=== PATIENT | female | born 1940 | race Caucasian/White ===

== ENCOUNTER 2023-01-09 11:42 | Outpatient (OUT) | payer MEDICARE, OTHER, SELFPAY ==
--- NOTE | 2023-01-09 11:59 | CA_ITS ---
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1940 Requested By: ALMA ROSA REYNOSO Order Number: [id number] Reading MD: ALMA ROSA REYNOSO Interpretive Statements Predominant rhythm is sinus with average rate of 58 bpm Tachycardia - max rate of 155 bpm - 8 episodes of SVT w/ longest episode of 7 beats Atrial fibrillation - 11% total - longest episode of 36min 13sec Bradycardia - 50% total - min rate of 40 bpm Ventricular ectopy - none Patient triggered events: none Impression: Predominant rhythm is sinus with average rate of 58 bpm Episodes of atrial fibrillation: 11% total Fastest rate of 155 bpm and slowest rate of 40 bpm No pauses or blocks Electronically Signed On 02-03-2023 7:26:17 EDT by ALMA ROSA REYNOSO
== END 2023-01-09 11:43 ==
LOC: CARD 11:46
PROVIDERS: PCP Internal Medicine; Visit Provider Internal Medicine
DX: R00.1 Bradycardia, unspecified (principal)
CPT/HCPCS: 93242

== ENCOUNTER 2023-01-26 10:37 | Emergency (ER) | payer MEDICARE, OTHER, SELFPAY ==
[2023-01-26 10:48] VITALS: BP 192/62; PULSE 61; RESP 17; O2SAT 98
[2023-01-26 10:49] VITALS: BP 192/62; PULSE 56; RESP 20; TEMP 36.6; O2SAT 96; BMI 28.3
[2023-01-26 10:58] VITALS: BP 170/72; PULSE 52; RESP 13; O2SAT 98
--- NOTE | 2023-01-26 11:04 | ECG_ITS ---
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
--- NOTE | 2023-01-26 11:04 | XR_ITS ---
The [address] [address] Patient Name: CHRISTA PITTS MRN: [id number] date: 1940 Sex: F Assigned Patient Location: ER Current Patient Location: Accession/Order Number: [id number] Exam Date: 01/26/2023 11:12 Report Date: 01/26/2023 11:32 At the request of: LELO ALCOCER Procedure: XR chest 1V EXAM: XR chest 1V HISTORY: Shortness of breath and history of a pleural effusion. COMPARISON: Chest radiograph dated 12/24/2022. TECHNIQUE: AP erect portable chest radiograph performed. FINDINGS: Stable tracheal and bronchial calcification and stable convexity of the trachea to the right secondary to the aortic arch. Although partially obscured on the right, the cardiomediastinal silhouette is incidentally changed from the previous examination. There is stable atheromatous calcification at the aortic arch. There are numerous calcifications at the right hilum There is stable volume loss within the right chest. There is a larger, moderate right pleural effusion with associated compressive atelectasis which extends along the lateral margin of the right chest and into the minor fissure. The pulmonary vasculature is mildly prominent however remains sharp and not significantly congested. The left lung rubin are clear. There is no pneumothorax. The bony structures are osteopenic. No acute osseous abnormality is seen. IMPRESSION: There is stable volume loss within the right chest. There is a larger, moderate right pleural effusion with associated compressive atelectasis which extends along the lateral margin of the right chest and into the minor fissure. The pulmonary vasculature is mildly prominent however remains sharp and not significantly congested. The left lung rubin are clear. Electronically authenticated by: KAILYN MCCLAIN Date: 01/26/2023 11:32
--- NOTE | 2023-01-26 11:06 | ED.SOB1 ---
HPI - SOB/Dyspnea General Chief Complaint: Shortness of Breath/Dyspnea Stated Complaint: shortness of breath Time Seen by Provider: 01/26/23 10:57 Source: patient Mode of arrival: walk-in History of Present Illness HPI Narrative: 82-year-old female presents for shortness of breath. She is worried she has reaccumulation of her right pleural effusion. She had have a liter drained previously. She had some swelling in her feet last night but that's gone away after she elevated them during the night. No fever or cough. Symptom is worse with exertion. Related Data Home Medications Medication Instructions Recorded Confirmed amlodipine 10 mg tablet 10 mg PO DAILY 01/26/23 01/26/23 carvedilol 12.5 mg tablet 12.5 mg PO Q12H 01/26/23 01/26/23 omeprazole 40 mg capsule,delayed 40 mg PO DAILY 01/26/23 01/26/23 release Allergies Allergy/AdvReac Type Severity Reaction Status Date / Time No Known Drug Allergies Allergy Verified 01/26/23 10:48 Review of Systems ROS Narrative A ten point review of systems is negative except as noted above. Exam Narrative Exam Narrative: Nurses note and vital signs reviewed and patient is not hypoxic. General: The patient appears well and in no apparent distress. Patient is resting comfortably on cart, Sitting upright. Skin: Warm, dry, no pallor noted. There is no rash noted. Head: Normocephalic, atraumatic Eye: Normal conjunctiva, no drainage Ears, Nose, Mouth, and Throat: oral mucosa is moist. Nares patent. Cardiovascular: Regular Rate and Rhythm Respiratory: Patient is in no distress, no accessory muscle use, Breath sounds are slightly diminished on the right Back: non-tender, no CVA tenderness bilaterally to percussion. GI: no tenderness to palpation, no masses appreciated. No rebound, guarding, or rigidity noted. Musculoskeletal: The patient has no evidence of calf tenderness, no pitting edema, symmetrical pulses noted bilaterally Neurological: A&O x4, normal speech Psychiatric: Cooperative Constitutional Vital Signs - 24 hr 01/26/23 10:49 01/26/23 10:48 01/26/23 10:58 Temperature 97.9 F Pulse Rate 61 52 L Pulse Rate [Monitor] 56 L Respiratory Rate 20 17 13 Blood Pressure 192/62 H 170/72 H Blood Pressure [Right Arm] 192/62 H Pulse Oximetry 96 98 98 Oxygen Delivery Method Room Air Course Vital Signs Vital signs: Vital Signs Pulse Rate 61 01/26/23 10:48 Respiratory Rate 17 01/26/23 10:48 Blood Pressure 192/62 H 01/26/23 10:48 Pulse Oximetry 98 01/26/23 10:48 Temperature 97.9 F 01/26/23 10:49 Pulse Rate 52 L 01/26/23 10:58 Respiratory Rate 13 01/26/23 10:58 Blood Pressure 170/72 H 01/26/23 10:58 Pulse Oximetry 98 01/26/23 10:58 Oxygen Delivery Method Room Air 01/26/23 10:49 MDM - SOB/Dyspnea MDM Narrative Medical decision making narrative: The patient has recurrence of right pleural effusion. It's moderate and vital signs are normal. She doesn't require admission the hospital. Case discussed with Dr. Simpson and follow-up is arranged. She will likely need to have thoracentesis performed as an outpatient and this was discussed with her. Treatment diagnosis and follow-up were discussed with the patient and her . Differential Diagnosis Differential diagnosis: Likely congestive heart failure, community acquired pneumonia and other (Recurrent pleural effusion) Lab Data Attestation: I reviewed the patient's lab results. Labs: Lab Results 01/26/23 Range/Units 11:00 WBC 6.7 (4.0-11.0) 10^3/uL RBC 2.92 L (4.20-5.40) 10^6/uL Hgb 8.7 L (12.0-16.0) g/dL Hct 28.1 L (36.0-48.0) % MCV 96.2 (81.0-99.0) fL MCH 29.8 (26.7-34.0) pg MCHC 31.0 (29.9-35.2) g/dL RDW 22.1 H (11.0-15.0) % Plt Count 255 (150-450) 10^3/uL MPV 13.3 (9.5-13.5) fL Neut % (Auto) 60.3 (43.0-75.0) % Lymph % (Auto) 22.8 (20.5-60.0) % [place] % (Auto) 7.4 (1.7-12.0) % Eos % (Auto) 6.0 (0.9-7.0) % Baso % (Auto) 2.8 H (0.2-2.0) % Neut # (Auto) 4.1 (1.4-6.5) 10^3/uL Lymph # (Auto) 1.5 (1.2-3.8) 10^3/uL [place] # (Auto) 0.5 (0.3-0.8) 10^3/uL Eos # (Auto) 0.4 (0.0-0.7) 10^3/uL Baso # (Auto) 0.2 H (0.0-0.1) 10^3/uL Abs Immat Gran (auto) 0.05 H (0.00-0.03) 10^3/uL Imm/Tot Granulo (auto) 0.7 H (0.0-0.5) % Sodium 139 (136-145) mmol/L Potassium 5.6 H (3.5-5.1) mmol/L Chloride 106 (98-107) mmol/L Carbon Dioxide 26.0 (21.0-32.0) mmol/L Anion Gap 12.6 BUN 17.0 (7.0-18.0) mg/dL Creatinine 1.22 H (0.55-1.02) mg/dL Est GFR ( Amer) 51 L (>=60) Est GFR (Non-Af Amer) 42 L (>=60) BUN/Creatinine Ratio 13.9 Glucose 103 (74-106) mg/dL Calcium 8.6 (8.5-10.1) mg/dL Troponin I High Sens 9.6 (4.0-51.3) pg/mL Imaging Data Chest x-ray: Radiologist's impression: Moderate right-sided pleural effusion ECG Data Attestation: I personally reviewed and interpreted this ECG as follows: (EKG on my interpretation shows sinus bradycardia with rate of forty-eight) Discharge Plan Discharge Chief Complaint: Shortness of Breath/Dyspnea Clinical Impression: Pleural effusion Patient Disposition: Home, Self-Care Time of Disposition Decision: 12:54 Mode of Transportation: Private Vehicle Prescriptions / Home Meds: No Action omeprazole 40 mg capsule,delayed release(DR/EC) 40 mg PO DAILY carvedilol 12.5 mg tablet 12.5 mg PO Q12H amlodipine 10 mg tablet 10 mg PO DAILY Instructions: Dyspnea (ED) Stand Alone Forms: Portal Instructions Referrals: Bryant Dallas DO [Primary Care Provider] - 1 week
[2023-01-26 11:18] LABS: Basophils Absolute Auto 0.2 10^3/uL (0.0-0.1); Basophils Percent Auto 2.8 % (0.2-2.0); Eosinophils Absolute Auto 0.4 10^3/uL (0.0-0.7); Hematocrit 28.1 % (36.0-48.0); Hemoglobin 8.7 g/dL (12.0-16.0); Immature Granulocytes Abs Auto 0.05 10^3/uL (0.00-0.03); Immature Granulocytes Pct Auto 0.7 % (0.0-0.5); Lymphocytes Absolute Auto 1.5 10^3/uL (1.2-3.8); Lymphocytes Percent Auto 22.8 % (20.5-60.0); Mean Corpuscular Hemoglobin 29.8 pg (26.7-34.0); Mean Corpuscular Volume 96.2 fL (81.0-99.0); Mean Platelet Volume 13.3 fL (9.5-13.5); Monocytes Absolute Auto 0.5 10^3/uL (0.3-0.8); Monocytes Percent Auto 7.4 % (1.7-12.0); Neutrophils Absolute Auto 4.1 10^3/uL (1.4-6.5); Neutrophils Percent Auto 60.3 % (43.0-75.0); Platelet Count 255 10^3/uL (150-450); Red Blood Count 2.92 10^6/uL (4.20-5.40); Red Cell Distribution Width 22.1 % (11.0-15.0); White Blood Count 6.7 10^3/uL (4.0-11.0)
[2023-01-26 12:10] LABS: Anion Gap 12.6; BUN Creatinine Ratio 13.9; Calcium 8.6 mg/dL (8.5-10.1); Chloride 106 mmol/L (98-107); Estimated GFR (African America 51 (>=60); Estimated GFR (Non-African Ame 42 (>=60); Glucose 103 mg/dL (74-106); Potassium 5.6 mmol/L (3.5-5.1); Sodium 139 mmol/L (136-145); Troponin I High Sensitivity 9.6 pg/mL (4.0-51.3)
[2023-01-26 13:25] VITALS: BP 172/70; PULSE 62; RESP 16; O2SAT 98
== END 2023-01-26 13:27 | disposition home or self-care (01) ==
PROVIDERS: Emergency Provider Emergency Medicine; PCP Internal Medicine
DX: J90 Pleural effusion, not elsewhere classified (principal); Z79.899 Other long term (current) drug therapy
CPT/HCPCS: 36415; 71045; 80048; 84484; 85025; 93005; 99285

== ENCOUNTER 2023-02-09 10:10 | Outpatient (OUT) | payer MEDICARE, OTHER, SELFPAY ==
[2023-02-09 10:23] LABS: Basophils Absolute Auto 0.2 10^3/uL (0.0-0.1); Basophils Percent Auto 3.1 % (0.2-2.0); Eosinophils Absolute Auto 0.4 10^3/uL (0.0-0.7); Eosinophils Percent Auto 4.9 % (0.9-7.0); Hematocrit 27.6 % (36.0-48.0); Hemoglobin 8.6 g/dL (12.0-16.0); Immature Granulocytes Abs Auto 0.07 10^3/uL (0.00-0.03); Lymphocytes Absolute Auto 1.6 10^3/uL (1.2-3.8); Lymphocytes Percent Auto 21.9 % (20.5-60.0); Mean Corpuscular HGB Conc 31.2 g/dL (29.9-35.2); Mean Corpuscular Hemoglobin 30.3 pg (26.7-34.0); Mean Corpuscular Volume 97.2 fL (81.0-99.0); Mean Platelet Volume 12.3 fL (9.5-13.5); Monocytes Absolute Auto 0.5 10^3/uL (0.3-0.8); Monocytes Percent Auto 6.8 % (1.7-12.0); Neutrophils Absolute Auto 4.4 10^3/uL (1.4-6.5); Neutrophils Percent Auto 62.3 % (43.0-75.0); Platelet Count 218 10^3/uL (150-450); Red Blood Count 2.84 10^6/uL (4.20-5.40); White Blood Count 7.1 10^3/uL (4.0-11.0)
[2023-02-09 10:38] LABS: Anion Gap 9.2; Calcium 8.6 mg/dL (8.5-10.1); Carbon Dioxide 28.6 mmol/L (21.0-32.0); Chloride 106 mmol/L (98-107); Estimated GFR (African America 53 (>=60); Estimated GFR (Non-African Ame 44 (>=60); Glucose 109 mg/dL (74-106); Potassium 4.8 mmol/L (3.5-5.1); Sodium 139 mmol/L (136-145)
== END 2023-02-09 10:11 | disposition home or self-care (01) ==
LOC: LAB 10:12
PROVIDERS: PCP Internal Medicine; Visit Provider Internal Medicine
DX: D62 Acute posthemorrhagic anemia (principal); I50.32 Chronic diastolic (congestive) heart failure
CPT/HCPCS: 36415; 80048; 85025

== ENCOUNTER 2023-02-09 10:12 | Outpatient (OUT) | payer MEDICARE, OTHER, SELFPAY ==
--- NOTE | 2023-02-09 | NM_ITS ---
Patient: CHRISTA PITTS Exam Date: 02/09/2023 : 1940 Gender:F Ordering : DR Bryant Dallas D.O. Admission #: [id number] Family : Order #: [id number] CLICK HERE TO VIEW EXAM RADIOLOGY REPORT PROCEDURE: NM BELKIS PERF SPECT REST STR COMPARISON: None. INDICATIONS: Chronic heart failure with preserved ejection fraction TECHNIQUE: Exam Description: Stress/Rest one day protocol gated SPECT Rest Imagin.9 mCi Tc-99m Cardiolite IV on 02/09/2023 Stress Imaging 30.3 mCi Tc-99m Cardiolite IV on 02/09/2023 Exercise Protocol: 0.4 mg Lexiscan given IV Heart Rate (bpm): Rest: 56 Max: 75 PMHR: 53 Blood Pressure: Rest: 180/64 Max: 180/64 Symptoms: Rest and peak stress ECG findings were normal and the exercise portion of the study was normal per attending physician Dr. Marck Dallas . For more details please see separate cardiac stress test report. FINDINGS: QUALITY OF STUDY: Excellent. PERFUSION DEFECT: None. LOCATION: N/A SIZE: N/A. SEVERITY: N/A. TYPE: N/A. WALL MOTION: LV SIZE: Normal. 111 mL. TID / TCD: None; 0.9 LVEF: Normal. Calculated EF 68%. SUMMARY: Myocardial perfusion imaging study is NORMAL. CONCLUSION: 1. Normal nuclear medicine myocardial perfusion scan. Dictated by: Delonte Gonsales M.D. on 02/09/2023 at 15:23 Approved by: Delonte Gonsales M.D. on 02/09/2023 at 15:26
--- NOTE | 2023-02-09 10:12 | OP_ITS ---
CARDIAC STRESS TEST ? Requesting Physician:? Procedure Date:? 02/09/23 ? Guillermina Das ? PROCEDURE: This is a Lexiscan stress test. ? REASON FOR STRESS TEST:? To evaluate a patient with chronic diastolic heart failure and new onset atrial fibrillation. ? CARDIAC HISTORY:? This is an 82-year-old with no personal history of coronary disease.? There is a questionable family history. ? PRIMARY RISK FACTORS:? Include essential hypertension, left subclavian artery stenosis. ? RESTING 12 LEAD ELECTROCARDIOGRAM:? Revealed sinus rhythm with a ventricular rate of 55 beats per minute with a MT interval 0.16, QRS interval 0.08 and QT interval 0.40, all within normal limits.? The axis is normal.? There is QS noted in V1 and V2 and non-specific ST-T wave changes. ? STRESS TEST: A.? Protocol:? Lexiscan protocol was followed. B.? Exercise capacity is not applicable for this procedure. C.? Heart rate and blood pressure response:? The heart rate increased with a decrease in blood pressure, which is appropriate for Lexiscan infusion. D.? EKG:? There were no ST-T wave changes during infusion. E.? Patient response:? The patient denied chest pain during infusion. ? IMPRESSION:? There was no objective evidence suspicious for myocardial ischemia during infusion.? Cardiolite was injected with images and interpretation pending. [facility]
[2023-02-09] MEDS: REGADENOSON 0.4 MG/5 ML SYRINGE IV (13:00)
== END 2023-02-09 10:13 | disposition home or self-care (01) ==
LOC: NM 10:12
PROVIDERS: PCP Internal Medicine; Visit Provider Internal Medicine
DX: I50.32 Chronic diastolic (congestive) heart failure (principal); I48.0 Paroxysmal atrial fibrillation
CPT/HCPCS: 78452; 93017; A9500; J2785

== ENCOUNTER 2023-04-11 12:49 | Outpatient (OUT) | payer MEDICARE, OTHER, SELFPAY ==
--- NOTE | 2023-04-11 13:15 | CT_ITS ---
The [address] [address] Patient Name: CHRISTA PITTS MRN: [id number] date: 1940 Sex: F Assigned Patient Location: CT Current Patient Location: CT Accession/Order Number: [id number] Exam Date: 04/11/2023 13:10 Report Date: 04/11/2023 13:57 At the request of: BLAINE BRAVO Procedure: CT chest wo con EXAM: CT chest wo con HISTORY: Pleural Effusion J90 COMPARISON: 12/25/2022 TECHNIQUE: Axial CT images were obtained of the chest without intravenous contrast. Multiplanar reconstructions were performed. CHEST FINDINGS: Lungs/Pleura: There is a large right-sided pleural effusion, which is increased in size since the previous study resulting in increased volume loss in the right lung. Patchy consolidative and tree-in-bud opacities appear overall similar to the previous exam although there is diminished volume causing increased haziness within the right lung field. The left lung is clear. There are chronic areas of calcification at the right lower lobe and pleura. Cardiovascular: The heart is enlarged. Moderate coronary artery calcifications are present. There are extensive atherosclerotic calcifications throughout the thoracic aorta and great vessels. Pericardium: No effusion. Mediastinum: A moderate-sized hiatal hernia is present. Lymph Nodes: There are bulky coarse calcified lymph nodes at the right pulmonary hilum. Bones: No acute osseous abnormality. A vertebral hemangioma is noted at the T8 vertebral body. Soft tissues: Unremarkable. Upper Abdomen: Multiple punctate calcifications are present in the liver and spleen, likely due to remote granulomatous disease. CT/CT chest wo con IMPRESSION: 1. Large right-sided pleural effusion with worsening volume loss in the right lung. 2. Chronic consolidative and tree-in-bud opacities in the right lung field appears similar to the previous exam, considering difference in appearance due to volume loss. 3. Cardiomegaly with moderate coronary artery calcifications. 4. Extensive atherosclerotic disease in the thoracic aorta and great vessels. 5. Evidence of remote granulomatous disease. 6. Moderate-sized hiatal hernia. Electronically authenticated by: ROMAN YI Date: 04/11/2023 13:57
== END 2023-04-11 12:50 | disposition home or self-care (01) ==
LOC: CT 12:51
PROVIDERS: PCP Internal Medicine; Visit Provider Internal Medicine
DX: J90 Pleural effusion, not elsewhere classified (principal)
CPT/HCPCS: 71250

== ENCOUNTER 2023-06-22 11:20 | Outpatient (OUT) | payer MEDICARE, OTHER, SELFPAY ==
[2023-06-22 11:59] LABS: Basophils Absolute Auto 0.2 10^3/uL (0.0-0.1); Basophils Percent Auto 3.2 % (0.2-2.0); Eosinophils Absolute Auto 0.3 10^3/uL (0.0-0.7); Eosinophils Percent Auto 5.4 % (0.9-7.0); Hematocrit 24.2 % (36.0-48.0); Hemoglobin 7.4 g/dL (12.0-16.0); Immature Granulocytes Abs Auto 0.04 10^3/uL (0.00-0.03); Immature Granulocytes Pct Auto 0.7 % (0.0-0.5); Lymphocytes Absolute Auto 1.3 10^3/uL (1.2-3.8); Lymphocytes Percent Auto 21.3 % (20.5-60.0); Mean Corpuscular HGB Conc 30.6 g/dL (29.9-35.2); Mean Corpuscular Hemoglobin 29.6 pg (26.7-34.0); Mean Corpuscular Volume 96.8 fL (81.0-99.0); Monocytes Absolute Auto 0.4 10^3/uL (0.3-0.8); Monocytes Percent Auto 6.9 % (1.7-12.0); Neutrophils Absolute Auto 3.7 10^3/uL (1.4-6.5); Neutrophils Percent Auto 62.5 % (43.0-75.0); Platelet Count 215 10^3/uL (150-450); Red Cell Distribution Width 23.1 % (11.0-15.0); White Blood Count 5.9 10^3/uL (4.0-11.0)
[2023-06-22 12:06] LABS: Mean Platelet Volume 13.5 fL (9.5-13.5)
[2023-06-22 12:09] LABS: Anion Gap 9.2; BUN Creatinine Ratio 13.7; Calcium 8.2 mg/dL (8.5-10.1); Carbon Dioxide 30.5 mmol/L (21.0-32.0); Chloride 106 mmol/L (98-107); Estimated GFR (African America 54 (>=60); Estimated GFR (Non-African Ame 44 (>=60); Glucose 99 mg/dL (74-106); Potassium 4.7 mmol/L (3.5-5.1); Sodium 141 mmol/L (136-145)
== END 2023-06-22 11:21 | disposition home or self-care (01) ==
LOC: LAB 11:23
PROVIDERS: PCP Internal Medicine; Visit Provider Internal Medicine
DX: N18.32 Chronic kidney disease, stage 3b (principal); D51.0 Vitamin B12 deficiency anemia due to intrinsic factor deficiency
CPT/HCPCS: 36415; 80048; 85025

== ENCOUNTER 2023-07-24 04:29 | Inpatient (IN) | payer MEDICARE, OTHER, SELFPAY ==
[2023-07-24] VITALS (38 sets, daily range): BP systolic 122–183; BP diastolic 52–70; PULSE 49–77; RESP 9–22; TEMP 36.4–36.8; O2SAT 65–100; BMI 29.9; BMI 28.7
--- NOTE | 2023-07-24 04:42 | XR_ITS ---
The [address] [address] Patient Name: CHRISTA PITTS MRN: [id number] date: 1940 Sex: F Assigned Patient Location: ER Current Patient Location: ER Accession/Order Number: [id number] Exam Date: 07/24/2023 04:55 Report Date: 07/24/2023 06:56 At the request of: HERB PEARCE Procedure: XR chest 1V EXAM: XR chest 1V HISTORY: Shortness of breath. COMPARISON: Portable chest radiograph dated 01/26/2023. TECHNIQUE: AP erect portable chest radiograph performed. FINDINGS: Stable volume loss right chest. Stable convexity of the trachea to the right secondary to the aortic arch. The cardiac mediastinal silhouette is partially obscured however visualized portions are stable. There is stable mild to moderate atheromatous calcification at the aortic arch. There is a larger, large right pleural effusion with associated compressive atelectasis. There is pulmonary vascular congestion with diffuse interstitial infiltrates and additional airspace disease within the bilateral mid and left lower lung zones. In the right clinical setting these findings can be associated with congestive heart failure with pulmonary edema. There is no pneumothorax. The bony structures are osteopenic. No acute osseous abnormality is seen. XR/XR chest 1V IMPRESSION: Findings as described in the body of the report which in the right clinical setting are consistent with congestive heart failure with pulmonary edema. There is a large right pleural effusion which is larger compared to the previous examination. Electronically authenticated by: KAILYN MCCLAIN Date: 07/24/2023 06:56
--- NOTE | 2023-07-24 04:42 | ECG_ITS ---
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
[2023-07-24 05:06] LABS: ABG PCO2 45.2 mmHg (35.0-45.0); pH ABG 7.357 (7.350-7.450)
[2023-07-24 05:07] LABS: Allen Test POSITIVE (POSITIVE); Base Excess ABG -0.1 mmol/L (-2.0-2.0); HCO3 ABG 25.4 mmol/L (22.0-26.0); Liters per Minute 4; O2 Mode NASAL CANNULA; Oxygen Saturation ABG 95.3 %; PO2 ABG 76.9 mmHg (80.0-100.0); Puncture Site R RADIAL
[2023-07-24 05:17] LABS: Hematocrit 26.1 % (36.0-48.0); Mean Corpuscular HGB Conc 30.7 g/dL (29.9-35.2); Mean Corpuscular Hemoglobin 29.6 pg (26.7-34.0); Mean Corpuscular Volume 96.7 fL (81.0-99.0); Platelet Count 313 10^3/uL (150-450); Red Cell Distribution Width 23.4 % (11.0-15.0); White Blood Count 10.5 10^3/uL (4.0-11.0)
[2023-07-24 05:30] LABS: Influenza Virus A Antigen Negative; Influenza Virus B Antigen Negative; Internal Control Within Normal Limits; SARS-CoV-2 Ag NEGATIVE (NEGATIVE)
--- NOTE | 2023-07-24 05:32 | CT_ITS ---
[place] [id number] Patient Name: CHRISTA PITTS MRN: [id number] date: 1940 Sex: F Assigned Patient Location: ER Current Patient Location: Accession/Order Number: [id number] Exam Date: 07/24/2023 05:40 Report Date: 07/24/2023 07:33 At the request of: HERB PEARCE Procedure: CT chest wo con EXAM: CT chest wo con HISTORY: abn chest xray COMPARISON: 04/11/2023, 07/24/2023 TECHNIQUE: CT of the chest without intravenous contrast. Dose reduction techniques performed. FINDINGS: Patient Transporter: No pertinent findings, which are not already discussed below. Tubes, devices, and lines: None. Lower neck: Unremarkable. Lungs/Pleura/Airways: Moderate to large right pleural fusion with loculation. Small left pleural effusion. Diffuse mosaic attenuation with multifocal atelectasis/consolidation; right lower lobe is collapsed.. Calcified right pleural plaques and right lower lobe parenchymal calcification, unchanged . Additionally unchanged anterior peripheral small consolidation/scarring within the left upper lobe No pleural effusion.No pneumothorax. Clear central airways. Mediastinum: Cardiomegaly. Mild aortic valve calcification. Multifocal multivessel coronary artery calcifications. Unchanged mildly enlarged AP window lymph node measuring 1.1 cm. No new enlarged thoracic lymph nodes. Moderate to large hiatal hernia. Advanced aortic atherosclerosis. Dilated main pulmonary artery, unchanged, suggestive of underlying pulmonary arterial hypertension. Upper abdomen: Calcified splenic and hepatic granulomata. Bones: No acute fracture. No suspicious osseous lesion. Multiple vertebral body hemangiomas. Soft tissues: Normal. CT/CT chest wo con IMPRESSION: 1. No significant change in pleural-parenchymal pattern with moderate to large right loculated pleural effusion and small left pleural fusion with mosaic attenuation likely indicative of underlying alveolar edema as well as chronic right lower lobe collapse. 2. Cardiomegaly and extensive vascular findings . Electronically authenticated by: PHOENIX DIMAS Date: 07/24/2023 07:33
--- NOTE | 2023-07-24 05:39 | ED_ITS ---
HPI - General Adult General Chief complaint: Shortness of Breath/Dyspnea Stated complaint: SOB Time Seen by Provider: 07/24/23 04:36 Source: patient and family Mode of arrival: Wheelchair Limitations: physical limitation History of Present Illness HPI narrative: 83-year-old female to the emergency room with chief complaint shortness of breath. Patient reports she has a history of right-sided pleural effusion. She reports sudden onset of shortness of breath tonight. Denies any fever, sweats, chills. Denies any cough. Denies any chest pain. She denies any leg swelling. She denies any history of chronic obstructive pulmonary disease or asthma. Related Data Home Medications Medication Instructions Recorded Confirmed amlodipine 10 mg tablet 10 mg PO DAILY 01/26/23 01/26/23 carvedilol 12.5 mg tablet 12.5 mg PO Q12H 01/26/23 01/26/23 omeprazole 40 mg capsule,delayed 40 mg PO DAILY 01/26/23 01/26/23 release Allergies Allergy/AdvReac Type Severity Reaction Status Date / Time No Known Drug Allergies Allergy Verified 07/24/23 04:39 Review of Systems ROS Status of ROS 10 or more systems reviewed and unremark able except as noted in history and below Exam Narrative Exam Narrative: VITALS: I have reviewed the triage vital signs.? GENERAL: Elderly female in respiratory distress NEURO: Alert and oriented. Moves all extremities. Face is symmetric and expressive.? EYES: PERRL. No scleral icterus or conjunctival injection. No discharge.? HENT: Normocephalic, atraumatic. Hearing is grossly intact. Nares grossly patent and without discharge. Mucous membranes moist.? NECK: No JVD. Patient moves neck without restriction.? CARDIO: Rhythm regular. Normal rate. No murmur, rub, or gallop. Pulses equal aurelio aterally in the upper and lower extremity. No lower extremity edema.? PULM: Diminished on the right. Severe conversational dyspnea. Mild increased work of breathing. GI/: Abdomen is soft and non-tender. Normoactive bowel sounds.? EXTREMITIES: Symmetric muscle bulk. No joint swelling. No clubbing, cyanosis, or deformity.? SKIN: Warm and dry. Normal turgor. No rash or lesions appreciated.? PSYCH: Mood, affect, and interaction is appropriate to the setting. Constitutional Vital Signs, click to edit/add: Last Vital Signs Temp 98 F 07/24/23 04:35 Pulse 65 07/24/23 06:34 Resp 20 07/24/23 06:34 BP 170/53 H 07/24/23 06:34 Pulse Ox 97 07/24/23 06:34 O2 Del Method Nasal Cannula 07/24/23 05:13 O2 Flow Rate 4 07/24/23 05:13 Course Vital Signs Vital signs: Vital Signs Temperature 98 F 07/24/23 04:35 Pulse Rate 74 07/24/23 04:35 Respiratory Rate 20 07/24/23 04:35 Blood Pressure 183/60 H 07/24/23 04:35 Pulse Oximetry 68 L 07/24/23 04:35 Oxygen Delivery Method Room Air 07/24/23 04:35 Temperature 98 F 07/24/23 04:35 Pulse Rate 65 07/24/23 06:34 Respiratory Rate 20 07/24/23 06:34 Blood Pressure 170/53 H 07/24/23 06:34 Pulse Oximetry 97 07/24/23 06:34 Oxygen Delivery Method Nasal Cannula 07/24/23 05:13 Oxygen Delivery Flow Rate 4 07/24/23 05:13 Medical Decision Making MDM Narrative Medical decision making narrative: 83-year-old female to the emergency department she will any shortness of breath. She is hypoxic in the 60s on room air upon arrival. She increased into the 90s with 4 L nasal cannula. She reports she has a history of right-sided pleural eff usion. She does have decreased lung sounds on the right today. ABG, basic labs, troponin, lactate and cultures are ordered. We'll obtain a chest x-ray negative abnormal will follow with chest CT. Patient agrees with this plan. CBC without major abnormality. Her ABG is consistent with her acute hypoxemic respiratory failure. Care signed out to Dr. Powers with CT results and admission pending. Medical Records Medical records reviewed: Yes I reviewed the patient's medical records Lab Data Lab results reviewed: Yes I reviewed the patient's lab results Labs: Lab Results 07/24/23 07/24/23 Range/Units 04:46 05:00 WBC 10.5 (4.0-11.0) 10^3/uL RBC 2.70 L (4.20-5.40) 10^6/uL Hgb 8.0 L (12.0-16.0) g/dL Hct 26.1 L (36.0-48.0) % MCV 96.7 (81.0-99.0) fL MCH 29.6 (26.7-34.0) pg MCHC 30.7 (29.9-35.2) g/dL RDW 23.4 H (11.0-15.0) % Plt Count 313 (150-450) 10^3/uL MPV 0.0 L (9.5-13.5) fL Seg Neuts % (Manual) 73.0 Band Neutrophils % 1.0 (0-5) % Lymphocytes % (Manual) 10.0 L (20.5-60.0) % Atypical Lymphs % (Man) 3.0 % Monocytes % (Manual) 1.0 L (1.7-12.0) % Eosinophils % (Manual) 4.0 (0.9-7.0) % Basophils % (Manual) 5.0 H (0.2-2.0) % Metamyelocytes % 1.0 Myelocytes % 1.0 Neutrophils # (Manual) 7.66 H (1.4-6.5) 10^3/uL Band Neutrophils # 0.1 (0.0-0.3) 10^3/uL Lymphocytes # (Manual) 1.05 L (1.20-3.80) 10^3/uL Abs Atypical Lymphs Man 0.3 Monocytes # (Manual) 0.10 L (0.30-0.80) 10^3/uL Eosinophils # (Manual) 0.42 (0.00-0.70) 10^3/uL Basophils # (Manual) 0.52 H (0.00-0.10) 10^3/uL Metamyelocytes # 0.10 Myelocytes # 0.10 Poikilocytosis 3+ Anisocytosis 3+ Microcytosis 3+ PT 11.7 H (9.0-11.6) sec INR 1.11 APTT 33.0 (22.3-36.2) sec Puncture Site R radial ABG pH 7.357 (7.350-7.450) ABG pCO2 45.2 H (35.0-45.0) mmHg ABG pO2 76.9 L (80.0-100.0) mmHg ABG HCO3 25.4 (22.0-26.0) mmol/L ABG O2 Saturation 95.3 % ABG Base Excess -0.1 (-2.0-2.0) mmol/L Thomas Test Positive (POSITIVE) O2 Liters/Min 4 Sodium 139 (136-145) mmol/L Potassium 3.8 (3.5-5.1) mmol/L Chloride 105 (98-107) mmol/L Carbon Dioxide 27.7 (21.0-32.0) mmol/L Anion Gap 10.1 BUN 14.0 (7.0-18.0) mg/dL Creatinine 1.26 H (0.55-1.02) mg/dL Est GFR ( Amer) 49 L (>=60) Est GFR (Non-Af Amer) 41 L (>=60) BUN/Creatinine Ratio 11.1 Glucose 118 H (74-106) mg/dL Lactate 0.9 (0.4-2.0) mmol/L Calcium 8.8 (8.5-10.1) mg/dL Total Bilirubin 0.5 (0.2-1.0) mg/dL AST 10 L (15-37) U/L ALT 12 L (14-59) U/L Alkaline Phosphatase 63 (46-116) U/L Troponin I High Sens 11.5 (4.0-51.3) pg/mL NT-Pro-B Natriuret Pep 3119.0 H* (<=1800.0) pg/mL Total Protein 7.6 (6.4-8.2) g/dL Albumin 3.4 (3.4-5.0) g/dL Globulin 4.2 g/dL Albumin/Globulin Ratio 0.8 Procalcitonin <0.05 (0.00-0.50) ng/mL SARS-CoV-2 (PCR) Negative (NEGATIVE) Influenza Type A Ag Negative Influenza Type B Ag Negative ECG Data Attestation: I personally reviewed and interpreted this ECG as follows: (NSR@70. No stemi. Normal QTC. ) Critical Care Time Critical Care Time Attestation: Critical Care Procedure Note Authorized and Performed by: Pablo Marques, DO Total critical care time:? 31 min Due to a high probability of clinically significant, life threatening deterioration, the patient required my highest level of preparedness to intervene emergently and I personally spent this critical care time directly and personally managing the patient. This critical care time included obtaining a history; examining the patient; pulse oximetry; ordering and review of studies; arranging urgent treatment with development of a management plan; evaluation of patient's response to treatment; frequent reassessment; and, discussions with other providers. This critical care time was performed to assess and manage the high probability of imminent, life-threatening deterioration that could result in multi-organ failure. It was exclusive of separately billable procedures and treating other patients and teaching time. Please see MDM section and the rest of the note for further information on patient assessment and treatment. Discharge Plan Discharge Chief Complaint: Shortness of Breath/Dyspnea Clinical Impression: Pleural effusion, Acute hypoxemic respiratory failure Prescriptions / Home Meds: No Action omeprazole 40 mg capsule,delayed release(DR/EC) 40 mg PO DAILY carvedilol 12.5 mg tablet 12.5 mg PO Q12H amlodipine 10 mg tablet 10 mg PO DAILY Referrals: Bryant Dallas DO [Primary Care Provider] - 1 week
[2023-07-24 05:40] LABS: Alanine Aminotransferase 12 U/L (14-59); Albumin Globulin Ratio 0.8; Albumin Level 3.4 g/dL (3.4-5.0); Alkaline Phosphatase 63 U/L (46-116); Anion Gap 10.1; Aspartate Amino Transferase 10 U/L (15-37); BUN Creatinine Ratio 11.1; Bilirubin Total 0.5 mg/dL (0.2-1.0); Calcium 8.8 mg/dL (8.5-10.1); Carbon Dioxide 27.7 mmol/L (21.0-32.0); Chloride 105 mmol/L (98-107); Estimated GFR (African America 49 (>=60); Estimated GFR (Non-African Ame 41 (>=60); Globulin 4.2 g/dL; Glucose 118 mg/dL (74-106); Potassium 3.8 mmol/L (3.5-5.1); Sodium 139 mmol/L (136-145); Total Protein 7.6 g/dL (6.4-8.2)
[2023-07-24 05:42] LABS: INR 1.11; Prothrombin Time 11.7 sec (9.0-11.6)
[2023-07-24 05:45] LABS: Lactate/Lactic Acid 0.9 mmol/L (0.4-2.0)
[2023-07-24 05:46] LABS: Anisocytosis 3+; Atypical Lymphocytes Abs Man 0.3; Band Neutrophils Absolute 0.1 10^3/uL (0.0-0.3); Basophils Abs Manual 0.52 10^3/uL (0.00-0.10); Eosinophils Absolute Manual 0.42 10^3/uL (0.00-0.70); Lymphocytes Absolute Manual 1.05 10^3/uL (1.20-3.80); Poikilocytosis 3+; Segmented Neut Absolute Manual 7.66 10^3/uL (1.4-6.5)
[2023-07-24 05:47] LABS: Microcytosis 3+
[2023-07-24 05:52] LABS: PROCALCITONIN <0.05 ng/mL (0.00-0.50)
[2023-07-24 05:55] LABS: Troponin I High Sensitivity 11.5 pg/mL (4.0-51.3)
--- NOTE | 2023-07-24 09:24 | CA_ITS ---
Patient Name: CHRISTA PITTS MR#: [id number] : 1940 Exam Date: 07/24/2023 Ordering Doctor: DR RUBIN HESS . ECHOCARDIOGRAM REPORT PROCEDURE: CA ECHO DOPPLER COMPLETE INDICATIONS: Dyspnea COMPARISON: None. DESCRIPTION: COMPLETE ECHOCARDIOGRAM Real-time transthoracic echocardiography with 2D, M-mode, spectral and color flow Doppler performed. QUALITY: Technical quality was good. LEFT VENTRICLE: Mild dilatation. Mild concentric left ventricular hypertrophy. LV EF: Global left ventricular systolic function is hyperdynamic; visually estimated ejection fraction 65 to 70%. No significant wall motion abnormalities. DIASTOLIC: Grade II diastolic dysfunction. ATRIAL SEPTUM: Inadequately seen. LEFT ATRIUM: Severe dilatation. RIGHT ATRIUM: Mild dilatation. RIGHT VENTRICLE: Normal chamber size. Normal right ventricular systolic function. TRICUSPID VALVE: Normal mobility and thickness. Trivial tricuspid regurgitation. Mild pulmonary hypertension: RVSP 43mmHg MITRAL VALVE: Mildly thickened with normal mobility. No evidence of mitral valve stenosis. Mild mitral annular calcification. Mild to moderate mitral regurgitation. AORTIC VALVE: Normal trileaflet appearance. Mildly calcified aortic valve. Doppler velocity suggests mild aortic valve stenosis. DVI 0.4, DESMOND 1.3cm2, Vmax 2.2m/s, Mean gradient 11mmHg. Trivial aortic regurgitation. AORTIC ROOT: Normal diameter and appearance. PULMONIC VALVE: Normal thickness and mobility. No stenosis. Trivial regurgitation. PERICARDIUM: Anterior free space; trivial effusion versus fat pad. IVC: Normal size with partial collapse. CONCLUSION: 1. Global left ventricular systolic function is hyperdynamic; visually estimated ejection fraction is 65 to 70% 2. Normal right ventricular size and systolic function 3. Grade 2, moderate diastolic dysfunction 4. Mildly increased left ventricular wall thickness 5. Biatrial enlargement 6. Mildly increased right ventricular systolic pressure; RVSP 43 mmHg 7. Mild to moderate mitral regurgitation 8. Mild aortic valve stenosis 9. Anterior free space; trivial effusion versus fat pad Adult Echocardiography Procedure Report Left Ventricle LVEDD (3.7 - 5.6 cm): 5.53 cm LVESD (2.2 - 4.0 cm): 3.74 cm LVIVS thickness (0.6 - 1.2 cm): 1.01 cm LVPW thickness (0.5 - 1.0 cm): 1.17 cm e': 0.09 m/s E - e': 13.25 LVOT Max Gradient: 3.53 mm[Hg] LVOT Area (cm2): 0.94 m/s Peak Velocity (LVOT): 0.94 m/s Mean Velocity (LVOT): 0.70 m/s LVOT Diameter 1.93 cm Left Ventricular Ejection Fraction: 74.16 % Left Atrium LA Volume Index (2D A2C): 84.31 ml/m2 Left Atrium Systolic Dimension: 4.97 cm Mitral Valve MV E to A Ratio: 1.53 Mitral Valve A-Wave Peak Velocity: 0.77 m/s Mitral Valve E-Wave Peak Velocity: 1.17 m/s Right Ventricle RV Internal Diastolic Dimension: 3.49 cm Aorta AO Root Diam: 3.07 cm Ascending Ao Diam: 2.54 cm Aortic Valve AoV Area (Peak Karan): 1.27 cm2, 1.27 cm2 AoV Area (VTI): 1.28 cm2, 1.28 cm2 Peak Velocity(Antegrade Flow): 2.17 m/s Peak Gradient(Antegrade Flow): 18.89 mm[Hg] Mean Velocity(Antegrade Flow): 1.56 m/s Mean Gradient(Antegrade Flow): 11.02 mm[Hg] Velocity Time Integral: 68.02 cm Tricuspid Valve Peak Velocity (Regurgitant Flow): 2.73 m/s, 2.95 m/s, 3.74 m/s Pulmonic Valve Mean Gradient: 1.74 mm[Hg], 2.54 mm[Hg] Mean Velocity: 0.62 m/s, 0.76 m/s Peak Velocity: 0.96 m/s Peak Gradient: 3.22 mm[Hg], 4.20 mm[Hg] Right Atrium Right Atrium Systolic Pressure: 48.61 ml, 48.61 ml Dictated by: Tl Cobb M.D. on 07/24/2023 at 15:32 Approved by: Tl Cobb M.D. on 07/24/2023 at 15:38
--- NOTE | 2023-07-24 09:29 | P.HP_ITS ---
H&P: HPI History of Present Illness Chief complaint: SHORTNESS OF BREATH Narrative: Patient with history of pleural effusion presented to emergency room with increasing shortness of breath. Found to have significant hypoxia with O2 sats in the upper 70s. Placed on supplemental oxygen of 4 L with good result. Saturations now in the 90s. Patient more comfortable with her breathing. Patient mated for workup and treatment of same Review of Systems ROS Status of ROS 10 or more systems reviewed and unremark able except as noted in history and below Meds Home Medications and Allergies Home Medications Medication Instructions Recorded Confirmed Type amlodipine 10 mg tablet 10 mg PO DAILY 01/26/23 07/24/23 History carvedilol 12.5 mg tablet 12.5 mg PO BID 01/26/23 07/24/23 History omeprazole 40 mg capsule,delayed 40 mg PO DAILY 01/26/23 07/24/23 History release apixaban 2.5 mg tablet (Eliquis) 2.5 mg PO BID 07/24/23 07/24/23 History folic acid 1 mg tablet 1 mg PO DAILY 07/24/23 07/24/23 History Allergies Allergy/AdvReac Type Severity Reaction Status Date / Time No Known Drug Allergies Allergy Verified 07/24/23 04:39 Exam Constitutional Vital Signs, click to edit/add: Last Vital Signs Temp 98.2 F 07/24/23 09:07 Pulse 65 07/24/23 09:07 Resp 20 07/24/23 09:07 BP 183/70 H 07/24/23 09:07 Pulse Ox 92 L 07/24/23 09:07 O2 Del Method Nasal Cannula 07/24/23 09:07 O2 Flow Rate 4 07/24/23 09:07 Documenting provider has reviewed patient's vital signs: yes Common normals: no apparent distress Chest Common normals: inspection of chest normal Respiratory Common normals: normal respiratory effort and no use of accessory muscles Auscultation: diminished lung sounds and egophony left lower and right lower Cardio Common normals: regular rate and regular rhythm; murmurs detected Heart sounds: murmur systolic Extremity Common normals: abnormal to inspection (2 + Edema) Results Labs Labs: Short CBC 07/24/23 Range/Units 04:46 WBC 10.5 (4.0-11.0) 10^3/uL Hgb 8.0 L (12.0-16.0) g/dL Hct 26.1 L (36.0-48.0) % Plt Count 313 (150-450) 10^3/uL BMP 07/24/23 04:46 Sodium 139 Potassium 3.8 Chloride 105 Carbon Dioxide 27.7 BUN 14.0 Creatinine 1.26 H Glucose 118 H Calcium 8.8 Liver Function 07/24/23 Range/Units 04:46 Total Bilirubin 0.5 (0.2-1.0) mg/dL AST 10 L (15-37) U/L ALT 12 L (14-59) U/L Alkaline Phosphatase 63 (46-116) U/L Albumin 3.4 (3.4-5.0) g/dL ABG ABG results: 07/24/23 05:00 ABG pH 7.357 ABG pCO2 45.2 H ABG pO2 76.9 L ABG HCO3 25.4 ABG O2 Saturation 95.3 ABG Base Excess -0.1 Assessment and Plan Assessment and Plan (1) Acute hypoxemic respiratory failure: (2) Pleural effusion: Plan Acute hypoxic respiratory failure with uncontrolled hypertension with hypertensive urgency-known pleural effusion, consult pulmonology for evaluation and possible treatment. Patient also appears to have acute combined congestive heart failure. Will try Bumex drip. Acute combined congestive heart failure-Bumex drip-check labs and cardiac markers and echocardiogram Pleural effusion-plan per pulmonology Uncontrolled hypertension-as needed medications plus the diuresis may benefit Iron deficiency anemia-check occult blood, iron supplementations Chronic kidney disease stage II-monitor daily with diuresis Cardiac murmur-check echocardiogram, patient does indicate she was not told she has a murmur in the past Hypertension-continue current medications Anticoagulation-on Eliquis, will hold for now, patient does not know why she takes it we will try to track down records GERD-continue home medication L With the acuity and the above findings-patient unlikely to be able to be discharged in the next 2 days. Likely 3-day hospital stay. Will change patient to inpatient status
[2023-07-24 10:08] LABS: Troponin I High Sensitivity 18.5 pg/mL (4.0-51.3)
[2023-07-24 10:16] LABS: Free T3 1.58 pg/mL (2.18-3.98); Magnesium 2.5 mg/dL (1.8-2.4); Thyroid Stimulating Hormone 2.048 uIU/mL (0.358-3.740)
[2023-07-24] MEDS: CARVEDILOL 12.5 MG TABLET PO ×2 (10:29→20:33)
[2023-07-24] MEDS: AMLODIPINE BESYLATE 5 MG TABLET 10 MG PO (10:29)
[2023-07-24] MEDS: FERROUS SULFATE 325 MG TABLET PO ×2 (10:29→20:33)
[2023-07-24] MEDS: FOLIC ACID 1 MG TABLET PO (10:29)
[2023-07-24] MEDS: POTASSIUM CHLORIDE 10 MEQ ER TABLET PO ×2 (10:29→20:33)
[2023-07-24] MEDS: OMEPRAZOLE 40 MG CAPSULE.DR PO (10:29)
[2023-07-24] MEDS: BUMETANIDE 10 MG in 0.9 % SODIUM CHLORIDE 160 ML 20 MG IV (11:07)
[2023-07-24 13:21] LABS: Troponin I High Sensitivity 16.2 pg/mL (4.0-51.3)
--- NOTE | 2023-07-24 13:55 | PM.PLCN ---
History of Present Illness History of Present Illness Consult date: 07/24/23 Requesting physician: Haim Jalloh Reason for consult: hypoxemia and pleural effusion Chief complaint: SHORTNESS OF BREATH Narrative: 83yo female presents to [facility] ER with worsening shortness of breath. She states it began abruptly at 03:00 this AM - she woke up short of breath. She had a mild episode several days ago, but this was markedly worse. She also has noticed her ankles and legs becoming edematous. She is active for her age - she frequently bowls and was not having any issues playing recently. Upon arrival to the ER, she was found to be hypoxic on room air - this is new for her. CT chest revealed a large right loculated effusion, a small left effusion, and infiltrates suggestive of pulmonary edema. She was admitted and she was seen by me in Med/Surg. I have been following her for some time regarding the pleural effusion. The right pleural effusion is chronic. I previously performed a right-sided thoracentesis on 10/17/2022, but she developed a small iatrogenic pneumothorax which did not require a chest tube. The right effusion has been watched since that time with a slow increase in size. She was last seen by me outpatient on 04/13/2023, and the decision was made to just monitor it given the history of pneumothorax. Of note, it seemed to have decreased in size while on Lasix (for chronic diastolic CHF), but that was discontinued due to hypokalemia. She is currently on Eliquis. I am unclear what diagnosis this is for, as I do not have her on it according to my records, and the patient cannot recall why either. Review of Systems ROS Cardiovascular Reports: swelling of feet/ankles Respiratory Reports: shortness of breath [facility] Medical History (Updated 07/24/23 @ 13:39 by Leslie Mon) IRLANDA (acute kidney injury) ?N17.9 - Acute kidney failure, unspecified (ICD-10) Anemia ?D64.9 - Anemia, unspecified (ICD-10) (HFpEF) heart failure with preserved ejection fraction ?I50.30 - Unspecified diastolic (congestive) heart failure (ICD-10) Hiatal hernia ?K44.9 - Diaphragmatic hernia without obstruction or gangrene (ICD-10) HTN (hypertension) ?I10 - Essential (primary) hypertension (ICD-10) Stenosis of left subclavian artery ?I77.1 - Stricture of artery (ICD-10) Acute hypoxic respiratory failure ?J96.01 - Acute respiratory failure with hypoxia (ICD-10) Pleural effusion, bilateral ?J90 - Pleural effusion, not elsewhere classified (ICD-10) CHF (congestive heart failure) ?I50.9 - Heart failure, unspecified (ICD-10) Surgical History (Updated 07/24/23 @ 13:39 by Leslie Mon) H/O: hysterectomy ?Z90.710 - Acquired absence of both cervix and uterus (ICD-10) Hx of tonsillectomy ?Z90.89 - Acquired absence of other organs (ICD-10) Family History (Updated 07/24/23 @ 13:40 by Leslie Mon) Sister Family history of diabetes mellitus Father Family history of cancer Meds Home Medications and Allergies Home Medications Medication Instructions Recorded Confirmed Type amlodipine 10 mg tablet 10 mg PO DAILY 01/26/23 07/24/23 History carvedilol 12.5 mg tablet 12.5 mg PO BID 01/26/23 07/24/23 History omeprazole 40 mg capsule,delayed 40 mg PO DAILY 01/26/23 07/24/23 History release apixaban 2.5 mg tablet (Eliquis) 2.5 mg PO BID 07/24/23 07/24/23 History folic acid 1 mg tablet 1 mg PO DAILY 07/24/23 07/24/23 History Allergies Allergy/AdvReac Type Severity Reaction Status Date / Time No Known Drug Allergies Allergy Verified 07/24/23 04:39 Exam Constitutional Vital Signs, click to edit/add: Last Vital Signs Temp 97.6 F 07/24/23 13:44 Pulse 57 L 07/24/23 13:44 Resp 18 07/24/23 13:44 BP 149/58 H 07/24/23 13:44 Pulse Ox 96 07/24/23 13:44 O2 Del Method Nasal Cannula 07/24/23 13:44 O2 Flow Rate 4 07/24/23 13:44 Documenting provider has reviewed patient's vital signs: yes Common normals: no apparent distress HENMT Other: Wearing nasal cannula Chest Common normals: inspection of chest normal Chest: symmetrical chest wall rise Respiratory Other: Dullness to percussion with muffled breath sounds [id number] right thorax. Diminished breath sounds and dullness in the left base, with mild rales noted just superior to the fluid transition zone. No wheezes. Cardio Rate: regular rate Rhythm: regular rhythm Extremity Other: Bilateral lower extremity 1+ pitting edema on the dependent areas of the lower extremities Neuro Sensorium/orientation: awake and alert Speech: speech normal Psych Thought content: normal thought content Attention/concentration: attention grossly intact Memory/cognition: memory grossly intact Results Laboratory Findings ABG, PT/INR, D-dimer: ABG ABG pH 7.357 (7.350-7.450) 07/24/23 05:00 ABG pCO2 45.2 mmHg (35.0-45.0) H 07/24/23 05:00 ABG pO2 76.9 mmHg (80.0-100.0) L 07/24/23 05:00 ABG O2 Saturation 95.3 % 07/24/23 05:00 PT/INR, D-dimer PT 11.7 sec (9.0-11.6) H 07/24/23 04:46 INR 1.11 07/24/23 04:46 Abnormal lab findings: Abnormal Labs 07/24/23 07/24/23 07/24/23 04:46 05:00 09:45 RBC 2.70 L Hgb 8.0 L Hct 26.1 L RDW 23.4 H MPV 0.0 L Lymphocytes % (Manual) 10.0 L Monocytes % (Manual) 1.0 L Basophils % (Manual) 5.0 H Neutrophils # (Manual) 7.66 H Lymphocytes # (Manual) 1.05 L Monocytes # (Manual) 0.10 L Basophils # (Manual) 0.52 H PT 11.7 H ABG pCO2 45.2 H ABG pO2 76.9 L Creatinine 1.26 H Est GFR ( Amer) 49 L Est GFR (Non-Af Amer) 41 L Glucose 118 H Magnesium 2.5 H AST 10 L ALT 12 L NT-Pro-B Natriuret Pep 3119.0 H* Free T3 1.58 L Diagnostic Findings Additional studies: Chest CT report and imaging reviewed, along with prior chest CT imaging. Labs were reviewed. Assessment and Plan Assessment and Plan (1) Pleural effusion: Assessment and Plan: 1. Bilateral pleural effusions. Right is large, loculated and chronic, left is small and new. Presentation is most consistent with [id number] diastolic congestive heart failure. Discussed with patient options: thoracentesis or conservative therapy with diuresis. She had a thoracentesis in the past which resulted in a post-procedural pneumothorax - explained that remains a risk with any thoracentesis, but it is increased with her given the history of already having one. Right effusion responded to Lasix in the past, but it was stopped secondary to hypokalemia. She is on Bumex gtt currently - the conservative approach is to see how she responds to Bumex and go from there. She voiced she would try the diuretics first. She will remain off Eliquis in the event a thoracentesis is indicated. 2. Acute hypoxic respiratory failure. Present on admission, required up to 4L/min to maintain adequate SpO2. Not on O2 @ home. Will need assess for home O2 @ discharge. 3. Mgcmb-fx-fcigupy diastolic congestive heart failure. History of chronic diastolic dysfunction, previously on Lasix which seemed to help, but was stopped d/t issues with K+. Recent increase in BLE edema with new left effusion and pulmonary edema appears consistent with an acute exacerbation. Continue diuresis, monitor lytes. 4. Secondary pulmonary hypertension. Elevated RVSP 57mmHg in the past - presumptive Group 2 (cardiac involvement). Would need RHC if further investigation needed. 5. Chronic anticoagulation. Patient is on Eliquis - I am unclear of the diagnosis, as well as the patient. Will need to find out the diagnosis in order to determine if a bridge is necessary in the event a thoracentesis is planned.
--- NOTE | 2023-07-24 15:22 | CM.NOTE ---
Important Message From Medicare discussed with pt, pt verbalizes understanding and signs paper. Original given to pt and copy placed on pt's chart.
[2023-07-24 16:07] LABS: SARS-CoV-2 NAA NOT DETECTED (NOT DETECTE)
--- NOTE | 2023-07-24 17:14 | NUTR.NU ---
Pt w/bilateral pleural effusion, ARF, BLE edema; receives supplemental FeSO4 and folate for anemia, KCl to prevent hypokalemia d/t K+-depleting diuretic therapy. Diet order: regular/thin w/no documented PO intakes yet. CBW is WNR for age per BMI 28.7 and stable x 6 months. Abnormal labs indicate anemia, heart failure, impaired renal function. Encourage fluids. Will follow PRN.
--- NOTE | 2023-07-24 21:11 | RESP.RT ---
decreased to 3L nasal cannula
[2023-07-25] VITALS (21 sets, daily range): BP systolic 97–155; BP diastolic 45–67; PULSE 54–76; RESP 16–18; TEMP 36.7–37; O2SAT 90–98
[2023-07-25 04:52] LABS: Basophils Absolute Auto 0.1 10^3/uL (0.0-0.1); Basophils Percent Auto 1.9 % (0.2-2.0); Eosinophils Absolute Auto 0.3 10^3/uL (0.0-0.7); Eosinophils Percent Auto 4.3 % (0.9-7.0); Immature Granulocytes Abs Auto 0.06 10^3/uL (0.00-0.03); Immature Granulocytes Pct Auto 0.8 % (0.0-0.5); Lymphocytes Absolute Auto 1.3 10^3/uL (1.2-3.8); Lymphocytes Percent Auto 17.2 % (20.5-60.0); Mean Corpuscular HGB Conc 30.1 g/dL (29.9-35.2); Mean Corpuscular Hemoglobin 29.3 pg (26.7-34.0); Mean Corpuscular Volume 97.3 fL (81.0-99.0); Monocytes Absolute Auto 0.7 10^3/uL (0.3-0.8); Monocytes Percent Auto 8.8 % (1.7-12.0); Neutrophils Absolute Auto 4.9 10^3/uL (1.4-6.5); Platelet Count 220 10^3/uL (150-450); Red Blood Count 2.25 10^6/uL (4.20-5.40); Red Cell Distribution Width 23.9 % (11.0-15.0); White Blood Count 7.4 10^3/uL (4.0-11.0)
[2023-07-25 05:09] LABS: Alanine Aminotransferase 7 U/L (14-59); Albumin Globulin Ratio 0.8; Albumin Level 2.6 g/dL (3.4-5.0); Alkaline Phosphatase 50 U/L (46-116); Aspartate Amino Transferase 9 U/L (15-37); BUN Creatinine Ratio 10.3; Bilirubin Total 0.5 mg/dL (0.2-1.0); Calcium 7.9 mg/dL (8.5-10.1); Carbon Dioxide 31.3 mmol/L (21.0-32.0); Chloride 106 mmol/L (98-107); Estimated GFR (African America 45 (>=60); Estimated GFR (Non-African Ame 37 (>=60); Globulin 3.3 g/dL; Glucose 89 mg/dL (74-106); Potassium 4.3 mmol/L (3.5-5.1); Sodium 143 mmol/L (136-145); Total Protein 5.9 g/dL (6.4-8.2)
[2023-07-25 05:13] LABS: Hematocrit 21.9 % (36.0-48.0); Hemoglobin 6.6 g/dL (12.0-16.0)
[2023-07-25] MEDS: OMEPRAZOLE 40 MG CAPSULE.DR PO (05:44)
--- NOTE | 2023-07-25 05:47 | XR_ITS ---
The [address] [address] Patient Name: CHRISTA PITTS MRN: [id number] date: 1940 Sex: F Assigned Patient Location: [place] Current Patient Location: [place] Accession/Order Number: [id number] Exam Date: 07/25/2023 06:40 Report Date: 07/25/2023 07:46 At the request of: RUBIN HESS Procedure: XR chest 2V EXAM: XR chest 2V HISTORY: follow up pleural effusion after diuresis COMPARISON: CT chest study dated 07/24/2023 TECHNIQUE: PA and lateral views of the chest were obtained. FINDINGS: Heart is mildly enlarged. Moderate right pleural effusion inferiorly with increased density in the right mid and lower lung field regions compatible with atelectatic and/or infiltrative changes. Right perihilar calcifications similar to the CT study. Mild patchy infiltrate in the left lower lung field with possible small left pleural effusion inferiorly. Mild convexity of the dorsal spine to the right with mild degenerative changes present. No obvious pneumothorax. XR/XR chest 2V IMPRESSION: Moderate right pleural effusion inferiorly with atelectatic and/or infiltrative changes in the right mid and lower lung field. Mild patchy infiltrate in the left lower lung field with possible small left pleural effusion. Pleural effusions appear mildly decreased compared to the prior exam. Electronically authenticated by: SHAYLEE CRAIN Date: 07/25/2023 07:46
[2023-07-25] MEDS: LIOTHYRONINE SODIUM 5 MCG TABLET 10 MCG PO (06:21)
[2023-07-25 06:45] LABS: Bilirubin Urine NEGATIVE (NEGATIVE); Blood Urine TRACE-I (NEGATIVE); Clarity Urine CLEAR (CLEAR); Color Urine LT. YELLOW (YELLOW); Glucose Urine UA NEGATIVE (NEGATIVE); Ketones Urine NEGATIVE (NEGATIVE); Leukocyte Esterase Urine NEGATIVE (NEGATIVE); Nitrite Urine NEGATIVE (NEGATIVE); Protein Urine NEGATIVE (NEG/TRACE); Urobilinogen Urine 0.2 EU/dL (0.2-1.0); pH Urine 5.5 (5.0-9.0)
[2023-07-25 06:48] LABS: Urine Microscopic Indicated YES
[2023-07-25 06:52] LABS: Bacteria Urine NONE SEEN #/HPF (NONE SEEN); Crystals Seen? None Seen #/HPF (None Seen); Mucus Urine NONE SEEN (NONE SEEN); RBC Urine 0-2 #/HPF (0-2); Squamous Epithelial Cell Urine NONE SEEN #/LPF (NONE/RARE); WBC Urine NONE SEEN #/HPF (NONE SEEN)
[2023-07-25 06:53] LABS: Cast Seen? SEEN #/LPF (NONE SEEN); Hyaline Casts Urine FEW; Urine Culture Indicated NO
--- NOTE | 2023-07-25 07:06 | CM.NOTE ---
Rounding with Dr. Jalloh. RN Leslie at bedside. Discussed low blood count and weaning oxygne today. Pt. is not on home oxygen. Awaiting PT and OT evals to determine discharge plan. Possible discharge 07/26.
--- NOTE | 2023-07-25 08:12 | PM.PLPN ---
Progress Note: A&P Assessment and Plan (1) Pleural effusion: Assessment and Plan: 1. Bilateral pleural effusions. Chronic loculated right large pleural effusion and new small left effusion. Most consistent with acute CHF. Recommend continuing to treat the underlying issue (CHF) with continued diuresis. Discussed right thoracentesis - will continue to hold off for now - last thoracentesis, had iatrogenic pneumothorax with slow return of fluid. Will treat conservatively for now. 2. Acute hypoxic respiratory failure. Slow improvement. 3. Uyddm-nb-bxshifb diastolic congestive heart failure. Had good diuresis with improvement in BLE edema. 4. Secondary pulmonary hypertension. Elevated RVSP 57mmHg in the past - presumptive Group 2 (cardiac involvement). 5. Anemia, unspecified. Hb dropped to 6.6g/dL. No apparent source of blood loss. Plans to receive transfusion of PRBC. Defer w/up to hospitalist. 6. Chronic anticoagulation. On Eliquis for unknown reason. Remains on hold for any potential thoracentesis. Subjective Subjective Interval history: Patient states she feels a little better today. She responded well to Bumex gtt - had good diuresis. Still has some dyspnea, but not as severe as on admission. Weaning down FiO2. Exam Constitutional Vital Signs, click to edit/add: Last Vital Signs Temp 98.6 F 07/25/23 05:48 Pulse 61 07/25/23 07:53 Resp 16 07/25/23 05:48 BP 102/59 07/25/23 05:48 Pulse Ox 98 07/25/23 05:48 O2 Del Method Nasal Cannula 07/25/23 05:48 O2 Flow Rate 2 07/25/23 05:48 Documenting provider has reviewed patient's vital signs: yes Common normals: no apparent distress HENMT Other: Wearing nasal cannula. Chest Common normals: inspection of chest normal Chest: symmetrical chest wall rise Respiratory Other: Diminished breath sounds in the right base to mid lung field. Diminished left base. Less lower lung field rales. Cardio Rate: regular rate Rhythm: regular rhythm GI Inspection: normal to inspection Back & Pelvis Lumbar spine/lower back: normal to inspection Extremity General: edema (Mild improvement in posterior distal leg/ankle edema) Neuro Sensorium/orientation: awake and alert Speech: speech normal Psych Appearance: grossly normal Attitude: calm and engaged Speech: normal speech Thought process: normal thought process
[2023-07-25] MEDS: AMLODIPINE BESYLATE 5 MG TABLET 10 MG PO (08:52)
[2023-07-25] MEDS: POTASSIUM CHLORIDE 10 MEQ ER TABLET PO ×2 (08:52→20:45)
[2023-07-25] MEDS: FOLIC ACID 1 MG TABLET PO (08:52)
[2023-07-25] MEDS: CARVEDILOL 12.5 MG TABLET PO ×2 (08:52→20:45)
[2023-07-25] MEDS: FERROUS SULFATE 325 MG TABLET PO ×2 (08:52→20:45)
[2023-07-25] MEDS: 0.9 % SODIUM CHLORIDE 250 ML 10 ML IV (09:41)
--- NOTE | 2023-07-25 09:51 | PC.NURSE ---
Decreased to 1 LPM NC at this time
--- NOTE | 2023-07-25 10:14 | P.PN_ITS ---
Progress Note: Subjective Subjective Interval history: Breathing feels more comfortable to patient Exam Constitutional Vital Signs, click to edit/add: Last Vital Signs Temp 98.0 F 07/25/23 09:50 Pulse 58 L 07/25/23 09:53 Resp 18 07/25/23 09:50 BP 109/67 07/25/23 09:50 Pulse Ox 92 L 07/25/23 09:53 O2 Del Method Nasal Cannula 07/25/23 09:50 O2 Flow Rate 2 07/25/23 09:50 Documenting provider has reviewed patient's vital signs: yes Common normals: no apparent distress Chest Common normals: inspection of chest normal Respiratory Common normals: normal respiratory effort and no use of accessory muscles Auscultation: diminished lung sounds and egophony left lower and right lower Cardio Common normals: regular rate and regular rhythm; murmurs detected Heart sounds: murmur systolic Extremity Common normals: abnormal to inspection (2 + Edema) Progress Note: Objective Labs Labs: Short CBC 07/25/23 Range/Units 04:23 WBC 7.4 (4.0-11.0) 10^3/uL Hgb 6.6 L* (12.0-16.0) g/dL Hct 21.9 L* (36.0-48.0) % Plt Count 220 (150-450) 10^3/uL BMP 07/25/23 04:23 Sodium 143 Potassium 4.3 Chloride 106 Carbon Dioxide 31.3 BUN 14.0 Creatinine 1.36 H Glucose 89 Calcium 7.9 L Liver Function 07/25/23 Range/Units 04:23 Total Bilirubin 0.5 (0.2-1.0) mg/dL AST 9 L (15-37) U/L ALT 7 L (14-59) U/L Alkaline Phosphatase 50 (46-116) U/L Albumin 2.6 L (3.4-5.0) g/dL Urine 07/25/23 Range/Units 06:30 Urine Color Lt. yellow (YELLOW) Urine Clarity Clear (CLEAR) Urine pH 5.5 (5.0-9.0) Ur Specific [place] 1.010 (1.005-1.025) Urine Protein Negative (NEG/TRACE) mg/dL Urine Glucose (UA) Negative (NEGATIVE) mg/dL Progress Note: A&P Assessment and Plan (1) Pleural effusion: Assessment and Plan: Acute hypoxic respiratory failure with uncontrolled hypertension with hypertensive urgency-known pleural effusion, consult pulmonology for evaluation and possible treatment. Patient also appears to have acute combined congestive heart failure. Will try Bumex drip. Acute combined congestive heart failure-, repeat Bumex drip again today Acute blood loss anemia-check occult blood, needs 2 units PRBCs transfused today. Check CBC posttransfusion. Already holding Eliquis Pleural effusion-plan per pulmonology Uncontrolled hypertension-as needed medications plus the diuresis may benefit Iron deficiency anemia plus CD above Chronic kidney disease stage II-monitor daily with diuresis Cardiac murmur-check echocardiogram, patient does indicate she was not told she has a murmur in the past Hypertension-continue current medications Anticoagulation-on Eliquis, will hold for now, patient does not know why she takes it we will try to track down records GERD-continue home medication With the acuity and the above findings-patient unlikely to be able to be discharged in the next 2 days. Likely 3-day hospital stay. Will change patient to inpatient status
--- NOTE | 2023-07-25 10:36 | PT.DAILY ---
Physical Therapy Daily Note PT Daily Note/Assess Start: 07/24/23 10:54 Freq: Status: Active Protocol: Document 07/25/23 10:35 YUMIKO (Rec: 07/25/23 10:36 [email or web address] [id number]) Visit Not Completed Visit Not Completed Visit Not Completed Due to: Other Other Reason Visit Not Completed Pt receiving blood currently. Pt reports she's been up to bathroom multiple times. Pt reports once blood is done she can work with PT. Physical Therapy Daily Note/Assessment Time In/Time Out Time In 09:45 Time Out 09:45 GG. Functional Abilities and Goals-Complete for Swing Bed Patients Only [id number]. Self-Care [id number]. Mobility
[2023-07-25] MEDS: BUMETANIDE 10 MG in 0.9 % SODIUM CHLORIDE 160 ML 20 MG IV (11:00)
--- NOTE | 2023-07-25 13:41 | PT.DAILY ---
Physical Therapy Daily Note PT Daily Note/Assess Start: 07/24/23 10:54 Freq: Status: Active Protocol: Document 07/25/23 13:40 YUMIKO (Rec: 07/25/23 13:40 [id number]) Visit Not Completed Visit Not Completed Visit Not Completed Due to: Other Other Reason Visit Not Completed Pt still receiving blood and declines any PT at this time. Will follow up tomorrow. Physical Therapy Daily Note/Assessment Time In/Time Out Time In 11:30 Time Out 11:30 Pain In Pain N/A Pain Out Pain N/A GG. Functional Abilities and Goals-Complete for Swing Bed Patients Only [id number]. Self-Care [id number]. Mobility
[2023-07-25 17:31] LABS: Basophils Absolute Auto 0.2 10^3/uL (0.0-0.1); Basophils Percent Auto 2.3 % (0.2-2.0); Eosinophils Absolute Auto 0.4 10^3/uL (0.0-0.7); Eosinophils Percent Auto 4.5 % (0.9-7.0); Hematocrit 32.4 % (36.0-48.0); Immature Granulocytes Pct Auto 1.1 % (0.0-0.5); Lymphocytes Absolute Auto 1.4 10^3/uL (1.2-3.8); Lymphocytes Percent Auto 16.1 % (20.5-60.0); Mean Corpuscular HGB Conc 31.2 g/dL (29.9-35.2); Mean Corpuscular Hemoglobin 28.6 pg (26.7-34.0); Mean Corpuscular Volume 91.8 fL (81.0-99.0); Monocytes Absolute Auto 0.7 10^3/uL (0.3-0.8); Monocytes Percent Auto 7.6 % (1.7-12.0); Neutrophils Absolute Auto 6.1 10^3/uL (1.4-6.5); Neutrophils Percent Auto 68.4 % (43.0-75.0); Platelet Count 243 10^3/uL (150-450); Red Blood Count 3.53 10^6/uL (4.20-5.40); White Blood Count 8.9 10^3/uL (4.0-11.0)
[2023-07-25 17:32] LABS: Mean Platelet Volume 13.5 fL (9.5-13.5); Red Cell Distribution Width 22.3 % (11.0-15.0)
[2023-07-25 17:33] LABS: Hemoglobin 10.1 g/dL (12.0-16.0)
[2023-07-26] VITALS (22 sets, daily range): BP systolic 104–145; BP diastolic 57–72; PULSE 51–96; RESP 18; TEMP 36.8–37.3; O2SAT 83–99
[2023-07-26 04:36] LABS: Basophils Absolute Auto 0.2 10^3/uL (0.0-0.1); Basophils Percent Auto 2.3 % (0.2-2.0); Eosinophils Absolute Auto 0.4 10^3/uL (0.0-0.7); Eosinophils Percent Auto 5.9 % (0.9-7.0); Hematocrit 28.6 % (36.0-48.0); Hemoglobin 9.1 g/dL (12.0-16.0); Immature Granulocytes Abs Auto 0.07 10^3/uL (0.00-0.03); Immature Granulocytes Pct Auto 0.9 % (0.0-0.5); Lymphocytes Absolute Auto 1.7 10^3/uL (1.2-3.8); Lymphocytes Percent Auto 22.9 % (20.5-60.0); Mean Corpuscular HGB Conc 31.8 g/dL (29.9-35.2); Mean Corpuscular Hemoglobin 28.7 pg (26.7-34.0); Mean Corpuscular Volume 90.2 fL (81.0-99.0); Monocytes Absolute Auto 0.6 10^3/uL (0.3-0.8); Monocytes Percent Auto 8.4 % (1.7-12.0); Neutrophils Absolute Auto 4.5 10^3/uL (1.4-6.5); Neutrophils Percent Auto 59.6 % (43.0-75.0); Platelet Count 221 10^3/uL (150-450); Red Blood Count 3.17 10^6/uL (4.20-5.40); Red Cell Distribution Width 22.5 % (11.0-15.0); White Blood Count 7.5 10^3/uL (4.0-11.0)
[2023-07-26 05:07] LABS: Alanine Aminotransferase 11 U/L (14-59); Albumin Globulin Ratio 0.8; Albumin Level 2.7 g/dL (3.4-5.0); Alkaline Phosphatase 50 U/L (46-116); Anion Gap 5.6; Aspartate Amino Transferase 11 U/L (15-37); BUN Creatinine Ratio 13.7; Bilirubin Total 0.7 mg/dL (0.2-1.0); Calcium 8.5 mg/dL (8.5-10.1); Carbon Dioxide 35.4 mmol/L (21.0-32.0); Chloride 101 mmol/L (98-107); Estimated GFR (African America 44 (>=60); Estimated GFR (Non-African Ame 36 (>=60); Globulin 3.5 g/dL; Glucose 90 mg/dL (74-106); Sodium 138 mmol/L (136-145); Total Protein 6.2 g/dL (6.4-8.2)
[2023-07-26] MEDS: OMEPRAZOLE 40 MG CAPSULE.DR PO (05:29)
[2023-07-26] MEDS: LIOTHYRONINE SODIUM 5 MCG TABLET 10 MCG PO (05:29)
--- NOTE | 2023-07-26 07:34 | PM.PLPN ---
Progress Note: A&P Assessment and Plan (1) Pleural effusion: Assessment and Plan: 1. Bilateral pleural effusions. Chronic loculated right large pleural effusion and new small left effusion secondary to acute CHF. She has responded very well to diuresis, with resolution of BLE edema and reduction of pleural effusions. Discussed restarting diuretic at discharge - previously had issues with hypokalemia - can be discharged on KCl and she can eat a banana and/or kiwi. 2. Acute hypoxic respiratory failure. Resolving. 3. Pcbno-cz-gvlzcjj diastolic congestive heart failure. Resolving acute exacerbation. 4. Secondary pulmonary hypertension. Elevated RVSP 57mmHg in the past - presumptive Group 2 (cardiac involvement). 5. Anemia, unspecified. PRBC transfused yesterday - unclear why decreased. Defer to PCP for further w/up. 6. Chronic anticoagulation. On Eliquis for unknown reason. No plans for thoracentesis - may resume. Plan She appears acceptable for discharge from a pulmonary standpoint. She has an appointment with me previously scheduled for 10/10/2023 @ 14:00. She may keep that appointment. If she feels it necessary, she may call for a sooner visit. Otherwise, I will see her in October. Subjective Subjective Interval history: She feels much better today. Sitting at edge of bed, no dyspnea. Reviewed CXR shows improvement in bilateral effusions. States her breathing is near back to normal. Exam Constitutional Vital Signs, click to edit/add: Last Vital Signs Temp 99.1 F 07/26/23 05:25 Pulse 54 L 07/26/23 06:00 Resp 18 07/26/23 05:25 BP 118/69 07/26/23 05:25 Pulse Ox 99 07/26/23 06:00 O2 Del Method Nasal Cannula 07/26/23 05:25 O2 Flow Rate 1 07/26/23 05:25 Documenting provider has reviewed patient's vital signs: yes Common normals: no apparent distress Chest Common normals: inspection of chest normal Chest: symmetrical chest wall rise Respiratory Other: More air movement today, decreased LLL rales. Still has evidence of moderate right effusion. No rhonchi. Cardio Rate: bradycardic Rhythm: regular rhythm Extremity Other: Prior edema of lower extremities resolved. Neuro Sensorium/orientation: awake and alert Psych Attitude: calm and engaged Activity/motor behavior: appropriate eye contact Thought process: normal thought process Thought content: normal thought content Attention/concentration: attention grossly intact
--- NOTE | 2023-07-26 07:45 | P.DS_ITS ---
DS: Providers Provider Date of admission: 07/24/23 08:35 Primary care physician: Bryant Dallas DO Consults: 07/24/23 09:21 Consult to Pulmonology Routine Consulting Provider: Rip Simpson Reason for consultation: pleural eff Has provider been notified: Yes 07/24/23 09:24 Occupational Therapy Eval and Treat Routine Reason for consultation: Only if needed for Rehab Has provider been notified: No 07/24/23 09:25 Physical Therapy Eval and Treat Routine Reason for consultation: Eval and Treat Has provider been notified: No DS: Diagnosis Discharge Diagnosis (1) Pleural effusion: Assessment and plan: Acute hypoxic respiratory failure with uncontrolled hypertension with hypertensive urgency-known pleural effusion Acute combined congestive heart failure Acute blood loss anemia-check occult blood Pleural effusion Uncontrolled hypertension Iron deficiency anemia plus the above Chronic kidney disease stage II Cardiac murmur Hypertension Anticoagulation-on Eliquis GERD DS: Summary Hospital Course Hospital Course: Patient is a admitted with increasing shortness of breath and acute hypoxic respiratory failure requiring 2 L of supplemental oxygen to improve her O2 saturations. Found to have a reoccurrence of her pleural effusion as well as likely acute combined congestive heart failure. She was placed on a Bumex drip on 2 occasions. She had excellent diuresis of 6 L. Her complication was yesterday had acute blood loss anemia. Stool occult blood are pending. We held her Eliquis on admission secondary to possible thoracentesis. With her overall improvement she does not need a thoracentesis. But would continue to hold Eliquis. Patient uncertain why she is on Eliquis. We can wean her off of her supplemental oxygen completely this morning she will be discharged home in improving condition. Medications see list. Follow-up with PCP within the next week. Reviewed with PCP, maintaining on Lasix and potassium pill. And holding Eliquis. Plan of care per PCP Time Spent with Patient Time attestation: Total time spent providing and/or coordinating discharge services: Exam Constitutional Vital Signs, click to edit/add: Last Vital Signs Temp 99.1 F 07/26/23 05:25 Pulse 54 L 07/26/23 06:00 Resp 18 07/26/23 05:25 BP 118/69 07/26/23 05:25 Pulse Ox 99 07/26/23 06:00 O2 Del Method Nasal Cannula 07/26/23 05:25 O2 Flow Rate 1 07/26/23 05:25 Documenting provider has reviewed patient's vital signs: yes Common normals: no apparent distress Chest Common normals: inspection of chest normal Respiratory Common normals: normal respiratory effort and no use of accessory muscles Auscultation: diminished lung sounds; no egophony Cardio Common normals: regular rate and regular rhythm; murmurs detected Heart sounds: murmur systolic Extremity Common normals: abnormal to inspection (2 + Edema) DS: Data Data Completed and Pending Labs on day of discharge: Labs from last 24 hours 07/26/23 07/25/23 07/25/23 04:07 17:22 05:35 WBC 7.5 8.9 RBC 3.17 L 3.53 L Hgb 9.1 L 10.1 L Hct 28.6 L 32.4 L MCV 90.2 91.8 MCH 28.7 28.6 MCHC 31.8 31.2 RDW 22.5 H 22.3 H Plt Count 221 243 MPV 0.0 L 13.5 Neut % (Auto) 59.6 68.4 Lymph % (Auto) 22.9 16.1 L [place] % (Auto) 8.4 7.6 Eos % (Auto) 5.9 4.5 Baso % (Auto) 2.3 H 2.3 H Neut # (Auto) 4.5 6.1 Lymph # (Auto) 1.7 1.4 [place] # (Auto) 0.6 0.7 Eos # (Auto) 0.4 0.4 Baso # (Auto) 0.2 H 0.2 H Abs Immat Gran (auto) 0.07 H 0.10 H Imm/Tot Granulo (auto) 0.9 H 1.1 H Sodium 138 Potassium 4.0 Chloride 101 Carbon Dioxide 35.4 H Anion Gap 5.6 BUN 19.0 H Creatinine 1.39 H Est GFR ( Amer) 44 L Est GFR (Non-Af Amer) 36 L BUN/Creatinine Ratio 13.7 Glucose 90 Calcium 8.5 Total Bilirubin 0.7 AST 11 L ALT 11 L Alkaline Phosphatase 50 NT-Pro-B Natriuret Pep 2435.0 H* Total Protein 6.2 L Albumin 2.7 L Globulin 3.5 Albumin/Globulin Ratio 0.8 Blood Type O Positive Antibody Screen Negative Crossmatch See Detail Discharge Plan Discharge Disposition: Home, Self-Care Condition: Good Discharge Medications: New potassium chloride 10 mEq Tablet,Er Particles/Crystals 10 meq PO BID Qty: 60 11RF furosemide [Lasix] 20 mg tablet 20 mg PO DAILY Qty: 30 11RF Continued folic acid 1 mg tablet 1 mg PO DAILY omeprazole 40 mg capsule,delayed release(DR/EC) 40 mg PO DAILY Rx Instructions: before breakfast carvedilol 12.5 mg tablet 12.5 mg PO BID amlodipine 10 mg tablet 10 mg PO DAILY Discontinued Eliquis 2.5 mg tablet 2.5 mg PO BID Forms: Portal Instructions
--- NOTE | 2023-07-26 08:04 | CM.NOTE ---
Rounds made with Dr. Jalloh, possible discharge this afternoon after weaning oxygen. Dr. Jalloh will also discuss with Dr. Simpson further recommendation prior to discharge.
--- NOTE | 2023-07-26 08:16 | CM.NOTE ---
2nd Important Message From Medicare discussed with pt, pt verbalizes understanding and denies questions or concerns.
[2023-07-26] MEDS: AMLODIPINE BESYLATE 5 MG TABLET 10 MG PO (08:54)
[2023-07-26] MEDS: CARVEDILOL 12.5 MG TABLET PO ×2 (08:55→20:38)
[2023-07-26] MEDS: POTASSIUM CHLORIDE 10 MEQ ER TABLET PO ×2 (08:55→20:38)
[2023-07-26] MEDS: FUROSEMIDE 20 MG TABLET PO (08:55)
[2023-07-26] MEDS: FOLIC ACID 1 MG TABLET PO (08:55)
[2023-07-26] MEDS: FERROUS SULFATE 325 MG TABLET PO ×2 (08:55→20:38)
--- NOTE | 2023-07-26 10:36 | PT.DAILY ---
Physical Therapy Daily Note PT Daily Note/Assess Start: 07/24/23 10:54 Freq: Status: Active Protocol: Document 07/26/23 10:28 YUMIKO (Rec: 07/26/23 10:31 [email or web address] [id number]) Physical Therapy Daily Note/Assessment Time In/Time Out Time In 09:40 Time Out 09:55 Pain In Pain N/A Pain Out Pain N/A Subjective Subjective Pt supine upon arrival. Agrees to PT. On room air Spo2 90%. Therapeutic Activity Time Therapeutic Activity Minutes (minutes) 10 Therapeutic Activity Units 1 Therapeutic Activity Treatment Bed Mobility Ability Standby Assistance Chair Transfer Ability Standby Assistance Therapeutic Activity Comments Supine>sit SBA with increased time to complete. Sits EOB unsupported without LOB. Spo2 88-89% while sitting EOB on room air. Sit>stand 5x SBA without LOB - min fatigue. Pt amb IND to restroom, performs transfer and pericare IND. SPo2 89% with this. Pt amb 250 ' in all without AD but occ support on handrail - SUP. Spo2 89% upon completion. Remains sitting EOB with call light in reach and needs met. Total Physical Therapy Time Total Therapy Minutes 10 Total Physical Therapy Units 1 Summary Daily Note Summary Cooperative today. Steady with gait and transfers. SpO2 steady at 89% throughout session on room air. Min fatigue upon completion.
--- NOTE | 2023-07-26 19:45 | RESP.RT ---
decreased down to room air
--- NOTE | 2023-07-26 20:02 | RESP.RT ---
pt placed on 0.5L by nursing
[2023-07-27] VITALS (8 sets, daily range): BP systolic 123–147; BP diastolic 64–69; PULSE 55–75; RESP 16–18; TEMP 36.8; O2SAT 88–99
[2023-07-27] MEDS: OMEPRAZOLE 40 MG CAPSULE.DR PO (05:30)
[2023-07-27] MEDS: LIOTHYRONINE SODIUM 5 MCG TABLET 10 MCG PO (05:30)
[2023-07-27 05:40] LABS: Basophils Absolute Auto 0.2 10^3/uL (0.0-0.1); Basophils Percent Auto 2.4 % (0.2-2.0); Eosinophils Absolute Auto 0.4 10^3/uL (0.0-0.7); Eosinophils Percent Auto 5.5 % (0.9-7.0); Hematocrit 31.5 % (36.0-48.0); Hemoglobin 9.8 g/dL (12.0-16.0); Immature Granulocytes Abs Auto 0.04 10^3/uL (0.00-0.03); Immature Granulocytes Pct Auto 0.6 % (0.0-0.5); Lymphocytes Absolute Auto 1.8 10^3/uL (1.2-3.8); Mean Corpuscular HGB Conc 31.1 g/dL (29.9-35.2); Mean Corpuscular Hemoglobin 28.4 pg (26.7-34.0); Mean Corpuscular Volume 91.3 fL (81.0-99.0); Mean Platelet Volume 11.7 fL (9.5-13.5); Monocytes Absolute Auto 0.7 10^3/uL (0.3-0.8); Monocytes Percent Auto 9.7 % (1.7-12.0); Neutrophils Absolute Auto 4.1 10^3/uL (1.4-6.5); Neutrophils Percent Auto 56.8 % (43.0-75.0); Platelet Count 208 10^3/uL (150-450); Red Blood Count 3.45 10^6/uL (4.20-5.40); Red Cell Distribution Width 22.1 % (11.0-15.0); White Blood Count 7.1 10^3/uL (4.0-11.0)
[2023-07-27 06:16] LABS: Alanine Aminotransferase <6 U/L (14-59); Albumin Globulin Ratio 0.7; Albumin Level 2.6 g/dL (3.4-5.0); Alkaline Phosphatase 51 U/L (46-116); Anion Gap 5.9; Aspartate Amino Transferase 9 U/L (15-37); BUN Creatinine Ratio 16.5; Bilirubin Total 0.6 mg/dL (0.2-1.0); Calcium 8.5 mg/dL (8.5-10.1); Carbon Dioxide 34.2 mmol/L (21.0-32.0); Chloride 101 mmol/L (98-107); Estimated GFR (African America 44 (>=60); Estimated GFR (Non-African Ame 36 (>=60); Globulin 3.6 g/dL; Glucose 91 mg/dL (74-106); Potassium 4.1 mmol/L (3.5-5.1); Sodium 137 mmol/L (136-145); Total Protein 6.2 g/dL (6.4-8.2)
--- NOTE | 2023-07-27 07:56 | P.DS_ITS ---
DS: Providers Provider Date of admission: 07/24/23 08:35 Primary care physician: Bryant Dallas DO Consults: 07/24/23 09:21 Consult to Pulmonology Routine Consulting Provider: Rip Simpson Reason for consultation: pleural eff Has provider been notified: Yes 07/24/23 09:24 Occupational Therapy Eval and Treat Routine Reason for consultation: Only if needed for Rehab Has provider been notified: No 07/24/23 09:25 Physical Therapy Eval and Treat Routine Reason for consultation: Eval and Treat Has provider been notified: No DS: Diagnosis Discharge Diagnosis (1) Pleural effusion: Plan See previous discharge summary for complete list of medical issues. DS: Summary Hospital Course Hospital Course: See previous discharge summary for complete details of hospital course, patient was to be discharged yesterday but became hypoxic off of supplemental oxygen. She does look overall improved today. Continue diuresis on oral agents yesterday. Will attempt to discharge her to home without supplemental oxygen today. Patient presented to the hospital without supplemental oxygen at home already. She may require home O2 but from a safety standpoint hoping to send her home without it. Plan based on results of walking around today. Time Spent with Patient Time attestation: Total time spent providing and/or coordinating discharge services: Exam Constitutional Vital Signs, click to edit/add: Last Vital Signs Temp 98.2 F 07/27/23 05:31 Pulse 58 L 07/27/23 05:59 Resp 16 07/27/23 05:31 BP 123/64 07/27/23 05:31 Pulse Ox 99 07/27/23 05:59 O2 Del Method Nasal Cannula 07/27/23 05:31 O2 Flow Rate 0.5 07/27/23 05:31 Documenting provider has reviewed patient's vital signs: yes Common normals: no apparent distress Chest Common normals: inspection of chest normal Respiratory Common normals: normal respiratory effort and no use of accessory muscles Auscultation: diminished lung sounds; no egophony Cardio Common normals: regular rate and regular rhythm; murmurs detected Heart sounds: murmur systolic Extremity Common normals: abnormal to inspection (2 + Edema) DS: Data Data Completed and Pending Labs on day of discharge: Labs from last 24 hours 07/27/23 04:53 WBC 7.1 RBC 3.45 L Hgb 9.8 L Hct 31.5 L MCV 91.3 MCH 28.4 MCHC 31.1 RDW 22.1 H Plt Count 208 MPV 11.7 Neut % (Auto) 56.8 Lymph % (Auto) 25.0 [place] % (Auto) 9.7 Eos % (Auto) 5.5 Baso % (Auto) 2.4 H Neut # (Auto) 4.1 Lymph # (Auto) 1.8 [place] # (Auto) 0.7 Eos # (Auto) 0.4 Baso # (Auto) 0.2 H Abs Immat Gran (auto) 0.04 H Imm/Tot Granulo (auto) 0.6 H Sodium 137 Potassium 4.1 Chloride 101 Carbon Dioxide 34.2 H Anion Gap 5.9 BUN 23.0 H Creatinine 1.39 H Est GFR ( Amer) 44 L Est GFR (Non-Af Amer) 36 L BUN/Creatinine Ratio 16.5 Glucose 91 Calcium 8.5 Total Bilirubin 0.6 AST 9 L ALT <6 L Alkaline Phosphatase 51 NT-Pro-B Natriuret Pep 1114.0 Total Protein 6.2 L Albumin 2.6 L Globulin 3.6 Albumin/Globulin Ratio 0.7 Preliminary micro results at discharge 07/24/23 05:25 - Preliminary Blood NO GROWTH AT 36-48 HOURS. FINAL TO FOLLOW. 07/24/23 04:46 Blood Culture Result 1 - Preliminary Blood NO GROWTH AT 36-48 HOURS. FINAL TO FOLLOW. Discharge Plan Discharge Disposition: Home, Self-Care Condition: Good Discharge Medications: New potassium chloride 10 mEq Tablet,Er Particles/Crystals 10 meq PO BID Qty: 60 11RF furosemide [Lasix] 20 mg tablet 20 mg PO DAILY Qty: 30 11RF Continued folic acid 1 mg tablet 1 mg PO DAILY omeprazole 40 mg capsule,delayed release(DR/EC) 40 mg PO DAILY Rx Instructions: before breakfast carvedilol 12.5 mg tablet 12.5 mg PO BID amlodipine 10 mg tablet 10 mg PO DAILY Discontinued Eliquis 2.5 mg tablet 2.5 mg PO BID Forms: Portal Instructions Follow Up Appointments: @ 3pm with Dr. Dallas [phone]
--- NOTE | 2023-07-27 08:43 | CM.NOTE ---
Rounds made with Dr. Jalloh, nursing will attempt to wean off oxygen. Possible discharge to home this afternoon.
[2023-07-27] MEDS: CARVEDILOL 12.5 MG TABLET PO (08:53)
[2023-07-27] MEDS: FUROSEMIDE 20 MG TABLET PO (08:53)
[2023-07-27] MEDS: AMLODIPINE BESYLATE 5 MG TABLET 10 MG PO (08:53)
[2023-07-27] MEDS: FOLIC ACID 1 MG TABLET PO (08:54)
[2023-07-27] MEDS: POTASSIUM CHLORIDE 10 MEQ ER TABLET PO (08:54)
[2023-07-27] MEDS: FERROUS SULFATE 325 MG TABLET PO (08:54)
--- NOTE | 2023-07-27 12:54 | PM.PLPN ---
Progress Note: A&P Assessment and Plan (1) Pleural effusion: Assessment and Plan: 1. Bilateral pleural effusions. Chronic loculated right large pleural effusion and new small left effusion secondary to acute CHF. Clinically improving - near/at baseline. May keep 10/10/2023 appointment with me. 2. Acute hypoxic respiratory failure. Resolving/Resolved. 3. Zxsju-vd-aeogakc diastolic congestive heart failure. Appears euvolemic today. 4. Secondary pulmonary hypertension. Elevated RVSP 57mmHg in the past - presumptive Group 2 (cardiac involvement). 5. Anemia, unspecified. Outpatient F/U recommended. 6. Chronic anticoagulation. On Eliquis for unknown reason. Plan Plans for discharge today. Subjective Subjective Interval history: Patient was seen this AM ~ 07:30. She said she was feeling well and had no complaints - her breathing was near/at baseline and her lower extremity edema has resolved. Exam Constitutional Vital Signs, click to edit/add: Last Vital Signs Temp 98.2 F 07/27/23 05:31 Pulse 63 07/27/23 08:02 Resp 18 07/27/23 08:02 BP 147/69 H 07/27/23 08:02 Pulse Ox 92 L 07/27/23 08:02 O2 Del Method Nasal Cannula 07/27/23 08:02 O2 Flow Rate 0.5 07/27/23 05:31 Documenting provider has reviewed patient's vital signs: yes Common normals: no apparent distress Chest Common normals: inspection of chest normal Chest: symmetrical chest wall rise Respiratory Other: Left lung clear - no rales, no significant dullness to percussion. Right lung diminished with chronic pleural effusion. Cardio Rate: regular rate Rhythm: regular rhythm GI Inspection: normal to inspection Extremity General: no cyanosis and no edema (Resolved) Neuro Motor exam: no tremor noted Psych Appearance: grossly normal Attitude: calm and engaged Speech: normal speech Thought process: normal thought process Thought content: normal thought content Attention/concentration: attention grossly intact Memory/cognition: memory grossly intact
--- NOTE | 2023-07-28 13:20 | CM.DCFOLLOWU ---
Person spoke with: patient How are you feeling? so much better How is your pain? none Did you understand your discharge instructions? yes Do you have any questions about your discharge instructions? no Were you given any prescriptions at discharge? yes Were you able to get your prescriptions filled? yes Do you understand how to take your medications as ordered? yes and I stopped my Eliquis Do you have any questions about your follow up appointment and do you plan to keep your follow up appointment? Keeping follow up appointment with Dr. Dallas on 08/03 Is there anything else that you would like to discuss? Yes. It is my and my 's anniversary. I wished the patient a Happy Anniversary. Questions/Comments/Concerns/Other: n/a
--- NOTE | 2023-08-01 14:27 | CM.DCFOLLOWU ---
Person spoke with: Kendra How are you feeling? Much better How is your pain? No pain Did you understand your discharge instructions? Yes Do you have any questions about your discharge instructions? No Were you given any prescriptions at discharge? Yes Were you able to get your prescriptions filled? Yes Do you understand how to take your medications as ordered? Yes Do you have any questions about your follow up appointment and do you plan to keep your follow up appointment? No it is scheduled and I plan on going to appt. Is there anything else that you would like to discuss? No Questions/Comments/Concerns/Other:
== END 2023-07-27 10:31 | disposition home or self-care (01) | DRG 291 ==
LOC: ER 08:09 → MS 09:01
PROVIDERS: Student in an Organized Health Care Education/Training Program; Admitting Provider Family Medicine; Emergency Provider Emergency Medicine; PCP Internal Medicine; Visit Provider Family Medicine
DX: I13.0 Hypertensive heart and chronic kidney disease with heart failure and stage 1 through stage 4 chronic kidney disease, or unspecified chronic kidney disease (principal); I50.41 Acute combined systolic (congestive) and diastolic (congestive) heart failure; J96.01 Acute respiratory failure with hypoxia; D62 Acute posthemorrhagic anemia; I27.22 Pulmonary hypertension due to left heart disease; D50.9 Iron deficiency anemia, unspecified; N18.2 Chronic kidney disease, stage 2 (mild); R01.1 Cardiac murmur, unspecified; I16.0 Hypertensive urgency; K21.9 Gastro-esophageal reflux disease without esophagitis; Z79.01 Long term (current) use of anticoagulants; Z79.899 Other long term (current) drug therapy; Z90.710 Acquired absence of both cervix and uterus; Z83.3 Family history of diabetes mellitus; Z80.9 Family history of malignant neoplasm, unspecified
CPT/HCPCS: 36415; 36430; 36600; 71045; 71046; 71250; 80053; 81001; 82805; 83605; 83735; 83880; 84145; 84436; 84443; 84481; 84484; 85007; 85025; 85027; 85610; 85730; 86850; 86900; 86901; 87040; 87070; 87635; 87804; 87811; 93005; 93306; 94667; 94668; 94761; 96365; 96366; 97161; 97165; 97530; 99285; G0328; P9016

== ENCOUNTER 2023-08-08 12:44 | Outpatient (OUT) | payer MEDICARE, OTHER, SELFPAY ==
--- OUTSIDE RECORDS SUMMARY | 2023-08-08 12:48 | XMS_ITS | CCD ---
Author Name Unknown Address [address] [place] [address] [address] [place] [address] Organization [facility] Care Team Providers Care Social Media Developer Name Role Phone Robb Flower Unavailable Bryant Dallas Unavailable LAWRENCE ., BLAINE Procedure Practitioner Unavailab alden BASILIO, DR MOISES Richardson Consulting Unavailable NADJOSE LUIS, DR SAMAN Quintanilla Admitting Unavailable TANYA, DR SAMAN Quintanilla Attending Unavailable BURT, DR ST Primary Care Unavailable UGO, DR PASTOR Grace Consulting Unavailable TANYA, DR SAMAN Quintanilla Consulting Unavailable SAM ., BLAINE Consulting Unavailable NINA ., HAYLEE Consulting Unavailable ADRIENNE, MAGDIEL Consulting Unavailable ITKIN, AYAZ Consulting Unavailable COATRussell, KARLA Consulting Unavailable BURT, DR ST Admitting Unavailable BURT, DR ST Primary Care Unavailable BURT, DR ST Attending Unavailable Allergies Allergy Classification Reported Allergen(s) Allergy Type Date of Onset Reaction(s) Facility (20 sources) clopidogrel Drug Allergy Unknown [facility] Other (4 sources) patient allergy list reviewed by nurse or physicia Propensity to adverse reactions Comment:Done [facility] Other Medications Current Medications Medication Drug Class(es) Dates Sig (Normalized) Sig (Original) amLODIPine 10 mg oral tablet (20 sources) Dihydropyridine Calcium Channel Zuhair take 1 tablet by mouth once daily amLODIPine Besylate 10 mg TAKE ONE TABLET BY MOUTH DAILY Active apixaban 2.5 mg oral tablet (13 sources) Factor Xa Inhibitor Start: 02-03-2023 take 1 tablet by mouth every twelve hours Eliquis 2.5 MG 1 tablet Orally Twice a day Jan, Active benazepril hydrochloride 40 mg oral tablet (20 sources) Angiotensin Converting Enzyme Inhibitor take 1 tablet by mouth every twenty-four hours Benazepril HCl 40 MG 1 tablet Orally Once a day Active carvedilol 12.5 mg oral tablet (20 sources) alpha-Adrenergic Zuhair, beta-Adrenergic Zuhair take 1 tablet by mouth every twelve hours Carvedilol 12.5 mg TAKE 1 TABLET BY MOUTH EVERY 12 HOURS Active take 1 tablet by eliud th every twelve hours Carvedilol 12.5 MG 1 tablet with food Orally Twice a day Active folic acid 1 mg oral tablet (10 sources) Start: 02-10-2023 take 1 tablet by mouth every twenty-four hours Folic Acid 1 MG 1 tablet Orally Once a day for 30 days Feb, Active furosemide 40 mg oral tablet (20 sources) Loop Diuretic Start: 10-25-2022 take 1 tablet by mouth every twenty-four hours Furosemide 40 MG 1 tablet Orally Once a day Oct, Active take 1 tablet by eliud th every twenty-four hours Furosemide 20 MG 1 tablet Orally Once a day Active omeprazole 40 mg delayed release oral capsule (20 sources) Proton Pump Inhibitor Omeprazole 40 mg TAKE ONE CAPSULE BY MOUTH DAILY ON EMPTY STOMACH 30 MINUTES PRIOR TO BREAKFAST for 90 Active potassium chloride 20 meq extended release oral tablet (16 sources) Start: 11-24-2022 take 1 tablet by mouth every twenty-four hours Potassium Chloride ER 20 MEQ 1 tablet with food Orally Once a day Nov, Active take 1 tablet by eliud th every twelve hours Potassium Chloride ER 10 MEQ 1 tablet wi th food Orally Twice a day Active Completed/Discontinued Medications Medication Drug Class(es) Dates Sig (Normalized) Sig (Original) B-12 - up to 1000 mcg (20 sources) Start: 08-03-2023 B-12 - up to 1000 mcg Jul, 1 mL Start: 06-16-2023 B-12 - up to 1 000 mcg Jun, 1000 mcg Start: 05-17-2023 B-12 - up to 1 000 mcg May, 1000 mcg Start: 04-11-2023 B-12 - up to 1 000 mcg Apr, 1000 mcg Start: 03-06-2023 B-12 - up to 1 000 mcg Feb, 1000 mcg Start: 02-27-2023 B-12 - up to 1 000 mcg Feb, 1000 mcg Start: 02-20-2023 B-12 - up to 1 000 mcg Feb, 1000 mcg Start: 02-13-2023 B-12 - up to 1 000 mcg Feb, 1000 mcg Problems Active Problems Problem Classification Problem Date Documented Date Episodic/Chronic Abdominal hernia (1 source) Diaphragmatic hernia without obstruction or gangrene; Translations: [DIAPH HERNIA W/O OBST/GANGRENE] Onset: 10-28-2022 Episodic Acute posthemorrhagic anemia (1 source) Acute posthemorrhagic anemia Episodic Cardiac dysrhythmias (17 sources) Paroxysmal atrial fibrillation; Translations: [Paroxysmal atrial fibrillation] Chronic Chronic kidney disease (20 sources) Chronic kidney disease stage 3B ; Translations: [Stage 3b chronic kidney disease] Chronic Congestive heart failure; nonhypertensive (20 sources) Acute on chronic diastolic heart failure; Translations: [Acute on chronic diastolic (congestive) heart failure] Onset: 10-28-2022 Chronic Deficiency and other anemia (15 sources) Pernicious anemia; Translations: [Vitamin B12 deficiency anemia due to intrinsic factor deficiency] Episodic Deficiency and other anemia (8 sources) Vitamin B12 deficiency anemia due to intrinsic factor deficiency Episodic Deficiency and other anemia (1 source) Dietary folate deficiency anemia Episodic Deficiency and other anemia (1 source) Anemia, unspecified Episodic Disorders of lipid metabolism (8 sources) Hyperlipidemia; Translations: [Hyperlipidemia, unspecified] Onset: 05-11-2017 Chronic Esophageal disorders (5 sources) Gastro-esophageal reflux disease with esophagitis; Translations: [Gastro-esophageal reflux disease with esophagitis, without bleeding] Chronic Essential hypertension (20 sources) Essential hypertension; Translations: [Essential (primary) hypertension] Onset: 12-24-2013 Chronic Heart valve disorders (17 sources) Aortic stenosis, non-rheumatic ; Translations: [Nonrheumatic aortic (valve) stenosis] Chronic Hypertension with complications and secondary hypertension (1 source) Hypertensive heart disease with heart failure; Translations: [HTN HEART DISEASE W/HEART FAIL] Onset: 10-28-2022 Chronic Immunizations and screening for infectious disease (4 sources) Vaccination given; Translations: [Encounter for immunization] Episodic Nutritional deficiencies (2 sources) Deficiency of other specified B group vitamins Episodic Other aftercare (20 sources) H/O: high risk medication; Translations: [Other machine long goods helper (current) drug therapy] Episodic Other aftercare (4 sources) Long-term current use of drug therapy; Translations: [Other assisted (current) drug therapy] Episodic Other circulatory disease (20 sources) Stricture of artery; Translations: [Stricture of artery] Onset: 05-04-2016 Chronic Other circulatory disease (4 sources) Peripheral vascular disease; Translations: [Other specified peripheral vascular diseases] Onset: 01-26-2015 Chronic Other circulatory disease (1 source) Stricture of artery Chronic Other circulatory disease (20 sources) Cardiovascular symptoms; Translations: [Other specified symptoms and signs involving the circulatory and respiratory systems] Episodic Other connective tissue disease (20 sources) Ganglion cyst of right wrist; Translations: [Ganglion, right wrist] Episodic Other injuries and conditions due to external causes (4 sources) History of fall; Translations: [History of falling] Episodic Other lower respiratory disease (20 sources) Other nonspecific abnormal finding of lung field; Translations: [Ground glass opacity present on imaging of lung] Episodic Other lower respiratory disease (2 sources) Shortness of breath; Translations: [SHORTNESS OF BREATH] Onset: 10-16-2022 Episodic Other nutritional; endocrine; and metabolic disorders (4 sources) Obesity; Translations: [Obesity, unspecified] Chronic Other nutritional; endocrine; and metabolic disorders (20 sources) Weight decreased; Translations: [Abnormal weight loss] Episodic Other nutritional; endocrine; and metabolic disorders (4 sources) Abnormal weight loss; Translations: [Abnormal weight loss] Episodic Other nutritional; endocrine; and metabolic disorders (1 source) Abnormal weight loss Episodic Peripheral and visceral atherosclerosis (1 source) Atherosclerosis of other arteries; Translations: [ATHEROSCLEROSIS OF OTHER ARTERIES] Onset: 10-28-2022 Chronic Pleurisy; pneumothorax; pulmonary collapse (4 sources) Pleural effusion, not elsewhere classified; Translations: [Pleural plaque without asbestos] Onset: 10-28-2022 Episodic Pulmonary heart disease (20 sources) Pulmonary hypertension; Translations: [Pulmonary hypertension, unspecified] Chronic Residual codes; unclassified (1 source) Acquired absence of both cervix and uterus; Translations: [ACQUIRED ABSENCE BOTH CERVIX AND UTERUS] Onset: 10-28-2022 Episodic Residual codes; unclassified (4 sources) Procedure not done; Translations: [Procedure and treatment not carried out because of patient's decision for unspecified reasons] Episodic Respiratory failure; insufficiency; arrest (adult) (1 source) Acute respiratory failure with hypoxia; Translations: [ACUTE RESPIRATORY FAIL W/HYPOXIA] Onset: 10-28-2022 Episodic Past or Other Problems Problem Classification Problem Date Documented Da te Episodic/Chronic Allergic reactions (4 sources) Dermatitis due to drug AND/OR medicine taken internally; Translations: [Generalized skin eruption due to drugs and medicaments taken internally] Onset: 05-28-2015 Episodic Cardiac dysrhythmias (5 sources) Bradycardia, unspecified; Translations: [Palpitations] Onset: 01-26-2015 Episodic Chronic kidney disease (3 sources) Chronic kidney disease Deficiency and other anemia (4 sources) Anemia; Translations: [Anemia, unspecified] Onset: 06-16-2018 Episodic Esophageal disorders (4 sources) Esophageal disorders; Translations: [Gastro-esophageal reflux disease with esophagitis, without bleeding] Malaise and fatigue (4 sources) Malaise and fatigue; Translations: [Other malaise and fatigue] Onset: 05-04-2016 Episodic Occlusion or stenosis of precerebral arteries (4 sources) Occlusion and stenosis of multiple and bilateral cerebral arteries; Translations: [Occlusion and stenosis of bilateral carotid arteries] Resolved: 04-05-2021 Chronic Other connective tissue disease (1 source) Ganglion, right wrist; Translations: [Ganglion cyst of volar aspect of right wrist M67.431] Onset: 05-04-2021 Resolved: 05-04-2021 Episodic Other nutritional; endocrine; and metabolic disorders (4 sources) Morbid obesity; Translations: [Morbid (severe) obesity due to excess calories] Resolved: 05-20-2021 Chronic Other skin disorders (1 source) Localized swelling, mass and lump, right upper limb; Translations: [Mass of right wrist R22.31] Onset: 05-04-2021 Resolved: 05-04-2021 Episodic Other upper respiratory infections (4 sources) Acute sinusitis; Translations: [Acute sinusitis, unspecified] Onset: 05-28-2015 Episodic Residual codes; unclassified (4 sources) Requires influenza virus vaccination; Translations: [Need for prophylactic vaccination and inoculation, Influenza] Onset: 05-11-2017 Episodic Results Test Name Value Interpretation Reference Range Facil ity CBC AUTO DIFFon 10-19-2022 BASO # 0.1 103/ul Normal 0.0-0.1 [facility] Comment on above: Performed By: #### U MICRO, ERUR #### [facility] [address] [place] [address] Dr. Philip De Leon Basophils/100 WBC (Bld) 1.5 % Normal 0.2-2.0 [facility] Comment on above: Performed By: #### U MICRO, ERUR #### [facility] [address] [place] [address] Dr. Philip De Leon EO # 0.4 103/ul Normal 0.0-0.7 [facility] Comment on above: Performed By: #### U MICRO, ERUR #### [facility] [address] [place] [address] Dr. Philip De Leon Eosinophils/100 WBC (Bld) 5.4 % Normal 0.9-7.0 [facility] Comment on above: Performed By: #### U MICRO, ERUR #### [facility] [address] [place] [address] Dr. Philip De Leon Erythrocyte distribution width (RBC) [Ratio] 22.5 % Critically high 11.0-15.0 [facility] Comment on above: Performed By: #### U MICRO, ERUR #### [facility] [address] [place] [address] Dr. Philip De Leon Hematocrit (Bld) [Volume fraction] 26.3 % Critically low 36.0-48.0 [facility] Comment on above: Performed By: #### U MICRO, ERUR #### [facility] [address] [place] [address] Dr. Philip De Leon Hemoglobin (Bld) [Mass/Vol] 8.3 g/dL Critically low 12.0-16.0 [facility] Comment on above: Performed By: #### U MICRO, ERUR #### [facility] [address] [place] [address] Dr. Philip De Leon IG # 0.03 10e3/ul Normal 0.00-0.03 [facility] Comment on above: Performed By: #### U MICRO, ERUR #### [facility] [address] [place] [address] Dr. Philip De Leon IG % 0.4 % Normal 0.0-0.5 [facility] Comment on above: Performed By: #### U MICRO, ERUR #### [facility] [address] [address] [address] Philip De Leon LYMPH # 1.3 103/ul Normal 1.2-3.8 [facility] Comment on above: Performed By: #### U MICRO, ERUR #### [facility] [address] [address] [address] Philip De Leon Lymphocytes/100 WBC (Bld) 17.9 % Critically low 20.5-60.0 [facility] Comment on above: Performed By: #### U MICRO, ERUR #### [facility] [address] [address] [address] Philip De Leon MANUAL DIFF REQ NO Normal [facility] Comment on above: Performed By: #### U MICRO, ERUR #### [facility] [address] [place] [address] Dr. Philip De Leon MCH (RBC) [Entitic mass] 30.1 pg Normal 26.7-34.0 [facility] Comment on above: Performed By: #### U MICRO, ERUR #### [facility] [address] [place] [address] Dr. Philip De Leon MCHC (RBC) [Mass/Vol] 31.6 g/dL Normal 29.9-35.2 [facility] Comment on above: Performed By: #### U MICRO, ERUR #### [facility] [address] [address] [address] Philip De Leon MCV (RBC) [Entitic vol] 95.3 fL Normal 81.0-99.0 [facility] Comment on above: Performed By: #### U MICRO, ERUR #### [facility] [address] [address] [address] Philip De Leon MONO # 0.6 103/ul Normal 0.3-0.8 [facility] Comment on above: Performed By: #### U MICRO, ERUR #### [facility] [address] [address] [address] Philip De Leon Monocytes/100 WBC (Bld) 8.2 % Normal 1.7-12.0 [facility] Comment on above: Performed By: #### U MICRO, ERUR #### [facility] [address] [address] [address] Philip De Leon NEUT # 4.7 103/ul Normal 1.4-6.5 [facility] Comment on above: Performed By: #### U MICRO, ERUR #### [facility] [address] [address] [address] Philip De Leon Neutrophils/100 WBC (Bld) 66.6 % Normal 43.0-75.0 [facility] Comment on above: Performed By: #### U MICRO, ERUR #### [facility] [address] [address] [address] Philip De Leon PLT 184 103/ul Normal 150-450 [facility] Comment on above: Performed By: #### U MICRO, ERUR #### [facility] [address] [address] [address] Philip De Leon RBC 2.76 106/ul Critically low 4.20-5.40 [facility] Comment on above: Performed By: #### U MICRO, ERUR #### [facility] [address] [address] [address] Philip De Leon WBC 7.1 103/ul Normal 4.0-11.0 [facility] Comment on above: Performed By: #### U MICRO, ERUR #### [facility] [address] [address] [address] Philip De Leon PROF CHEM 8 (BAS METB)on Anion gap [Moles/Vol] 7.4 mmol/L Normal [facility] Comment on above: Performed By: #### B MP #### [facility] [address] [address] [address] Philip De Leon Calcium [Mass/Vol] 8.3 mg/dL Critically low 8.5-10.1 [facility] Comment on above: Performed By: #### B MP #### [facility] [address] [address] [address] Philip De Leon Chloride [Moles/Vol] 102 mmol/L Normal 98-107 [facility] Comment on above: Performed By: #### B MP #### [facility] [address] [address] [address] Philip De Leon CO2 [Moles/Vol] 32.8 mmol/L Critically high 21.0-32.0 [facility] Comment on above: Performed By: #### B MP #### [facility] [address] [address] [address] Philip De Leon Creatinine [Mass/Vol] 1.22 mg/dL Critically high 0.55-1.02 [facility] Comment on above: Performed By: #### B MP #### [facility] [address] [place] [address] Dr. Philip De Leon EGFR-AF ZIMBABWEAN 51 mL/min/1.73m2 Critically low >=60 [facility] Comment on above: Performed By: #### B MP #### [facility] [address] [place] [address] Dr. Philip De Leon EGFR-NON AF ZIMBABWEAN 42 mL/min/1.73m2 Critically low >=60 [facility] Comment on above: Performed By: #### B MP #### [facility] [address] [place] [address] Dr. Philip De Leon Glucose [Mass/Vol] 98 mg/dL Normal 74-106 [facility] Comment on above: Performed By: #### B MP #### [facility] [address] [address] [address] Philip De Leon Potassium [Moles/Vol] 4.2 mmol/L Normal 3.5-5.1 [facility] Comment on above: Performed By: #### B MP #### [facility] [address] [address] [address] Philip De Leon Sodium [Moles/Vol] 138 mmol/L Normal 136-145 [facility] Comment on above: Performed By: #### B MP #### [facility] [address] [address] [address] Philip De Leon Urea nitrogen [Mass/Vol] 22.0 mg/dL Critically high 7.0-18.0 [facility] Comment on above: Performed By: #### B MP #### [facility] [address] [address] [address] Philip De Leon Urea nitrogen/Creatinine [Mass ratio] 18.0 mg/mg Normal [facility] Comment on above: Performed By: #### B MP #### [facility] [id number] Philip De Leon XR CHEST 1 Von 10-19-2022 XR CHEST 1 V EXAMINATION: XR CHES T 1 V HISTORY: SHORTNESS OF BREATH COMPARISON: XR chest 10/18/2022 FINDINGS: LUNGS: Thick curvilinear opacity within right upper lobe and right hilar prominence. Obscuration of right lung base. Left lung is well-expanded and grossly clear. VASCULATURE: No increased pulmonary vasculature. PLEURA: Moderate right pleural effusion. CARDIAC: No cardiomegaly or cardiac silhouette abnormality. MEDIASTINUM: No visible mass or adenopathy. BONES: No fracture or visible bone lesion. OTHER: Negative. IMPRESSION: 1. Grossly stable appearance of the chest with moderate or greater right pleural effusion, right hilar prominence, and thick curvilinear stranding opacity within right upper lobe. Electronically authenticated by: PASTOR ARIZMENDI Date: 2022-10-19 06:47 Normal [facility] CBC W MANUAL DIFFon 10-19-19 23 ATYPICAL LYMPH # 0.28 103/ul Normal [facility] Comment on above: Performed By: #### C ANA MARIA #### [facility] [address] [place] [address] Dr. Philip De Leon ATYPICAL LYMPH % 3 % Normal [facility] Comment on above: Performed By: #### C ANA MARIA #### [facility] [id number] Philip De Leon BAND # 0.0 103/ul Normal 0.0-0.3 [facility] Comment on above: Performed By: #### C ANA MARIA #### [facility] [address] [address] [address] Philip De Leon BAND % 0 % Normal 0-5 [facility] Comment on above: Performed By: #### C ANA MARIA #### [facility] [address] [address] [address] Philip De Leon BASOM # 0.09 103/ul Normal 0.00-0.10 [facility] Comment on above: Performed By: #### C BCMAN #### [facility] [address] [address] [address] Philip De Leon BASOM % 1.0 % Normal 0.2-2.0 [facility] Comment on above: Performed By: #### C BCMAN #### [facility] [address] [place] [address] Dr. Philip De Leon BLAST # Normal [facility] Comment on above: Performed By: #### C BCMAN #### [facility] [address] [place] [address] Dr. Philip De Leon BLAST % Normal [facility] Comment on above: Performed By: #### C BCBRADLEY #### [facility] [address] [place] [address] Dr. Philip De Leon CORRECTED WBC Normal 4.0-11.0 [facility] Comment on above: Performed By: #### C BCMAN #### [facility] [address] [place] [address] Dr. Philip De Leon EOS # 0.18 103/ul Normal 0.00-0.70 [facility] Comment on above: Performed By: #### C BCBRADLEY #### [facility] [address] [place] [address] Dr. Philip De Leon EOS% 2.0 % Normal 0.9-7.0 [facility] Comment on above: Performed By: #### C BCMAN #### [facility] [address] [place] [address] Dr. Philip De Leon HCT 25.5 % Critically low 36.0-48.0 [facility] Comment on above: Performed By: #### C BCMAN #### [facility] [address] [place] [address] Dr. Philip De Leon HGB 8.0 g/dl Critically low 12.0-16.0 [facility] Comment on above: Performed By: #### C ANA MARIA #### [facility] [address] [address] [address] Philip De Leon LYMPHM # 2.85 103/ul Normal 1.20-3.80 [facility] Comment on above: Performed By: #### C ANA MARIA #### [facility] [address] [place] [address] Dr. Philip De Leon LYMPHM% 31.0 % Normal 20.5-60.0 [facility] Comment on above: Performed By: #### C ANA MARIA #### [facility] [address] [place] [address] Dr. Philip De Leon MCH 30.0 pg Normal 26.7-34.0 [facility] Comment on above: Performed By: #### C ANA MARIA #### [facility] [address] [place] [address] Dr. Philip De Leon MCHC 31.4 g/dl Normal 29.9-35.2 [facility] Comment on above: Performed By: #### C ANA MARIA #### [facility] [address] [place] [address] Dr. Philip De Leon MCV 95.5 fL Normal 81.0-99.0 [facility] Comment on above: Performed By: #### C ANA MARIA #### [facility] [address] [place] [address] Dr. Philip De Leon METAMYELOCYTE # Normal [facility] Comment on above: Performed By: #### C ANA MARIA #### [facility] [address] [place] [address] Dr. Philip De Leon METAMYELOCYTE % Normal [facility] Comment on above: Performed By: #### C ANA MARIA #### [facility] [address] [place] [address] Dr. Philip De Leon MONOM# 0.46 103/ul Normal 0.30-0.80 [facility] Comment on above: Performed By: #### C ANA MARIA #### [facility] [address] [place] [address] Dr. Philip De Leon MONOM% 5.0 % Normal 1.7-12.0 [facility] Comment on above: Performed By: #### C ANA MARIA #### [facility] [address] [address] [address] Philip De Leon MPV 0.0 fL Critically low 9.5-13.5 [facility] Comment on above: Performed By: #### C ANA MARIA #### [facility] [facility] [address] [place] [address] Dr. Philip De Leon MYELOCYTE # 0.3 103/ul Normal [facility] Comment on above: Performed By: #### C ANA MARIA #### [facility] [address] [place] [address] Dr. Philip De Leon MYELOCYTE % 3 % Normal [facility] Comment on above: Performed By: #### C ANA MARIA #### [facility] [address] [place] [address] Dr. Philip De Leon NRBC Normal [facility] Comment on above: Performed By: #### C ANA MARIA #### [facility] [address] [place] [address] Dr. Philip De Leon PLT 196 103/ul Normal 150-450 [facility] Comment on above: Performed By: #### C ANA MARIA #### [facility] [address] [place] [address] Dr. Philip De Leon RBC 2.67 106/ul Critically low 4.20-5.40 [facility] Comment on above: Performed By: #### C ANA MARIA #### [facility] [address] [place] [address] Dr. Philip De Leon RDW 21.7 % Critically high 11.0-15.0 [facility] Comment on above: Performed By: #### C ANA MARIA #### [facility] [address] [place] [address] Dr. Philip De Leon SEG # 5.06 103/ul Normal 1.40-6.50 [facility] Comment on above: Performed By: #### C ANA MARIA #### [facility] [address] [place] [address] Dr. Philip De Leon SEG % 55.0 % Normal 43.0-75.0 [facility] Comment on above: Performed By: #### C DHARMESHBRADLEY #### [facility] [address] [place], [place] [address] Dr. Philip De Leon WBC 9.2 103/ul Normal 4.0-11.0 [facility] Comment on above: Performed By: #### C ANA MARIA #### [facility] [address] [place], [place] [address] [address] CHEST WO CONon 10-18-2022 CT CHEST WO CON EXAMINATION: CT CHES T WO CON HISTORY: Mass of right lower lobe of lung COMPARISON: XR chest 10/17/2022, CTA chest 10/16/2022 TECHNIQUE: Axial, Coronal, and Sagittal images were created without the administration of IV contrast material. Dose reduction techniques were achieved by using automated exposure control and/or adjustment of mA and/or kV according to patient size and/or use of iterative reconstruction technique. FINDINGS: LUNGS: Scattered patchy and confluent opacities within the lungs, right greater than left. Atelectasis versus partial consolidation of the basilar segments of the right lower lobe and medial basilar segment of left lower lobe. PLEURA: Bilateral pleural effusions, 2.9 cm in thickness on right, 0.7 cm on left. VASCULATURE: No abnormality. YINA: Multiple calcified right hilar lymph nodes. MEDIASTINUM: No mass or adenopathy. CARDIAC: Stable cardiomegaly. No pericardial effusion. AORTA: Atherosclerotic disease without appreciable aneurysm. CHEST WALL: No mass or axillary adenopathy. BONES: No bone lesion or fracture. LIMITED ABDOMEN: Large hiatal hernia. Limited images of the upper abdomen. OTHER: Negative. IMPRESSION: 1. Resolution of previously seen right apical pneumothorax. 2. Moderate large right pleural effusion; significantly decreased since prior study. Small left pleural effusion; improved. 3. Confluent patchy infiltrates versus atelectasis within the lungs. Partial consolidation of the lower lobe basilar segments; right greater than left; improved. Electronically authenticated by: PASTOR ARIZMENDI Date: 2022-10-18 10:10 Normal [facility] PROF CHEM 8 (BAS METB)on Anion gap [Moles/Vol] 6.4 mmol/L Normal [facility] Comment on above: Performed By: #### B MP #### [facility] [address] [place] [address] [address] Philip De Leon Calcium [Mass/Vol] 8.2 mg/dL Critically low 8.5-10.1 Th [facility] Comment on above: Performed By: #### B MP #### [facility] [address] [address] [address] Philip De Leon Chloride [Moles/Vol] 105 mmol/L Normal 98-107 [facility] Comment on above: Performed By: #### B MP #### [facility] [address] [address] [address] Philip De Leon CO2 [Moles/Vol] 33.0 mmol/L Critically high 21.0-32.0 [facility] Comment on above: Performed By: #### B MP #### [facility] [address] [place] [address] Dr. Philip De Leon Creatinine [Mass/Vol] 1.24 mg/dL Critically high 0.55-1.02 [facility] Comment on above: Performed By: #### B MP #### [facility] [address] [address] [address] Philip De Leon EGFR-AF ZIMBABWEAN 50 mL/min/1.73m2 Critically low >=60 [facility] Comment on above: Performed By: #### B MP #### [facility] [address] [address] [address] Philip De Leon EGFR-NON AF ZIMBABWEAN 42 mL/min/1.73m2 Critically low >=60 [facility] Comment on above: Performed By: #### B MP #### [facility] [address] [address] [address] Philip De Leon Glucose [Mass/Vol] 94 mg/dL Normal 74-106 [facility] Comment on above: Performed By: #### B MP #### [facility] [address] [address] [address] Philip De Leon Potassium [Moles/Vol] 4.4 mmol/L Normal 3.5-5.1 [facility] Comment on above: Performed By: #### B MP #### [facility] [address] [place], [place] [address] Dr. Philip De Leon Sodium [Moles/Vol] 140 mmol/L Normal 136-145 [facility] Comment on above: Performed By: #### B MP #### [facility] [address] [place], [place] [address] Dr. Philip De Leon Urea nitrogen [Mass/Vol] 20.0 mg/dL Critically high 7.0-18.0 [facility] Comment on above: Performed By: #### B MP #### [facility] [address] [place], [place] [address] Dr. Phiilp De Leon Urea nitrogen/Creatinine [Mass ratio] 16.1 mg/mg Normal [facility] Comment on above: Performed By: #### B MP #### [facility] [address] [place], [place] [address] Dr. Philip De Leon XR CHEST 1 Von 10-18-2022 XR CHEST 1 V EXAM: XR CHEST 1 V HISTORY: SHORTNESS OF BREATH COMPARISON: Chest x-ray from yesterday. TECHNIQUE: Chest X-ray AP, 1 view FINDINGS: Support devices: None. Lungs/pleura: No substantial change of pulmonary findings. Persistent small right pleural effusion which appears somewhat loculated in appearance. No definite pneumothorax on radiographic exam. Linear opacity of the right midlung is unchanged. Hazy opacities of the right mid and lower lung are unchanged. No significant abnormality of the left lung has developed. Heart and mediastinum: Stable contours compared to prior examination. Fullness of the right hilar region is unchanged-recommend follow up to resolution. Bones: No acute abnormality identified. IMPRESSION: Previously described right pneumothorax is no longer conspicuous. Otherwise, stable examination. Electronically authenticated by: KARLA CLEMENTS Date: 2022-10-18 07:19 Normal [facility] XR CHEST 1 V EXAM: XR CHEST 1 V HISTORY: Iatrogenic pneumothorax COMPARISON: Chest x-ray 10/17/2022 TECHNIQUE: Single frontal view chest x-ray FINDINGS: The previously seen right apical 7.8 mm pneumothorax is currently less than 3 mm. Small right pleural effusion, similar to slightly decreased compared to prior exam. Mild bilateral lung interstitial edema. Mild bibasilar streaky opacities reflect atelectasis or infiltrates, similar to prior exam. Right upper to mid lung bandlike opacities reflecting atelectasis/scar or infiltrate, unchanged. No acute bony abnormality. Borderline prominent heart size, similar to prior exam. IMPRESSION: The previously seen right apical 7.8 mm pneumothorax is currently less than 3 mm. Small right pleural effusion, similar to slightly decreased compared to prior exam. Other additional findings, as above, are similar to prior exam. Electronically authenticated by: MAGDIEL DELEON Date: 2022-10-17 23:51 Normal [facility] CBC W MANUAL DIFFon 10-18-19 23 ATYPICAL LYMPH # Normal [facility] Comment on above: Performed By: #### U MICRO, ERUR #### [facility] [address] [place] [address] Dr. Philip De Leon ATYPICAL LYMPH % Normal [facility] Comment on above: Performed By: #### U MICRO, ERUR #### [facility] [address] [place] [address] Dr. Philip De Leon BAND # 0.0 103/ul Normal 0.0-0.3 [facility] Comment on above: Performed By: #### U MICRO, ERUR #### [facility] [address] [place] [address] Dr. Philip De Leon BAND % 0 % Normal 0-5 [facility] Comment on above: Performed By: #### U MICRO, ERUR #### [facility] [address] [place] [address] Dr. Philip De Leon BASOM # 0.06 103/ul Normal 0.00-0.10 [facility] Comment on above: Performed By: #### U MICRO, ERUR #### [facility] [address] [place] [address] Dr. Philip De Loen BASOM % 1.0 % Normal 0.2-2.0 [facility] Comment on above: Performed By: #### U MICRO, ERUR #### [facility] [address] [place] [address] Dr. Philip De Leon BLAST # Normal [facility] Comment on above: Performed By: #### U MICRO, ERUR #### [facility] [address] [place] [address] Dr. Philip De Leon BLAST % Normal [facility] Comment on above: Performed By: #### U MICRO, ERUR #### [facility] [address] [place] [address] Dr. Philip De Leon CORRECTED WBC Normal 4.0-11.0 [facility] Comment on above: Performed By: #### U MICRO, ERUR #### [facility] [address] [place] [address] Dr. Philip De Leon EOS # 0.17 103/ul Normal 0.00-0.70 [facility] Comment on above: Performed By: #### U MICRO, ERUR #### [facility] [address] [place] [address] Dr. Philip De Leon EOS% 3.0 % Normal 0.9-7.0 [facility] Comment on above: Performed By: #### U MICRO, ERUR #### [facility] [address] [place] [address] Dr. Philip De Leon HCT 24.6 % Critically low 36.0-48.0 [facility] Comment on above: Performed By: #### U MICRO, ERUR #### [facility] [address] [place] [address] Dr. Philip De Leon HGB 7.6 g/dl Critically low 12.0-16.0 [facility] Comment on above: Performed By: #### U MICRO, ERUR #### [facility] [address] [place] [address] Dr. Philip De Leon LYMPHM # 1.22 103/ul Normal 1.20-3.80 [facility] Comment on above: Performed By: #### U MICRO, ERUR #### [facility] [address] [place] [address] Dr. Philip De Leon LYMPHM% 21.0 % Normal 20.5-60.0 [facility] Comment on above: Performed By: #### U MICRO, ERUR #### [facility] [address] [place] [address] Dr. Philip De Leon MCH 30.0 pg Normal 26.7-34.0 [facility] Comment on above: Performed By: #### U MICRO, ERUR #### [facility] [address] [address] [address] Philip De Leon MCHC 30.9 g/dl Normal 29.9-35.2 [facility] Comment on above: Performed By: #### U MICRO, ERUR #### [facility] [address] [address] [address] Philip De Leon MCV 97.2 fL Normal 81.0-99.0 [facility] Comment on above: Performed By: #### U MICRO, ERUR #### [facility] [address] [place] [address] Dr. Philip De Leon METAMYELOCYTE # Normal [facility] Comment on above: Performed By: #### U MICRO, ERUR #### [facility] [address] [place] [address] Dr. Philip De Leon METAMYELOCYTE % Normal [facility] Comment on above: Performed By: #### U MICRO, ERUR #### [facility] [address] [place] [address] Dr. Philip De Leon MONOM# 0.17 103/ul Critically low 0.30-0.80 [facility] Comment on above: Performed By: #### U MICRO, ERUR #### [facility] [address] [place] [address] Dr. Philip De Leon MONOM% 3.0 % Normal 1.7-12.0 [facility] Comment on above: Performed By: #### U MICRO, ERUR #### [facility] [address] [place] [address] Dr. Philip De Leon MPV 0.0 fL Critically low 9.5-13.5 [facility] Comment on above: Performed By: #### U MICRO, ERUR #### [facility] [address] [place] [address] Dr. Philip De Leon MYELOCYTE # Normal [facility] Comment on above: Performed By: #### U MICRO, ERUR #### [facility] [address] [address] [address] Philip De Leon MYELOCYTE % Normal [facility] Comment on above: Performed By: #### U MICRO, ERUR #### [facility] [address] [address] [address] Philip De Leon NR Normal [facility] Comment on above: Performed By: #### U MICRO, ERUR #### [facility] [address] [address] [address] Philip De Leon PLT 191 103/ul Normal 150-450 [facility] Comment on above: Performed By: #### U MICRO, ERUR #### [facility] [address] [address] [address] Philip De Leon RBC 2.53 106/ul Critically low 4.20-5.40 [facility] Comment on above: Performed By: #### U MICRO, ERUR #### [facility] [address] [place] [address] Dr. Philip De Leon RDW 21.9 % Critically high 11.0-15.0 [facility] Comment on above: Performed By: #### U MICRO, ERUR #### [facility] [address] [place] [address] Dr. Philip De Leon SEG # 4.18 103/ul Normal 1.40-6.50 [facility] Comment on above: Performed By: #### U MICRO, ERUR #### [facility] [address] [place] [address] Dr. Philip De Leon SEG % 72.0 % Normal 43.0-75.0 [facility] Comment on above: Performed By: #### U MICRO, ERUR #### [facility] [address] [place] [address] Dr. Philip De Leon WBC 5.8 103/ul Normal 4.0-11.0 [facility] Comment on above: Performed By: #### U MICRO, ERUR #### [facility] [address] [place] [address] Dr. Philip De Leon CYTOLOGYon 10-17-2022 SENT TO REF LAB 10/17/2022 Normal [facility] Comment on above: Performed By: #### C YTO #### [facility] [address] [address] [address] Philip De Leon ECHOCARDIO M/2D COMPLETEon 0 10-17-2022 ECHOCARDIO M/2D COMPLETE Patient: CHRISTA PITTS Exam Date: 10/17/2022 : 1940 Gender:F Ordering : DR SAMAN MARTÍNEZ . Admission #: [id number] Family : Order #: [id number] CLICK HERE TO VIEW EXAM ECHOCARDIOGRAM REPORT PROCEDURE: CARDIO PULMONARY ECHOCARDIO M/2D COMP INDICATIONS: CHF, Cardiomegally, Shortness of breath COMPARISON: None. DESCRIPTION: COMPLETE ECHOCARDIOGRAM Real-time transthoracic echocardiography with 2D, M-mode, spectral and color flow Doppler performed. QUALITY: Technical quality was good. LEFT VENTRICLE: Normal chamber size. Mild concentric left ventricular hypertrophy. LV EF: Global left ventricular systolic function is hyperdynamic. Calculated left ventricular ejection fraction is 70% DIASTOLIC: Grade II, moderate diastolic function. ATRIAL SEPTUM: Inadequately seen. LEFT ATRIUM: Severe dilatation. RIGHT ATRIUM: Mild dilatation. RIGHT VENTRICLE: Normal chamber size. Normal right ventricular systolic function. TRICUSPID VALVE: Normal mobility and thickness. No stenosis with trivial regurgitation. Moderate pulmonary hypertension. RVSP 57mmHg MITRAL VALVE: Normal mobility and thickness. No mitral valve prolapse. No evidence of mitral valve stenosis. There is no mitral annular calcification. Mild mitral regurgitation. AORTIC VALVE: Normal trileaflet appearance. Mildly calcified aortic valve. Mildly diminished mobility. Doppler velocity suggest mild aortic valve stenosis. DVI 0.5, DESMOND 1.5cm2. No aortic regurgitation. AORTIC ROOT: Normal diameter and appearance. PULMONIC VALVE: Normal thickness and mobility. No stenosis. Mild regurgitation. PERICARDIUM: No evidence of pericardial effusion. IVC: Collapses with inspirations. Normal size. CONCLUSION: Global left ventricular systolic function is hyperdynamic; visually estimated ejection fraction 65 to 70%. Mild left ventricular hypertrophy. Grade 2 diastolic dysfunction. Biatrial enlargement. The right ventricle is normal in size and systolic function. Moderately elevated right ventricular systolic pressure. Mild mitral regurgitation. Mild aortic valve stenosis. Mild pulmonic regurgitation. Adult Echocardiography Procedure Report Left Ventricle LVEDD (3.7 - 5.6 cm): 5.40 cm LVESD (2.2 - 4.0 cm): 3.12 cm LVIVS thickness (0.6 - 1.2 cm): 1.09 cm LVPW thickness (0.5 - 1.0 cm): 1.19 cm e': 0.07 m/s E - e': 13.66 LVOT Max Gradient: 3.79 mm[Hg] Peak Velocity (LVOT): 0.97 m/s Mean Velocity (LVOT): 0.69 m/s LVOT Diameter 2.05 cm Left Ventricular Ejection Fraction: 72.78 %, 72.78 % Left Atrium LA Volume Index (2D A2C): 189.81 ml, 189.81 ml Left Atrium Systolic Dimension: 4.28 cm Mitral Valve MV E to A Ratio: 1.65 Mitral Valve A-Wave Peak Velocity: 0.61 m/s Mitral Valve E-Wave Peak Velocity: 1.01 m/s Right Ventricle RV Internal Diastolic Dimension: 3.27 cm Aorta AO Root Diam: 3.11 cm Ascending Ao Diam: 2.52 cm Aortic Valve AoV Area (Peak Karan): 1.60 cm2, 1.60 cm2 AoV Area (VTI): 1.52 cm2, 1.52 cm2 Peak Velocity(Antegrade Flow): 2.02 m/s Peak Gradient(Antegrade Flow): 16.30 mm[Hg] Mean Velocity(Antegrade Flow): 1.41 m/s Mean Gradient(Antegrade Flow): 9.20 mm[Hg] Velocity Time Integral: 62.20 cm Tricuspid Valve Peak Velocity (Regurgitant Flow): 3.31 m/s, 3.09 m/s, 3.67 m/s Peak Velocity: 0.44 m/s Pulmonic Valve Mean Gradient: 2.95 mm[Hg] Mean Velocity: 0.82 m/s Peak Velocity: 1.09 m/s Peak Gradient: 4.76 mm[Hg] Right Atrium Right Atrium Systolic Pressure: 53.43 ml, 53.43 ml Dictated by: Tl Cobb M.D. on 10/18/2022 at 11:34 Approved by: Tl Cobb M.D. on 10/18/2022 at 11:37 Normal [facility] PROF CHEM 8 (BAS B)on Anion gap [Moles/Vol] 7.8 mmol/L Normal [facility] Comment on above: Performed By: #### U MICRO, ERUR #### [facility] [address] [place] [address] Dr. Philip De Leon Calcium [Mass/Vol] 8.3 mg/dL Critically low 8.5-10.1 [facility] Comment on above: Performed By: #### U MICRO, ERUR #### [facility] [address] [address] [address] Philip De Leon Chloride [Moles/Vol] 108 mmol/L Critically high 98-107 [facility] Comment on above: Performed By: #### U MICRO, ERUR #### [facility] [address] [place] [address] Dr. Philip De Leon CO2 [Moles/Vol] 30.2 mmol/L Normal 21.0-32.0 [facility] Comment on above: Performed By: #### U MICRO, ERUR #### [facility] [address] [place] [address] Dr. Philip De Leon Creatinine [Mass/Vol] 1.13 mg/dL Critically high 0.55-1.02 [facility] Comment on above: Performed By: #### U MICRO, ERUR #### [facility] [address] [place] [address] Dr. Philip De Leon EGFR-AF ZIMBABWEAN 56 mL/min/1.73m2 Critically low >=60 [facility] Comment on above: Performed By: #### U MICRO, ERUR #### [facility] [address] [place] [address] Dr. Philip De Leon EGFR-NON AF ZIMBABWEAN 46 mL/min/1.73m2 Critically low >=60 [facility] Comment on above: Performed By: #### U MICRO, ERUR #### [facility] [address] [place] [address] Dr. Philip De Leon Glucose [Mass/Vol] 87 mg/dL Normal 74-106 [facility] Comment on above: Performed By: #### U MICRO, ERUR #### [facility] [address] [address] [address] Philip De Leon Potassium [Moles/Vol] 5.0 mmol/L Normal 3.5-5.1 [facility] Comment on above: Performed By: #### U MICRO, ERUR #### [facility] [address] [address] [address] Philip De Leon Sodium [Moles/Vol] 141 mmol/L Normal 136-145 [facility] Comment on above: Performed By: #### U MICRO, ERUR #### [facility] [address] [address] [address] Philip De Leon Urea nitrogen [Mass/Vol] 16.0 mg/dL Normal 7.0-18.0 [facility] Comment on above: Performed By: #### U MICRO, ERUR #### [facility] [address] [address] [address] Philip De Leon Urea nitrogen/Creatinine [Mass ratio] 14.2 mg/mg Normal [facility] Comment on above: Performed By: #### U MICRO, ERUR #### [facility] [address] [address] [address] Philip De Leon XR CHEST 1 Von 10-17-2022 XR CHEST 1 V EXAM: XR CHEST 1 V HISTORY: Pleural effusion COMPARISON: 10/17/2022 at 6:14 AM TECHNIQUE: AP portable FINDINGS: LUNGS: 7.8 mm right apical pneumothorax. Right basilar infiltrate obscuring the hemidiaphragm, significantly improved. Focal infiltrate right midlung. VASCULATURE: Moderately increased, stable PLEURA: Right pleural effusion CARDIAC: No cardiomegaly or cardiac silhouette abnormality. MEDIASTINUM: No visible mass or adenopathy. BONES: No fracture or visible bone lesion. OTHER: Negative. IMPRESSION: Interval thoracentesis with residual right basilar infiltrate/pleural effusion 7.8 mm right apical pneumothorax Electronically authenticated by: MOISES BASILIO Date: 2022-10-17 13:32 Normal [facility] XR CHEST 2 Von 10-17-2022 XR CHEST 2 V EXAM: XR CHEST 2 V HISTORY: SHORTNESS OF BREATH COMPARISON: CT and x-ray of yesterday. TECHNIQUE: Chest X-ray, 2 views. FINDINGS: Support devices: None. Lungs/pleura: Mildly improved airspace opacities of the right upper lung. Persistent airspace opacities of the right midlung with associated moderate to large effusion, similar to prior examination. Small left pleural effusion persists. Minimal patchy opacities of the left lung base persist, favored to represent atelectasis over infiltrate. No pneumothorax. Heart and mediastinum: Stable contours compared to prior examination. Bones: No acute abnormality identified. IMPRESSION: Slightly improved airspace opacities of the right lung upper lung, otherwise stable findings as above. Electronically authenticated by: KARLA CLEMENTS Date: 2022-10-17 06:58 Normal [facility] BNPon 10-16-2022 Natriuretic peptide B (Bld) [Mass/Vol] 1965.0 pg/mL Critically high <=1,800.0 [facility] Comment on above: Performed By: #### U MICRO, ERUR #### [facility] [address] [address] [address] Philip De Leon CARDIAC IRON ADMITon 023 CK [Catalytic activity/Vol] 47 U/L Normal 26-192 [facility] Comment on above: Performed By: #### U MICRO, ERUR #### [facility] [facility] [address] [address] [address] Philip De Leon CK.MB [Mass/Vol] 0.82 ng/mL Normal <=3.60 [facility] Comment on above: Performed By: #### U MICRO, ERUR #### [facility] [address] [address] [address] Philip De Leon HSTROP 9.4 pg/mL Normal 4.0-51.3 [facility] Comment on above: Result Comment: CUT- OFF POINTS HAVE BEEN ESTABLISHED BASED ON THE FOURTH UNIVERSAL DEFINITIONS OF MYOCARDIAL INFARCTION. THE UPPER REFERENCE LIMIT (URL) OF TROPONIN, DEFINED THE 99TH PERCENTILE OF cTnI DISTRIBUTION IN A REFERENCE POPULATION, HAS BEEN CONFIRMED THE DECISION THRESHOLD FOR RI DIAGNOSIS. Performed By: #### U MICRO, ERUR #### [facility] [address] [address] [address] Philip De Leon BELKIS 55 ng/mL Normal 9-82 [facility] Comment on above: Performed By: #### U MICRO, ERUR #### [facility] [address] [address] [address] Philip De Leon CBC AUTO DIFFon 10-16-2022 BASO # 0.2 103/ul Critically high 0.0-0.1 [facility] Comment on above: Performed By: #### C BC #### [facility] [address] [address] [address] Philip De Leon Basophils/100 WBC (Bld) 2.0 % Normal 0.2-2.0 [facility] Comment on above: Performed By: #### C BC #### [facility] [address] [address] [address] Philip De Leon EO # 0.4 103/ul Normal 0.0-0.7 [facility] Comment on above: Performed By: #### C BC #### [facility] [address] [place] [address] Dr. Philip De Leon Eosinophils/100 WBC (Bld) 3.9 % Normal 0.9-7.0 [facility] Comment on above: Performed By: #### C BC #### [facility] [address] [address] [address] Philip De Leon Erythrocyte distribution width (RBC) [Ratio] 21.9 % Critically high 11.0-15.0 [facility] Comment on above: Performed By: #### C BC #### [facility] [address] [address] [address] Philip De Leon Hematocrit (Bld) [Volume fraction] 30.7 % Critically low 36.0-48.0 [facility] Comment on above: Performed By: #### C BC #### [facility] [address] [address] [address] Philip De Leon Hemoglobin (Bld) [Mass/Vol] 9.6 g/dL Critically low 12.0-16.0 [facility] Comment on above: Performed By: #### C BC #### [facility] [address] [address] [address] Philip De Leon IG # 0.14 10e3/ul Critically high 0.00-0.03 [facility] Comment on above: Performed By: #### C BC #### [facility] [address] [place] [address] Dr. Philip De Leon IG % 1.4 % Critically high 0.0-0.5 [facility] Comment on above: Performed By: #### C BC #### [facility] [address] [place] [address] Dr. Philip De Leon LYMPH # 1.2 103/ul Normal 1.2-3.8 [facility] Comment on above: Performed By: #### C BC #### [facility] [address] [place] [address] Dr. Philip De Leon Lymphocytes/100 WBC (Bld) 11.9 % Critically low 20.5-60.0 [facility] Comment on above: Performed By: #### C BC #### [facility] [address] [place] [address] Dr. Philip De Leon MANUAL DIFF REQ NO Normal [facility] Comment on above: Performed By: #### C BC #### [facility] [address] [place] [address] Dr. Philip De Leon MCH (RBC) [Entitic mass] 30.3 pg Normal 26.7-34.0 [facility] Comment on above: Performed By: #### C BC #### [facility] [address] [place] [address] Dr. Philip De Leon MCHC (RBC) [Mass/Vol] 31.3 g/dL Normal 29.9-35.2 [facility] Comment on above: Performed By: #### C BC #### [facility] [address] [place] [address] Dr. Philip De Leon MCV (RBC) [Entitic vol] 96.8 fL Normal 81.0-99.0 [facility] Comment on above: Performed By: #### C BC #### [facility] [address] [place] [address] Dr. Philip De Leon MONO # 0.6 103/ul Normal 0.3-0.8 [facility] Comment on above: Performed By: #### C BC #### [facility] [address] [address] [address] Philip De Leon Monocytes/100 WBC (Bld) 6.2 % Normal 1.7-12.0 [facility] Comment on above: Performed By: #### C BC #### [facility] [address] [address] [address] Philip De Leon NEUT # 7.3 103/ul Critically high 1.4-6.5 [facility] Comment on above: Performed By: #### C BC #### [facility] [address] [place] [address] Dr. Philip De Leon Neutrophils/100 WBC (Bld) 74.6 % Normal 43.0-75.0 [facility] Comment on above: Performed By: #### C BC #### [facility] [address] [place] [address] Dr. Philip De Leon PLT 247 103/ul Normal 150-450 [facility] Comment on above: Performed By: #### C BC #### [facility] [address] [place] [address] Dr. Philip De Leon RBC 3.17 106/ul Critically low 4.20-5.40 [facility] Comment on above: Performed By: #### C BC #### [facility] [address] [place] [address] Dr. Philip De Leon WBC 9.7 103/ul Normal 4.0-11.0 [facility] Comment on above: Performed By: #### C BC #### [facility] [address] [place] [address] Dr. Philip De Leon CTA CHEST WO W CONon 10-16- 023 CTA CHEST WO W CON EXAMINATION: CTA AMAYA ST WO W CON HISTORY: SHORTNESS OF BREATH COMPARISON: None. TECHNIQUE: CT angiogram of the chest. Coronal and sagittal MIP reformats obtained. Dose reduction techniques were achieved by using automated exposure control and/or adjustment of mA and/or kV according to patient size and/or use of iterative reconstruction technique. FINDINGS: Large right pleural effusion with atelectatic collapse of the right lower lobe, partial atelectatic collapse of the right middle lobe. [id number] left pleural effusion with left basilar atelectasis/consolidat ion. Mosaic attenuation and interlobular septal thickening throughout the lungs. Curvilinear calcification along the visceral pleura of the right lower lobe, series 4 image 54, measuring up to 5 cm. Tree-in-bud nodularity in the right upper lobe. Dilated pulmonary trunk. Crowding of vasculature in the right lung limits evaluation. No definitive pulmonary artery filling defects. Cardiomegaly. No pericardial effusion. Multiple calcified right hilar lymph nodes. Moderate-sized hiatal hernia. Calcified splenic granuloma. IMPRESSION: Very limited examination of the right pulmonary vasculature secondary to large pleural effusion and atelectatic collapse of the right lower and middle lobes. Vasculature is crowded/collapsed and underlying pulmonary embolus would be difficult to exclude. Otherwise, no other evidence of pulmonary artery filling defect. Small left pleural effusion with adjacent atelectasis/consolidat ion. Infectious/inflammator y changes in the right upper lobe. Indeterminate calcific 5 cm curvilinear density involving the visceral pleura of the right lower lobe. Potentially pleural plaque or sequela of prior intervention. Dilated pulmonary trunk suggesting pulmonary hypertension. Moderate hiatal hernia. Electronically authenticated by: AYAZ KRUGER Date: 2022-10-16 10:58 Normal [facility] CULTURE BLOODon 10-16-2022 Microscopic examination of blood, culture Culture Observations: NO GROWTH AT 5 DAYS. Normal [facility] Comment on above: Performed By: #### U MICRO, ERUR #### [facility] [address] [address] [address] Philip De Leon Microscopic examination of blood, culture Culture Observations: NO GROWTH AT 5 DAYS. Normal [facility] Comment on above: Performed By: #### U MICRO, ERUR #### [facility] [address] [place], [place] [address] Dr. Philip De Leon Covid-19 PCR [facility]on 10-05 SARS-CoV-2 (COVID-19) RNA MARILU+probe Ql (Unsp spec) Not detected Normal NOT DETECTED [facility] Comment on above: Result Comment: When diagnostic testing is negative, the possibility of a false negative should be considered in the context of a patient's recent exposures and the presence of clinical signs and symptoms consistent with SARS-CoV-2. This test is not yet approved or cleared by the [place] FDA. When there are no FDA-approved or cleared tests available, and other criteria are met, FDA can make tests available under an emergency access mechanism called an Emergency Use Authorization (EUA). The EUA for this test is supported by the [place] of Health and Human Service's declaration that circumstances exist to justify the emergency use of in vitro diagnostics for the detection and/or diagnosis of the virus that causes COVID-19. This EUA will remain in effect for the duration of the COVID-19 declaration justifying emergency of IVDs, unless it is terminated or revoked by the FDA (after which the test may no longer be used). Performed By: #### U MICRO, ERUR #### [facility] [address] [place] [address] Dr. Philip De Leon ER URINE PROFILEon 3 Bilirubin Ql (U) Negative Normal NEGATIVE [facility] Comment on above: Performed By: #### U MICRO, ERUR #### [facility] [address] [place] [address] Dr. Philip De Leon Clarity (U) CLEAR Normal CLEAR [facility] Comment on above: Performed By: #### U MICRO, ERUR #### [facility] [address] [place] [address] Dr. Philip De Leon Color (U) LT. YELLOW Normal YELLOW [facility] Comment on above: Performed By: #### U MICRO, ERUR #### [facility] [address] [place] [address] Dr. Philip BONILLAAHD A micrscopic examination will be performed if indicated. Normal [facility] Comment on above: Performed By: #### U MICRO, ERUR #### [facility] [address] [place] [address] Dr. Philip De Leon Glucose Ql (U) Negative Normal NEGATIVE [facility] Comment on above: Performed By: #### U MICRO, ERUR #### [facility] [address] [place] [address] Dr. Philip De Leon Hemoglobin Ql (U) SMALL Abnormal NEGATIVE [facility] Comment on above: Performed By: #### U MICRO, ERUR #### [facility] [address] [place] [address] Dr. Philip De Leon Ketones Ql (U) Negative Normal NEGATIVE [facility] Comment on above: Performed By: #### U MICRO, ERUR #### [facility] [address] [place] [address] Dr. Philip De Leon LEUKOCYTES Negative Normal NEGATIVE [facility] Comment on above: Performed By: #### U MICRO, ERUR #### [facility] [address] [address] [address] Philip De Leon Nitrite Ql (U) Negative Normal NEGATIVE [facility] Comment on above: Performed By: #### U MICRO, ERUR #### [facility] [address] [place] [address] Dr. Philip De Leon pH (U) 6.0 [pH] Normal 5-9 [facility] Comment on above: Performed By: #### U MICRO, ERUR #### [facility] [address] [place] [address] Dr. Philip De Leon Protein (U) [Mass/Vol] 30 mg/dL Abnormal NEGATIVE/ TRACE [facility] Comment on above: Performed By: #### U MICRO, ERUR #### [facility] [address] [place] [address] Dr. Philip De Leon SPEC GRAVITY 1.010 Normal 1.005-<=1.025 [facility] Comment on above: Performed By: #### U MICRO, ERUR #### [facility] [address] [place] [address] Dr. Philip De Leon UR MICRO IND INDICATED Normal [facility] Comment on above: Performed By: #### U MICRO, ERUR #### [facility] [address] [place] [address] Dr. Philip De Leon Urobilinogen Qn (U) 0.2 {Graham'U}/dL Normal 0.2 - 1. 0 [facility] Comment on above: Performed By: #### U MICRO, ERUR #### [facility] [address] [place] [address] Dr. Philip De Leon LACTATE/LACTIC ACIDon 2022 Lactate [Moles/Vol] 1.0 mmol/L Normal 0.4-2.0 [facility] Comment on above: Performed By: #### L ACT #### [facility] [address] [place] [address] Dr. Philip De Leon PROF 14(COMP METB)on 023 Albumin [Mass/Vol] 3.6 g/dL Normal 3.4-5.0 [facility] Comment on above: Performed By: #### U MICRO, ERUR #### [facility] [address] [place] [address] Dr. Philip De Leon Albumin/Globulin [Mass ratio] 0.9 {ratio} Normal [facility] Comment on above: Performed By: #### U MICRO, ERUR #### [facility] [address] [place] [address] Dr. Philip De Leon ALP [Catalytic activity/Vol] 69 U/L Normal 46-116 [facility] Comment on above: Performed By: #### U MICRO, ERUR #### [facility] [address] [address] [address] Philip De Leon ALT [Catalytic activity/Vol] 15 U/L Normal 14-59 [facility] Comment on above: Performed By: #### U MICRO, ERUR #### [facility] [address] [place] [address] Dr. Philip De Leon Anion gap [Moles/Vol] 11.4 mmol/L Normal [facility] Comment on above: Performed By: #### U MICRO, ERUR #### [facility] [address] [place] [address] Dr. Philip De Leon AST [Catalytic activity/Vol] 17 U/L Normal 15-37 [facility] Comment on above: Performed By: #### U MICRO, ERUR #### [facility] [address] [place] [address] Dr. Philip De Leon Bilirubin [Mass/Vol] 0.5 mg/dL Normal 0.2-1.0 [facility] Comment on above: Performed By: #### U MICRO, ERUR #### [facility] [address] [address] [address] Philip De Leon Calcium [Mass/Vol] 9.1 mg/dL Normal 8.5-10.1 [facility] Comment on above: Performed By: #### U MICRO, ERUR #### [facility] [address] [address] [address] Philip De Leon Chloride [Moles/Vol] 107 mmol/L Normal 98-107 [facility] Comment on above: Performed By: #### U MICRO, ERUR #### [facility] [address] [address] [address] Philip De Leon CO2 [Moles/Vol] 28.6 mmol/L Normal 21.0-32.0 [facility] Comment on above: Performed By: #### U MICRO, ERUR #### [facility] [address] [address] [address] Philip De Leon Creatinine [Mass/Vol] 1.05 mg/dL Critically high 0.55-1.02 [facility] Comment on above: Performed By: #### U MICRO, ERUR #### [facility] [address] [address] [address] Philip De Leon EGFR-AF ZIMBABWEAN >60 Normal >=60 [facility] Comment on above: Performed By: #### U MICRO, ERUR #### [facility] [address] [address] [address] Philip De Leon EGFR-NON AF ZIMBABWEAN 50 mL/min/1.73m2 Critically low >=60 [facility] Comment on above: Performed By: #### U MICRO, ERUR #### [facility] [address] [address] [address] Philip De Leon Globulin (S) [Mass/Vol] 3.8 g/dL Normal [facility] Comment on above: Performed By: #### U MICRO, ERUR #### [facility] [address] [address] [address] Philip De Leon Glucose [Mass/Vol] 120 mg/dL Critically high 74-106 [facility] Comment on above: Performed By: #### U MICRO, ERUR #### [facility] [address] [address] [address] Philip eD Leon Potassium [Moles/Vol] 5.0 mmol/L Normal 3.5-5.1 [facility] Comment on above: Performed By: #### U MICRO, ERUR #### [facility] [address] [address] [address] Philip De Leon Protein [Mass/Vol] 7.4 g/dL Normal 6.4-8.2 [facility] Comment on above: Performed By: #### U MICRO, ERUR #### [facility] [address] [address] [address] Philip De Leon Sodium [Moles/Vol] 142 mmol/L Normal 136-145 [facility] Comment on above: Performed By: #### U MICRO, ERUR #### [facility] [address] [address] [address] Philip De Leon Urea nitrogen [Mass/Vol] 18.0 mg/dL Normal 7.0-18.0 [facility] Comment on above: Performed By: #### U MICRO, ERUR #### [facility] [address] [address] [address] Philip De Leon Urea nitrogen/Creatinine [Mass ratio] 17.1 mg/mg Normal [facility] Comment on above: Performed By: #### U MICRO, ERUR #### [facility] [address] [address] [address] Philip De Leon PROTIMEon 10-16-2022 INR Coag (PPP) [Relative time] 1.00 {INR} Normal [facility] Comment on above: Performed By: #### P T, PTT #### [facility] [address] [place] [address] Dr. Philip De Leon INR GUIDELINES SEE BELOW Normal [facility] Comment on above: Result Comment: KADEN RED INR: 2.0 - 3.0 CONDITIONS NOT LISTED BELOW 2.5 - 3.5 FOR PROSTHETIC HEART VALVE REPLACEMENT 2.5 - 3.5 RECURRENT THROMBOSIS Performed By: #### P T, PTT #### [facility] [address] [place] [address] Dr. Philip De Leon PT Coag (PPP) [Time] 10.6 s Normal 9.0-11.6 [facility] Comment on above: Performed By: #### P T, PTT #### [facility] [address] [place] [address] Dr. Philip De Leon PTTon 10-16-2022 aPTT Coag (Bld) [Time] 27.9 s Normal 22.3-36.2 [facility] Comment on above: Performed By: #### P T, PTT #### [facility] [address] [place] [address] Dr. Philip De Leon URINE MICROSCOPIC ONLYon BACTERIA NONE SEEN Normal NONE SEEN [facility] Comment on above: Performed By: #### U MICRO, ERUR #### [facility] [address] [place] [address] Dr. Philip De Leon Bacteria identified Cx Nom (U) NOT INDICATED Normal [facility] Comment on above: Performed By: #### U MICRO, ERUR #### [facility] [address] [place] [address] Dr. Philip De Leon CAST NONE SEEN Normal NONE SEEN [facility] Comment on above: Performed By: #### U MICRO, ERUR #### [facility] [address] [place] [address] Dr. Philip De Leon Crystals LM Nom (Urine sed) NONE SEEN Normal NONE SEEN [facility] Comment on above: Performed By: #### U MICRO, ERUR #### [facility] [address] [place] [address] Dr. Philip De Leon Epithelial cells LM Ql (Urine sed) FEW Abnormal NONE SEEN /RARE [facility] Comment on above: Performed By: #### U MICRO, ERUR #### [facility] [address] [place] [address] Dr. Philip De Leon MUCOUS NONE SEEN Normal NONE SEEN [facility] Comment on above: Performed By: #### U MICRO, ERUR #### [facility] [address] [place] [address] Dr. Philip De Leon RBC 0-2 Normal 0-2 [facility] Comment on above: Performed By: #### U MICRO, ERUR #### [facility] [address] [place], [place] [address] Dr. Philip De Leon WBC NONE SEEN Normal NONE SEEN [facility] Comment on above: Performed By: #### U MICRO, ERUR #### [facility] [address] [place], [place] [address] Dr. Philip De Leon XR CHEST 1 Von 10-16-2022 XR CHEST 1 V EXAMINATION: XR CHES T 1 V HISTORY: SHORTNESS OF BREATH COMPARISON: No relevant comparison available. TECHNIQUE: AP portable FINDINGS: LUNGS: Calcified tracheal bronchial tree. Moderate to severe diffuse infiltrates throughout the right lung obscuring the heart and hemidiaphragm. Left perihilar infiltrates VASCULATURE: Severely increased pulmonary vasculature. PLEURA: Large right loculated pleural effusion is thinning of the lateral hemithorax CARDIAC: Indeterminate due to silhouetting of the right MEDIASTINUM: No visible mass or adenopathy. BONES: No fracture or visible bone lesion. OTHER: Negative. IMPRESSION: Severe pulmonary vascular congestion/congestive heart failure Moderate to severe diffuse right hemithorax infiltrates with loculated pleural effusion Electronically authenticated by: MOISES BASILIO Date: 2022-10-16 09:35 Normal [facility] Vital Signs Date Time Vital Sign Value Performing Clinician Facility 08-03-2023 11:30-0500 Body height Bryant Dallas Other [facility] Other 08-03-2023 11:30-0500 Body mass index (BMI) [Ratio] 27.39 kg/m2 Bryant [facility] Other [facility] Other 08-03-2023 11:30-0500 Body weight 74.66 kg Bryant [facility] Other [facility] Other 08-03-2023 11:30-0500 Diastolic blood pressure 60 mm[Hg] Bryant [facility] Other [facility] Other 08-03-2023 11:30-0500 Respiratory rate 12 /min Bryant Ball Other [facility] Other 08-03-2023 11:30-0500 Systolic blood pressure 143 mm[Hg] Bryant Ball Other [facility] Other 06-16-2023 14:00-0500 Body height Bryant Ball Other [facility] Other 06-16-2023 14:00-0500 Body mass index (BMI) [Ratio] 28.75 kg/m2 Bryant Ball Other [facility] Other 06-16-2023 14:00-0500 Body weight 78.38 kg Bryant Ball Other [facility] Other 06-16-2023 14:00-0500 Diastolic blood pressure 71 mm[Hg] Bryant Ball Other [facility] Other 06-16-2023 14:00-0500 Respiratory rate 12 /min Bryant Ball Other [facility] Other 06-16-2023 14:00-0500 Systolic blood pressure 163 mm[Hg] Bryant Ball Other [facility] Other 12-30-2022 13:45-0400 Body height Bryant Ball Other [facility] Other 12-30-2022 13:45-0400 Body mass index (BMI) [Ratio] 28.55 kg/m2 Bryant Ball Other [facility] Other 12-30-2022 13:45-0400 Body weight 77.84 kg Bryant Ball Other [facility] Other 12-30-2022 13:45-0400 Diastolic blood pressure 60 mm[Hg] Bryant Ball Other [facility] Other 12-30-2022 13:45-0400 Respiratory rate 12 /min Bryant Dallas Other [facility] Other 12-30-2022 13:45-0400 Systolic blood pressure 190 mm[Hg] Bryant Dallas Other [facility] Other 05-04-2021 14:45-0400 Body height Robb [facility] Other [facility] Other 05-04-2021 14:45-0400 Body mass index (BMI) [Ratio] 33.28 kg/m2 [facility] Other [facility] Other 05-04-2021 14:45-0400 Body weight 90.72 kg Robb [facility] Other [facility] Other Encounters Encounter Date Encounter Type Care Provider Facility Start: 08-03-2023 End: 08-03-2023 ambulatory Bryant Dallas Other [facility] Other Start: 08-03-2023 Transitional care linda doan [facility] 14 day discharge Bryant Dallas [facility] Start: 07-27-2023 End: 07-27-2023 ambulatory Bryant Dallas Other [facility] Other Start: 07-27-2023 Telephone encounter Bryant Dallas [facility] Start: 06-23-2023 End: 06-23-2023 ambulatory Bryant Dallas Other [facility] Other Start: 06-23-2023 Telephone encounter Bryant ALBA [facility] Start: 06-16-2023 End: 06-16-2023 ambulatory Bryant Dallas Other [facility] Other Start: 06-16-2023 Patient encounter procedure Bryant Dallas [facility] Start: 05-17-2023 End: 05-17-2023 ambulatory Bryant Dallas Other [facility] Other Start: 05-17-2023 Nursing evaluation o f patient and report Bryant Dallas [facility] Start: 04-11-2023 End: 04-11-2023 ambulatory Bryant Dallas Other [facility] Other Start: 04-11-2023 Nursing evaluation o f patient and report Bryant Dallas [facility] Start: 03-06-2023 End: 03-06-2023 ambulatory Bryant Dallas Other [facility] Other Start: 03-06-2023 Nursing evaluation o f patient and report Bryant Dallas [facility] Start: 02-20-2023 End: 02-20-2023 ambulatory Bryant Dallas Other [facility] Other Start: 02-20-2023 Nursing evaluation o f patient and report Bryant Dallas [facility] Start: 02-13-2023 End: 02-13-2023 ambulatory Bryant Dallas Other [facility] Other Start: 02-13-2023 Nursing evaluation o f patient and report Bryant Dallas [facility] Start: 02-10-2023 End: 02-10-2023 ambulatory Bryant Dallas Other [facility] Other Start: 02-10-2023 Telephone encounter Bryant ALBA [facility] Start: 02-03-2023 End: 02-03-2023 ambulatory Bryant Dallas Other [facility] Other Start: 02-03-2023 Telephone encounter Bryant ALBA [facility] Start: 12-30-2022 End: 12-30-2022 ambulatory Bryant Dallas Other [facility] Other Start: 12-30-2022 Transitional care linda doan srvc 7 day discharge Bryant Dallas [facility] Start: 11-24-2022 End: 11-24-2022 ambulatory Bryant Dallas Other [facility] Other Start: 11-24-2022 Telephone encounter Bryant Burt ALBA [facility] Start: 11-08-2022 End: 11-08-[address] BRYANT DALLAS [facility] Other Start: 11-08-2022 Telephone encounter Bryant ALBA [facility] Start: 11-07-2022 End: 11-07-2022 ambulatory Robb Flower Other [facility] Other Start: 11-07-2022 Telephone encounter Robb Flower [facility] Start: 10-25-2022 End: 10-25-2022 ambulatory Robb Olexa Other [facility] Other Start: 10-25-2022 Telephone encounter Robb Davidxa [facility] Start: 10-21-2022 End: 10-21-2022 ambulatory Robb Olexa Other [facility] Other Start: 10-21-2022 Telephone encounter Robb Hernandezxa [facility] Start: 10-16-2022 End: 10-19-2022 Evaluation and management of inpatient BLAINE BRAVO . Facility: Start: 05-23-2022 Adult health examination Gerald Dallas Other [facility] Other Start: 05-04-2021 Office outpatient ne w 30 minutes Robb Mundo [facility] [place] Procedures Date Procedure Procedure Detail Performing Clinician Start: 10-17-[address] eural Cavity, Percutaneous Approach, Diagnostic BLAINE BRAVO . Start: 05-04-2016 Screening for malign ant neoplasm of colon Bryant Dallas Other Start: 12-24-2013 General examination of patient Bryant Dallas Other Depression screening Víctor Dallas Other Immunizations Immunization Date Immunization Notes Care Provider Lima kingston 05-17-2023 influenza, high dose seasonal, preservative-free Bryant Burt Other [facility] Other 05-02-2022 influenza virus vaccine, split virus (incl. purified surface antigen) Bryant Burt Other [facility] Other 05-20-2021 influenza virus vaccine, split virus (incl. purified surface antigen) Bryant Dallas Other [facility] Other 05-18-2020 influenza virus vaccine, split virus (incl. purified surface antigen) Bryant Burt Other [facility] Other 05-16-2019 influenza virus vaccine, split virus (incl. purified surface antigen) Bryant Burt Other [facility] Other 05-14-2018 influenza virus vaccine, split virus (incl. purified surface antigen) Bryant Dallas Other [facility] Other 05-11-2017 influenza virus vaccine, split virus (incl. purified surface antigen) Bryant Dallas Other [facility] Other 06-16-2015 pneumococcal conjuga te vaccine, 13 valent Bryant Burt Other [facility] Other 12-24-2013 pneumococcal Conjuga te, unspecified formulation; Translations: [Need for prophylactic vaccination against Streptococcus pneumoniae (pneumococcus)] Bryant Dallas Other [facility] Other 12-24-2013 pneumococcal polysaccharide vaccine, 23 valent Bryant Burt Other [facility] Other 06-19-2013 tetanus and diphther ia toxoids, adsorbed, preservative free, for adult use (5 Lf of tetanus toxoid and 2 Lf of diphtheria toxoid) Bryant Dallas Other [facility] Other Payers Date Payer Category Payer Medicare [id number] [id number] [id number] 1958 Self-pay 1958 Unknown [id number] 1940 Unknown [id number] 1940 Unknown [id number] Social History Date Type Detail Facility Sex Assigned At [facility] Other Clinical Notes 05-04-2021 to 08-03-2023 Note Date & Type Note Facility 08-03-2023 Evaluation note Encounter Date Diagnosis Assessment Notes Jul, Acute on chronic diastolic heart failure (ICD-10 - I50.33) Low salt diet, monitor weight daily. Restarted Lasix w/ instructions to take extra dose for unintentional weight gain, SOB, edema. Control BP Jul, Stage 3b chronic kidney disease (ICD-10 - N18.32) The patient is instructed on adequate control of hypertension and diabetes, if appropriate. They are also educated on the associated risks of NSAIDs and PPI use with kidney disease. They were instructed on adequate fluid balance and to avoid dehydration. Jul, Primary hypertension (ICD-10 - I10) This patient is instructed to consume a healthy, low-fat, low-salt diet. They are also encouraged to continue exercise to achieve/maintain a normal BMI. Jul, Pleural effusion, right (ICD-10 - J90) Chronic, loculated effusion. Diastolic dysfunction along w/ pulmonary hypertension contributing. Jul, Pulmonary hypertension (ICD-10 - I27.20) Control fluid status and BP. Serial Echocardiogram. Initiate GDMT as tolerated Jul, Weight loss, unintentional (ICD-10 - R63.4) CT abd/pelvis to r/o malignancy. Jul, Anemia, unspecified type (ICD-10 - D64.9) Previously found to have FA and B12 deficiency. Initiated replacement w/ monthly B12 injections and FA supplement. Check Iron studies EGD and Colonoscopy to r/o PUD, gastritits, colitis, polyps or cancer Jul, Pernicious anemia (ICD-10 - D51.0) Continue B12 supplement, check B12 level Jul, Folic acid deficiency (ICD-10 - E53.8) Continue supplement, check level [facility] Other 11-10-2023 Evaluation note* Encounter Date Diagnosis Assessment Notes Treatment Notes Treatment Clinical Notes Jun, Medicare annual wellness visit, subsequent (ICD-10 - Z00.00) Personalized health advice was given to the beneficiary including a written plan for screenings discussed and provided. Advanced care planning reviewed and/or information given as requested. Additional counseling was provided here today in regards to, [ ]. The above visit was performed by [ ], under direct supervision of [ ]. Document reviewed and amended by provider signed below. Jun, Pernicious anemia (ICD-10 - D51.0) Continue supplement monthly. Recheck CBC Jun, Chronic heart failur e with preserved ejection fraction (ICD-10 - I50.32) Stable, complensated. Normalize BP and maintain balanced volume status. Daily weights and call if unexplained weight gain Jun, Ground glass opacity present on imaging of lung (ICD-10 - R91.8) CT chest 10/2022 f/u Pulmonary, likely inflammatory vs scar. Jun, Pulmonary hypertensi on (ICD-10 - I27.20) Due to intrinsic lung disease or primary pulmonary HTN. LVEF normal and negative hx for smoking or asthma. f/u Pulmonary clinic Jun, Stage 3b chronic kidney disease (ICD-10 - N18.32) The patient is instructed on adequate control of hypertension and diabetes, if appropriate. They are also educated on the associated risks of NSAIDs and PPI use with kidney disease. They were instructed on adequate fluid balance and to avoid dehydration. Jun, Subclavian arterial stenosis (ICD-10 - I77.1) Asymptomatic, monitor for now. Notify office w/ increased pain, change in color/temperature. Jun, Nonrheumatic aortic valve stenosis (ICD-10 - I35.0) Control HTN, montitor w/ serial Echocardiogram every 3-5 years. Jun, Primary hypertension (ICD-10 - I10) This patient is instructed to consume a healthy, low-fat, low-salt diet. They are also encouraged to continue exercise to achieve/maintain a normal BMI. Patient is instructed on home BP measurements: - rest for 5 minutes w/o talking- positioned w/ feet on floor and arm supported- average best 2/3 readings w/ goal < 135/85 Instructed to stop in after couple weeks for recheck Jun, Gastroesophageal reflux disease with esophagitis without hemorrhage (ICD-10 - K21.00) Diet instructions: Smaller portions, avoid eating and laying flat, avoid eating or drinking prior to bedtime. Weight loss. [facility] Other 10-11-2023 Evaluation note* Encounter Date Diagnosis Assessment Notes Treatment Notes Treatment Clinical Notes May, Pernicious anemia (ICD-10 - D51.0) [facility] Other 09-05-2023 Evaluation note* Encounter Date Diagnosis Assessment Notes Treatment Notes Treatment Clinical Notes Apr, Pernicious anemia (ICD-10 - D51.0) [facility] Other 07-31-2023 Evaluation note* Encounter Date Diagnosis Assessment Notes Treatment Notes Treatment Clinical Notes Feb, Pernicious anemia (ICD-10 - D51.0) [facility] Other 07-17-2023 Evaluation note* Encounter Date Diagnosis Assessment Notes Treatment Notes Treatment Clinical Notes Feb, Pernicious anemia (ICD-10 - D51.0) [facility] Other 07-10-2023 Evaluation note* Encounter Date Diagnosis Assessment Notes Treatment Notes Treatment Clinical Notes Feb, Pernicious anemia (ICD-10 - D51.0) [facility] Other 07-07-2023 Evaluation note* Encounter Date Diagnosis Assessment Notes Treatment Notes Treatment Clinical Notes Feb, 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) [facility] Other 06-30-2023 Evaluation note* Encounter Date Diagnosis Assessment Notes Treatment Notes Treatment Clinical Notes Jan, Paroxysmal atrial fibrillation (ICD-10 - I48.0) [facility] Other 06-30-2023 Evaluation note* Encounter Date Diagnosis Assessment Notes Treatment Notes Treatment Clinical Notes Jan, Chronic heart failure with preserved ejection fraction (ICD-10 - I50.32) Jan, Acute blood loss anemia (ICD-10 - D62) Jan, Paroxysmal atrial fibrillation (ICD-10 - I48.0) [facility] Other 05-26-2023 Evaluation note* Encounter Date Diagnosis Assessment Notes Treatment Notes Treatment Clinical Notes December, Stage 3b chronic kidney disease (ICD-10 - N18.32) The patient is instructed on adequate control of hypertension and diabetes, if appropriate. They are also educated on the associated risks of NSAIDs and PPI use with kidney disease. They were instructed on adequate fluid balance and to avoid dehydration. December, Chronic heart failure with preserved ejection fraction (ICD-10 - I50.32) Instructed on low salt diet, exercise and daily weights. Instructed to notify office for any unexpected weight gain > 3lbs and/or increased dyspnea, difficulty breathing during sleep, worsening lower extremity swelling, chest pain or lightheadedness. December, Primary hypertension (ICD-10 - I10) This patient is instructed to consume a healthy, low-fat, low-salt diet. They are also encouraged to continue exercise to achieve/maintain a normal BMI. December, Nonrheumatic aortic valve stenosis (ICD-10 - I35.0) Control BP Monitor for syncope, tachycardia or chest pain. Serial Echocardiogram December, Pulmonary hypertension (ICD-10 - I27.20) This patient is instructed to consume a healthy, low-fat, low-salt diet. They are also encouraged to continue exercise to achieve/maintain a normal BMI. Euvolemic December, Pernicious anemia (ICD-10 - D51.0) Recheck H/H, consider supplemental B12. December, Folate deficiency (ICD-10 - E53.8) Folate supplements. Monitor H/H December, Symptomatic bradycardia (ICD-10 - R00.1) Holter monitor to capture symptomatic bradycardia or advanced HB December, Ground glass opacity present on imaging of lung (ICD-10 - R91.8) F/U Pulmonary CT chest in January. No hypoxemia, chest pain or dyspnea [facility] Other 04-20-2023 Evaluation note* Encounter Date Diagnosis Assessment Notes Treatment Notes Treatment Clinical Notes Nov, Acute on chronic diastolic heart failure (ICD-10 - I50.33) [facility] Other 04-04-2023 Evaluation note* Encounter Date Diagnosis Assessment Notes Treatment Notes Treatment Clinical Notes Nov, Ground glass opacity present on imaging of lung (ICD-10 - R91.8) CT chest 10/2022 [facility] Other 04-03-2023 Evaluation note* Encounter Date Diagnosis Assessment Notes Treatment Notes Treatment Clinical Notes Nov, Ground glass opacity present on imaging of lung (ICD-10 - R91.8) Nov, Pleural effusion (ICD-10 - J90) [facility] Other 09-28-2021 Evaluation note* Encounter Date Diagnosis Assessment Notes Treatment Notes Treatment Clinical Notes Apr, Mass of right wrist (ICD-10 - R22.31) Dicussed treatments options of the ganglion cyst, Patient is going to leave as is and will call when she is ready to have removed. Apr, Ganglion cyst of volar aspect of right wrist (ICD-10 - M67.431) [facility] Other Evaluation noteNo InformationNort Ebook [facility] Other History general Narrative - Reported* Type Description Date Medical History high blood pressure Medical History acid reflux Surgical History hysterectomy 1972 Surgical History tonsillectomy Hospitalization History see above Hospitalization History high blood pressure [facility] Other History general Narrative - Reported* Type Description Date Medical History high blood pressure Medical History acid reflux Medical History High risk medication use Medical History Stage 3b chronic kidney disease Medical History Primary hypertension Medical History Pulmonary hypertension Medical History Acute on chronic diastolic heart failure Medical History Subclavian arterial stenosis Medical History Bilateral carotid bruits Medical History Loss of weight Medical History Ganglion of right wrist Surgical History hysterectomy 1972 Surgical History tonsillectomy Surgical History JENIFER Hospitalization History see above Hospitalization History high blood pressure [facility] Other History general Narrative - Reported* Type Description Date Medical History high blood pressure Medical History acid reflux Medical History High risk medication use Medical History Stage 3b chronic kidney disease Medical History Primary hypertension Medical History Pulmonary hypertension Medical History Acute on chronic diastolic heart failure Medical History Subclavian arterial stenosis Medical History Bilateral carotid bruits Medical History Loss of weight Medical History Ganglion of right wrist Medical History Right Pleural Effusion Medical History GGO RUL Surgical History hysterectomy 1973 Surgical History tonsillectomy Surgical History JENIFER Hospitalization History see above Hospitalization History high blood pressure [facility] Other Summary Purpose Family History No Family History Records Found Advance Directives No Advanced Directives Records Found Reason for Referral Reason Mrs. Pitts is being referred for an EGD and colonoscopy. She has anemia of unknown etiology, weight loss ands family hx of colon cancer. Diagnosis 1 Anemia, unspecified type (D64.9) Diagnosis 2 Loss of weight (R63. 4) Referral Organization [facility] Burt spicer Referring Provider First Name Bryant Referring Provider Last Name Burt Referring Provider Specialty Internal Me dicine Referred Organization [facility] [place], [place],[address] Referred Provider Specialty Gastroentero logy Referral Priority Routine General Notes Patient being referr ed for anemia of unknown etiology. She has known B12 and folic acid deficiency and has been on replacement supplements for several months. Her Hgb dropped to as low as 6.6gms during a recent hospital admission w/o obvious source identified. She was on Eliquis for paroxysmal atrial fibrillation, which has since been discontinued. She has unintentional weight loss of > 10 lbs in the past year. She admits to eating less but maintains a good appetite. She denies heartburn or dysphagia. She denies change in bowel habits, abdominal pain, melena or hematochezia. She does have a family history for colon cancer but has refused colonoscopies in the past. Additional Source Comments REASON FOR VISIT (unrecogniz ed section and content) Right Wrist CystNo Informati onNo InformationNo InformationNo InformationREFILLTBH - DIZZINESS, VERTIGONo InformationEKG resultsTestingLab/Testing ResultsB-12 [id number] ShotB-12 ShotB-12 ShotB-12 ShotWellnessLab resultsTCMTBH INFORMATION SOURCE (unrecogn ized section and content) DATE CREATED AUTHOR 11/11/2022 [facility] FOR RECORDS PERTAINING TO PATIENTS WHO ARE OR HAVE BEEN ENROLLED IN A CHEMICAL DEPENDENCY/SUBSTANCEABUSE PROGRAM, SOME INFORMATION MAY BE OMITTED. This clinical summary was aggregated from multiple sources. Caution should be exercised in using it in the provision of clinical care. This summary normalizes information from multiple sources, and as a consequence, information in this document may materially change the coding, format and clinical context of patient data. In addition, data may be omitted in some cases. CLINICAL DECISIONS SHOULD BE BASED ON THE PRIMARY CLINICAL RECORDS. [facility]. provides no warranty or guarantee of the accuracy or completeness of information in this document.
--- NOTE | 2023-08-08 12:49 | CT_ITS ---
The [address] [address] Patient Name: CHRISTA PITTS MRN: [id number] date: 1940 Sex: F Assigned Patient Location: CT Current Patient Location: CT Accession/Order Number: [id number] Exam Date: 08/08/2023 13:51 Report Date: 08/08/2023 15:24 At the request of: ALMA ROSA REYNOSO Procedure: CT abdomen pelvis w con EXAM: CT abdomen pelvis w con HISTORY: weight loss R63.4, Anemia D64.9 COMPARISON: None. TECHNIQUE: Following the intravenous administration of 90 mL of Omnipaque 300, axial soft tissue windows of the abdomen and pelvis were performed with coronal and sagittal reformats. Findings: Small right pleural effusion with adjacent right lower lobe consolidation likely relating to atelectasis. Right pleural calcifications. Right hilar calcified lymph nodes likely relating to prior granulomatous disease. Large hiatal hernia. ABDOMEN: There are hepatic and splenic calcifications likely relating to prior granulomatous disease. Small stones within the gallbladder. The pancreas is mildly atrophic. Within the uncinate process there is a 0.9 cm cystic lesion. There is a larger cystic lesion arising from the proximal tail of the pancreas measuring approximately 2.0 cm. Unremarkable adrenal glands. No renal stones or collecting system dilatation. Small left extrarenal pelvis. The bilateral ureters are nondilated. There are colonic diverticula. No bowel wall thickening or obstruction. The appendix is definitely identified. The aorta is normal caliber. Severe atherosclerotic disease. 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 No enlarged abdominal lymph nodes or free abdominal fluid. Pelvis: Unremarkable bladder. The uterus is surgically absent. No enlarged pelvic lymph nodes or free pelvic fluid. No aggressive sclerotic or lytic osseous lesions. Large Tarlov cyst. Multilevel degenerative spondylosis. CT/CT abdomen pelvis w con IMPRESSION: . Large hiatal hernia. 2. Small right pleural effusion with adjacent atelectasis. 3. Cholelithiasis 4. Pancreatic cystic lesions. If indicated, suggest follow-up CT in 3 months to begin to establish stability or consider further evaluation with contrast-enhanced MRI. 4. Diverticulosis. 5. Severe atherosclerotic disease. Electronically authenticated by: WILLY LEVY Date: 08/08/2023 15:24
== END 2023-08-08 12:45 | disposition home or self-care (01) ==
LOC: CT 12:45
PROVIDERS: PCP Internal Medicine; Visit Provider Internal Medicine
DX: R63.4 Abnormal weight loss (principal); D64.9 Anemia, unspecified; K44.9 Diaphragmatic hernia without obstruction or gangrene; J90 Pleural effusion, not elsewhere classified; K80.20 Calculus of gallbladder without cholecystitis without obstruction; K57.90 Diverticulosis of intestine, part unspecified, without perforation or abscess without bleeding
CPT/HCPCS: 74177; Q9967

== ENCOUNTER 2023-10-02 12:58 | Outpatient (OUT) | payer MEDICARE, OTHER, SELFPAY ==
--- OUTSIDE RECORDS SUMMARY | 2023-10-02 13:03 | XMS_ITS | CCD ---
Author Name Unknown Address [address] [place] [address] Organization [facility] Care Team Providers Care Residential Mortgage Manager Name Role Phone DavidRobb gee Unavailable Bryant Dallas Unavailable LAWRENCE ., BLAINE Procedure Practitioner Unavailab alden BASILIO, DR MOISES Richardson Consulting Unavailable NADJOSE LUIS, DR SAMAN Quintanilla Admitting Unavailable TANYA, DR SAMAN Quintanilla Attending Unavailable BURT, DR ST Primary Care Unavailable UGO, DR PASTOR Grace Consulting Unavailable TANYA, DR SAMAN Quintanilla Consulting Unavailable LAWRENCE ., BLAINE Consulting Unavailable NINA Gregorio, HAYLEE Consulting Unavailable MAGDIEL DELEON Consulting Unavailable SLICK, AYAZ Consulting Unavailable KARLA CLEMENTS Consulting Unavailable BURT, DR ST Admitting Unavailable BURT, DR ST Primary Care Unavailable BURT, DR ST Attending Unavailable Bernice Gutierres Unavailable DO Bryant Dallas Primary Care Provider MD Bhavik Imbladimir Attending Provider [phone] Bryant Dallas Primary Care Unavailable Bernice Gutierres Attending Unavailable Bhavik Imbladimir Admitting Unavailable Allergies Allergy Classification Reported Allergen(s) Allergy Type Date of Onset Reaction(s) Facility (20 sources) clopidogrel Drug Allergy Unknown ArQule Other (4 sources) patient allergy list reviewed by nurse or physicia Propensity to adverse reactions Comment:Done ArQule Other Medications Current Medications Medication Drug Class(es) Dates Sig (Normalized) Sig (Original) amLODIPine 10 mg oral tablet (20 sources) Dihydropyridine Calcium Channel Zuhair Start: 09-18-2023 take 10 mg by mouth once daily Amlodipine Active 10 MG PO Daily September 18, 2023 12:00am take 1 tablet by mouth once norma y amLODIPine Besylate 10 mg TAKE ONE TABLET [...] tablet (20 sources) alpha-Adrenergic Zuhair, beta-Adrenergic Zuhair Start: 09-18-2023 take 12.5 mg by mouth once daily Carvedilol Active 12.5 MG PO Daily September 18, 2023 12:00am take 1 tablet by eliud th every twelve hours Carvedilol 12.5 mg TAKE 1 TABLET BY MOUT H EVERY 12 HOURS Active take 1 tablet by eliud th every twelve hours Carvedilol 12.5 MG 1 tablet with food Orally Twice a day Active folic acid 1 mg oral tablet (11 sources) Start: 09-18-2023 take 1 mg by mouth once daily Folic Acid Active 1 MG PO Daily September 18, 2023 12:00am Start: 02-10-2023 take 1 tablet by eliud th every twenty-four hours Folic Acid 1 MG 1 tablet Orally Once a day for 30 days Feb, Active furosemide 20 mg oral tablet (20 sources) Loop Diuretic Start: 09-18-2023 take 20 mg by mouth once daily Furosemide Active 20 MG PO Daily September 18, 2023 12:00am Start: 10-25-2022 take 1 tablet by eliud th every twenty-four hours Furosemide 40 MG 1 tablet Orally Once a day Oct, Active take 1 tablet by eliud th every twenty-four hours Furosemide 20 MG 1 tablet Orally Once a day Active omeprazole 40 mg delayed release oral capsule (20 sources) Proton Pump Inhibitor Start: 09-18-2023 take 40 mg by mouth once daily Omeprazole Active 40 MG PO Daily September 18, 2023 12:00am Omeprazole 40 mg TAKE ONE CAPSULE BY MOUTH DAILY ON EMPTY STOMACH 30 MINUTES PRIOR TO BREAKFAST for 90 Active polyethylene glycol 3350 622504 mg / potassium chloride 2970 mg / sodium bicarbonate 6740 mg / sodium chloride 5860 mg / sodium sulfate 22678 mg powder for oral solution (2 sources) Osmotic Laxative Start: 08-14-2023 take 236 g by mouth once daily PEG-3350/Electrolytes 236 GM 4000 ML Orally once daily for 1 days Aug, Active potassium chloride 10 meq extended release oral tablet (20 sources) Start: 09-18-2023 take 10 mEq by mouth once daily Potassium Chloride Active 10 MEQ PO Daily September 18, 2023 12:00am Start: 11-24-2022 take 1 tablet by eliud th every twenty-four hours Potassium Chloride ER 20 MEQ 1 tablet with food Orally Once a day Nov, Active take 1 tablet by eliud th every twelve hours Potassium Chloride ER 10 MEQ 1 tablet with food Orally Twice a day Active Completed/Discontinued [...] source) Acute posthemorrhagic anemia Episodic Cardiac dysrhythmias (20 sources) Paroxysmal atrial fibrillation; Translations: [Paroxysmal atrial fibrillation] Chronic Chronic kidney disease (20 sources) Chronic kidney disease stage 3B ; Translations: [Stage 3b chronic kidney disease] Chronic Congestive heart failure; nonhypertensive (20 sources) Acute on chronic diastolic heart failure; Translations: [Acute on chronic diastolic (congestive) heart failure] Onset: 10-28-2022 Chronic Deficiency and other anemia (18 sources) Pernicious anemia; Translations: [Vitamin B12 deficiency anemia due to intrinsic factor deficiency] Episodic Deficiency and other anemia (8 sources) Vitamin B12 deficiency anemia due to intrinsic factor deficiency Episodic Deficiency and other anemia (1 source) Dietary folate deficiency anemia Episodic Deficiency and other anemia (6 sources) Anemia; Translations: [Anemia, unspecified] Onset: 06-16-2018 Episodic Deficiency and other anemia (2 sources) Anemia, unspecified Episodic Disorders of lipid metabolism (8 sources) Hyperlipidemia; Translations: [Hyperlipidemia, unspecified] Onset: 05-11-2017 Chronic Esophageal disorders (8 sources) Gastro-esophageal reflux disease with esophagitis; Translations: [Gastro-esophageal reflux disease with esophagitis, without bleeding] Chronic Essential hypertension (20 sources) Essential hypertension; Translations: [Essential (primary) hypertension] Onset: 12-24-2013 Chronic Heart valve disorders (20 sources) Aortic stenosis, non-rheumatic ; Translations: [Nonrheumatic [...] sources) H/O: high risk medication; Translations: [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] Episodic Other aftercare (4 sources) Long-term current use of drug therapy; Translations: [Other [facility]p (current) drug therapy] Episodic Other circulatory disease [...] of patient's decision for unspecified reasons] Episodic Residual codes; unclassified (2 sources) Family history of cancer of colon; Translations: [Family history of malignant neoplasm of digestive organs] Episodic Respiratory failure; insufficiency; arrest (adult) (1 [...] kidney disease (3 sources) Chronic kidney disease Esophageal disorders (4 sources) Esophageal disorders; Translations: [...] Results Test Name Value Interpretation Reference Range [facility] 09-19-2023 Specimen: [id number] Received: 09/19/23 Status: SOUT Req Num: [id number] Spec Type: Surgical Subm Dr: Bernice Gutierres MD Tissues: A Duodenum - Biopsy (DUOD BX) B Esophagus Biopsy (ESO BX) C Esophagus Biopsy (ESO BX) D Esophagus Biopsy (ESO BX) E Colon Biopsy (SIGMOID COL BX) Procedures: HE/10, Gross/Micro L4/5 Age/ Patient Sex Location Account Attending Physician Christa Pitts 83/F [id number] Bernice Gutierres MD SPEC NUM: [id number] RECD: 09/19/23 STATUS: SOUSarah RE NUM: [id number] MAXIM: 09/19/[address]: Bernice Gutierres MD ENTERED: 09/19/23 [facility] DR: SPEC TYPE: Surgical DEPT: S ENTERED BY: [id number] RECV BY: [id number] ORDERED: HE/10, Gross/Micro L4/5 ORDERED: HE/10, Gross/Micro L4/5 Pathological Diagnosis A. Duodenum, biopsies: - Unremarkable duodenal mucosa. - Negative for features of celiac disease. B. Esophagus, biopsies at 31 cm: - Gastric type mucosa with intestinal metaplasia. - Negative for dysplasia and negative for malignancy. - No squamous mucosa identified. C. Esophagus, biopsy at 29 cm: - Fragmented gastric type mucosa and intestinal metaplasia. - Negative for dysplasia and negative for malignancy. - No squamous mucosa identified. D. Esophagus, biopsy at 27 cm: - Intestinal metaplasia, without dysplasia. - Negative for dysplasia and negative for malignancy E. Sigmoid polyps, biopsies: - Serrated polyps with no high-grade dysplasia. ---- Specimen: [id number] Received: 09/19/23 Status: JENNIFER Eliana Num: [id number] Spec Type: Surgical Subm Dr: Bernice Gutierres MD Tissues: A Duodenum - Biopsy (DUOD BX) B Esophagus Biopsy (ESO BX) C Esophagus Biopsy (ESO BX) D Esophagus Biopsy (ESO BX) E Colon Biopsy (SIGMOID COL BX) Procedures: 10, Gross/Micro L4/5 ---- Patient: Christa Pitts [id number] (Continued) ---- Specimen: [id number] Received: 09/19/23 (Continued) Pathological Diagnosis (Continued) Signed (signature on file) Esther Saucedo MD 09/20/23 1015 ---- Specimen: [id number] Received: 09/19/23 Status: JENNIFER Eliana Num: [id number] Spec Type: Surgical Subm Dr: Bernice Gutierres MD Tissues: A Duodenum - Biopsy (DUOD BX) B Esophagus Biopsy (ESO BX) C Esophagus Biopsy (ESO BX) D Esophagus Biopsy (ESO BX) E Colon Biopsy (SIGMOID COL BX) Procedures: Adrian SAL/Babatunde L4/5 ---- Patient: Christa Pitts [id number] (Continued) ---- Specimen: [id number] Received: 09/19/23-1200 (Continued) Pathological Diagnosis (Continued) Comment: Esophageal biopsies from 27, 29 and 31 cm all demonstrate intestinal metaplasia. Squamous mucosa is not identified in any of the biopsies. 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 Endoscopic correlation is advised. Clinical Information Anemia, weight loss, family history of colon cancer; rule out celiac (A) Gross Description A. Received in formalin labeled with the patient's name, date of and duodenum biopsy is a 0.6 x 0.3 x 0.1 cm andrews soft tissue fragment. Entirely submitted in one cassette labeled A1. B. Received in formalin labeled with the patient's name, date of and esophagus biopsy at 31 cm are 2 andrews translucent soft tissue fragments, 0.2 and 0.3 cm in greatest dimensions. Entirely submitted in one cassette labeled B1. C. Received in formalin labeled with the patient's name, date of and esophagus biopsy at 29 cm are 2 white translucent soft tissue fragments, each approximately 0.5 x 0.1 cm. Entirely submitted in one cassette labeled C1. D. Received in formalin labeled with the patient's name, date of and esophagus biopsy at 27 cm are 2 white translucent soft tissue fragments, 0.2 and 0.4 cm in greatest dimensions. Entirely submitted in one cassette labeled D1. E. Received in formalin labeled with the patient's name, date of and sigmoid polyps is a 2.5 x 1.5 x 0.3 cm aggregate of andrews soft tissue fragments with admixed vegetative material. Entirely submitted in one cassette labeled E1. CPT Codes [id number] ---- ---- Specimen: [id number] Received: 09/19/23 Status: JENNIFER Monroy Num: [id number] Spec Type: Surgical Subm Dr: Bernice Gutierres (more content not included)... [place] CBC AUTO DIFFon 10-19-2022 BASO # 0.1 103/ul Normal 0.0-0.1 [facility] Comment on above: Performed By: #### U MICRO, ERUR #### [facility] [address] [place] [address] Dr. Philip De Leon Basophils/100 WBC (Bld) 1.5 % Normal 0.2-2.0 [facility] Comment on above: Performed By: #### U MICRO, ERUR #### [facility] [address] [address] [address] Philip De Leon EO # 0.4 103/ul Normal 0.0-0.7 [facility] Comment on above: Performed By: #### U MICRO, ERUR #### [facility] [address] [place] [address] Dr. Philip De Leon Eosinophils/100 WBC (Bld) 5.4 % Normal 0.9-7.0 [facility] Comment on above: Performed By: #### U MICRO, ERUR #### [facility] [address] [place] [address] Dr. Philip De Leon Erythrocyte distribution width (RBC) [Ratio] 22.5 % Critically high 11.0-15.0 [facility] Comment on above: Performed By: #### U MICRO, ERUR #### [facility] [address] [place] [address] Dr. Philip De Leon Hematocrit (Bld) [Volume fraction] 26.3 % Critically low 36.0-48.0 [facility] Comment on above: Performed By: #### U MICRO, ERUR #### [facility] [address] [place] [address] Dr. Philip De Leon Hemoglobin (Bld) [Mass/Vol] 8.3 g/dL Critically low 12.0-16.0 [facility] Comment on above: Performed By: #### U MICRO, ERUR #### [facility] [address] [address] [address] Philip De Leon IG # 0.03 10e3/ul Normal 0.00-0.03 [facility] Comment on above: Performed By: #### U MICRO, ERUR #### [facility] [address] [address] [address] Philip De Leon IG % 0.4 % Normal 0.0-0.5 [facility] Comment on above: Performed By: #### U MICRO, ERUR #### [facility] [address] [place] [address] Dr. Philip De Leon LYMPH # 1.3 103/ul Normal 1.2-3.8 [facility] Comment on above: Performed By: #### U MICRO, ERUR #### [facility] [address] [place] [address] Dr. Philip De Leon Lymphocytes/100 WBC (Bld) 17.9 % Critically low 20.5-60.0 [facility] Comment on above: Performed By: #### U MICRO, ERUR #### [facility] [address] [place] [address] Dr. Philip De Leon MANUAL DIFF REQ NO Normal [facility] Comment on above: Performed By: #### U MICRO, ERUR #### [facility] [address] [address] [address] Philip De Leon MCH (RBC) [Entitic mass] 30.1 pg Normal 26.7-34.0 [facility] Comment on above: Performed By: #### U MICRO, ERUR #### [facility] [address] [place] [address] Dr. Philip De Leon MCHC (RBC) [Mass/Vol] 31.6 g/dL Normal 29.9-35.2 [facility] Comment on above: Performed By: #### U MICRO, ERUR #### [facility] [address] [place] [address] Dr. Philip De Leon MCV (RBC) [Entitic vol] 95.3 fL Normal 81.0-99.0 [facility] Comment on above: Performed By: #### U MICRO, ERUR #### [facility] [address] [place] [address] Dr. Philip De Leon MONO # 0.6 103/ul Normal 0.3-0.8 [facility] Comment on above: Performed By: #### U MICRO, ERUR #### [facility] [address] [place] [address] Dr. Philip De Leon Monocytes/100 WBC (Bld) 8.2 % Normal 1.7-12.0 [facility] Comment on above: Performed By: #### U MICRO, ERUR #### [facility] [address] [place] [address] Dr. Philip De Leon NEUT # 4.7 103/ul Normal 1.4-6.5 [facility] Comment on above: Performed By: #### U MICRO, ERUR #### [facility] [address] [place] [address] Dr. Philip De Leon Neutrophils/100 WBC (Bld) 66.6 % Normal 43.0-75.0 [facility] Comment on above: Performed By: #### U MICRO, ERUR #### [facility] [address] [place] [address] Dr. P[place] De Leon PLT 184 103/ul Normal 150-450 [facility] Comment on above: Performed By: #### U MICRO, ERUR #### [facility] [address] [place] [address] Dr. Philip De Leon RBC 2.76 106/ul Critically low 4.20-5.40 [facility] Comment on above: Performed By: #### U MICRO, ERUR #### [facility] [address] [place] [address] Dr. Philip De Leon WBC 7.1 103/ul Normal 4.0-11.0 [facility] Comment on above: Performed By: #### U MICRO, ERUR #### [facility] [address] [address] [address] Philip De Leon PROF CHEM 8 (BAS METB)on Anion gap [Moles/Vol] 7.4 mmol/L Normal [facility] Comment on above: Performed By: #### B MP #### [facility] [address] [address] [address] Philip De Leon Calcium [Mass/Vol] 8.3 mg/dL Critically low 8.5-10.1 [facility] Comment on above: Performed By: #### B MP #### [facility] [address] [address] [address] Philip De Leon Chloride [Moles/Vol] 102 mmol/L Normal 98-107 [facility] Comment on above: Performed By: #### B MP #### [facility] [address] [place] [address] Dr. Philip De Leon CO2 [Moles/Vol] 32.8 mmol/L Critically high 21.0-32.0 [facility] Comment on above: Performed By: #### B MP #### [facility] [address] [address] [address] Philip De Leon Creatinine [Mass/Vol] 1.22 mg/dL Critically high 0.55-1.02 [facility] Comment on above: Performed By: #### B MP #### [facility] [address] [address] [address] Philip De Leon EGFR-AF CYPRIOT 51 mL/min/1.73m2 Critically low >=60 [facility] Comment on above: Performed By: #### B MP #### [facility] [address] [address] [address] Philip De Leon EGFR-NON AF CYPRIOT 42 mL/min/1.73m2 Critically low >=60 [facility] Comment on above: Performed By: #### B MP #### [facility] [address] [address] [address] Philip De Leon Glucose [Mass/Vol] 98 mg/dL Normal 74-106 [facility] Comment on above: Performed By: #### B MP #### [facility] [address] [place], [place] [address] Dr. Philip De Leon Potassium [Moles/Vol] 4.2 mmol/L Normal 3.5-5.1 [facility] Comment on above: Performed By: #### B MP #### [facility] [address] [place], [place] [address] Dr. Philip De Leon Sodium [Moles/Vol] 138 mmol/L Normal 136-145 [facility] Comment on above: Performed By: #### B MP #### [facility] [address] [place], [place] [address] Dr. Philip De Leon Urea nitrogen [Mass/Vol] 22.0 mg/dL Critically high 7.0-18.0 [facility] Comment on above: Performed By: #### B MP #### [facility] [address] [address] [address] Philip De Leon Urea nitrogen/Creatinine [Mass ratio] 18.0 mg/mg Normal [facility] Comment on above: Performed By: #### B MP #### [facility] [address] [place], [place] [address] Dr. Philip De Leon XR CHEST 1 [...] PASTOR ARIZMENDI Date: 2022-10-19 06:47 Normal [facility] CBC W MANUAL DIFFon 10-19-19 23 ATYPICAL LYMPH # 0.28 103/ul Normal [facility] Comment on above: Performed By: #### C ANA MARIA #### [facility] [address] [place] [address] Dr. Philip De Leon ATYPICAL LYMPH % 3 % Normal [facility] Comment on above: Performed By: #### C ANA MARIA #### [facility] [address] [place] [address] Dr. Philip De Leon BAND # 0.0 103/ul Normal 0.0-0.3 [facility] Comment on above: Performed By: #### C ANA MARIA #### [facility] [address] [place] [address] Dr. Philip De Leon BAND % 0 % Normal 0-5 [facility] Comment on above: Performed By: #### C ANA MARIA #### [facility] [address] [place] [address] Dr. Philip De Leon BASOM # 0.09 103/ul Normal 0.00-0.10 [facility] Comment on above: Performed By: #### C ANA MARIA #### [facility] [address] [place] [address] Dr. Philip De Leon BASOM % 1.0 % Normal 0.2-2.0 [facility] Comment on above: Performed By: #### C ANA MARIA #### [facility] [address] [place] [address] Dr. Philip De Leon BLAST # Normal [facility] Comment on above: Performed By: #### C ANA MARIA #### [facility] [address] [place] [address] Dr. Philip De Leon BLAST % Normal [facility] Comment on above: Performed By: #### C ANA MARIA #### [facility] [address] [place] [address] Dr. Philip De Leon CORRECTED WBC Normal 4.0-11.0 [facility] Comment on above: Performed By: #### C ANA MARIA #### [facility] [address] [place] [address] Dr. Philip De Leon EOS # 0.18 103/ul Normal 0.00-0.70 [facility] Comment on above: Performed By: #### C ANA MARIA #### [facility] [address] [address] [address] Philip De Leon EOS% 2.0 % Normal 0.9-7.0 [facility] Comment on above: Performed By: #### C ANA MARIA #### [facility] [address] [address] [address] Philip De Leon HCT 25.5 % Critically low 36.0-48.0 [facility] Comment on above: Performed By: #### C ANA MARIA #### [facility] [address] [place] [address] Dr. Philip De Leon HGB 8.0 g/dl Critically low 12.0-16.0 [facility] Comment on above: Performed By: #### C ANA MARIA #### [facility] [address] [place] [address] Dr. Philip De Leon LYMPHM # 2.85 103/ul Normal 1.20-3.80 [facility] Comment on above: Performed By: #### C ANA MARIA #### [facility] [address] [place] [address] Dr. Philip De Leon LYMPHM% 31.0 % Normal 20.5-60.0 [facility] Comment on above: Performed By: #### C ANA MARIA #### [facility] [address] [place] [address] Dr. Philip De Leon MCH 30.0 pg Normal 26.7-34.0 [facility] Comment on above: Performed By: #### C ANA MARIA #### [facility] [address] [place] [address] Dr. Philip De Leon MCHC 31.4 g/dl Normal 29.9-35.2 [facility] Comment on above: Performed By: #### C ANA MARIA #### [facility] [address] [place] [address] Dr. Philip De Leon MCV 95.5 fL Normal 81.0-99.0 [facility] Comment on above: Performed By: #### C ANA MARIA #### [facility] [address] [place] [address] Dr. Philip De Leon METAMYELOCYTE # Normal [facility] Comment on above: Performed By: #### C ANA MARIA #### [facility] [address] [address] [address] Philip De Leon METAMYELOCYTE % Normal [facility] Comment on above: Performed By: #### C ANA MARIA #### [facility] [address] [address] [address] Philip De Leon MONOM# 0.46 103/ul Normal 0.30-0.80 [facility] Comment on above: Performed By: #### C ANA MARIA #### [facility] [address] [address] [address] Philip De Leon MONOM% 5.0 % Normal 1.7-12.0 [facility] Comment on above: Performed By: #### C ANA MARIA #### [facility] [address] [place] [address] Dr. Philip De Leon MPV 0.0 fL Critically low 9.5-13.5 [facility] Comment on above: Performed By: #### C ANA MARIA #### [facility] [address] [place] [address] Dr. Philip De Leon MYELOCYTE # 0.3 103/ul Normal [facility] Comment on above: Performed By: #### C ANA MARIA #### [facility] [address] [place] [id number] Dr. Philip De Leon MYELOCYTE % 3 % Normal [facility] Comment on above: Performed By: #### C ANA MARIA #### [facility] [address] [place] [address] Dr. Philip De Leon NRBC Normal [facility] Comment on above: Performed By: #### C ANA MARIA #### [facility] [address] [place] [address] Dr. Philip De Leon PLT 196 103/ul Normal 150-450 [facility] Comment on above: Performed By: #### C ANA MARIA #### [facility] [address] [place] [address] Dr. Philip De Leon RBC 2.67 106/ul Critically low 4.20-5.40 [facility] Comment on above: Performed By: #### C BCMAN #### [facility] [address] [place], [place] [address] Dr. Philip De Leon RDW 21.7 % Critically high 11.0-15.0 [facility] Comment on above: Performed By: #### C BCMAN #### [facility] [address] [place], [place] [address] Dr. Philip De Leon SEG # 5.06 103/ul Normal 1.40-6.50 [facility] Comment on above: Performed By: #### C BCMAN #### [facility] [address] [place], [place] [address] Dr. Philip De Leon SEG % 55.0 % Normal 43.0-75.0 [facility] Comment on above: Performed By: #### C BCMAN #### [facility] [id number] Philip De Leon WBC 9.2 103/ul Normal 4.0-11.0 [facility] Comment on above: Performed By: #### C BCMAN #### [facility] [address] [place], [place] [address] [address] CHEST WO [...] by: PASTOR ARIZMENDI Date: 2022-10-18 10:10 Normal [facility] PROF CHEM 8 (BAS METB)on Anion gap [Moles/Vol] 6.4 mmol/L Normal [facility] Comment on above: Performed By: #### B MP #### [facility] [address] [address] [address] Philip De Leon Calcium [Mass/Vol] 8.2 mg/dL Critically low 8.5-10.1 [facility] Comment on above: Performed By: #### B MP #### [facility] [address] [address] [address] Philip De Leon Chloride [Moles/Vol] 105 mmol/L Normal 98-107 [facility] Comment on above: Performed By: #### B MP #### [facility] [address] [address] [address] Philip De Leon CO2 [Moles/Vol] 33.0 mmol/L Critically high 21.0-32.0 [facility] Comment on above: Performed By: #### B MP #### [facility] [address] [address] [address] Philip De Leon Creatinine [Mass/Vol] 1.24 mg/dL Critically high 0.55-1.02 [facility] Comment on above: Performed By: #### B MP #### [facility] [address] [address] [address] Philip De Leon EGFR-AF CYPRIOT 50 mL/min/1.73m2 Critically low >=60 [facility] Comment on above: Performed By: #### B MP #### [facility] [address] [address] [address] Philip De Leon EGFR-NON AF CYPRIOT 42 mL/min/1.73m2 Critically low >=60 [facility] Comment on above: Performed By: #### B MP #### [facility] [address] [address] [address] Philip De Leon Glucose [Mass/Vol] 94 mg/dL Normal 74-106 [facility] Comment on above: Performed By: #### B MP #### [facility] [address] [address] [address] Philip De Leon Potassium [Moles/Vol] 4.4 mmol/L Normal 3.5-5.1 [facility] Comment on above: Performed By: #### B MP #### [facility] [address] [address] [address] Philip De Leon Sodium [Moles/Vol] 140 mmol/L Normal 136-145 [facility] Comment on above: Performed By: #### B MP #### [facility] [address] [address] [address] Philip De Leon Urea nitrogen [Mass/Vol] 20.0 mg/dL Critically high 7.0-18.0 [facility] Comment on above: Performed By: #### B MP #### [facility] [address] [address] [address] Philip De Leon Urea nitrogen/Creatinine [Mass ratio] 16.1 mg/mg Normal [facility] Comment on above: Performed By: #### B MP #### [facility] [address] [address] [address] Philip De Leon XR CHEST 1 [...] KARLA CLEMENTS Date: 2022-10-18 07:19 Normal [facility] XR CHEST 1 V EXAM: XR [...] MAGDIEL DELEON Date: 2022-10-17 23:51 Normal [facility] CBC W MANUAL DIFFon 10-18-19 23 ATYPICAL LYMPH # Normal [facility] Comment on above: Performed By: #### U MICRO, ERUR #### [facility] [address] [address] [address] Philip De Leon ATYPICAL LYMPH % Normal [facility] Comment on above: Performed By: #### U MICRO, ERUR #### [facility] [address] [address] [address] Philip De Leon BAND # 0.0 103/ul Normal 0.0-0.3 [facility] Comment on above: Performed By: #### U MICRO, ERUR #### [facility] [address] [address] [address] Philip De Leon BAND % 0 % Normal 0-5 [facility] Comment on above: Performed By: #### U MICRO, ERUR #### [facility] [address] [place] [address] Dr. Philip De Leon BASOM # 0.06 103/ul Normal 0.00-0.10 [facility] Comment on above: Performed By: #### U MICRO, ERUR #### [facility] [address] [place] [address] Dr. Philip De Leon BASOM % 1.0 % Normal 0.2-2.0 [facility] Comment on above: Performed By: #### U MICRO, ERUR #### [facility] [address] [place] [address] Dr. Philip De Leon BLAST # Normal [facility] Comment on above: Performed By: #### U MICRO, ERUR #### [facility] [address] [place] [address] Dr. Philip De Leon BLAST % Normal [facility] Comment on above: Performed By: #### U MICRO, ERUR #### [facility] [address] [place] [address] Dr. Philip De Leon CORRECTED WBC Normal 4.0-11.0 [facility] Comment on above: Performed By: #### U MICRO, ERUR #### [facility] [address] [place] [address] Dr. Philip De Leon EOS # 0.17 103/ul Normal 0.00-0.70 [facility] Comment on above: Performed By: #### U MICRO, ERUR #### [facility] [address] [place] [address] Dr. Philip De Leon EOS% 3.0 % Normal 0.9-7.0 [facility] Comment on above: Performed By: #### U MICRO, ERUR #### [facility] [address] [place] [address] Dr. Philip De Leon HCT 24.6 % Critically low 36.0-48.0 [facility] Comment on above: Performed By: #### U MICRO, ERUR #### [facility] [address] [place] [address] Dr. Philip De Leon HGB 7.6 g/dl Critically low 12.0-16.0 [facility] Comment on above: Performed By: #### U MICRO, ERUR #### [facility] [address] [address] [address] Philip De Leon LYMPHM # 1.22 103/ul Normal 1.20-3.80 [facility] Comment on above: Performed By: #### U MICRO, ERUR #### [facility] [address] [address] [address] Philip De Leon LYMPHM% 21.0 % Normal 20.5-60.0 [facility] Comment on above: Performed By: #### U MICRO, ERUR #### [facility] [address] [address] [address] Philip De Leon MCH 30.0 pg Normal 26.7-34.0 [facility] Comment on above: Performed By: #### U MICRO, ERUR #### [facility] [address] [place] [address] Dr. Philip De Leon MCHC 30.9 g/dl Normal 29.9-35.2 [facility] Comment on above: Performed By: #### U MICRO, ERUR #### [facility] [address] [address] [address] Philip De Leon MCV 97.2 fL Normal 81.0-99.0 [facility] Comment on above: Performed By: #### U MICRO, ERUR #### [facility] [address] [place] [address] Dr. Philip De Leon METAMYELOCYTE # Normal [facility] Comment on above: Performed By: #### U MICRO, ERUR #### [facility] [address] [address] [address] Philip De Leon METAMYELOCYTE % Normal [facility] Comment on above: Performed By: #### U MICRO, ERUR #### [facility] [address] [address] [address] Philip De Leon MONOM# 0.17 103/ul Critically low 0.30-0.80 [facility] Comment on above: Performed By: #### U MICRO, ERUR #### [facility] [address] [address] [address] Philip De Leon MONOM% 3.0 % Normal 1.7-12.0 [facility] Comment on above: Performed By: #### U MICRO, ERUR #### [facility] [address] [address] [address] Philip De Leon MPV 0.0 fL Critically low 9.5-13.5 [facility] Comment on above: Performed By: #### U MICRO, ERUR #### [facility] [address] [address] [address] Philip De Leon MYELOCYTE # Normal [facility] Comment on above: Performed By: #### U MICRO, ERUR #### [facility] [address] [place] [address] Dr. Philip De Leon MYELOCYTE % Normal [facility] Comment on above: Performed By: #### U MICRO, ERUR #### [facility] [address] [place] [address] Dr. Philip De Leon NRBC Normal [facility] Comment on above: Performed By: #### U MICRO, ERUR #### [facility] [address] [address] [address] Philip De Leon PLT 191 103/ul Normal 150-450 [facility] Comment on above: Performed By: #### U MICRO, ERUR #### [facility] [address] [place] [address] Dr. Philip De Leon RBC 2.53 106/ul Critically low 4.20-5.40 [facility] Comment on above: Performed By: #### U MICRO, ERUR #### [facility] [address] [place] [address] Dr. Philip De Leon RDW 21.9 % Critically high 11.0-15.0 [facility] Comment on above: Performed By: #### U MICRO, ERUR #### [facility] [address] [address] [address] Philip De Leon SEG # 4.18 103/ul Normal 1.40-6.50 [facility] Comment on above: Performed By: #### U MICRO, ERUR #### [facility] [address] [place], [place] [address] Dr. Philip De Leon SEG % 72.0 % Normal 43.0-75.0 [facility] Comment on above: Performed By: #### U MICRO, ERUR #### [facility] [address] [place], [place] [address] Dr. Philip De Leon WBC 5.8 103/ul Normal 4.0-11.0 [facility] Comment on above: Performed By: #### U MICRO, ERUR #### [facility] [address] [address] [address] Philip De Leon CYTOLOGYon 10-17-2022 SENT TO REF LAB 10/17/2022 [facility] Comment on above: Performed By: #### C YTO #### [facility] [address] [address] [address] Philip De Leon ECHOCARDIO M/2D COMPLETEon 0 10-17-2022 ECHOCARDIO M/2D COMPLETE Patient: CHRISTA PITTS Exam Date: 10/17/2022 : 1940 Gender:F Ordering : DR SAMAN MARTÍNEZ . Admission #: [id number] Family : Order #: [id number] CLICK HERE TO VIEW EXAM ECHOCARDIOGRAM REPORT [...] Cobb M.D. on 10/18/2022 at 11:37 Normal [facility] PROF CHEM 8 (BAS METB)on Anion gap [Moles/Vol] 7.8 mmol/L Normal [facility] Comment on above: Performed By: #### U MICRO, ERUR #### [facility] [address] [address] [address] Philip De Leon Calcium [Mass/Vol] 8.3 mg/dL Critically low 8.5-10.1 [facility] Comment on above: Performed By: #### U MICRO, ERUR #### [facility] [address] [address] [address] Philip De Leon Chloride [Moles/Vol] 108 mmol/L Critically high 98-107 [facility] Comment on above: Performed By: #### U MICRO, ERUR #### [facility] [address] [address] [address] Philip De Leon CO2 [Moles/Vol] 30.2 mmol/L Normal 21.0-32.0 [facility] Comment on above: Performed By: #### U MICRO, ERUR #### [facility] [address] [address] [address] Philip De Leon Creatinine [Mass/Vol] 1.13 mg/dL Critically high 0.55-1.02 [facility] Comment on above: Performed By: #### U MICRO, ERUR #### [facility] [address] [address] [address] Philip De Leon EGFR-AF CYPRIOT 56 mL/min/1.73m2 Critically low >=60 [facility] Comment on above: Performed By: #### U MICRO, ERUR #### [facility] [address] [address] [address] Philip De Leon EGFR-NON AF CYPRIOT 46 mL/min/1.73m2 Critically low >=60 [facility] Comment on above: Performed By: #### U MICRO, ERUR #### [facility] [address] [address] [address] Philip De Leon Glucose [Mass/Vol] 87 mg/dL Normal 74-106 [facility] Comment on above: Performed By: #### U MICRO, ERUR #### [facility] [address] [place] [address] Dr. Philip De Leon Potassium [Moles/Vol] 5.0 mmol/L Normal 3.5-5.1 [facility] Comment on above: Performed By: #### U MICRO, ERUR #### [facility] [address] [address] [address] Philip De Leon Sodium [Moles/Vol] 141 mmol/L Normal 136-145 [facility] Comment on above: Performed By: #### U MICRO, ERUR #### [facility] [address] [address] [address] Philip De Leon Urea nitrogen [Mass/Vol] 16.0 mg/dL Normal 7.0-18.0 [facility] Comment on above: Performed By: #### U MICRO, ERUR #### [facility] [address] [address] [address] Philip De Leon Urea nitrogen/Creatinine [Mass ratio] 14.2 mg/mg Normal [facility] Comment on above: Performed By: #### U MICRO, ERUR #### [facility] [address] [place] [address] Dr. Philip De Leon XR CHEST 1 [...] by: MOISES BASILIO Date: 2022-10-17 13:32 Normal [facility] XR CHEST 2 Von 10-17-2022 XR [...] by: KARLA CLEMENTS Date: 2022-10-17 06:58 Normal [facility] BNPon 10-16-2022 Natriuretic peptide B (Bld) [Mass/Vol] 1965.0 pg/mL Critically high <=1,800.0 [facility] Comment on above: Performed By: #### U MICRO, ERUR #### [facility] [address] [address] [address] Philip De Leon CARDIAC IRON ADMITon 023 CK [Catalytic activity/Vol] 47 U/L Normal 26-192 [facility] Comment on above: Performed By: #### U MICRO, ERUR #### [facility] [address] [address] [address] Philip De Leon CK.MB [Mass/Vol] 0.82 ng/mL Normal <=3.60 [facility] Comment on above: Performed By: #### U MICRO, ERUR #### [facility] [address] [place] [address] Dr. Philip De Leon HSTROP 9.4 pg/mL Normal 4.0-51.3 [facility] Comment on above: Result Comment: CUT- OFF POINTS HAVE BEEN ESTABLISHED BASED ON THE FOURTH UNIVERSAL DEFINITIONS OF MYOCARDIAL INFARCTION. THE UPPER REFERENCE LIMIT (URL) OF TROPONIN, DEFINED THE 99TH PERCENTILE OF cTnI DISTRIBUTION IN A REFERENCE POPULATION, HAS BEEN CONFIRMED THE DECISION THRESHOLD FOR [place] DIAGNOSIS. Performed By: #### U MICRO, ERUR #### [facility] [address] [place] [address] Dr. Philip De Leon BELKIS 55 ng/mL Normal 9-82 [facility] Comment on above: Performed By: #### U MICRO, ERUR #### [facility] [address] [place] [address] Dr. Philip De Leon CBC AUTO DIFFon 10-16-2022 BASO # 0.2 103/ul Critically high 0.0-0.1 [facility] Comment on above: Performed By: #### C BC #### [facility] [address] [place] [address] Dr. Philip De Leon Basophils/100 WBC (Bld) 2.0 % Normal 0.2-2.0 [facility] Comment on above: Performed By: #### C BC #### [facility] [address] [place] [address] Dr. Philip De Leon EO # 0.4 103/ul Normal 0.0-0.7 [facility] Comment on above: Performed By: #### C BC #### [facility] [address] [place] [address] Dr. Philip De Leon Eosinophils/100 WBC (Bld) 3.9 % Normal 0.9-7.0 [facility] Comment on above: Performed By: #### C BC #### [facility] [address] [place] [address] Dr. Philip De Leon Erythrocyte distribution width (RBC) [Ratio] 21.9 % Critically high 11.0-15.0 [facility] Comment on above: Performed By: #### C BC #### [facility] [address] [place] [address] Dr. Philip De Leon Hematocrit (Bld) [Volume fraction] 30.7 % Critically low 36.0-48.0 [facility] Comment on above: Performed By: #### C BC #### [facility] [address] [place] [address] Dr. Philip De Leon Hemoglobin (Bld) [Mass/Vol] 9.6 g/dL Critically low 12.0-16.0 [facility] Comment on above: Performed By: #### C BC #### [facility] [address] [address] [address] Philip De Leon IG # 0.14 10e3/ul Critically high 0.00-0.03 [facility] Comment on above: Performed By: #### C BC #### [facility] [address] [place] [address] Dr. Philip De Leon IG % 1.4 % Critically high 0.0-0.5 [facility] Comment on above: Performed By: #### C BC #### [facility] [address] [place] [address] Dr. Philip De Leon LYMPH # 1.2 103/ul Normal 1.2-3.8 [facility] Comment on above: Performed By: #### C BC #### [facility] [address] [place] [address] Dr. Philip De Leon Lymphocytes/100 WBC (Bld) 11.9 % Critically low 20.5-60.0 [facility] Comment on above: Performed By: #### C BC #### [facility] [address] [place] [address] Dr. Philip De Leon MANUAL DIFF REQ NO Normal [facility] Comment on above: Performed By: #### C BC #### [facility] [address] [place] [address] Dr. Philip De Leon MCH (RBC) [Entitic mass] 30.3 pg Normal 26.7-34.0 [facility] Comment on above: Performed By: #### C BC #### [facility] [address] [place] [address] Dr. Philip De Leon MCHC (RBC) [Mass/Vol] 31.3 g/dL Normal 29.9-35.2 [facility] Comment on above: Performed By: #### C BC #### [facility] [address] [place] [address] Dr. Philip De Leon MCV (RBC) [Entitic vol] 96.8 fL Normal 81.0-99.0 [facility] Comment on above: Performed By: #### C BC #### [facility] [address] [place] [address] Dr. Philip De Leon MONO # 0.6 103/ul Normal 0.3-0.8 [facility] Comment on above: Performed By: #### C BC #### [facility] [address] [place] [address] Dr. Philip De Leon Monocytes/100 WBC (Bld) 6.2 % Normal 1.7-12.0 [facility] Comment on above: Performed By: #### C BC #### [facility] [address] [place] [address] Dr. Philip De Leon NEUT # 7.3 103/ul Critically high 1.4-6.5 [facility] Comment on above: Performed By: #### C BC #### [facility] [address] [place] [address] Dr. Philip De Leon Neutrophils/100 WBC (Bld) 74.6 % Normal 43.0-75.0 [facility] Comment on above: Performed By: #### C BC #### [facility] [address] [place] [address] Dr. Philip De Leon PLT 247 103/ul Normal 150-450 [facility] Comment on above: Performed By: #### C BC #### [facility] [address] [place] [address] Dr. Philip De Leon RBC 3.17 106/ul Critically low 4.20-5.40 [facility] Comment on above: Performed By: #### C BC #### [facility] [address] [place] [address] Dr. Philip De Leon WBC 9.7 103/ul Normal 4.0-11.0 [facility] Comment on above: Performed By: #### C BC #### [facility] [address] [place], [place] [address] Dr. Philip De Leon CTA CHEST WO W CONon 023 CTA CHEST WO W CON EXAMINATION: [...] atelectatic collapse of the right middle lobe. [id number] left pleural effusion with left basilar atelectasis/consolidat [...] AYAZ KRUGER Date: 2022-10-16 10:58 Normal [facility] CULTURE BLOODon 10-16-2022 Microscopic examination of blood, culture Culture Observations: NO GROWTH AT 5 DAYS. Normal [facility] Comment on above: Performed By: #### U MICRO, ERUR #### [facility] [address] [place] [address] Dr. Philip De Leon Microscopic examination of blood, culture Culture Observations: NO GROWTH AT 5 DAYS. Normal [facility] Comment on above: Performed By: #### U MICRO, ERUR #### [facility] [address] [place] [address] Dr. Philip De Leon Covid-19 PCR ([facility])on 10-05 SARS-CoV-2 (COVID-19) RNA MARILU+probe Ql (Unsp spec) Not detected Normal NOT DETECTED [facility] Comment on above: Result Comment: When [...] for this test is supported by the Resource Room Special Education Teacher of [employer] and Human Service's declaration that [...] Performed By: #### U MICRO, ERUR #### [facility] [address] [place] [address] Dr. Philip De Leon ER URINE PROFILEon 3 Bilirubin Ql (U) Negative Normal NEGATIVE [facility] Comment on above: Performed By: #### U MICRO, ERUR #### [facility] [address] [place] [id number] Dr. Philip De Leon Clarity (U) CLEAR Normal CLEAR [facility] Comment on above: Performed By: #### U MICRO, ERUR #### [facility] [address] [place] [address] Dr. Philip De Leon Color (U) LT. YELLOW Normal YELLOW [facility] Comment on above: Performed By: #### U MICRO, ERUR #### [facility] [address] [address] [address] Philip OLSON A micrscopic examination will be performed if indicated. Normal [facility] Comment on above: Performed By: #### U MICRO, ERUR #### [facility] [address] [address] [address] Philip De Leon Glucose Ql (U) Negative Normal NEGATIVE [facility] Comment on above: Performed By: #### U MICRO, ERUR #### [facility] [address] [address] [address] Philip De Leon Hemoglobin Ql (U) SMALL Abnormal NEGATIVE [facility] Comment on above: Performed By: #### U MICRO, ERUR #### [facility] [address] [address] [address] Philip De Leon Ketones Ql (U) Negative Normal NEGATIVE [facility] Comment on above: Performed By: #### U MICRO, ERUR #### [facility] [address] [address] [address] Philip De Leon LEUKOCYTES Negative Normal NEGATIVE [facility] Comment on above: Performed By: #### U MICRO, ERUR #### [facility] [address] [address] [address] Philip De Leon Nitrite Ql (U) Negative Normal NEGATIVE [facility] Comment on above: Performed By: #### U MICRO, ERUR #### [facility] [address] [address] [address] Philip De Leon pH (U) 6.0 [pH] Normal 5-9 [facility] Comment on above: Performed By: #### U MICRO, ERUR #### [facility] [address] [address] [address] Philip De Leon Protein (U) [Mass/Vol] 30 mg/dL Abnormal NEGATIVE/ TRACE [facility] Comment on above: Performed By: #### U MICRO, ERUR #### [facility] [address] [address] [address] Philip De Leon SPEC GRAVITY 1.010 Normal 1.005-<=1.025 [facility] Comment on above: Performed By: #### U MICRO, ERUR #### [facility] [address] [place] [address] Dr. Philip De Leon UR MICRO IND INDICATED Normal [facility] Comment on above: Performed By: #### U MICRO, ERUR #### [facility] [address] [place] [address] Dr. Philip De Leon Urobilinogen Qn (U) 0.2 {Graham'U}/dL Normal 0.2 - 1. 0 [facility] Comment on above: Performed By: #### U MICRO, ERUR #### [facility] [address] [place] [address] Dr. Philip De Leon LACTATE/LACTIC ACIDon 2022 Lactate [Moles/Vol] 1.0 mmol/L Normal 0.4-2.0 [facility] Comment on above: Performed By: #### L ACT #### [facility] [address] [place] [address] Dr. Philip De Leon PROF 14(COMP METB)on 023 Albumin [Mass/Vol] 3.6 g/dL Normal 3.4-5.0 [facility] Comment on above: Performed By: #### U MICRO, ERUR #### [facility] [address] [place] [address] Dr. Philip De Leon Albumin/Globulin [Mass ratio] 0.9 {ratio} Normal [facility] Comment on above: Performed By: #### U MICRO, ERUR #### [facility] [address] [place] [address] Dr. Philip De Leon ALP [Catalytic activity/Vol] 69 U/L Normal 46-116 [facility] Comment on above: Performed By: #### U MICRO, ERUR #### [facility] [address] [place] [address] Dr. Philip De Leon ALT [Catalytic activity/Vol] 15 U/L Normal 14-59 [facility] Comment on above: Performed By: #### U MICRO, ERUR #### [facility] [address] [place] [address] Dr. Philip De Leon Anion gap [Moles/Vol] 11.4 mmol/L Normal [facility] Comment on above: Performed By: #### U MICRO, ERUR #### [facility] [address] [address] [address] Philip De Leon AST [Catalytic activity/Vol] 17 U/L Normal 15-37 [facility] Comment on above: Performed By: #### U MICRO, ERUR #### [facility] [address] [address] [address] Philip De Leon Bilirubin [Mass/Vol] 0.5 mg/dL Normal 0.2-1.0 [facility] Comment on above: Performed By: #### U MICRO, ERUR #### [facility] [address] [place] [address] Dr. Philip De Leon Calcium [Mass/Vol] 9.1 mg/dL Normal 8.5-10.1 [facility] Comment on above: Performed By: #### U MICRO, ERUR #### [facility] [address] [place] [address] Dr. Philip De Leon Chloride [Moles/Vol] 107 mmol/L Normal 98-107 [facility] Comment on above: Performed By: #### U MICRO, ERUR #### [facility] [address] [place] [address] Dr. Philip De Leon CO2 [Moles/Vol] 28.6 mmol/L Normal 21.0-32.0 [facility] Comment on above: Performed By: #### U MICRO, ERUR #### [facility] [address] [place] [address] Dr. Philip De Leon Creatinine [Mass/Vol] 1.05 mg/dL Critically high 0.55-1.02 [facility] Comment on above: Performed By: #### U MICRO, ERUR #### [facility] [address] [place] [address] Dr. Philip De Leon EGFR-AF CYPRIOT >60 Normal >=60 [facility] Comment on above: Performed By: #### U MICRO, ERUR #### [facility] [address] [address] [address] Philip De Leon EGFR-NON AF CYPRIOT 50 mL/min/1.73m2 Critically low >=60 [facility] Comment on above: Performed By: #### U MICRO, ERUR #### [facility] [address] [place] [address] Dr. Philip De Leon Globulin (S) [Mass/Vol] 3.8 g/dL Normal [facility] Comment on above: Performed By: #### U MICRO, ERUR #### [facility] [address] [place] [address] Dr. Philip De Leon Glucose [Mass/Vol] 120 mg/dL Critically high 74-106 [facility] Comment on above: Performed By: #### U MICRO, ERUR #### [facility] [address] [place] [address] Dr. Philip De Leon Potassium [Moles/Vol] 5.0 mmol/L Normal 3.5-5.1 [facility] Comment on above: Performed By: #### U MICRO, ERUR #### [facility] [address] [address] [address] Philip De Leon Protein [Mass/Vol] 7.4 g/dL Normal 6.4-8.2 [facility] Comment on above: Performed By: #### U MICRO, ERUR #### [facility] [address] [place] [address] Dr. Philip De Leon Sodium [Moles/Vol] 142 mmol/L Normal 136-145 [facility] Comment on above: Performed By: #### U MICRO, ERUR #### [facility] [address] [address] [address] Philip De Leon Urea nitrogen [Mass/Vol] 18.0 mg/dL Normal 7.0-18.0 [facility] Comment on above: Performed By: #### U MICRO, ERUR #### [facility] [address] [place] [address] Dr. Philip De Leon Urea nitrogen/Creatinine [Mass ratio] 17.1 mg/mg Normal [facility] Comment on above: Performed By: #### U MICRO, ERUR #### [facility] [address] [place] [address] Dr. Philip De Leon PROTIMEon 10-16-2022 INR Coag (PPP) [Relative time] 1.00 {INR} Normal [facility] Comment on above: Performed By: #### P T, PTT #### [facility] [address] [place] [address] Dr. Philip De Leon INR GUIDELINES SEE BELOW Normal [facility] Comment on above: Result Comment: KADEN RED INR: 2.0 - 3.0 CONDITIONS NOT LISTED BELOW 2.5 - 3.5 FOR PROSTHETIC HEART VALVE REPLACEMENT 2.5 - 3.5 RECURRENT THROMBOSIS Performed By: #### P T, PTT #### [facility] [address] [place] [address] Dr. Philip De Leon PT Coag (PPP) [Time] 10.6 s Normal 9.0-11.6 [facility] Comment on above: Performed By: #### P T, PTT #### [facility] [address] [place] [address] Dr. Philip De Leon PTTon 10-16-2022 aPTT Coag (Bld) [Time] 27.9 s Normal 22.3-36.2 [facility] Comment on above: Performed By: #### P T, PTT #### [facility] [address] [place] [address] Dr. Philip De Leon URINE MICROSCOPIC ONLYon BACTERIA NONE SEEN Normal NONE SEEN [facility] Comment on above: Performed By: #### U MICRO, ERUR #### [facility] [address] [place] [address] Dr. Philip De Leon Bacteria identified Cx Nom (U) NOT INDICATED Normal [facility] Comment on above: Performed By: #### U MICRO, ERUR #### [facility] [address] [place] [address] Dr. Philip De Leon CAST NONE SEEN Normal NONE SEEN [facility] Comment on above: Performed By: #### U MICRO, ERUR #### [facility] [address] [place] [address] Dr. Philip De Leon Crystals LM Nom (Urine sed) NONE SEEN Normal NONE SEEN [facility] Comment on above: Performed By: #### U MICRO, ERUR #### [facility] [address] [address] [address] Philip De Leon Epithelial cells LM Ql (Urine sed) FEW Abnormal NONE SEEN /RARE [facility] Comment on above: Performed By: #### U MICRO, ERUR #### [facility] [address] [address] [address] Philip De Leon MUCOUS NONE SEEN Normal NONE SEEN [facility] Comment on above: Performed By: #### U MICRO, ERUR #### [facility] [address] [place] [address] Dr. Philip De Leon RBC 0-2 Normal 0-2 [facility] Comment on above: Performed By: #### U MICRO, ERUR #### [facility] [address] [place] [address] Dr. Philip De Leon WBC NONE SEEN Normal NONE SEEN [facility] Comment on above: Performed By: #### U MICRO, ERUR #### [facility] [address] [place] [address] Dr. Philip De Leon XR CHEST 1 [...] by: MOISES BASILIO Date: 2022-10-16 09:35 Normal [facility] Vital Signs Date Time Vital Sign Value Performing Clinician Facility 09-19-2023 11:08-0500 Diastolic blood pressure 49 mm[Hg] DO Bryant Dallas Work Phone: [facility] 09-19-2023 11:08-0500 Heart rate 51 /min DO Bryant Ball Work Phone: [facility] 09-19-2023 11:08-0500 Respiratory rate 16 /min DO Bryant Ball Work Phone: [facility] 09-19-2023 11:08-0500 SaO2% (BldA) [Mass fraction] 97 % DO Bryant Ball Work Phone: [facility] 09-19-2023 11:08-0500 Systolic blood pressure 116 mm[Hg] DO Bryant Ball Work Phone: [facility] 09-19-2023 08:27-0500 Body height 165.1 cm DO Bryant Ball Work Phone: [facility] 09-19-2023 08:27-0500 Body weight 74.84 kg DO Bryant Ball Work Phone: [facility] 08-03-2023 11:30-0500 Body height Bryant Ball Other [facility] Other 08-03-2023 11:30-0500 Body height 165.1 cm DO Bryant Ball Work Phone: [facility] 08-03-2023 11:30-0500 Body mass index (BMI) [Ratio] 27.39 kg/m2 Bryant Ball Other [facility] Other 08-03-2023 11:30-0500 Body weight 74.66 kg Bryant Ball Other [facility] 08-03-2023 11:30-0500 Diastolic blood pressure 60 mm[Hg] Bryant Ball Other [facility] 08-03-2023 11:30-0500 Respiratory rate 12 /min Bryant Ball Other [facility] Other 08-03-2023 11:30-0500 Systolic blood pressure 143 mm[Hg] Bryant Ball Other [facility] 06-16-2023 14:00-0500 Body height Bryant Ball Other [facility] Other 06-16-2023 14:00-0500 Body mass index (BMI) [Ratio] 28.75 kg/m2 Bryant Ball Other [facility] Other 06-16-2023 14:00-0500 Body weight 78.38 kg Bryant Ball Other [facility] Other 06-16-2023 14:00-0500 Diastolic blood pressure 71 mm[Hg] Bryant Ball Other [facility] Other 06-16-2023 14:00-0500 Respiratory rate 12 /min Bryant Ball Other [facility] Other 06-16-2023 14:00-0500 Systolic blood pressure 163 mm[Hg] Bryant Ball Other [facility] Other 12-30-2022 13:45-0400 Body height Bryant Ball Other [facility] Other 12-30-2022 13:45-0400 Body mass index (BMI) [Ratio] 28.55 kg/m2 Bryant Ball Other [facility] Other 12-30-2022 13:45-0400 Body weight 77.84 kg Bryant Ball Other [facility] Other 12-30-2022 13:45-0400 Diastolic blood pressure 60 mm[Hg] Bryant Ball Other [facility] Other 12-30-2022 13:45-0400 Respiratory rate 12 /min Bryant Ball Other [facility] Other 12-30-2022 13:45-0400 Systolic blood pressure 190 mm[Hg] Bryant Dallas Other [facility] Other 05-04-2021 14:45-0400 Body height Robb Flower Other [facility] Other 05-04-2021 14:45-0400 Body mass index (BMI) [Ratio] 33.28 kg/m2 Robb Olexa Other [facility] Other 05-04-2021 14:45-0400 Body weight 90.72 kg Robb Hernandezxa Other [facility] Other Encounters Encounter Date Encounter Type Care Provider Facility Start: 09-19-2023 End: 09-19-2023 ambulatory Bryant Dallas Facility:[facility] Start: 09-19-2023 Non-patient / Non-visit DO Marck Dallas Work Phone: [facility] Work Phone: Start: 09-19-2023 End: 09-19-2023 Admission to same day surgery center DO Bryant Dallas Work Phone: [facility] Work Phone: Start: 09-19-2023 End: 09-19-2023 ambulatory DO Bryant Dallas Work Phone: [facility] Work Phone: Start: 09-15-2023 End: 09-15-2023 ambulatory Bryant Dallas Other [facility] Other Start: 09-15-2023 Tele[facility] encounter [facility] Start: 08-11-2023 End: 08-11-2023 ambulatory Imad Asaad Other [facility] Other Start: 08-11-2023 Telephone encounter Imad Asaad [facility] Start: 08-09-2023 End: 08-09-2023 ambulatory Bryant Dallas Other [facility] Other Start: 08-09-2023 Telephone encounter Bryant Dallas [facility] Start: 08-08-2023 Patient encounter procedure DO Bryant Dallas Work Phone: [facility]- Start: 08-03-2023 End: 08-03-2023 ambulatory Bryant Dallas Other [facility] Other Start: 08-03-2023 Transitional care manage srvc 14 day discharge Bryant Dallas [facility] Start: 08-03-2023 End: 08-03-2023 Patient encounter procedure DO Bryant Dallas Work Phone: [facility] Work Phone: Start: 07-27-2023 End: 07-27-2023 ambulatory Bryant Dallas Other [facility] Other Start: 07-27-2023 Telephone encounter Bryant Dallas [facility] Start: 06-23-2023 End: 06-23-2023 ambulatory Bryant Dallas Other [facility] Other Start: 06-23-2023 Telephone encounter Bryant ALBA [facility] Start: 06-16-2023 End: 06-16-2023 ambulatory Bryant Dallas Other [facility] Other Start: 06-16-2023 Patient encounter procedure Bryant Dallas [facility] Start: 05-17-2023 End: 05-17-2023 ambulatory Bryant Dallas Other [facility] Other Start: 05-17-2023 Nursing evaluation o f patient and report Bryant Dallas [facility] Start: 04-11-2023 End: 04-11-2023 ambulatory Bryant Dallas Other [facility] Other Start: 04-11-2023 Nursing evaluation o f patient and report Bryant Dallas [facility] Start: 03-06-2023 End: 03-06-2023 ambulatory Bryant Dallas Other [facility] Other Start: 03-06-2023 Nursing evaluation o f patient and report Bryant Dallas [facility] Start: 02-20-2023 End: 02-20-2023 ambulatory Bryant Dallas Other [facility] Other Start: 02-20-2023 Nursing evaluation o f patient and report Bryant Dallas [facility] Start: 02-13-2023 End: 02-13-2023 ambulatory Bryant Dallas Other [facility] Other Start: 02-13-2023 Nursing evaluation o f patient and report Bryant Dallas [facility] Start: 02-10-2023 End: 02-10-2023 ambulatory Bryant Dalals Other [facility] Other Start: 02-10-2023 Telephone encounter Bryant Dallas [facility] Start: 02-03-2023 End: 02-03-2023 ambulatory Bryant Dallas Other [facility] Other Start: 02-03-2023 Telephone encounter Bryant Dallas [facility] Start: 12-30-2022 End: 12-30-2022 ambulatory Bryant Dallas Other [facility] Other Start: 12-30-2022 Transitional care manage srvc 7 day discharge Bryant Dallas [facility] Start: 11-24-2022 End: 11-24-2022 ambulatory Bryant Dallas Other [facility] Other Start: 11-24-2022 Telephone encounter Bryant Dallas [facility] Start: 11-08-2022 End: 11-08-[address] BRYANT DALLAS [facility] Other Start: 11-08-2022 Telephone encounter Bryant Dallas [facility] Start: 11-07-2022 End: 11-07-2022 ambulatory Robb Flower Other [facility] Other Start: 11-07-2022 Telephone encounter Robb Flower [facility] Start: 10-25-2022 End: 10-25-2022 ambulatory Robb Olexa Other [facility] Other Start: 10-25-2022 Telephone encounter Robb Hernandezxa [facility] Start: 10-21-2022 End: 10-21-2022 ambulatory Robb Olexa Other [facility] Other Start: 10-21-2022 Telephone encounter Robb Flower [facility] Start: 10-16-2022 End: 10-19-2022 Evaluation and management of inpatient BLAINE BRAVO . Facility: Start: 05-23-2022 Adult health examination Bryant Dallas Other [facility] Other Start: 05-04-2021 Office outpatient ne w 30 minutes Robb Flower [facility] Procedures Date Procedure Procedure Detail Performing Clinician Start: 09-19-2023 Esophagogastroduodenoscopy DO Brynat Edmond salome Work Phone: Start: 10-17-2022 Drainage of Right Pleural Cavity, Percutaneous Approach, Diagnostic BLAINE BRAVO . Start: 05-04-2016 Screening for malignant neoplasm of colon Bryant Dallas Other Start: 12-24-2013 General examination of patient Bryant Dallas Other Depression screening Víctor Dallas Other Plan of Treatment Date Care Activity Detail Author Start: 09-19-2023 [facility] Patient Education Hemorrhoids (D C) Diverticulosis (DC) Hiatal Hernia (DC) Colon Polypectomy (DC) Saavedra's Esophagus (DC) [facility] Work Phone: Immunizations Immunization Date Immunization Notes Care Provider Lima kingston 05-17-2023 influenza, high dose seasonal, preservative-free Bryant Dallas Other [facility] Other 05-17-2023 influenza virus vaccine, unspecified formulation DO Bryant Dallas Work Phone: [facility] 05-02-2022 influenza virus vaccine, split virus (incl. purified surface antigen) Bryant Dallas Other [facility] Other 05-02-2022 influenza virus vaccine, unspecified formulation DO Bryant Dallas Work Phone: [facility] 05-20-2021 influenza virus vaccine, split virus (incl. purified surface antigen) Bryant Dallas Other [facility] Other 05-20-2021 influenza virus vaccine, unspecified formulation DO Bryant Dallas Work Phone: [facility] 05-18-2020 influenza virus vaccine, split virus (incl. purified surface antigen) Bryant Dallas Other [facility] Other 05-18-2020 influenza virus vaccine, unspecified formulation DO Bryant Dallas Work Phone: [facility] 05-16-2019 influenza virus vaccine, split virus (incl. purified surface antigen) Bryant Dallas Other [facility] Other 05-16-2019 influenza virus vaccine, unspecified formulation DO Bryant Dallas Work Phone: [facility] 05-14-2018 influenza virus vaccine, split virus (incl. purified surface antigen) Bryant Dallas Other [facility] Other 05-14-2018 influenza virus vaccine, unspecified formulation DO Bryant Dallas Work Phone: [facility] 05-11-2017 influenza virus vaccine, split virus (incl. purified surface antigen) Bryant Dallas Other [facility] Other 05-11-2017 influenza virus vaccine, unspecified formulation DO Bryant Dallas Work Phone: [facility] 06-16-2015 pneumococcal conjuga te vaccine, 13 valent Bryant Dallas Other [facility] 12-24-2013 pneumococcal Conjuga te, unspecified formulation; Translations: [Need for prophylactic vaccination against Streptococcus pneumoniae (pneumococcus)] Bryant Dallas Other [facility] Other 12-24-2013 pneumococcal polysaccharide vaccine, 23 valent Bryant Dallas Other [facility] 06-19-2013 tetanus and diphther ia toxoids, adsorbed, preservative free, for adult use (5 Lf of tetanus toxoid and 2 Lf of diphtheria toxoid) Bryant Dallas Other [facility] Payers Date Payer Category Payer Medicare [id number] 2.1 [id number] 1958 Self-pay 1958 Unknown [id number] 1940 Unknown [id number] 1940 Unknown [id number] Medicare Medicare Outpatient [id number] [id number] Unknown [id number] Social History Date Type Detail Facility Sex Assigned At [facility] Other Start: 09-19-2023 Tobacco smoking stat us ILIS Never smoked tobacco (finding) [facility] Start: 1940 Sex Assigned At Female F [facility] Goals Date Patient Goal Desired Activity /State Clinical Notes 05-04-2021 to 09-19-2023 Note Date & Type Note Facility 09-19-2023 History and physical note Note Date/Time September 19, 2023 9:54am [facility] [address] [place] [address] Gastroenterology H&P Signed Patient: Christa Pitts MR#: [id number] : 1940 Acct:[id number] Age/Sex: 83 / F Adm Date: 4 Loc: Room: Type: [facility] Attending Dr: Bernice Gutierres MD Copies to: Bryant Dallas,DO Bernice Gutierres MD~ Date of Service: 09/19/2023 HISTORY & PHYSICAL: Patient's history with special attention to the cardiovascular, pulmonary systems and the current problem was reviewed with the patient immediately prior to the procedure. Present medications and doses reviewed in the EMR. Allergies and pertinent laboratory tests were also reviewedat this time in the EMR. The physical examination, as below, was then performed. Indication, assessment and HPI: 83-year-old female with family history of colon cancer here for EGD/colonoscopy for evaluation of anemia and weight loss Family history of GI malignancy? Yes PHYSICAL EXAMINATION Mouth and Pharynx : Moist mucus membranes, normal dentition Cardiac: Regular rate, regular rhythm Pulmonary: Clear to auscultation bilaterally, no wheezing Neurological: Alert and oriented x3, no focal deficits noted Abdomen: Abdomen soft, non-tender REVIEW OF SYSTEMS Constitutional: Denies malaise, fevers Cardiovascular: Denies chest pain, palpitations Respiratory: Denies shortness of breath, wheezing Gastrointestinal: Per HPI Genitourinary: Denies dysuria, polyuria Musculoskeletal: Denies joint swelling, joint stiffness Neurological: Denies numbness, tingling Integumentary: Denies rashes, skin lesions Endocrine: Denies fatigue, weight loss Written informed consent obtained from the patient. Risks (including but not limited to perforation, infection, bloating, bleeding, need for emergent surgeryand loss of life), benefits and alternatives explained and questions answered. The patient verbalized understanding. Based on history patient is an appropriate candidate for the procedure. Bernice Gutierres M.D. Documented By: Bernice Gutierres MD 09/19/23 0953 Signed By: <Electronically signed by Bernice Gutierres MD> 09/19/23 0954 [facility] Work Phone: [phone]) 500-200102-13-2024 [facility] [place]* Encounter Date Diagnosis Assessment Notes Treatment Notes Treatment Clinical Notes Sep, Anemia (ICD-10 - D64.9) [facility] Other 12-28-2023 Evaluation note* Encounter Date Diagnosis Assessment Notes Treatment Notes Treatment Clinical Notes Jul, Acute on chronic diastolic heart [...] (ICD-10 - E53.8) Continue supplement, check level [facility] Other 11-10-2023 Evaluation note* Encounter Date Diagnosis [...] or drinking prior to bedtime. Weight loss. [facility] Other 10-11-2023 Evaluation note* Encounter Date Diagnosis Assessment Notes Treatment Notes Treatment Clinical Notes May, Pernicious anemia (ICD-10 - D51.0) [facility] Other 09-05-2023 Evaluation note* Encounter Date Diagnosis Assessment Notes Treatment Notes Treatment Clinical Notes Apr, Pernicious anemia (ICD-10 - D51.0) [facility] Other 07-31-2023 Evaluation note* Encounter Date Diagnosis Assessment Notes Treatment Notes Treatment Clinical Notes Feb, Pernicious anemia (ICD-10 - D51.0) [facility] Other 07-17-2023 Evaluation note* Encounter Date Diagnosis Assessment Notes Treatment Notes Treatment Clinical Notes Feb, Pernicious anemia (ICD-10 - D51.0) [facility] Other 07-10-2023 Evaluation note* Encounter Date Diagnosis Assessment Notes Treatment Notes Treatment Clinical Notes Feb, Pernicious anemia (ICD-10 - D51.0) [facility] Other 07-07-2023 Evaluation note* Encounter Date Diagnosis Assessment Notes Treatment Notes Treatment Clinical Notes Feb, 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) [facility] Other 06-30-2023 Evaluation note* Encounter Date Diagnosis Assessment Notes Treatment Notes Treatment Clinical Notes Jan, Paroxysmal atrial fibrillation (ICD-10 - I48.0) [facility] Other 06-30-2023 Evaluation note* Encounter Date Diagnosis Assessment Notes Treatment Notes Treatment Clinical Notes Jan, Chronic heart failure with preserved ejection fraction (ICD-10 - I50.32) Jan, Acute blood loss anemia (ICD-10 - D62) Jan, Paroxysmal atrial fibrillation (ICD-10 - I48.0) [facility] Other 05-26-2023 Evaluation note* Encounter Date Diagnosis [...] - R91.8) F/U Pulmonary CT chest in January scheduled. No hypoxemia, chest pain or dyspnea [facility] Other 04-20-2023 Evaluation note* Encounter Date Diagnosis Assessment Notes Treatment Notes Treatment Clinical Notes Nov, Acute on chronic diastolic heart failure (ICD-10 - I50.33) [facility] Other 04-04-2023 Evaluation note* Encounter Date Diagnosis Assessment Notes Treatment Notes Treatment Clinical Notes Nov, Ground glass opacity present on imaging of lung (ICD-10 - R91.8) CT chest 10/2022 [facility] Other 04-03-2023 Evaluation note* Encounter Date Diagnosis Assessment Notes Treatment Notes Treatment Clinical Notes Nov, Ground glass opacity present on imaging of lung (ICD-10 - R91.8) Nov, Pleural effusion (ICD-10 - J90) [facility] Other 09-28-2021 Evaluation note* Encounter Date Diagnosis Assessment Notes Treatment Notes Treatment Clinical Notes Apr, Mass of right wrist (ICD-10 - R22.31) Dicussed treatments options of the ganglion cyst, Patient is going to leave as is and will call when she is ready to have removed. Apr, Ganglion cyst of volar aspect of right wrist (ICD-10 - M67.431) [facility] Other Evaluation noteNo InformationNort [facility] Other Evaluation noteNo assessment information available [facility] Work Phone: history general Narrative - Reported* Type Description Date Medical History high blood pressure Medical History acid reflux Surgical History hysterectomy 1972 Surgical History tonsillectomy Hospitalization History see above Hospitalization History high blood pressure [facility] Other Hisxeve general Narrative - Reported* Type Description Date [...] see above Hospitalization History high blood pressure [facility] Other Histeia general Narrative - Reported* Type Description Date [...] Medical History GGO RUL Surgical History hysterectomy 1972 Surgical History tonsillectomy Surgical History JENIFER Hospitalization History see above Hospitalization History high blood pressure [facility] Other History general Narrative - Reported* Type [...] Right Pleural Effusion Medical History GGO RUL Medical History Pancreatic cysts Surgical History hysterectomy 1973 Surgical History tonsillectomy Surgical History JNEIFER Hospitalization History see above Hospitalization History high blood pressure [facility] Other Summary Purpose Family History No Family History Records Found Relationship Condition Age at Onset Recorded Date/T prema father Unknown Not Specified Unknown Hypertension Unknown Advance Directives No Advanced Directives Records Found Advance Directive Response Recorded Date/ Time Advance Directives No September 12:41pm Reason for Referral Reason Mrs. Pitts is being referred for an EGD and colonoscopy. She has anemia of unknown etiology, weight loss ands family hx of colon cancer. Diagnosis 1 Anemia, unspecified type (D64.9) Diagnosis 2 Loss of weight (R63. 4) Referral Organization [facility] Burt spicer Referring Provider First Name Bryant Referring Provider Last Name Burt Referring Provider Specialty Internal Me dicine Referred Organization [facility] Referred Address [address] [place] [address] [place],[address] Referred Provider Specialty Gastroentero logy Referral Priority [...] but has refused colonoscopies in the past. Chief Complaint and Reason for Visit Chief Complaint Tbh (Left A Message To Move To 11:30) Anemia, Weight Loss, Family History of Colon Cance Anemia, Weight Loss, Family History of Colon Cance Additional Source Comments REASON FOR VISIT (unrecogniz ed section and content) Right Wrist CystNo Informati onNo InformationNo InformationNo InformationREFILLTBH - DIZZINESS, VERTIGONo InformationEKG resultsTestingLab/Testing ResultsB-12 Fugoh10T-48 ShotB-12 ShotB-12 ShotB-12 ShotWellnessLab resultsTCMTBHCT resultsMAIL PPWrepeat labs INFORMATION SOURCE (unrecogn ized section and content) DATE CREATED AUTHOR 11/11/2022 [facility] DATE CREATED AUTHOR AUTHOR'S ORGANIZ ATION 09/24/2023 [facility] Care Teams (unrecognized sec tion and content) Team Status: Active Member Role Status Dates Bryant Dallas DO Primary Care Provider Active Team Status: Inactive Member Role Status Dates Bryant Dallas DO Attending Provider Active Sta rt: August 03, 2023 End: August 03, 2023 Team Status: Active Member Role Status Dates Provider Conversion Attending Provider Active St art: August 08, 2023 Team Status: Inactive Member Role Status Dates Bryant Dallas DO Primary Care Provider Active Start: September 19, 2023 End: September 19, 2023 Bernice Gutierres MD Attending Provider Active Start: September 19, 2023 End: September 19, 2023 Team Status: Active Member Role Status Dates Bryant Dallas DO Primary Care Provider Active Start: September 19, 2023 Bernice Gutierres MD Attending Provider, Other Provider Active Start: September 19, 2023 FOR RECORDS PERTAINING TO PATIENTS WHO ARE [...] BE BASED ON THE PRIMARY CLINICAL RECORDS. [employer] [facility]. provides no warranty or guarantee of the accuracy or completeness of information in this document.
[2023-10-02 13:49] LABS: Basophils Absolute Auto 0.2 10^3/uL (0.0-0.1); Basophils Percent Auto 3.1 % (0.2-2.0); Eosinophils Absolute Auto 0.4 10^3/uL (0.0-0.7); Eosinophils Percent Auto 5.2 % (0.9-7.0); Hematocrit 28.3 % (36.0-48.0); Hemoglobin 8.5 g/dL (12.0-16.0); Immature Granulocytes Abs Auto 0.07 10^3/uL (0.00-0.03); Lymphocytes Absolute Auto 1.6 10^3/uL (1.2-3.8); Lymphocytes Percent Auto 22.2 % (20.5-60.0); Mean Corpuscular Hemoglobin 28.6 pg (26.7-34.0); Mean Corpuscular Volume 95.3 fL (81.0-99.0); Monocytes Absolute Auto 0.6 10^3/uL (0.3-0.8); Monocytes Percent Auto 8.8 % (1.7-12.0); Neutrophils Absolute Auto 4.4 10^3/uL (1.4-6.5); Neutrophils Percent Auto 59.7 % (43.0-75.0); Platelet Count 230 10^3/uL (150-450); Red Cell Distribution Width 23.9 % (11.0-15.0); White Blood Count 7.3 10^3/uL (4.0-11.0)
[2023-10-02 14:13] LABS: Percent Iron Saturation 40.4 %
[2023-10-02 14:53] LABS: Red Blood Count 2.97 10^6/uL (4.20-5.40)
== END 2023-10-02 12:59 | disposition home or self-care (01) ==
LOC: LAB 13:00
PROVIDERS: PCP Internal Medicine; Visit Provider Internal Medicine
DX: D64.9 Anemia, unspecified (principal)
CPT/HCPCS: 36415; 82607; 82728; 82746; 83540; 83550; 85025

== ENCOUNTER 2023-11-24 08:43 | Outpatient (OUT) | payer MEDICARE, OTHER, SELFPAY ==
--- NOTE | 2023-11-24 08:48 | CT_ITS ---
[address] [address] Patient Name: CHRISTA PITTS MRN: [id number] date: 1940 Sex: F Assigned Patient Location: CT Current Patient Location: Accession/Order Number: [id number] Exam Date: 11/24/2023 08:55 Report Date: 11/25/2023 06:35 At the request of: BLAINE BRAVO Procedure: CT chest wo con EXAMINATION: CT chest wo con HISTORY: Pleural Effusion J90 , shortness of breath COMPARISON: , CT chest 07/24/2023, CT abdomen pelvis 08/08/2023 TECHNIQUE: Multi-planar CT images were obtained without and/or with IV contrast as indicated by examination type. Axial, Coronal, and Sagittal images. Dose reduction techniques were achieved by using automated exposure control and/or adjustment of mA and/or kV according to patient size and/or use of iterative reconstruction technique. FINDINGS: LUNGS: Atelectatic collapse of majority of right lower lobe with patent bronchi. Pleural calcifications along collapsed margin of left lower lobe. Mild patchy infiltrates and strandy opacities throughout right upper lobe. Left lung is well-expanded and clear. PLEURA: Large right pleural effusion 4.4 cm in thickness. VASCULATURE: No abnormality. YINA: Numerous calcified right hilar lymph nodes. MEDIASTINUM: No mass or adenopathy. CARDIAC: No enlargement, pericardial thickening, or significant calcification. AORTA: Marked atherosclerotic disease. No aneurysm. CHEST WALL: No mass or axillary adenopathy. BONES: No bone lesion or fracture. LIMITED ABDOMEN: Large hiatal hernia. Limited images of the upper abdomen. OTHER: CT/CT chest wo con IMPRESSION: 1. Large right pleural effusion with partial collapse of right lower lobe and mild infiltrates/atelectasis within right upper lobe; not significant changed. 2. Well-expanded, clear left lung. 3. Numerous calcified right hilar lymph nodes; chronic granulomatous disease versus sequela of treated lymphoma. 4. Marked atherosclerotic disease of aorta and branches; no aneurysm. Electronically authenticated by: PASTOR ARIZMENDI Date: 11/25/2023 06:35
--- OUTSIDE RECORDS SUMMARY | 2023-11-24 08:58 | XMS_ITS | CCD ---
Author Organization [facility] Care Team Providers Care Land Appraiser Name Role Phone Robb Flower Unavailable Bryant [place] Unavailable SAMSA ., BLAINE Procedure Practitioner Unavailab alden BASILIO, DR MOISES Richardson Consulting Unavailable NADERELesly, DR SAMAN Quintanilla Admitting Unavailable NADJOSE LUIS, DR SAMAN Quintanilla Attending Unavailable BURT, DR ST Primary Care Unavailable UGO, DR PASTOR Grace Consulting Unavailable NADERER, DR SAMAN Quintanilla Consulting Unavailable SAMSA ., BLAINE Consulting Unavailable NINA ., HAYLEE Consulting Unavailable MAGDIEL DELEON Consulting Unavailable RAINAKIN, AYAZ Consulting Unavailable KARLA CLEMENTS Consulting Unavailable BURT, DR ST Admitting Unavailable BURT, DR ST Primary Care Unavailable BURT, DR ST Attending Unavailable Asaad, Imad Unavailable DO Bryant Dallas Primary Care Provider MD Bhavik Imbladimir Attending Provider DO Bryant Dallas Primary Care Provider [phone] MD Bhavik Imbladimir Attending Provider Bryant Dallas Primary Care Unavailable Asaad, Imad Admitting Unavailable Asaad Imad Attending Unavailable Bryant Dallas Primary Care Unavailable Asaad, Imad Admitting Unavailable Asaad, Imad Attending Unavailable Allergies Allergy Classification Reported Allergen(s) Allergy Type Date of Onset Reaction(s) Facility (20 sources) clopidogrel Drug Allergy Unknown [facility] Other (4 sources) patient allergy list reviewed by nurse or physicia Propensity to adverse reactions Comment:Done [facility] Other Medications Current Medications Medication Drug Class(es) Dates Sig (Normalized) Sig (Original) amLODIPine 10 mg oral tablet (20 sources) Dihydropyridine Calcium Channel [facility] Start: 09-18-2023 take 10 mg by mouth once daily Amlodipine Active 10 MG PO Daily September 18, 2023 1:00am take 1 tablet by mouth once norma [...] 12.5 MG PO Daily September 18, 2023 1:00am take 1 tablet by eliud th every twelve hours Carvedilol 12.5 mg TAKE 1 TABLET BY MOUT H EVERY 12 HOURS Active take 1 tablet by eliud th every twelve hours Carvedilol 12.5 MG 1 tablet with food Orally Twice a day Active Folic Acid (13 sources) Start: 09-20-2023 take 1 tablet by eliud th once daily Folic Acid Active 0 .ROUTE .COMPLEX September 20, 2023 2:55pm TAKE ONE TABLET BY MOUTH DAILY Start: 09-18-2023 End: 09-20-2023 take 1 mg by mouth once daily Folic Acid Discontinued 1 MG PO Daily September 18, 2023 1:00am September 20, 2023 2:55pm Start: 02-10-2023 take 1 tablet by eliud th every twenty-four hours Folic Acid 1 MG 1 tablet Orally Once a day for 30 days Feb, Active furosemide 20 mg oral tablet (20 sources) Loop Diuretic Start: 09-18-2023 take 20 mg by mouth once daily Furosemide Active 20 MG PO Daily September 18, 2023 1:00am Start: 10-25-2022 take 1 tablet by eliud [...] 40 MG PO Daily September 18, 2023 1:00am Omeprazole 40 mg TAKE ONE CAPSULE BY MOUTH DAILY ON EMPTY STOMACH 30 MINUTES PRIOR TO BREAKFAST for 90 Active polyethylene glycol 3350 018418 mg / potassium chloride 2970 mg / sodium bicarbonate 6740 mg / sodium chloride 5860 mg / sodium sulfate 58137 mg powder for oral solution (2 sources) Osmotic Laxative Start: 08-14-2023 take 236 g by mouth once daily PEG-3350/Electrolytes 236 GM 4000 ML Orally once daily for 1 days Aug, Active potassium chloride 10 meq extended release oral tablet (20 sources) Start: 09-18-2023 take 10 mEq by mouth once daily Potassium Chloride Active 10 MEQ PO Daily September 18, 2023 1:00am Start: 11-24-2022 take 1 tablet by eliud [...] Onset: 10-28-2022 Chronic Deficiency and other anemia (1 source) Iron deficiency anemia secondary to blood loss (chronic); Translations: [Iron deficiency anemia secondary to blood loss (chronic)] Onset: 10-30-2023 Chronic Deficiency and other anemia (18 sources) [...] Onset: 06-16-2018 Episodic Deficiency and other anemia (3 sources) Anemia, unspecified; Translations: [Anemia, unspecified] Onset: 09-19-2023 Episodic Disorders of lipid metabolism (8 sources) [...] sources) H/O: high risk medication; 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] Episodic Other aftercare (4 sources) Long-term current use of drug therapy; 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] Episodic Other circulatory disease [...] disorders (1 source) Abnormal weight loss Episodic Pancreatic disorders (not diabetes) (1 source) Cyst of pancreas; Translations: [Cyst of pancreas] 10-02-2023 Episodic Peripheral and visceral atherosclerosis (1 source) [...] Results Test Name Value Interpretation Reference Range Facility Basophils Auto (Bld) [#/Vol] on 10-02-2023 Basophils (Bld) [#/Vol] 0.2 10 3/uL 0.0-0.1 [facility] Basophils/100 WBC Auto (Bld) on 10-02-2023 Basophils/100 WBC (Bld) 3.1 % 0.2-2.0 [facility] Eosinophils/100 WBC Auto (Bl d)on 10-02-2023 Eosinophils/100 WBC (Bld) 5.2 % 0.9-7.0 [facility] Erythrocyte distribution wid th Auto (RBC) [Ratio]on 10-02-2023 Erythrocyte distribution width (RBC) [Ratio] 23.9 % 11.0-15.0 [facility] Hematocrit Auto (Bld) [Volum e fraction]on 10-02-2023 Hematocrit (Bld) [Volume fraction] 28.3 % 36.0-48.0 [facility] Hemoglobin [Mass/volume] in Bloodon 10-02-2023 Hemoglobin (Bld) [Mass/Vol] 8.5 g/dL 12.0-16.0 [facility] Iron binding capacity [Mass/ volume] in Serum or Plasmaon 10-02-2023 Iron binding capacity [Mass/Vol] 193.0 ug/dL 250.0-450.0 [facility] Iron saturation [Mass Fracti on] in Serum or Plasmaon 10-02-2023 Iron saturation [Mass fraction] 40.4 % [facility] Laboratory - Chemistry and C hemistry - challengeon 10-02-2023 Cobalamin (Vitamin B12) [Mass/Vol] 586.0 pg/mL 193.0-986.0 [facility] Ferritin [Mass/Vol] 278.0 ng/mL 8.0-252.0 [facility] Iron [Mass/Vol] 78.0 ug/dL 50.0-170.0 [facility] Laboratory - Hematology and Cell countson 10-02-2023 Immature granulocytes/100 WBC (Bld) 1.0 % 0.0-0.5 [facility] Leukocytes [#/volume] correc delilah for nucleated erythrocytes in Blood by Automated counon 10-02-2023 WBC corrected for nucl RBC Auto (Bld) [#/Vol] 7.3 10 3/uL 4.0-11.0 [facility] Lymphocytes Auto (Bld) [#/Vo l]on 10-02-2023 Lymphocytes (Bld) [#/Vol] 1.6 10 3/uL 1.2-3.8 [facility] Lymphocytes/100 WBC Auto (Bl d)on 10-02-2023 Lymphocytes/100 WBC (Bld) 22.2 % 20.5-60.0 [facility] MCH Auto (RBC) [Entitic mass ]on 10-02-2023 MCH (RBC) [Entitic mass] 28.6 pg 26.7-34.0 [facility] MCHC Auto (RBC) [Mass/Vol]on 10-02-2023 MCHC (RBC) [Mass/Vol] 30.0 g/dL 29.9-35.2 [facility] MCV Auto (RBC) [Entitic vol] on 10-02-2023 MCV (RBC) [Entitic vol] 95.3 fL 81.0-99.0 [facility] Monocytes Auto (Bld) [#/Vol] on 10-02-2023 Monocytes (Bld) [#/Vol] 0.6 10 3/uL 0.3-0.8 [facility] Monocytes/100 WBC Auto (Bld) on 10-02-2023 Monocytes/100 WBC (Bld) 8.8 % 1.7-12.0 [facility] Neutrophils Auto (Bld) [#/Vo l]on 10-02-2023 Neutrophils (Bld) [#/Vol] 4.4 10 3/uL 1.4-6.5 [facility] Neutrophils/100 WBC Auto (Bl d)on 10-02-2023 Neutrophils/100 WBC (Bld) 59.7 % 43.0-75.0 [facility] No Panel Informationon 10-02 Eosinophils # (Auto) 0.4 10 3/uL 0.0-0.7 [facility] Folate 27.10 ng/mL 8.60-58.90 [facility] Immature Granulocyte # (Auto) 0.07 10 3/uL 0.00-0.03 [facility] Platelets Auto (Bld) [#/Vol] on 10-02-2023 Platelets (Bld) [#/Vol] 230 10 3/uL 150-450 [facility] RBC Auto (Bld) [#/Vol]on RBC (Bld) [#/Vol] 2.97 10 6/uL 4.20-5.40 [facility] Comment on above: ANISOCYTOSIS 2+POIKI LOCYTOSIS 1+HYPOCHROMASIA 1+OVALOCYTES 1+RED CELL FRAGMENTS 1+ Reticulocytes/100 RBC Auto ( Bld)on 10-02-2023 Reticulocytes/100 RBC (Bld) 1.10 % 0.60-3.10 [facility] Colin 09-19-2023 L Specimen: [id number] Received: 09/19/23 Status: JENNIFER Eliana Num: [id number] Spec Type: Surgical Subm Dr: Bernice Gutierres MD Tissues: A Duodenum - Biopsy (DUOD BX) B Esophagus Biopsy (ESO BX) C Esophagus Biopsy (ESO BX) D Esophagus Biopsy (ESO BX) E Colon Biopsy (SIGMOID COL BX) Procedures: HE/10, Gross/Micro L4/5 Age/ Patient Sex Location Account Attending Physician Christa Pitts 83/F [id number] Bernice Gutierres MD SPEC NUM: [id number] RECD: 09/19/23 STATUS: JENNIFER ELIANA NUM: [id number] MAXIM: 09/19/[address]: Bernice Gutierres MD ENTERED: 09/19/[address] [facility] DR: SPEC TYPE: Surgical DEPT: S ENTERED BY: [id number] RECV BY: [id number] ORDERED: HE/10, Gross/Micro L4/5 ORDERED: HE/10, Gross/Micro [...] [id number] Received: 09/19/23 Status: JENNIFER Monroy Num: [id number] Spec Type: Surgical Subm Dr: Bernice Gutierres MD Tissues: A Duodenum - Biopsy (DUOD BX) B Esophagus Biopsy (ESO BX) C Esophagus Biopsy (ESO BX) D Esophagus Biopsy (ESO BX) E Colon Biopsy (SIGMOID COL BX) Procedures: , Gross/Micro L4/5 ---- Patient: Christa Pitts [id number] (Continued) ---- Specimen: [id number] Received: 09/19/23 (Continued) Pathological Diagnosis (Continued) Signed (signature on file) Esther Saucedo MD 09/20/23 1015 ---- Specimen: [id number] Received: 09/19/23 Status: JENNIFER Monroy Num: [id number] Spec Type: Surgical Subm Dr: Bernice Gutierres MD Tissues: A Duodenum - Biopsy (DUOD BX) B Esophagus Biopsy (ESO BX) C Esophagus Biopsy (ESO BX) D Esophagus Biopsy (ESO BX) E Colon Biopsy (SIGMOID COL BX) Procedures: , Gross/Micro L4/5 ---- Patient: Christa Pitts [id number] (Continued) ---- Specimen: [id number] Received: 09/19/23 (Continued) Pathological Diagnosis (Continued) Comment: Esophageal biopsies [...] in one cassette labeled E1. CPT Codes [id number] ---- ---- Specimen: [id number] Received: 09/19/23 Status: JENNIFER Monroy Num: [id number] Spec Type: Surgical Subm Dr: Bernice Gutierres (more content not included)... [facility] CBC AUTO DIFFon 10-19-2022 BASO # 0.1 103/ul Normal 0.0-0.1 [facility] Comment on above: Performed By: #### U MICRO, ERUR #### [facility] [address] [address] [address] Philip De Leon Basophils/100 WBC (Bld) 1.5 % Normal 0.2-2.0 [facility] Comment on above: Performed By: #### U MICRO, ERUR #### [facility] [address] [place] [address] Dr. Philip De Leon EO # 0.4 103/ul Normal 0.0-0.7 [facility] Comment on above: Performed By: #### U MICRO, ERUR #### [facility] [address] [place] [address] Dr. Philip De Leon Eosinophils/100 WBC (Bld) 5.4 % Normal 0.9-7.0 [facility] Comment on above: Performed By: #### U MICRO, ERUR #### [facility] [address] [place] [address] Dr. Philip De Leon Erythrocyte distribution width (RBC) [Ratio] 22.5 % Critically high 11.0-15.0 [facility] Comment on above: Performed By: #### U MICRO, ERUR #### [facility] [address] [place] [address] Dr. Philip De Leon Hematocrit (Bld) [Volume fraction] 26.3 % Critically low 36.0-48.0 [facility] Comment on above: Performed By: #### U MICRO, ERUR #### [facility] [address] [place] [address] Dr. Philip De Leon Hemoglobin (Bld) [Mass/Vol] 8.3 g/dL Critically low 12.0-16.0 [facility] Comment on above: Performed By: #### U MICRO, ERUR #### [facility] [address] [place] [address] Dr. Philip De Leon IG # 0.03 10e3/ul Normal 0.00-0.03 [facility] Comment on above: Performed By: #### U MICRO, ERUR #### [facility] [address] [place] [address] Dr. Philip De Leon IG % 0.4 % Normal 0.0-0.5 [facility] Comment on above: Performed By: #### U MICRO, ERUR #### [facility] [address] [address] [address] Philip De Leon LYMPH # 1.3 103/ul Normal 1.2-3.8 [facility] Comment on above: Performed By: #### U MICRO, ERUR #### [facility] [address] [address] [address] Philip De Leon Lymphocytes/100 WBC (Bld) 17.9 % Critically low 20.5-60.0 [facility] Comment on above: Performed By: #### U MICRO, ERUR #### [facility] [address] [address] [address] Philip De Leon MANUAL DIFF REQ NO Normal [facility] Comment on above: Performed By: #### U MICRO, ERUR #### [facility] [address] [place] [address] Dr. Philip De Leon MCH (RBC) [Entitic mass] 30.1 pg Normal 26.7-34.0 [facility] Comment on above: Performed By: #### U MICRO, ERUR #### [facility] [address] [address] [address] Philip De Leon MCHC (RBC) [Mass/Vol] 31.6 g/dL Normal 29.9-35.2 [facility] Comment on above: Performed By: #### U MICRO, ERUR #### [facility] [address] [address] [address] Philip De Leon MCV (RBC) [Entitic vol] 95.3 fL Normal 81.0-99.0 [facility] Comment on above: Performed By: #### U MICRO, ERUR #### [facility] [address] [address] [address] Philip De Leon MONO # 0.6 103/ul Normal 0.3-0.8 [facility] Comment on above: Performed By: #### U MICRO, ERUR #### [facility] [address] [address] [address] Philip De Leon Monocytes/100 WBC (Bld) 8.2 % Normal 1.7-12.0 [facility] Comment on above: Performed By: #### U MICRO, ERUR #### [facility] [address] [address] [address] Philip De Leon NEUT # 4.7 103/ul Normal 1.4-6.5 [facility] Comment on above: Performed By: #### U MICRO, ERUR #### [facility] [address] [address] [address] Philip De Leon Neutrophils/100 WBC (Bld) 66.6 % Normal 43.0-75.0 [facility] Comment on above: Performed By: #### U MICRO, ERUR #### [facility] [address] [place] [address] Dr. Philip De Leon PLT 184 103/ul Normal 150-450 [facility] Comment on above: Performed By: #### U MICRO, ERUR #### [facility] [address] [place] [address] Dr. Philip De Leon RBC 2.76 106/ul Critically low 4.20-5.40 [facility] Comment on above: Performed By: #### U MICRO, ERUR #### [facility] [address] [place] [address] Dr. Philip De Leon WBC 7.1 103/ul Normal 4.0-11.0 [facility] Comment on above: Performed By: #### U MICRO, ERUR #### [facility] [address] [place] [address] Dr. Philip De Leon PROF CHEM 8 (BAS METB)on Anion gap [Moles/Vol] 7.4 mmol/L Normal [facility] Comment on above: Performed By: #### B MP #### [facility] [address] [place] [address] Dr. Philip De Leon Calcium [Mass/Vol] 8.3 mg/dL Critically low 8.5-10.1 [facility] Comment on above: Performed By: #### B MP #### [facility] [address] [place] [address] Dr. Philip De Leon Chloride [Moles/Vol] 102 mmol/L Normal 98-107 [facility] Comment on above: Performed By: #### B MP #### [facility] [address] [address] [address] Philip De Leon CO2 [Moles/Vol] 32.8 mmol/L Critically high 21.0-32.0 [facility] Comment on above: Performed By: #### B MP #### [facility] [address] [address] [address] Philip De Leon Creatinine [Mass/Vol] 1.22 mg/dL Critically high 0.55-1.02 [facility] Comment on above: Performed By: #### B MP #### [facility] [address] [place] [address] Dr. Philip De Leon EGFR-AF J[place] 51 mL/min/1.73m2 Critically low >=60 [facility] Comment on above: Performed By: #### B MP #### [facility] [address] [address] [address] Philip De Leon EGFR-NON AF J[place] 42 mL/min/1.73m2 Critically low >=60 [facility] Comment on above: Performed By: #### B MP #### [facility] [address] [address] [address] Philip De Leon Glucose [Mass/Vol] 98 mg/dL Normal 74-106 [facility] Comment on above: Performed By: #### B MP #### [facility] [address] [address] [address] Philip De Leon Potassium [Moles/Vol] 4.2 mmol/L Normal 3.5-5.1 [facility] Comment on above: Performed By: #### B MP #### [facility] [address] [address] [address] Philip De Leon Sodium [Moles/Vol] 138 mmol/L Normal 136-145 [facility] Comment on above: Performed By: #### B MP #### [facility] [address] [address] [address] Philip De Leon Urea nitrogen [Mass/Vol] 22.0 mg/dL Critically high 7.0-18.0 [facility] Comment on above: Performed By: #### B MP #### [facility] [address] [place] [address] Dr. Philip De Leon Urea nitrogen/Creatinine [Mass ratio] 18.0 mg/mg Normal [facility] Comment on above: Performed By: #### B MP #### [facility] [address] [address] [address] Philip De Leon XR CHEST 1 [...] PASTOR ARIZMENDI Date: 2022-10-19 06:47 Normal [facility] CBC W MANUAL DIFFon 10-19-19 23 ATYPICAL LYMPH # 0.28 103/ul Normal [facility] Comment on above: Performed By: #### C ANA MARIA #### [facility] [address] [place] [address] Dr. Philip De Leon ATYPICAL LYMPH % 3 % Normal [facility] Comment on above: Performed By: #### C ANA MARIA #### [facility] [address] [address] [address] Philip De Leon BAND # 0.0 103/ul Normal 0.0-0.3 [facility] Comment on above: Performed By: #### C ANA MARIA #### [facility] [address] [address] [address] Philip De Leon BAND % 0 % Normal 0-5 [facility] Comment on above: Performed By: #### C BCMAN #### [facility] [address] [address] [address] Philip De Leon BASOM # 0.09 103/ul Normal 0.00-0.10 [facility] Comment on above: Performed By: #### C BCMAN #### [facility] [address] [place] [address] Dr. Philip De Leon BASOM % 1.0 % Normal 0.2-2.0 [facility] Comment on above: Performed By: #### C BCMAN #### [facility] [address] [place] [address] Dr. Philip De Leon BLAST # Normal [facility] Comment on above: Performed By: #### C BCBRADLEY #### [facility] [address] [place] [address] Dr. Philip De Leon BLAST % Normal [facility] Comment on above: Performed By: #### C ANA MARIA #### [facility] [address] [place] [address] Dr. Philip De Leon CORRECTED WBC Normal 4.0-11.0 [facility] Comment on above: Performed By: #### C BCBRADLEY #### [facility] [address] [place] [address] Dr. Philip De Leon EOS # 0.18 103/ul Normal 0.00-0.70 [facility] Comment on above: Performed By: #### C ANA MARIA #### [facility] [address] [place] [address] Dr. Philip De Leon EOS% 2.0 % Normal 0.9-7.0 [facility] Comment on above: Performed By: #### C BCBRADLEY #### [facility] [address] [place] [address] Dr. Philip De Leon HCT 25.5 % Critically low 36.0-48.0 [facility] Comment on above: Performed By: #### C ANA MARIA #### [facility] [address] [place] [address] Dr. Philip De Leon HGB 8.0 g/dl Critically low 12.0-16.0 [facility] Comment on above: Performed By: #### C ANA MARIA #### [facility] [address] [address] [address] Philip De Leon LYMPHM # 2.85 103/ul Normal 1.20-3.80 [facility] Comment on above: Performed By: #### C ANA MARIA #### [facility] [address] [place] [address] Dr. Philip De Leon LYMPHM% 31.0 % Normal 20.5-60.0 [facility] Comment on above: Performed By: #### C ANA MARIA #### [facility] [address] [place] [address] Dr. Philip De Leon MCH 30.0 pg Normal 26.7-34.0 [facility] Comment on above: Performed By: #### C ANA MARIA #### [facility] [address] [place] [address] Dr. Philip De Leon MCHC 31.4 g/dl Normal 29.9-35.2 [facility] Comment on above: Performed By: #### C ANA MARIA #### [facility] [address] [place] [address] Dr. Philip De Leon MCV 95.5 fL Normal 81.0-99.0 [facility] Comment on above: Performed By: #### C ANA MARIA #### [facility] [address] [place] [address] Dr. Philip De Leon METAMYELOCYTE # Normal [facility] Comment on above: Performed By: #### C ANA MARIA #### [facility] [address] [place] [address] Dr. Philip De Leon METAMYELOCYTE % Normal [facility] Comment on above: Performed By: #### C ANA MARIA #### [facility] [address] [place] [address] Dr. Philip De Leon MONOM# 0.46 103/ul Normal 0.30-0.80 [facility] Comment on above: Performed By: #### C ANA MARIA #### [facility] [address] [place] [address] Dr. Philip De Leon MONOM% 5.0 % Normal 1.7-12.0 [facility] Comment on above: Performed By: #### C ANA MARIA #### [facility] [address] [place] [address] Dr. Philip De Leon MPV 0.0 fL Critically low 9.5-13.5 [facility] Comment on above: Performed By: #### C ANA MARIA #### [facility] [address] [place] [address] Dr. Philip De Leon MYELOCYTE # 0.3 103/ul Normal [facility] Comment on above: Performed By: #### C ANA MARIA #### [facility] [address] [place] [address] Dr. Philip De Leon MYELOCYTE % 3 % Normal [facility] Comment on above: Performed By: #### C ANA MARIA #### [facility] [address] [place] [address] Dr. Philip De Leon NRBC Normal [facility] Comment on above: Performed By: #### C ANA MARIA #### [facility] [address] [place] [address] Dr. Philip De Leon PLT 196 103/ul Normal 150-450 [facility] Comment on above: Performed By: #### C ANA MARIA #### [facility] [address] [place] [address] Dr. Philip De Leon RBC 2.67 106/ul Critically low 4.20-5.40 [facility] Comment on above: Performed By: #### C ANA MARIA #### [facility] [address] [place] [address] Dr. Philip De Leon RDW 21.7 % Critically high 11.0-15.0 [facility] Comment on above: Performed By: #### C ANA MARIA #### [facility] [address] [place] [address] Dr. Philip De Leon SEG # 5.06 103/ul Normal 1.40-6.50 [facility] Comment on above: Performed By: #### C ANA MARIA #### [facility] [address] [place] [address] Dr. Philip De Leon SEG % 55.0 % Normal 43.0-75.0 [facility] Comment on above: Performed By: #### C ANA MARIA #### [facility] [address] [place], [place] [address] Dr. Philip De Leon WBC 9.2 103/ul Normal 4.0-11.0 [facility] Comment on above: Performed By: #### C DHARMESHBRADLEY #### [facility] [address] [place], [place] [address] CHEST WO [...] PASTOR ARIZMENDI Date: 2022-10-18 10:10 Normal [facility] PROF CHEM 8 (BAS METB)on Anion gap [Moles/Vol] 6.4 mmol/L Normal [facility] Comment on above: Performed By: #### B MP #### [facility] [address] [place] [address] [address] Philip De Leon Calcium [Mass/Vol] 8.2 mg/dL Critically low 8.5-10.1 [facility] Comment on above: Performed By: #### B MP #### [facility] [address] [place] [address] [address] Philip De Leon Chloride [Moles/Vol] 105 mmol/L Normal 98-107 [facility] Comment on above: Performed By: #### B MP #### [facility] [address] [address] [address] Philip De Leon CO2 [Moles/Vol] 33.0 mmol/L Critically high 21.0-32.0 [facility] Comment on above: Performed By: #### B MP #### [facility] [address] [place] [address] [address] Philip De Leon Creatinine [Mass/Vol] 1.24 mg/dL Critically high 0.55-1.02 [facility] Comment on above: Performed By: #### B MP #### [facility] [address] [place] [address] [address] Philip De Leon EGFR-AF JAMAICAN 50 mL/min/1.73m2 Critically low >=60 [facility] Comment on above: Performed By: #### B MP #### [facility] [address] [address] [address] Philip De Leon EGFR-NON AF JAMAICAN 42 mL/min/1.73m2 Critically low >=60 [facility] Comment on above: Performed By: #### B MP #### [facility] [address] [address] [address] Philip De Leon Glucose [Mass/Vol] 94 mg/dL Normal 74-106 [facility] Comment on above: Performed By: #### B MP #### [facility] [address] [address] [address] Philip De Leon Potassium [Moles/Vol] 4.4 mmol/L Normal 3.5-5.1 [facility] Comment on above: Performed By: #### B MP #### [facility] [address] [place], [place] [address] Dr. Philip De Leon Sodium [Moles/Vol] 140 mmol/L Normal 136-145 [facility] Comment on above: Performed By: #### B MP #### [facility] [address] [place], [place] [address] Dr. Philip De Leon Urea nitrogen [Mass/Vol] 20.0 mg/dL Critically high 7.0-18.0 [facility] Comment on above: Performed By: #### B MP #### [facility] [address] [place], [place] [address] Dr. Philip De Leon Urea nitrogen/Creatinine [Mass ratio] 16.1 mg/mg Normal [facility] Comment on above: Performed By: #### B MP #### [facility] [address] [place], [place] [address] Dr. Philip De Leon XR CHEST 1 [...] KARLA CLEMENTS Date: 2022-10-18 07:19 Normal [facility] XR CHEST 1 V EXAM: XR CHEST [...] MAGDIEL DELEON Date: 2022-10-17 23:51 Normal [facility] CBC W MANUAL DIFFon 10-18-19 23 ATYPICAL LYMPH # Normal [facility] Comment on above: Performed By: #### U MICRO, ERUR #### [facility] [address] [place] [address] Dr. Philip De Leon ATYPICAL LYMPH % Normal [facility] Comment on above: Performed By: #### U MICRO, ERUR #### [facility] [address] [place] [address] Dr. Philip De Leon BAND # 0.0 103/ul Normal 0.0-0.3 [facility] Comment on above: Performed By: #### U MICRO, ERUR #### [facility] [address] [place] [address] Dr. Philip De Leon BAND % 0 % Normal 0-5 [facility] Comment on above: Performed By: #### U MICRO, ERUR #### [facility] [address] [place] [address] Dr. Philip De Leon BASOM # 0.06 103/ul Normal 0.00-0.10 [facility] Comment on above: Performed By: #### U MICRO, ERUR #### [facility] [address] [place] [address] Dr. Philip De Leon BASOM % 1.0 % Normal 0.2-2.0 [facility] Comment on above: Performed By: #### U MICRO, ERUR #### [facility] [address] [place] [address] Dr. Philip De Leon BLAST # Normal [facility] Comment on above: Performed By: #### U MICRO, ERUR #### [facility] [address] [place] [address] [address] Philip De Leon BLAST % Normal [facility] Comment on above: Performed By: #### U MICRO, ERUR #### [facility] [address] [place] [address] Dr. Philip De Leon CORRECTED WBC Normal 4.0-11.0 [facility] Comment on above: Performed By: #### U MICRO, ERUR #### [facility] [address] [place] [address] [address] Philip De Leon EOS # 0.17 103/ul Normal 0.00-0.70 [facility] Comment on above: Performed By: #### U MICRO, ERUR #### [facility] [address] [place] [address] Dr. Philip De Leon EOS% 3.0 % Normal 0.9-7.0 [facility] Comment on above: Performed By: #### U MICRO, ERUR #### [facility] [address] [place] [address] Dr. Philip D eLeon HCT 24.6 % Critically low 36.0-48.0 [facility] Comment on above: Performed By: #### U MICRO, ERUR #### [facility] [address] [place] [address] Dr. Philip De Leon HGB 7.6 g/dl Critically low 12.0-16.0 [facility] Comment on above: Performed By: #### U MICRO, ERUR #### [facility] [address] [place] [address] Dr. Philip De Leon LYMPHM # 1.22 103/ul Normal 1.20-3.80 [facility] Comment on above: Performed By: #### U MICRO, ERUR #### [facility] [address] [place] [address] Dr. Philip De Leon LYMPHM% 21.0 % Normal 20.5-60.0 [facility] Comment on above: Performed By: #### U MICRO, ERUR #### [facility] [address] [place] [address] Dr. Philip De Leon MCH 30.0 pg Normal 26.7-34.0 [facility] Comment on above: Performed By: #### U MICRO, ERUR #### [facility] [address] [place] [address] [address] Philip De Leon MCHC 30.9 g/dl Normal 29.9-35.2 [facility] Comment on above: Performed By: #### U MICRO, ERUR #### [facility] [address] [place] [address] [address] Philip De Leon MCV 97.2 fL Normal 81.0-99.0 [facility] Comment on above: Performed By: #### U MICRO, ERUR #### [facility] [address] [place] [address] Dr. Philip De Leon METAMYELOCYTE # Normal [facility] Comment on above: Performed By: #### U MICRO, ERUR #### [facility] [address] [place] [address] [address] Philip De Leon METAMYELOCYTE % Normal [facility] Comment on above: Performed By: #### U MICRO, ERUR #### [facility] [address] [place] [address] [address] Philip De Leon MONOM# 0.17 103/ul Critically low 0.30-0.80 [facility] Comment on above: Performed By: #### U MICRO, ERUR #### [facility] [address] [place] [address] Dr. Philip De Leon MONOM% 3.0 % Normal 1.7-12.0 [facility] Comment on above: Performed By: #### U MICRO, ERUR #### [facility] [address] [place] [address] [address] Philip De Leon MPV 0.0 fL Critically low 9.5-13.5 [facility] Comment on above: Performed By: #### U MICRO, ERUR #### [facility] [address] [place] [address] [address] Philip De Leon MYELOCYTE # Normal [facility] Comment on above: Performed By: #### U MICRO, ERUR #### [facility] [address] [place] [address] Dr. Philip De Leon MYELOCYTE % Normal [facility] Comment on above: Performed By: #### U MICRO, ERUR #### [facility] [address] [place] [address] Dr. Philip De Leon NRBC Normal [facility] Comment on above: Performed By: #### U MICRO, ERUR #### [facility] [address] [place] [address] Dr. Philip De Leon PLT 191 103/ul Normal 150-450 [facility] Comment on above: Performed By: #### U MICRO, ERUR #### [facility] [address] [place] [address] Dr. Philip De Leon RBC 2.53 106/ul Critically low 4.20-5.40 [facility] Comment on above: Performed By: #### U MICRO, ERUR #### [facility] [address] [place] [address] Dr. Philip De Leon RDW 21.9 % Critically high 11.0-15.0 [facility] Comment on above: Performed By: #### U MICRO, ERUR #### [facility] [address] [place] [address] Dr. Philip De Leon SEG # 4.18 103/ul Normal 1.40-6.50 [facility] Comment on above: Performed By: #### U MICRO, ERUR #### [facility] [address] [place] [address] Dr. Philip De Leon SEG % 72.0 % Normal 43.0-75.0 [facility] Comment on above: Performed By: #### U MICRO, ERUR #### [facility] [address] [place] [address] Dr. Philip De Leon WBC 5.8 103/ul Normal 4.0-11.0 [facility] Comment on above: Performed By: #### U MICRO, ERUR #### [facility] [address] [place] [address] Dr. Philip De Leon CYTOLOGYon 10-17-2022 SENT TO REF LAB 10/17/2022 Normal [facility] Comment on above: Performed By: #### C YTO #### [facility] [address] [place] [address] [address] Philip De Leon ECHOCARDIO M/2D COMPLETEon 0 10-17-2022 ECHOCARDIO M/2D COMPLETE Patient: CHRISTA PITTS Exam Date: 10/17/2022 : 1940 Gender:F Ordering : DR SAMAN MARTÍNEZ . Admission #: [id number] Family : Order #: [id number] CLICK HERE TO VIEW EXAM ECHOCARDIOGRAM REPORT [...] Tl Cobb M.D. on 10/18/2022 at 11:37 [facility] PROF CHEM 8 (BAS METB)on Anion gap [Moles/Vol] 7.8 mmol/L Normal [facility] Comment on above: Performed By: #### U MICRO, ERUR #### [facility] [address] [place] [address] [address] Philip De Leon Calcium [Mass/Vol] 8.3 mg/dL Critically low 8.5-10.1 [facility] Comment on above: Performed By: #### U MICRO, ERUR #### [facility] [address] [place] [address] [address] Philip De Leon Chloride [Moles/Vol] 108 mmol/L Critically high 98-107 [facility] Comment on above: Performed By: #### U MICRO, ERUR #### [facility] [address] [place] [address] [address] Philip De Leon CO2 [Moles/Vol] 30.2 mmol/L Normal 21.0-32.0 [facility] Comment on above: Performed By: #### U MICRO, ERUR #### [facility] [address] [place] [address] [address] Philip De Leon Creatinine [Mass/Vol] 1.13 mg/dL Critically high 0.55-1.02 [facility] Comment on above: Performed By: #### U MICRO, ERUR #### [facility] [address] [place] [address] [address] Philip De Leon EGFR-AF JAMAICAN 56 mL/min/1.73m2 Critically low >=60 [facility] Comment on above: Performed By: #### U MICRO, ERUR #### [facility] [address] [place] [place] [address] [address] Philip De Leon EGFR-NON AF J[place] 46 mL/min/1.73m2 Critically low >=60 [facility] Comment on above: Performed By: #### U MICRO, ERUR #### [facility] [address] [place] [address] [address] Philip De Leon Glucose [Mass/Vol] 87 mg/dL Normal 74-106 [facility] Comment on above: Performed By: #### U MICRO, ERUR #### [facility] [address] [place] [address] [address] Philip De Leon Potassium [Moles/Vol] 5.0 mmol/L Normal 3.5-5.1 [facility] Comment on above: Performed By: #### U MICRO, ERUR #### [facility] [address] [place] [address] [address] Philip De Leon Sodium [Moles/Vol] 141 mmol/L Normal 136-145 [facility] Comment on above: Performed By: #### U MICRO, ERUR #### [facility] [address] [place] [address] [address] Philip De Leon Urea nitrogen [Mass/Vol] 16.0 mg/dL Normal 7.0-18.0 [facility] Comment on above: Performed By: #### U MICRO, ERUR #### [facility] [address] [place] [address] [address] Philip De Leon Urea nitrogen/Creatinine [Mass ratio] 14.2 mg/mg Normal [facility] Comment on above: Performed By: #### U MICRO, ERUR #### [facility] [address] [place] [address] [address] Philip De Leon XR CHEST 1 [...] by: MOISES BASILIO Date: 2022-10-17 13:32 Normal [facility] XR CHEST 2 Von 10-17-2022 [...] by: KARLA CLEMENTS Date: 2022-10-17 06:58 Normal [facility] BNPon 10-16-2022 Natriuretic peptide B (Bld) [Mass/Vol] 1965.0 pg/mL Critically high <=1,800.0 [facility] Comment on above: Performed By: #### U MICRO, ERUR #### [facility] [address] [place] [address] Dr. Philip De Leon CARDIAC IRON ADMITon 023 CK [Catalytic activity/Vol] 47 U/L Normal 26-192 [facility] Comment on above: Performed By: #### U MICRO, ERUR #### [facility] [address] [place] [address] [address] Philip De Leon CK.MB [Mass/Vol] 0.82 ng/mL Normal <=3.60 [facility] Comment on above: Performed By: #### U MICRO, ERUR #### [facility] [address] [place] [address] [address] Philip De Leon HSTROP 9.4 pg/mL Normal 4.0-51.3 [facility] Comment on above: Result Comment: CUT- OFF POINTS HAVE BEEN ESTABLISHED BASED ON THE FOURTH UNIVERSAL DEFINITIONS OF MYOCARDIAL INFARCTION. THE UPPER REFERENCE LIMIT (URL) OF TROPONIN, DEFINED THE 99TH PERCENTILE OF cTnI DISTRIBUTION IN A REFERENCE POPULATION, HAS BEEN CONFIRMED THE DECISION THRESHOLD FOR DE DIAGNOSIS. Performed By: #### U MICRO, ERUR #### [facility] [address] [place] [address] Dr. Philip De Leon BELKIS 55 ng/mL Normal 9-82 [facility] Comment on above: Performed By: #### U MICRO, ERUR #### [facility] [address] [place] [address] [address] Philip De Leon CBC AUTO DIFFon 10-16-2022 BASO # 0.2 103/ul Critically high 0.0-0.1 [facility] Comment on above: Performed By: #### C BC #### [facility] [address] [place] [address] [address] Philip De Leon Basophils/100 WBC (Bld) 2.0 % Normal 0.2-2.0 [facility] Comment on above: Performed By: #### C BC #### [facility] [address] [place] [address] [address] Phiilp De Leon EO # 0.4 103/ul Normal 0.0-0.7 [facility] Comment on above: Performed By: #### C BC #### [facility] [address] [place] [address] [address] Philip De Leon Eosinophils/100 WBC (Bld) 3.9 % Normal 0.9-7.0 [facility] Comment on above: Performed By: #### C BC #### [facility] [address] [place] [address] [address] Philip De Leon Erythrocyte distribution width (RBC) [Ratio] 21.9 % Critically high 11.0-15.0 [facility] Comment on above: Performed By: #### C BC #### [facility] [address] [place] [address] [address] Philip De Leon Hematocrit (Bld) [Volume fraction] 30.7 % Critically low 36.0-48.0 [facility] Comment on above: Performed By: #### C BC #### [facility] [address] [place] [address] [address] Philip De Leon Hemoglobin (Bld) [Mass/Vol] 9.6 g/dL Critically low 12.0-16.0 [facility] Comment on above: Performed By: #### C BC #### [facility] [address] [place] [address] [address] Philip De Leon IG # 0.14 10e3/ul Critically high 0.00-0.03 [facility] [place] [facility] Comment on above: Performed By: #### C BC #### [facility] [address] [place] [address] Dr. Philip De Leon IG % 1.4 % Critically high 0.0-0.5 [facility] Comment on above: Performed By: #### C BC #### [facility] [address] [place] [address] Dr. Philip De Leon LYMPH # 1.2 103/ul Normal 1.2-3.8 [facility] Comment on above: Performed By: #### C BC #### [facility] [address] [place] [address] Dr. Philip De Leon Lymphocytes/100 WBC (Bld) 11.9 % Critically low 20.5-60.0 [facility] Comment on above: Performed By: #### C BC #### [facility] [address] [place] [address] Dr. Philip De Leon MANUAL DIFF REQ NO Normal [facility] Comment on above: Performed By: #### C BC #### [facility] [address] [place] [address] Dr. Philip De Leon MCH (RBC) [Entitic mass] 30.3 pg Normal 26.7-34.0 [facility] Comment on above: Performed By: #### C BC #### [facility] [address] [place] [address] Dr. Philip De Leon MCHC (RBC) [Mass/Vol] 31.3 g/dL Normal 29.9-35.2 [facility] Comment on above: Performed By: #### C BC #### [facility] [address] [place] [address] Dr. Philip De Leon MCV (RBC) [Entitic vol] 96.8 fL Normal 81.0-99.0 [facility] Comment on above: Performed By: #### C BC #### [facility] [address] [place] [address] Dr. Philip De Leon MONO # 0.6 103/ul Normal 0.3-0.8 [facility] Comment on above: Performed By: #### C BC #### [facility] [address] [place] [address] [address] Philip De Leon Monocytes/100 WBC (Bld) 6.2 % Normal 1.7-12.0 [facility] Comment on above: Performed By: #### C BC #### [facility] [address] [place] [place] [address] [address] Philip De Leon NEUT # 7.3 103/ul Critically high 1.4-6.5 [facility] Comment on above: Performed By: #### C BC #### [facility] [address] [place] [address] Dr. Philip De Leon Neutrophils/100 WBC (Bld) 74.6 % Normal 43.0-75.0 [facility] Comment on above: Performed By: #### C BC #### [facility] [address] [place] [address] Dr. Philip De Leon PLT 247 103/ul Normal 150-450 [facility] Comment on above: Performed By: #### C BC #### [facility] [address] [place] [address] Dr. Philip De Leon RBC 3.17 106/ul Critically low 4.20-5.40 [facility] Comment on above: Performed By: #### C BC #### [facility] [address] [place] [address] Dr. Philip De Leon WBC 9.7 103/ul Normal 4.0-11.0 [facility] Comment on above: Performed By: #### C BC #### [facility] [address] [place] [address] Dr. Philip De Leon CTA CHEST WO [...] atelectatic collapse of the right middle lobe. [id number] left pleural effusion with left basilar atelectasis/consolidat [...] AYAZ KRUGER Date: 2022-10-16 10:58 Normal [facility] CULTURE BLOODon 10-16-2022 Microscopic examination of blood, culture Culture Observations: NO GROWTH AT 5 DAYS. Normal [facility] Comment on above: Performed By: #### U MICRO, ERUR #### [facility] [address] [place] [address] [address] Philip De Leon Microscopic examination of blood, culture Culture Observations: NO GROWTH AT 5 DAYS. Normal [facility] Comment on above: Performed By: #### U MICRO, ERUR #### [facility] [address] [place], [place] [address] Dr. Philip De Leon Covid-19 PCR ([facility])on 10-05 SARS-CoV-2 (COVID-19) RNA MARILU+probe Ql (Unsp spec) Not detected Normal NOT DETECTED [facility] Comment on above: Result Comment: When diagnostic [...] for this test is supported by the [employer] Perforator of Health and Human Service's declaration that [...] Performed By: #### U MICRO, ERUR #### [facility] [address] [place] [address] Dr. Philip De Leon ER URINE PROFILEon 3 Bilirubin Ql (U) Negative Normal NEGATIVE [facility] Comment on above: Performed By: #### U MICRO, ERUR #### [facility] [address] [place] [address] Dr. Philip De Leon Clarity (U) CLEAR Normal CLEAR [facility] Comment on above: Performed By: #### U MICRO, ERUR #### [facility] [address] [place] [address] Dr. Philip De Leon Color (U) LT. YELLOW Normal YELLOW [facility] Comment on above: Performed By: #### U MICRO, ERUR #### [facility] [address] [place] [address] Dr. Philip De Leon ERUAHD A micrscopic examination will be performed if indicated. Normal [facility] Comment on above: Performed By: #### U MICRO, ERUR #### [facility] [address] [place] [address] Dr. Philip De Leon Glucose Ql (U) Negative Normal NEGATIVE [facility] Comment on above: Performed By: #### U MICRO, ERUR #### [facility] [address] [place] [address] Dr. Philip De Leon Hemoglobin Ql (U) SMALL Abnormal NEGATIVE [facility] [place] [facility] Comment on above: Performed By: #### U MICRO, ERUR #### [facility] [address] [place] [address] Dr. Philip De Leon Ketones Ql (U) Negative Normal NEGATIVE [facility] Comment on above: Performed By: #### U MICRO, ERUR #### [facility] [address] [place] [address] Dr. Philip De Leon LEUKOCYTES Negative Normal NEGATIVE [facility] Comment on above: Performed By: #### U MICRO, ERUR #### [facility] [address] [place] [address] Dr. Philip De Leon Nitrite Ql (U) Negative Normal NEGATIVE [facility] Comment on above: Performed By: #### U MICRO, ERUR #### [facility] [address] [place] [address] Dr. Philip De Leon pH (U) 6.0 [pH] Normal 5-9 [facility] Comment on above: Performed By: #### U MICRO, ERUR #### [facility] [address] [place] [address] Dr. Philip De Leon Protein (U) [Mass/Vol] 30 mg/dL Abnormal NEGATIVE/ TRACE [facility] Comment on above: Performed By: #### U MICRO, ERUR #### [facility] [address] [place] [address] Dr. Philip De Leon SPEC GRAVITY 1.010 Normal 1.005-<=1.025 [facility] Comment on above: Performed By: #### U MICRO, ERUR #### [facility] [address] [place] [address] Dr. Philip De Leon UR MICRO IND INDICATED Normal [facility] Comment on above: Performed By: #### U MICRO, ERUR #### [facility] [address] [place] [address] Dr. Philip De Leon Urobilinogen Qn (U) 0.2 {Graham'U}/dL Normal 0.2 - 1. 0 [facility] Comment on above: Performed By: #### U MICRO, ERUR #### [facility] [address] [place] [address] Dr. Philip De Leon LACTATE/LACTIC ACIDon 2022 Lactate [Moles/Vol] 1.0 mmol/L Normal 0.4-2.0 [facility] Comment on above: Performed By: #### L ACT #### [facility] [address] [address] [address] Philip De Leon PROF 14(COMP METB)on 023 Albumin [Mass/Vol] 3.6 g/dL Normal 3.4-5.0 [facility] Comment on above: Performed By: #### U MICRO, ERUR #### [facility] [address] [address] [address] Philip De Leon Albumin/Globulin [Mass ratio] 0.9 {ratio} Normal [facility] Comment on above: Performed By: #### U MICRO, ERUR #### [facility] [address] [address] [address] Philip De Leon ALP [Catalytic activity/Vol] 69 U/L Normal 46-116 [facility] Comment on above: Performed By: #### U MICRO, ERUR #### [facility] [address] [address] [address] Philip De Leon ALT [Catalytic activity/Vol] 15 U/L Normal 14-59 [facility] Comment on above: Performed By: #### U MICRO, ERUR #### [facility] [address] [address] [address] Philip De Leon Anion gap [Moles/Vol] 11.4 mmol/L Normal [facility] Comment on above: Performed By: #### U MICRO, ERUR #### [facility] [address] [address] [address] Philip De Leon AST [Catalytic activity/Vol] 17 U/L Normal 15-37 [facility] Comment on above: Performed By: #### U MICRO, ERUR #### [facility] [address] [address] [address] Philip De Leon Bilirubin [Mass/Vol] 0.5 mg/dL Normal 0.2-1.0 [facility] Comment on above: Performed By: #### U MICRO, ERUR #### [facility] [address] [address] [address] Philip De Leon Calcium [Mass/Vol] 9.1 mg/dL Normal 8.5-10.1 [facility] Comment on above: Performed By: #### U MICRO, ERUR #### [facility] [address] [address] [address] Philip De Leon Chloride [Moles/Vol] 107 mmol/L Normal 98-107 [facility] Comment on above: Performed By: #### U MICRO, ERUR #### [facility] [address] [address] [address] Philip De Leon CO2 [Moles/Vol] 28.6 mmol/L Normal 21.0-32.0 [facility] Comment on above: Performed By: #### U MICRO, ERUR #### [facility] [address] [address] [address] Philip De Leon Creatinine [Mass/Vol] 1.05 mg/dL Critically high 0.55-1.02 [facility] Comment on above: Performed By: #### U MICRO, ERUR #### [facility] [address] [address] [address] Philip De Leon EGFR-AF JAMAICAN >60 Normal >=60 [facility] Comment on above: Performed By: #### U MICRO, ERUR #### [facility] [address] [address] [address] Philip De Leon EGFR-NON AF JAMAICAN 50 mL/min/1.73m2 Critically low >=60 [facility] Comment on above: Performed By: #### U MICRO, ERUR #### [facility] [address] [address] [address] Philip De Leon Globulin (S) [Mass/Vol] 3.8 g/dL Normal [facility] Comment on above: Performed By: #### U MICRO, ERUR #### [facility] [address] [address] [address] Philip De Leon Glucose [Mass/Vol] 120 mg/dL Critically high 74-106 [facility] Comment on above: Performed By: #### U MICRO, ERUR #### [facility] [address] [address] [address] Philip De Leon Potassium [Moles/Vol] 5.0 mmol/L Normal 3.5-5.1 [facility] Comment on above: Performed By: #### U MICRO, ERUR #### [facility] [address] [place] [address] Dr. Philip De Leon Protein [Mass/Vol] 7.4 g/dL Normal 6.4-8.2 [facility] Comment on above: Performed By: #### U MICRO, ERUR #### [facility] [address] [place] [address] Dr. Philip De Leon Sodium [Moles/Vol] 142 mmol/L Normal 136-145 [facility] Comment on above: Performed By: #### U MICRO, ERUR #### [facility] [address] [place] [address] Dr. Philip De Leon Urea nitrogen [Mass/Vol] 18.0 mg/dL Normal 7.0-18.0 [facility] Comment on above: Performed By: #### U MICRO, ERUR #### [facility] [address] [place] [address] Dr. Philip De Leon Urea nitrogen/Creatinine [Mass ratio] 17.1 mg/mg Normal [facility] Comment on above: Performed By: #### U MICRO, ERUR #### [facility] [address] [place] [address] Dr. Philip De Leon PROTIMEon 10-16-2022 INR Coag (PPP) [Relative time] 1.00 {INR} Normal [facility] Comment on above: Performed By: #### P T, PTT #### [facility] [address] [place] [address] Dr. Philip De Leon INR GUIDELINES SEE BELOW Normal [facility] Comment on above: Result Comment: KADEN RED INR: 2.0 - 3.0 CONDITIONS NOT LISTED BELOW 2.5 - 3.5 FOR PROSTHETIC HEART VALVE REPLACEMENT 2.5 - 3.5 RECURRENT THROMBOSIS Performed By: #### P T, PTT #### [facility] [address] [place] [address] Dr. Philip De Leon PT Coag (PPP) [Time] 10.6 s Normal 9.0-11.6 [facility] Comment on above: Performed By: #### P T, PTT #### [facility] [address] [place] [address] Dr. Philip De Leon PTTon 10-16-2022 aPTT Coag (Bld) [Time] 27.9 s Normal 22.3-36.2 [facility] Comment on above: Performed By: #### P T, PTT #### [facility] [address] [place] [address] Dr. Philip De Leon URINE MICROSCOPIC ONLYon BACTERIA NONE SEEN Normal NONE SEEN [facility] Comment on above: Performed By: #### U MICRO, ERUR #### [facility] [address] [place] [address] Dr. Philip De Leon Bacteria identified Cx Nom (U) NOT INDICATED Normal [facility] Comment on above: Performed By: #### U MICRO, ERUR #### [facility] [address] [place] [address] Dr. Philip De Leon CAST NONE SEEN Normal NONE SEEN [facility] Comment on above: Performed By: #### U MICRO, ERUR #### [facility] [address] [place] [address] Dr. Philip De Leon Crystals LM Nom (Urine sed) NONE SEEN Normal NONE SEEN [facility] Comment on above: Performed By: #### U MICRO, ERUR #### [facility] [address] [place] [address] Dr. Philip De Leon Epithelial cells LM Ql (Urine sed) FEW Abnormal NONE SEEN /RARE [facility] Comment on above: Performed By: #### U MICRO, ERUR #### [facility] [address] [place] [address] Dr. Philip De Leon MUCOUS NONE SEEN Normal NONE SEEN [facility] Comment on above: Performed By: #### U MICRO, ERUR #### [facility] [address] [place] [address] Dr. Philip De Leon RBC 0-2 Normal 0-2 [facility] Comment on above: Performed By: #### U MICRO, ERUR #### [facility] [address] [address] [address] Philip De Leon WBC NONE SEEN Normal NONE SEEN [facility] Comment on above: Performed By: #### U MICRO, ERUR #### [facility] [address] [address] [address] Philip De Leon XR CHEST 1 [...] by: MOISES BASILIO Date: 2022-10-16 09:35 Normal [facility] Vital Signs Date Time Vital Sign Value Performing Clinician Facility 09-19-2023 11:08-0500 Diastolic blood pressure 49 mm[Hg] DO Bryant Ball Work Phone: [facility] 09-19-2023 11:08-0500 Heart rate 51 /min DO Bryant Ball Work Phone: [facility] 09-19-2023 11:08-0500 Respiratory rate 16 /min DO Bryant Ball Work Phone: [facility] 09-19-2023 11:08-0500 SaO2% (BldA) [Mass fraction] 97 % DO Bryant Ball Work Phone: [facility] 09-19-2023 11:08-0500 Systolic blood pressure 116 mm[Hg] DO Bryant Ball Work Phone: [facility] 09-19-2023 08:27-0500 Body height 165.1 cm DO Bryant Ball Work Phone: [facility] 09-19-2023 08:27-0500 Body weight 74.84 kg DO Bryant Ball Work Phone: [facility] 08-03-2023 11:30-0500 Body height Bryant Ball Other [facility] [employer] Other 08-03-2023 11:30-0500 Body height 165.1 cm DO Bryant Ball Work Phone: [facility] 08-03-2023 11:30-0500 Body mass index (BMI) [Ratio] 27.39 kg/m2 Bryant Ball Other [facility] [employer] Other 08-03-2023 11:30-0500 Body weight 74.66 kg Bryant Ball Other [facility] 08-03-2023 11:30-0500 Diastolic blood pressure 60 mm[Hg] Bryant Ball Other [facility] 08-03-2023 11:30-0500 Respiratory rate 12 /min Bryant Ball Other [facility] [employer] Other 08-03-2023 11:30-0500 Systolic blood pressure 143 mm[Hg] Bryant Ball Other [facility] 06-16-2023 14:00-0500 Body height Bryant Ball Other [facility] [employer] Other 06-16-2023 14:00-0500 Body mass index (BMI) [Ratio] 28.75 kg/m2 Bryant Ball Other [facility] Other 06-16-2023 14:00-0500 Body weight 78.38 kg Bryant Ball Other [facility] Other 06-16-2023 14:00-0500 Diastolic blood pressure 71 mm[Hg] Bryant Ball Other [facility] Other 06-16-2023 14:00-0500 Respiratory rate 12 /min Bryant Ball Other [facility] Other 06-16-2023 14:00-0500 Systolic blood pressure 163 mm[Hg] Bryant Ball Other [facility] Other 12-30-2022 13:45-0400 Body height Bryant Ball Other [facility] Other 12-30-2022 13:45-0400 Body mass index (BMI) [Ratio] 28.55 kg/m2 Bryant Ball Other [facility] Other 12-30-2022 13:45-0400 Body weight 77.84 kg Bryant Ball Other [facility] Other 12-30-2022 13:45-0400 Diastolic blood pressure 60 mm[Hg] Bryant Ball Other [facility] Other 12-30-2022 13:45-0400 Respiratory rate 12 /min Bryant Ball Other [facility] Other 12-30-2022 13:45-0400 Systolic blood pressure 190 mm[Hg] Bryant Ball Other [facility] Other 05-04-2021 14:45-0400 Body height Robb Olexa Other [facility] Other 05-04-2021 14:45-0400 Body mass index (BMI) [Ratio] 33.28 kg/m2 Robb Olexa Other [facility] Other 05-04-2021 14:45-0400 Body weight 90.72 kg Robb Hernandezxa Other [facility] Other Encounters Encounter Date Encounter Type Care Provider Facility Start: 10-30-2023 End: 10-30-2023 ambulatory Bryant Ball Facility:[facility] Start: 10-30-2023 End: 10-30-2023 ambulatory DO Bryant Ball Work Phone: [facility] Work Phone: Start: 10-30-2023 End: 10-30-2023 Patient encounter procedure DO Bryant Ball Work Phone: [facility] Work Phone: Start: 10-06-2023 End: 10-06-2023 Patient encounter procedure DO Bryant Ball Work Phone: [facility] Work Phone: Start: 10-02-2023 Non-patient / Non-visit DO Marck mary Ball Work Phone: [facility] [employer] Work Phone: Start: 09-19-2023 End: 09-19-2023 ambulatory Bryant Ball Facility:[facility] Start: 09-19-2023 Non-patient / Non-visit DO Marck mary Ball Work Phone: [facility] Gastroenterology Work Phone: Start: 09-19-2023 End: 09-19-2023 Admission to same day surgery center DO Bryant Ball Work Phone: [facility] Work Phone: Start: 09-19-2023 End: 09-19-2023 ambulatory DO Bryant Ball Work Phone: [facility] Work Phone: Start: 09-15-2023 End: 09-15-2023 ambulatory Bryant Ball Other [facility] [employer] Other Start: 09-15-2023 Telephone encounter Bryant Dallas [facility] Start: 08-11-2023 End: 08-11-2023 ambulatory Imad Asaad Other [facility] Other Start: 08-11-2023 Telephone encounter Imad Asaad [facility] [employer] Start: 08-09-2023 End: 08-09-2023 ambulatory Bryant Dallas Other [facility] Other Start: 08-09-2023 Telephone encounter Bryant Dallas FP [facility] Start: 08-08-2023 Patient encounter procedure DO Bryant Ball Work Phone: [facility]- Start: 08-03-2023 End: 08-03-2023 ambulatory Bryant Dallas Other [facility] Other Start: 08-03-2023 Transitional care manage srvc 14 day discharge Bryant Dallas [facility] Start: 08-03-2023 End: 08-03-2023 Patient encounter procedure DO Bryant Ball Work Phone: [facility] Work Phone: Start: 07-27-2023 End: 07-27-2023 ambulatory Bryant Dallas Other [facility] Other Start: 07-27-2023 Telephone encounter Bryant Dallas [facility] Start: 06-23-2023 End: 06-23-2023 ambulatory Bryant Dallas Other [facility] Other Start: 06-23-2023 Telephone encounter Bryant Dallas FP [facility] Start: 06-16-2023 End: 06-16-2023 ambulatory Bryant Dallas Other [facility] Other Start: 06-16-2023 Patient encounter procedure Bryant Dallas [facility] Start: 05-17-2023 End: 05-17-2023 ambulatory Bryant Dallas Other [facility] Other Start: 05-17-2023 Nursing evaluation o f patient and report Bryant Dallas [facility] Start: 04-11-2023 End: 04-11-2023 ambulatory Bryant Dallas Other [facility] Other Start: 04-11-2023 Nursing evaluation o f patient and report Bryant Dallas [facility] Start: 03-06-2023 End: 03-06-2023 ambulatory Bryant Dallas Other [facility] Other Start: 03-06-2023 Nursing evaluation o f patient and report Bryant Dallas [facility] Start: 02-20-2023 End: 02-20-2023 ambulatory Bryant Dallas Other [facility] Other Start: 02-20-2023 Nursing evaluation o f patient and report Bryant Dallas [facility] Start: 02-13-2023 End: 02-13-2023 ambulatory Bryant Dallas Other [facility] Other Start: 02-13-2023 Nursing evaluation o f patient and report Bryant Dallas [facility] Start: 02-10-2023 End: 02-10-2023 ambulatory Bryant Dallas Other [facility] Other Start: 02-10-2023 Telephone encounter Bryant ALBA [facility] Start: 02-03-2023 End: 02-03-2023 ambulatory Bryant Dallas Other [facility] Other Start: 02-03-2023 Telephone encounter Bryant ALBA [facility] Start: 12-30-2022 End: 12-30-2022 ambulatory Bryant Dallas Other [facility] Other Start: 12-30-2022 Transitional care manage srvc 7 day discharge Bryant Dallas [facility] Start: 11-24-2022 End: 11-24-2022 ambulatory Bryant Dallas Other [facility] Other Start: 11-24-2022 Telephone encounter Bryant ALBA [facility] Start: 11-08-2022 End: 11-08-[address]YANT DALLAS [facility] [employer] Other Start: 11-08-2022 Telephone encounter Bryant ALBA [facility] Start: 11-07-2022 End: 11-07-2022 ambulatory Robb Hernandezxa Other [facility] Other Start: 11-07-2022 Telephone encounter Robb Davidxa [facility] Start: 10-25-2022 End: 10-25-2022 ambulatory Robb Olexa Other [facility] Other Start: 10-25-2022 Telephone encounter Robb Davidxa [facility] Start: 10-21-2022 End: 10-21-2022 ambulatory Robb Olexa Other [facility] Other Start: 10-21-2022 Telephone encounter Robb Davidxa [facility] Start: 10-16-2022 End: 10-19-2022 Evaluation and management of inpatient BLAINE BRAVO . Facility: Start: 05-23-2022 Adult health examination Bryant Dallas Other [facility] Other Start: 05-04-2021 Office outpatient ne w 30 minutes Robb Hernandezxa [facility] [place] Procedures Date Procedure Procedure Detail Performing Clinician Start: 10-30-2023 Capsule endoscopy DO Bryant Dallas Work Phone: Start: 09-19-2023 Esophagogastroduodenoscopy DO Bryant Pruitt salome Work Phone: Start: 10-17-2022 Drainage of Right Pleural Cavity, Percutaneous Approach, Diagnostic BLAINE BRAVO . Start: 05-04-2016 Screening for malignant neoplasm of colon Bryant Dallas Other Start: 12-24-2013 General examination of patient Bryant Dallas Other Depression screening Víctor Dallas Other Plan of Treatment Date Care Activity Detail Author Start: 10-30-2023 [facility] Start: 09-19-2023 [facility] Patient Education Hemorrhoids (D C) Diverticulosis (DC) Hiatal Hernia (DC) Colon Polypectomy (DC) Saavedra's Esophagus (DC) [facility] Work Phone: Immunizations Immunization Date Immunization Notes Care Provider Lima kingston 05-17-2023 influenza, high dose seasonal, preservative-free Bryant Dallas Other [facility] [employer] Other 05-17-2023 influenza virus vaccine, unspecified formulation DO Bryant Dallas Work Phone: [facility] 05-02-2022 influenza virus vaccine, split virus (incl. purified surface antigen) Bryant Dallas Other [facility] [employer] Other 05-02-2022 influenza virus vaccine, unspecified formulation DO [employer] Work Phone: [facility] 05-20-2021 influenza virus vaccine, split virus (incl. purified surface antigen) Bryant Dallas Other [facility] [employer] Other 05-20-2021 influenza virus vaccine, unspecified formulation DO Bryant Dallas Work Phone: [facility] 05-18-2020 influenza virus vaccine, split virus (incl. purified surface antigen) Bryant Dallas Other [facility] [employer] Other 05-18-2020 influenza virus vaccine, unspecified formulation DO [employer] Work Phone: [facility] 05-16-2019 influenza virus vaccine, split virus (incl. purified surface antigen) Bryant Dallas Other [facility] Other 05-16-2019 influenza virus vaccine, unspecified formulation DO Bryant [employer] Work Phone: [facility] 05-14-2018 influenza virus vaccine, split virus (incl. purified surface antigen) Bryant Dallas Other [facility] [employer] Other 05-14-2018 influenza virus vaccine, unspecified formulation DO Bryant Dallas Work Phone: [facility] 05-11-2017 influenza virus vaccine, split virus (incl. purified surface antigen) Bryant Dallas Other [facility] Other 05-11-2017 influenza virus vaccine, unspecified formulation DO Bryant Dallas Work Phone: [facility] 06-16-2015 pneumococcal conjuga te vaccine, 13 valent Bryant Dallas Other [facility] 12-24-2013 pneumococcal Conjuga te, unspecified formulation; Translations: [Need for prophylactic vaccination against Streptococcus pneumoniae (pneumococcus)] Bryant Dallas Other [facility] [employer] Other 12-24-2013 pneumococcal polysaccharide vaccine, 23 valent Bryant Dallas Other [facility] 06-19-2013 tetanus and diphther ia toxoids, adsorbed, preservative free, for adult use (5 Lf of tetanus toxoid and 2 Lf of diphtheria toxoid) Bryant Dallas Other [facility] Payers Date Payer Category Payer Medicare [id number] 2.1 [id number] 1958 Self-pay 1958 Unknown [id number] 1940 Unknown [id number] 1940 Unknown [id number] Medicare Medicare Outpatient [id number] [id number] Unknown [id number] [id number] Unknown [id number] [id number] Social History Date Type Detail Facility Sex Assigned At [facility] Other Start: 09-19-2023 End: 09-19-2023 Tobacco smoking status NHIS Never smoked tobacco (finding) [facility] Start: 1940 Sex Assigned At Female F [facility] Goals Date Patient Goal Desired Activity /State Clinical Notes 05-04-2021 to 09-19-2023 Note Date & Type Note Facility 09-19-2023 History and physical note Note Date/Time September 19, 2023 9:54am [facility] [address] [place] [address] Gastroenterology H&P Signed Patient: Christa Pitts MR#: [id number] : 1940 Acct:[id number] Age/Sex: 83 / F Adm Date: 4 Loc: Room: Type: [facility] Attending Dr: Bernice Gutierres MD Copies to: [...] Gutierres M.D. Documented By: Bernice Gutierres MD 09/19/23952 Signed By: <Electronically signed by Bernice Gutierres MD> 09/19/23953 [facility] Work Phone: [phone] 145-390002-13-2024 [facility]* Encounter Date Diagnosis Assessment Notes Treatment Notes Treatment Clinical Notes Sep, Anemia (ICD-10 - D64.9) [facility] Other 12-28-2023 Evaluation note* Encounter Date Diagnosis [...] (ICD-10 - E53.8) Continue supplement, check level [facility] Other 11-10-2023 Evaluation note* Encounter Date Diagnosis [...] valve stenosis (ICD-10 - I35.0) Control HTN, [facility] w/ serial Echocardiogram every 3-5 years. Jun, [...] or drinking prior to bedtime. Weight loss. [facility] Other 10-11-2023 Evaluation note* Encounter Date Diagnosis Assessment Notes Treatment Notes Treatment Clinical Notes May, Pernicious anemia (ICD-10 - D51.0) [facility] Other 09-05-2023 Evaluation note* Encounter Date Diagnosis Assessment Notes Treatment Notes Treatment Clinical Notes Apr, Pernicious anemia (ICD-10 - D51.0) [facility] Other 07-31-2023 Evaluation note* Encounter Date Diagnosis Assessment Notes Treatment Notes Treatment Clinical Notes Feb, Pernicious anemia (ICD-10 - D51.0) [facility] Other 07-17-2023 Evaluation note* Encounter Date Diagnosis Assessment Notes Treatment Notes Treatment Clinical Notes Feb, Pernicious anemia (ICD-10 - D51.0) [facility] Other 07-10-2023 Evaluation note* Encounter Date Diagnosis Assessment Notes Treatment Notes Treatment Clinical Notes Feb, Pernicious anemia (ICD-10 - D51.0) [facility] Other 07-07-2023 Evaluation note* Encounter Date Diagnosis Assessment Notes Treatment Notes Treatment Clinical Notes Feb, 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 No hypoxemia, chest pain or dyspnea [facility] Other 04-20-2023 Evaluation note* Encounter Date Diagnosis Assessment Notes Treatment Notes Treatment Clinical Notes Nov, Acute on chronic diastolic heart failure (ICD-10 - I50.33) [facility] Other 04-04-2023 Evaluation note* Encounter Date Diagnosis Assessment Notes Treatment Notes Treatment Clinical Notes Nov, Ground glass opacity present on imaging of lung (ICD-10 - R91.8) CT chest 10/2022 [facility] Other 04-03-2023 Evaluation note* Encounter Date Diagnosis Assessment Notes Treatment Notes Treatment Clinical Notes Nov, Ground glass opacity present on imaging of lung (ICD-10 - R91.8) Nov, Pleural effusion (ICD-10 - J90) [facility] Other 09-28-2021 Evaluation note* Encounter Date Diagnosis Assessment Notes Treatment Notes Treatment Clinical Notes Apr, Mass of right wrist (ICD-10 - R22.31) Dicussed treatments options of the ganglion cyst, Patient is going to leave as is and will call when she is ready to have removed. Apr, Ganglion cyst of volar aspect of right wrist (ICD-10 - M67.431) [facility] Other Evaluation noteNo [employer] Other Evaluation noteNo assessment information available [facility] Work Phone: Hisllwd general Narrative - Reported* Type Description Date Medical History high blood pressure Medical History acid reflux Surgical History hysterectomy 1973 Surgical History tonsillectomy Hospitalization History see above Hospitalization History high blood pressure [facility] Other History general Narrative - Reported* Type [...] Ganglion of right wrist Surgical History hysterectomy 1973 Surgical History tonsillectomy Surgical History [facility] Hospitalization History see above Hospitalization History high blood pressure [place] Other History general Narrative - Reported* Type [...] see above Hospitalization History high blood pressure [facility] Other History general Narrative - Reported* Type [...] see above Hospitalization History high blood pressure [facility] Other Summary Purpose Family History No Family History Records Found Relationship Condition Age at Onset Recorded Date/T prema father Unknown Not Specified Unknown Hypertension Unknown Advance Directives No Advanced Directives Records Found Advance Directive Response Recorded Date/ Time Advance Directives No September 12:41pm Advance Directive Response Recorded Date/ Time Advance Directives No September 1:41pm Reason for Referral Reason Mrs. Pitts is being referred for an EGD and colonoscopy. She has anemia of unknown etiology, weight loss ands family hx of colon cancer. Diagnosis 1 Anemia, unspecified type (D64.9) Diagnosis 2 Loss of weight (R63. 4) Referral Organization [facility] Burt spicer Referring Provider First Name Bryant Referring Provider Last Name Burt Referring Provider Specialty Internal Me dicine Referred Organization [facility] [address]erred Address [address] [place],[address] Referred Provider Specialty Gastroentero logy Referral Priority [...] Weight Loss, Family History of Colon Cance Chief Complaint Tbh (Left A Message To Move To 11:30) Anemia, Weight Loss, Family History of Colon Cance Anemia, Weight Loss, Family History of Colon Cance B-12 SHOT silvia due to chronic blood loss Additional Source Comments REASON FOR VISIT (unrecogniz ed section and content) Right Wrist CystNo Informati onNo InformationNo InformationNo InformationREFILLTBH - DIZZINESS, VERTIGONo InformationEKG resultsTestingLab/Testing ResultsB-12 [id number] ShotB-12 ShotB-12 ShotB-12 ShotWellnessLab resultsTCMTBHCT resultsMAIL PPWrepeat labs INFORMATION SOURCE (unrecogn ized section and content) DATE CREATED 11/11/2022 [facility] DATE CREATED AUTHOR 'S ORGANIZ ATION 11/03/2023 [facility] Care Teams (unrecognized sec tion and [...] Active Member Role Status Dates Bryant Dallas , DO Primary Care Provider Active Start: September 19, 2023 Bernice Gutierres MD Attending Provider, Other Provider Active Start: September 19, 2023 Team Status: Active Member Role Status Dates Bryant Dallas DO Primary Care Provide r, Attending Provider Active Start: October 02, 2023 Team Status: Inactive Member Role Status Dates Bryant Dallas , DO Primary Care Provide r, Attending Provider Active Start: October 06, 2023 End: October 06, 2023 Team Status: Inactive Member Role Status Dates Bryant Dallas , Primary Care Provider Active Start: October 30, 2023 End: October 30, 2023 Bernice Gutierres MD Attending Provider Active Start: October 30, 2023 End: October 30, 2023 FOR RECORDS PERTAINING TO PATIENTS WHO [...] BE BASED ON THE PRIMARY CLINICAL RECORDS. [facility] [employer] [facility]. provides no warranty or guarantee of the accuracy or completeness of information in this document.
== END 2023-11-24 08:44 | disposition home or self-care (01) ==
LOC: CT 08:43
PROVIDERS: PCP Internal Medicine; Visit Provider Internal Medicine
DX: J90 Pleural effusion, not elsewhere classified (principal); I70.0 Atherosclerosis of aorta
CPT/HCPCS: 71250

== ENCOUNTER 2023-11-24 08:45 | Outpatient (OUT) | payer MEDICARE, OTHER, SELFPAY ==
--- NOTE | 2023-11-24 08:50 | MR_ITS ---
[place] [id number] Patient Name: CHRISTA PITTS MRN: [id number] date: 1940 Sex: F Assigned Patient Location: MRI Current Patient Location: CT Accession/Order Number: [id number] Exam Date: 11/24/2023 09:05 Report Date: 11/26/2023 06:29 At the request of: ALMA ROSA REYNOSO Procedure: MR abdomen wo con EXAMINATION: MR abdomen wo con HISTORY: Cyst Of Pancreas K86.2 COMPARISON: CT abdomen pelvis 08/08/2023 TECHNIQUE: A comprehensive MRI examination of the abdomen was performed to optimize visualization of suspected pathology. Images were obtained with and/or without intravenous Dotarem contrast as indicated by exam type. FINDINGS: LIVER: No enlargement, atrophy, abnormal signal, or significant focal lesion. BILIARY: No visible dilatation or calcification. Patent common bile duct. PANCREAS: 2 adjacent lesions within distal body of pancreas which follows fluid signal and are suspected represent cysts, 1.6 cm and 2.1 cm in maximum diameter. Moderate atrophy of the pancreas. No abnormal duct dilation. SPLEEN: No enlargement or focal lesion. KIDNEYS: No mass or obstruction. ADRENALS: No mass or enlargement. AORTA/VASCULAR: No aneurysm or dissection. RETROPERITONEUM: No mass or adenopathy. BOWEL/MESENTERY: Large hiatal hernia with majority of the stomach above the diaphragm. No visible mass, obstruction, or bowel wall thickening. ABDOMINAL WALL: No mass or hernia. BONES: No bony lesion or fracture. LUNG BASES: Large right pleural effusion and collapse or consolidation of right lower lobe. Cardiomegaly. OTHER: Negative. MR/MR abdomen wo con IMPRESSION: 1. 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 These are adequately seen during CT abdomen with IV contrast and can be followed up in 3-6 months to document continued stability (or these could be followed via MRI). 2. Large hiatal hernia with stomach above diaphragm. 3. Large right pleural effusion and consolidation versus collapse of right lower lobe; not appreciably changed. Electronically authenticated by: PASTOR ARIZMENDI Date: 11/26/2023 06:29
[2023-11-24 10:11] LABS: Hematocrit 25.2 % (36.0-48.0); Hemoglobin 7.8 g/dL (12.0-16.0); Mean Corpuscular Volume 93.7 fL (81.0-99.0); Platelet Count 207 10^3/uL (150-450); Red Blood Count 2.69 10^6/uL (4.20-5.40); Red Cell Distribution Width 25.8 % (11.0-15.0); White Blood Count 7.1 10^3/uL (4.0-11.0)
[2023-11-24 10:51] LABS: Alanine Aminotransferase 10 U/L (14-59); Albumin Globulin Ratio 0.8; Albumin Level 2.8 g/dL (3.4-5.0); Alkaline Phosphatase 71 U/L (46-116); Anion Gap 11.3; Aspartate Amino Transferase 11 U/L (15-37); BUN Creatinine Ratio 16.1; Bilirubin Total 0.3 mg/dL (0.2-1.0); Calcium 8.5 mg/dL (8.5-10.1); Carbon Dioxide 26.8 mmol/L (21.0-32.0); Chloride 106 mmol/L (98-107); Estimated GFR (African America 39 (>=60); Estimated GFR (Non-African Ame 32 (>=60); Globulin 3.7 g/dL; Glucose 94 mg/dL (74-106); Potassium 5.1 mmol/L (3.5-5.1); Sodium 139 mmol/L (136-145); Total Protein 6.5 g/dL (6.4-8.2)
[2023-11-24 11:49] LABS: Percent Iron Saturation 46.5 %
[2023-11-24 12:25] LABS: Anisocytosis 1+; Band Neutrophils Absolute 0.1 10^3/uL (0.0-0.3); Basophils Abs Manual 0.07 10^3/uL (0.00-0.10); Eosinophils Absolute Manual 0.49 10^3/uL (0.00-0.70); Lymphocytes Absolute Manual 0.92 10^3/uL (1.20-3.80); Monocytes Absolute Manual 0.21 10^3/uL (0.30-0.80); Poikilocytosis 1+; Segmented Neut Absolute Manual 5.25 10^3/uL (1.4-6.5)
[2023-11-24 12:26] LABS: Schistocytes 1+
[2023-11-24 12:28] LABS: Microcytosis 1+; Ovalocytes 1+
== END 2023-11-24 08:46 | disposition home or self-care (01) ==
LOC: MRI 08:45
PROVIDERS: PCP Internal Medicine; Visit Provider Internal Medicine
DX: J90 Pleural effusion, not elsewhere classified (principal); I70.0 Atherosclerosis of aorta; K86.2 Cyst of pancreas; D64.9 Anemia, unspecified; R53.83 Other fatigue; K44.9 Diaphragmatic hernia without obstruction or gangrene
CPT/HCPCS: 36415; 71250; 74181; 80053; 82607; 82728; 82746; 83540; 83550; 85007; 85027

== ENCOUNTER 2024-06-28 12:43 | Outpatient (OUT) | payer MEDICARE, OTHER, SELFPAY ==
--- OUTSIDE RECORDS SUMMARY | 2024-06-28 12:50 | XMS_ITS | CCD ---
Author Organization [facility] Care Team Providers Care Work Adjustment Instructor Name Role Phone Mundo Robb Unavailable Bryant Dallas Unavailable SAMSA ., BLAINE Procedure Practitioner Unavailab alden BASILIO, DR MOISES Richardson Consulting Unavailable NADERER, DR SAMAN Quintanilla Admitting Unavailable NADERELesly, DR SAMAN Quintanilla Attending Unavailable BURT, DR ST Primary Care Unavailable UGO, DR PASTOR Grace Consulting Unavailable NADERER, DR SAMAN Quintanilla Consulting Unavailable SAMSA ., BLAINE Consulting Unavailable NINA Gregorio, HAYLEE Consulting Unavailable MAGDIEL DELEON Consulting Unavailable SLICK, AYAZ Consulting Unavailable KARLA CLEMENTS Consulting Unavailable BURT, DR ST Admitting Unavailable BURT, DR ST Primary Care Unavailable BURT, DR ST Attending Unavailable Asaad, Imad Unavailable DO Bryant Dallas Primary Care Provider [phone] MD Bhavik Imbladimir Attending Provider DO Bryant Dallas Primary Care Provider [phone] MD Bernice Gutierres Attending Provider Bryant Dallas Primary Care Unavailable Asaad, Imad Admitting Unavailable Asaad Imad Attending Unavailable Bryant Dallas Primary Care Unavailable Asaad Imad Attending Unavailable Asaad, Imad Admitting Unavailable Allergies Allergy Classification Reported Allergen(s) Allergy Type Date of Onset Reaction(s) Facility (20 sources) clopidogrel Drug Allergy Unknown [facility] Other (4 sources) patient allergy list reviewed by nurse or physicia Propensity to adverse reactions 8 Comment:Done [facility] Other Medications Current Medications Medication Drug Class(es) [...] BREAKFAST for 90 Active polyethylene glycol 3350 014298 mg / potassium chloride 2970 mg / sodium bicarbonate 6740 mg / sodium chloride 5860 mg / sodium sulfate 82839 mg powder for oral solution (2 sources) [...] Anemia; Translations: [Anemia, unspecified] Onset: 06-16-2018 Episodic Disorders of lipid metabolism (8 sources) [...] sources) H/O: high risk medication; Translations: [Other terminal operations manager (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) drug therapy] Episodic Other aftercare (4 sources) Long-term current use of drug therapy; Translations: [Other terminal operations manager (current) drug therapy] Episodic Other circulatory disease [...] Chronic kidney disease Deficiency and other anemia (3 sources) Anemia, unspecified; Translations: [Anemia, unspecified] Onset: 09-19-2023 Episodic Esophageal disorders (4 sources) Esophageal disorders; [...] Basophils (Bld) [#/Vol] 0.2 10 3/uL 0.0-0.1 [facility] Basophils/100 WBC Auto (Bld) on 10-02-2023 Basophils/100 WBC (Bld) 3.1 % 0.2-2.0 [facility] Eosinophils/100 WBC Auto (Bl d)on 10-02-2023 Eosinophils/100 WBC (Bld) 5.2 % 0.9-7.0 [facility] Erythrocyte distribution wid th Auto (RBC) [Ratio]on 10-02-2023 Erythrocyte distribution width (RBC) [Ratio] 23.9 % 11.0-15.0 [facility] Hematocrit Auto (Bld) [Volum e fraction]on 10-02-2023 Hematocrit (Bld) [Volume fraction] 28.3 % 36.0-48.0 [facility] Hemoglobin [Mass/volume] in Bloodon 10-02-2023 Hemoglobin (Bld) [Mass/Vol] 8.5 g/dL 12.0-16.0 [facility] Iron binding capacity [Mass/ volume] in Serum or Plasmaon 10-02-2023 Iron binding capacity [Mass/Vol] 193.0 ug/dL 250.0-450.0 [facility] Iron saturation [Mass Fracti on] in Serum or Plasmaon 10-02-2023 Iron saturation [Mass fraction] 40.4 % [facility] Laboratory - Chemistry and C hemistry - challengeon 10-02-2023 Cobalamin (Vitamin B12) [Mass/Vol] 586.0 pg/mL 193.0-986.0 [facility] Ferritin [Mass/Vol] 278.0 ng/mL 8.0-252.0 [facility] Iron [Mass/Vol] 78.0 ug/dL 50.0-170.0 [facility] - Hematology and Cell countson 10-02-2023 Immature granulocytes/100 WBC (Bld) 1.0 % 0.0-0.5 [facility] Leukocytes [#/volume] correc delilah for nucleated erythrocytes in Blood by Automated counon 10-02-2023 WBC corrected for nucl RBC Auto (Bld) [#/Vol] 7.3 10 3/uL 4.0-11.0 [facility] Lymphocytes Auto (Bld) [#/Vo l]on 10-02-2023 Lymphocytes (Bld) [#/Vol] 1.6 10 3/uL 1.2-3.8 [facility] Lymphocytes/100 WBC Auto (Bl d)on 10-02-2023 Lymphocytes/100 WBC (Bld) 22.2 % 20.5-60.0 [facility] MCH Auto (RBC) [Entitic mass ]on 10-02-2023 MCH (RBC) [Entitic mass] 28.6 pg 26.7-34.0 [facility] MCHC Auto (RBC) [Mass/Vol]on 10-02-2023 MCHC (RBC) [Mass/Vol] 30.0 g/dL 29.9-35.2 [facility] MCV Auto (RBC) [Entitic vol] on 10-02-2023 MCV (RBC) [Entitic vol] 95.3 fL 81.0-99.0 [facility] Monocytes Auto (Bld) [#/Vol] on 10-02-2023 Monocytes (Bld) [#/Vol] 0.6 10 3/uL 0.3-0.8 [facility] Monocytes/100 WBC Auto (Bld) on 10-02-2023 Monocytes/100 WBC (Bld) 8.8 % 1.7-12.0 [facility] Neutrophils Auto (Bld) [#/Vo l]on 10-02-2023 Neutrophils (Bld) [#/Vol] 4.4 10 3/uL 1.4-6.5 [facility] Neutrophils/100 WBC Auto (Bl d)on 10-02-2023 Neutrophils/100 WBC (Bld) 59.7 % 43.0-75.0 [facility] No Panel Informationon 10-02 Eosinophils # (Auto) 0.4 10 3/uL 0.0-0.7 [facility] Folate 27.10 ng/mL 8.60-58.90 [facility] Immature Granulocyte # (Auto) 0.07 10 3/uL 0.00-0.03 [facility] Platelets Auto (Bld) [#/Vol] on 10-02-2023 Platelets (Bld) [#/Vol] 230 10 3/uL 150-450 [facility] RBC Auto (Bld) [#/Vol]on RBC (Bld) [#/Vol] 2.97 10 6/uL 4.20-5.40 [facility] Comment on above: ANISOCYTOSIS 2+POIKI LOCYTOSIS 1+HYPOCHROMASIA 1+OVALOCYTES 1+RED CELL FRAGMENTS 1+ Reticulocytes/100 RBC Auto ( Bld)on 10-02-2023 Reticulocytes/100 RBC (Bld) 1.10 % 0.60-3.10 [facility] Colin 09-19-2023 L Specimen: [id number] Received: 09/19/23 Status: JENNIFER Eliana Num: [id number] Spec Type: Surgical Subm Dr: Bernice Gutierres MD Tissues: A Duodenum - Biopsy (DUOD BX) B Esophagus Biopsy (ESO BX) C Esophagus Biopsy (ESO BX) D Esophagus Biopsy (ESO BX) E Colon Biopsy (SIGMOID COL BX) Procedures: HE/10, Gross/Micro L4/5 Age/ Patient Sex Location Account Attending Physician Christa Pitts 83/F [id number] Bernice Gutierres MD SPEC NUM: [id number] RECD: 09/19/23 STATUS: SAMEERSarah MONROY NUM: [id number] MAXIM: 09/19/[address]: Bernice Gutierres MD ENTERED: 09/19/23 [facility] DR: SPEC TYPE: Surgical DEPT: S ENTERED BY: [id number] RECV BY: [id number] ORDERED: HE/10, Gross/Micro L4/5 ORDERED: HE/10, Gross/Micro [...] polyps with no high-grade dysplasia. ---- Specimen: [id number] Received: 09/19/23 Status: JENNIFER Monroy Num: [id number] Spec Type: Surgical Subm Dr: Bernice Gutierres MD Tissues: A Duodenum - Biopsy (DUOD BX) B Esophagus Biopsy (ESO BX) C Esophagus Biopsy (ESO BX) D Esophagus Biopsy (ESO BX) E Colon Biopsy (SIGMOID COL BX) Procedures: Annika, Gross/Micro L4/5 ---- Patient: Christa Pitts [id number] (Continued) ---- Specimen: [id number] Received: 09/19/23 (Continued) Pathological Diagnosis (Continued) Signed (signature on file) Esther Saucedo MD 09/20/23 1015 ---- Specimen: [id number] Received: 09/19/23 Status: JENNIFER Monroy Num: [id number] Spec Type: Surgical Subm Dr: Bernice Gutierres MD Tissues: A Duodenum - Biopsy (DUOD BX) B Esophagus Biopsy (ESO BX) C Esophagus Biopsy (ESO BX) D Esophagus Biopsy (ESO BX) E Colon Biopsy (SIGMOID COL BX) Procedures: , Gross/Micro /5 ---- Patient: Christa Pitts [id number] (Continued) ---- Specimen: [id number] Received: 09/19/23 (Continued) [...] in one cassette labeled E1. CPT Codes [id number] ---- ---- Specimen: [id number] Received: 09/19/23 Status: JENNIFER Monroy Num: [id number] Spec Type: Surgical Subm Dr: Bernice Gutierres (more content not included)... Normal [facility] CBC AUTO DIFFon 10-19-2022 BASO # 0.1 103/ul Normal 0.0-0.1 [facility] Comment on above: Performed By: #### U MICRO, ERUR #### [facility] [address] [address] [address] Philip De Leon Basophils/100 WBC (Bld) 1.5 % Normal 0.2-2.0 [facility] Comment on above: Performed By: #### U MICRO, ERUR #### [facility] [address] [address] [address] Philip De Leon EO # 0.4 103/ul Normal 0.0-0.7 [facility] Comment on above: Performed By: #### U MICRO, ERUR #### [facility] [address] [address] [address] Philip De Leon Eosinophils/100 WBC (Bld) 5.4 % Normal 0.9-7.0 [facility] Comment on above: Performed By: #### U MICRO, ERUR #### [facility] [address] [place] [address] Dr. Philip De Leon Erythrocyte distribution width (RBC) [Ratio] 22.5 % Critically high 11.0-15.0 [facility] Comment on above: Performed By: #### U MICRO, ERUR #### [facility] [address] [address] [address] Philip De Leon Hematocrit (Bld) [Volume fraction] 26.3 % Critically low 36.0-48.0 [facility] Comment on above: Performed By: #### U MICRO, ERUR #### [facility] [address] [place] [address] Dr. Philip De Leon Hemoglobin (Bld) [Mass/Vol] 8.3 g/dL Critically low 12.0-16.0 [facility] Comment on above: Performed By: #### U MICRO, ERUR #### [facility] [address] [address] [address] Philip De Leon IG # 0.03 10e3/ul Normal 0.00-0.03 [facility] Comment on above: Performed By: #### U MICRO, ERUR #### [facility] [address] [address] [address] Philip De Leon IG % 0.4 % Normal 0.0-0.5 [facility] Comment on above: Performed By: #### U MICRO, ERUR #### [facility] [address] [address] [address] Philip De Leon LYMPH # 1.3 103/ul Normal 1.2-3.8 [facility] Comment on above: Performed By: #### U MICRO, ERUR #### [facility] [address] [address] [address] Philip De Leon Lymphocytes/100 WBC (Bld) 17.9 % Critically low 20.5-60.0 [facility] Comment on above: Performed By: #### U MICRO, ERUR #### [facility] [address] [place] [address] Dr. Philip De Leon MANUAL DIFF REQ NO Normal [facility] Comment on above: Performed By: #### U MICRO, ERUR #### [facility] [address] [place] [address] Dr. Philip De Leon MCH (RBC) [Entitic mass] 30.1 pg Normal 26.7-34.0 [facility] Comment on above: Performed By: #### U MICRO, ERUR #### [facility] [address] [place] [address] Dr. Philip De Leon MCHC (RBC) [Mass/Vol] 31.6 g/dL Normal 29.9-35.2 [facility] Comment on above: Performed By: #### U MICRO, ERUR #### [facility] [address] [place] [address] Dr. Philip De Leon MCV (RBC) [Entitic vol] 95.3 fL Normal 81.0-99.0 [facility] Comment on above: Performed By: #### U MICRO, ERUR #### [facility] [address] [place] [address] Dr. Philip De Leon MONO # 0.6 103/ul Normal 0.3-0.8 [facility] Comment on above: Performed By: #### U MICRO, ERUR #### [facility] [address] [place] [address] Dr. Philip De Leon Monocytes/100 WBC (Bld) 8.2 % Normal 1.7-12.0 [facility] Comment on above: Performed By: #### U MICRO, ERUR #### [facility] [address] [address] [address] Philip De Leon NEUT # 4.7 103/ul Normal 1.4-6.5 [facility] Comment on above: Performed By: #### U MICRO, ERUR #### [facility] [address] [address] [address] Philip De Leon Neutrophils/100 WBC (Bld) 66.6 % Normal 43.0-75.0 [facility] Comment on above: Performed By: #### U MICRO, ERUR #### [facility] [address] [place] [address] Dr. Philip De Leon PLT 184 103/ul Normal 150-450 [facility] Comment on above: Performed By: #### U MICRO, ERUR #### [facility] [address] [place] [address] Dr. Philip De Leon RBC 2.76 106/ul Critically low 4.20-5.40 [facility] Comment on above: Performed By: #### U MICRO, ERUR #### [facility] [address] [place] [address] Dr. Philip De Leon WBC 7.1 103/ul Normal 4.0-11.0 [facility] Comment on above: Performed By: #### U MICRO, ERUR #### [facility] [address] [place] [address] Dr. Philip De Leon PROF CHEM 8 (BAS METB)on Anion gap [Moles/Vol] 7.4 mmol/L Normal [facility] Comment on above: Performed By: #### B MP #### [facility] [address] [place] [address] Dr. Philip De Leon Calcium [Mass/Vol] 8.3 mg/dL Critically low 8.5-10.1 [facility] Comment on above: Performed By: #### B MP #### [facility] [address] [place] [address] Dr. Philip De Leon Chloride [Moles/Vol] 102 mmol/L Normal 98-107 [facility] Comment on above: Performed By: #### B MP #### [facility] [address] [address] [address] Philip De Leon CO2 [Moles/Vol] 32.8 mmol/L Critically high 21.0-32.0 [facility] Comment on above: Performed By: #### B MP #### [facility] [address] [address] [address] Philip De Leon Creatinine [Mass/Vol] 1.22 mg/dL Critically high 0.55-1.02 [facility] Comment on above: Performed By: #### B MP #### [facility] [address] [place] [address] Dr. Philip De Leon EGFR-AF BOLIVIAN 51 mL/min/1.73m2 Critically low >=60 [facility] Comment on above: Performed By: #### B MP #### [facility] [address] [address] [address] Philip De Leon EGFR-NON AF BOLIVIAN 42 mL/min/1.73m2 Critically low >=60 [facility] Comment on above: Performed By: #### B MP #### [facility] [address] [place] [address] Dr. Philip De Leon Glucose [Mass/Vol] 98 mg/dL Normal 74-106 [facility] Comment on above: Performed By: #### B MP #### [facility] [address] [address] [address] Philip De Leon Potassium [Moles/Vol] 4.2 mmol/L Normal 3.5-5.1 [facility] Comment on above: Performed By: #### B MP #### [facility] [address] [place] [address] Dr. Philip De Leon Sodium [Moles/Vol] 138 mmol/L Normal 136-145 [facility] Comment on above: Performed By: #### B MP #### [facility] [address] [place] [address] Dr. Philip De Leon Urea nitrogen [Mass/Vol] 22.0 mg/dL Critically high 7.0-18.0 [facility] Comment on above: Performed By: #### B MP #### [facility] [address] [address] [address] Philip De Leon Urea nitrogen/Creatinine [Mass ratio] 18.0 mg/mg Normal [facility] Comment on above: Performed By: #### B MP #### [facility] [address] [address] [address] Philip De Leon XR CHEST 1 [...] PASTOR ARIZMENDI Date: 2022-10-19 06:47 Normal [facility] CBC W MANUAL DIFFon 10-19-19 23 ATYPICAL LYMPH # 0.28 103/ul Normal [facility] Comment on above: Performed By: #### C ANA MARIA #### [facility] [address] [address] [address] Philip De Leon ATYPICAL LYMPH % 3 % Normal [facility] Comment on above: Performed By: #### C ANA MARIA #### [facility] [address] [address] [address] Philip De Leon BAND # 0.0 103/ul Normal 0.0-0.3 [facility] Comment on above: Performed By: #### C ANA MARIA #### [facility] [address] [address] [address] Philip De Leon BAND % 0 % Normal 0-5 [facility] Comment on above: Performed By: #### C BCMAN #### [facility] [address] [address] [address] Philip De Leon BASOM # 0.09 103/ul Normal 0.00-0.10 [facility] Comment on above: Performed By: #### C BCBRADLEY #### [facility] [address] [address] [address] Philip De Leon BASOM % 1.0 % Normal 0.2-2.0 [facility] Comment on above: Performed By: #### C BCMAN #### [facility] [address] [address] [address] Philip De Leon BLAST # Normal [facility] Comment on above: Performed By: #### C BCBRADLEY #### [facility] [address] [place] [address] Dr. Philip De Leon BLAST % Normal [facility] Comment on above: Performed By: #### C BCBRADLEY #### [facility] [address] [place] [address] Dr. Philip De Leon CORRECTED WBC Normal 4.0-11.0 [facility] Comment on above: Performed By: #### C BCBRADLEY #### [facility] [address] [address] [address] Philip De Leon EOS # 0.18 103/ul Normal 0.00-0.70 [facility] Comment on above: Performed By: #### C BCBRADLEY #### [facility] [address] [place] [address] Dr. Philip De Leon EOS% 2.0 % Normal 0.9-7.0 [facility] Comment on above: Performed By: #### C BCBRADLEY #### [facility] [address] [place] [address] Dr. Philip De Leon HCT 25.5 % Critically low 36.0-48.0 [facility] Comment on above: Performed By: #### C ANA MARIA #### [facility] [address] [place] [address] Dr. Philip De Leon HGB 8.0 g/dl Critically low 12.0-16.0 [facility] Comment on above: Performed By: #### C ANA MARIA #### [facility] [address] [place] [address] Dr. Philip De Leon LYMPHM # 2.85 103/ul Normal 1.20-3.80 [facility] Comment on above: Performed By: #### C ANA MARIA #### [facility] [address] [address] [address] Philip De Leon LYMPHM% 31.0 % Normal 20.5-60.0 [facility] Comment on above: Performed By: #### C ANA MARIA #### [facility] [address] [place] [address] Dr. Philip De Leon MCH 30.0 pg Normal 26.7-34.0 [facility] Comment on above: Performed By: #### C ANA MARIA #### [facility] [address] [place] [address] Dr. Philip De Leon MCHC 31.4 g/dl Normal 29.9-35.2 [facility] Comment on above: Performed By: #### C ANA MARIA #### [facility] [address] [place] [address] Dr. Philip De Leon MCV 95.5 fL Normal 81.0-99.0 [facility] Comment on above: Performed By: #### C ANA MARIA #### [facility] [address] [place] [address] Dr. Philip De Leon METAMYELOCYTE # Normal [facility] Comment on above: Performed By: #### C ANA MARIA #### [facility] [address] [place] [address] Dr. Philip De Leon METAMYELOCYTE % Normal [facility] Comment on above: Performed By: #### C ANA MARIA #### [facility] [address] [place] [address] Dr. Philip eD Leon MONOM# 0.46 103/ul Normal 0.30-0.80 [facility] Comment on above: Performed By: #### C ANA MARIA #### [facility] [address] [place] [address] Dr. Philip De Leon MONOM% 5.0 % Normal 1.7-12.0 [facility] Comment on above: Performed By: #### C ANA MARIA #### [facility] [address] [place] [address] Dr. Philip De Leon MPV 0.0 fL Critically low 9.5-13.5 [facility] Comment on above: Performed By: #### C ANA MARIA #### [facility] [address] [place] [address] Dr. Philip De Leon MYELOCYTE # 0.3 103/ul Normal [facility] Comment on above: Performed By: #### C ANA MARIA #### [facility] [address] [place] [address] Dr. Philip De Leon MYELOCYTE % 3 % Normal [facility] Comment on above: Performed By: #### C ANA MARIA #### [facility] [address] [place] [address] Dr. Philip De Leon NRBC Normal [facility] Comment on above: Performed By: #### C ANA MARIA #### [facility] [address] [place] [address] Dr. Philip De Leon PLT 196 103/ul Normal 150-450 [facility] Comment on above: Performed By: #### C ANA MARIA #### [facility] [address] [place] [address] Dr. Philip De Leon RBC 2.67 106/ul Critically low 4.20-5.40 [facility] Comment on above: Performed By: #### C ANA MARIA #### [facility] [address] [place] [address] Dr. Philip De Leon RDW 21.7 % Critically high 11.0-15.0 [facility] Comment on above: Performed By: #### C ANA MARIA #### [facility] [address] [place] [address] Dr. Philip De Leon SEG # 5.06 103/ul Normal 1.40-6.50 [facility] Comment on above: Performed By: #### C ANA MARIA #### [facility] [address] [place] [address] Dr. Philip De Leon SEG % 55.0 % Normal 43.0-75.0 [facility] Comment on above: Performed By: #### C DHARMESHBRADLEY #### [facility] [address] [place], [place] [address] Dr. Philip De Leon WBC 9.2 103/ul Normal 4.0-11.0 [facility] Comment on above: Performed By: #### C ANA MARIA #### [facility] [address] [place], [place] [address] [address] CHEST WO [...] PASTOR ARIZMENDI Date: 2022-10-18 10:10 Normal [facility] PROF CHEM 8 (BAS METB)on Anion gap [Moles/Vol] 6.4 mmol/L Normal [facility] Comment on above: Performed By: #### B MP #### [facility] [address] [address] [address] Philip De Leon Calcium [Mass/Vol] 8.2 mg/dL Critically low 8.5-10.1 [facility] Comment on above: Performed By: #### B MP #### [facility] [address] [address] [address] Philip De Leon Chloride [Moles/Vol] 105 mmol/L Normal 98-107 [facility] Comment on above: Performed By: #### B MP #### [facility] [address] [address] [address] Philip De Leon CO2 [Moles/Vol] 33.0 mmol/L Critically high 21.0-32.0 [facility] Comment on above: Performed By: #### B MP #### [facility] [address] [address] [address] Philip De Leon Creatinine [Mass/Vol] 1.24 mg/dL Critically high 0.55-1.02 [facility] Comment on above: Performed By: #### B MP #### [facility] [address] [address] [address] Philip De Leon EGFR-AF BOLIVIAN 50 mL/min/1.73m2 Critically low >=60 [facility] Comment on above: Performed By: #### B MP #### [facility] [address] [address] [address] Philpi De Leon EGFR-NON AF BOLIVIAN 42 mL/min/1.73m2 Critically low >=60 [facility] Comment on above: Performed By: #### B MP #### [facility] [address] [address] [address] Philip De Leon Glucose [Mass/Vol] 94 mg/dL Normal 74-106 [facility] Comment on above: Performed By: #### B MP #### [facility] [address] [address] [address] Philip De Leon Potassium [Moles/Vol] 4.4 mmol/L Normal 3.5-5.1 [facility] Comment on above: Performed By: #### B MP #### [facility] [address] [place], [place] [address] Dr. Philip De Leon Sodium [Moles/Vol] 140 mmol/L Normal 136-145 [facility] Comment on above: Performed By: #### B MP #### [facility] [address] [place], [place] [address] Dr. Philip De Leon Urea nitrogen [Mass/Vol] 20.0 mg/dL Critically high 7.0-18.0 [facility] Comment on above: Performed By: #### B MP #### [facility] [address] [place], [place] [address] Dr. Philip De Leon Urea nitrogen/Creatinine [Mass ratio] 16.1 mg/mg Normal [facility] Comment on above: Performed By: #### B MP #### [facility] [address] [place], [place] [address] Dr. Philip De Leon XR CHEST 1 [...] KARLA CLEMENTS Date: 2022-10-18 07:19 Normal [facility] XR CHEST 1 V EXAM: XR CHEST [...] MAGDIEL DELEON Date: 2022-10-17 23:51 Normal [facility] CBC W MANUAL DIFFon 10-18-19 23 ATYPICAL LYMPH # Normal [facility] Comment on above: Performed By: #### U MICRO, ERUR #### [facility] [address] [place] [address] Dr. Philip De Leon ATYPICAL LYMPH % Normal [facility] Comment on above: Performed By: #### U MICRO, ERUR #### [facility] [address] [place] [address] Dr. Philip De Leon BAND # 0.0 103/ul Normal 0.0-0.3 [facility] Comment on above: Performed By: #### U MICRO, ERUR #### [facility] [address] [place] [address] Dr. Philip De Leon BAND % 0 % Normal 0-5 [facility] Comment on above: Performed By: #### U MICRO, ERUR #### [facility] [address] [place] [address] Dr. Philip De Leon BASOM # 0.06 103/ul Normal 0.00-0.10 [facility] Comment on above: Performed By: #### U MICRO, ERUR #### [facility] [address] [place] [address] Dr. Philip De Leon BASOM % 1.0 % Normal 0.2-2.0 [facility] Comment on above: Performed By: #### U MICRO, ERUR #### [facility] [address] [place] [address] Dr. Philip De Leon BLAST # Normal [facility] Comment on above: Performed By: #### U MICRO, ERUR #### [facility] [address] [address] [address] Philip De Leon BLAST % Normal [facility] Comment on above: Performed By: #### U MICRO, ERUR #### [facility] [address] [place] [address] Dr. Philip De Leon CORRECTED WBC Normal 4.0-11.0 [facility] Comment on above: Performed By: #### U MICRO, ERUR #### [facility] [address] [address] [address] Philip De Leon EOS # 0.17 103/ul Normal 0.00-0.70 [facility] Comment on above: Performed By: #### U MICRO, ERUR #### [facility] [address] [place] [address] Dr. Philip De Leon EOS% 3.0 % Normal 0.9-7.0 [facility] Comment on above: Performed By: #### U MICRO, ERUR #### [facility] [address] [place] [address] Dr. Philip De Leon HCT 24.6 % Critically low 36.0-48.0 [facility] Comment on above: Performed By: #### U MICRO, ERUR #### [facility] [address] [place] [address] Dr. Philip De Leon HGB 7.6 g/dl Critically low 12.0-16.0 [facility] Comment on above: Performed By: #### U MICRO, ERUR #### [facility] [address] [address] [address] Philip De Leon LYMPHM # 1.22 103/ul Normal 1.20-3.80 [facility] Comment on above: Performed By: #### U MICRO, ERUR #### [facility] [address] [place] [address] Dr. Philip De Leon LYMPHM% 21.0 % Normal 20.5-60.0 [facility] Comment on above: Performed By: #### U MICRO, ERUR #### [facility] [address] [place] [address] Dr. Philip De Leon MCH 30.0 pg Normal 26.7-34.0 [facility] Comment on above: Performed By: #### U MICRO, ERUR #### [facility] [address] [place] [address] Dr. Philip De Leon MCHC 30.9 g/dl Normal 29.9-35.2 [facility] Comment on above: Performed By: #### U MICRO, ERUR #### [facility] [address] [address] [address] Philip De Leon MCV 97.2 fL Normal 81.0-99.0 [facility] Comment on above: Performed By: #### U MICRO, ERUR #### [facility] [address] [place] [address] Dr. Philip De Leon METAMYELOCYTE # Normal [facility] Comment on above: Performed By: #### U MICRO, ERUR #### [facility] [address] [place] [address] Dr. Philip De Leon METAMYELOCYTE % Normal [facility] Comment on above: Performed By: #### U MICRO, ERUR #### [facility] [address] [place] [address] Dr. Philip De Leon MONOM# 0.17 103/ul Critically low 0.30-0.80 [facility] [place] Comment on above: Performed By: #### U MICRO, ERUR #### [facility] [address] [place] [address] Dr. Philip De Leon MONOM% 3.0 % Normal 1.7-12.0 [facility] Comment on above: Performed By: #### U MICRO, ERUR #### [facility] [address] [place] [address] Dr. Philip De Leon MPV 0.0 fL Critically low 9.5-13.5 [facility] Comment on above: Performed By: #### U MICRO, ERUR #### [facility] [address] [place] [address] Dr. Philip De Leon MYELOCYTE # Normal [facility] Comment on above: Performed By: #### U MICRO, ERUR #### [facility] [address] [address] [address] Philip De Leon MYELOCYTE % Normal [facility] Comment on above: Performed By: #### U MICRO, ERUR #### [facility] [address] [place] [address] Dr. Philip De Leon NRBC Normal [facility] Comment on above: Performed By: #### U MICRO, ERUR #### [facility] [address] [address] [address] Philip De Leon PLT 191 103/ul Normal 150-450 [facility] Comment on above: Performed By: #### U MICRO, ERUR #### [facility] [address] [place] [address] Dr. Philip De Leon RBC 2.53 106/ul Critically low 4.20-5.40 [facility] [place] Comment on above: Performed By: #### U MICRO, ERUR #### [facility] [address] [place] [address] Dr. Philip De Leon RDW 21.9 % Critically high 11.0-15.0 [facility] [place] Comment on above: Performed By: #### U MICRO, ERUR #### [facility] [address] [place] [address] Dr. Philip De Leon SEG # 4.18 103/ul Normal 1.40-6.50 [facility] Comment on above: Performed By: #### U MICRO, ERUR #### [facility] [address] [place] [address] Dr. Philip De Leon SEG % 72.0 % Normal 43.0-75.0 [facility] Comment on above: Performed By: #### U MICRO, ERUR #### [facility] [address] [place] [address] Dr. Philip De Leon WBC 5.8 103/ul Normal 4.0-11.0 [facility] Comment on above: Performed By: #### U MICRO, ERUR #### [facility] [address] [place] [address] Dr. Philip De Leon CYTOLOGYon 10-17-2022 SENT TO REF LAB 10/17/2022 Normal [facility] Comment on above: Performed By: #### C YTO #### [facility] [address] [place] [address] Dr. Philip De Leon ECHOCARDIO M/2D COMPLETEon 0 10-17-2022 ECHOCARDIO M/2D COMPLETE Patient: CHRISTA PITTS Exam Date: 10/17/2022 : 1940 Gender:F Ordering : DR SAMAN MARTÍNEZ . Admission #: [id number] Family : Order #: [id number] CLICK HERE TO VIEW EXAM ECHOCARDIOGRAM REPORT [...] Tl Cobb M.D. on 10/18/2022 at 11:37 [place] [facility] PROF CHEM 8 (BAS METB)on Anion gap [Moles/Vol] 7.8 mmol/L Normal [facility] Comment on above: Performed By: #### U MICRO, ERUR #### [facility] [address] [address] [address] Philip De Leon Calcium [Mass/Vol] 8.3 mg/dL Critically low 8.5-10.1 [facility] Comment on above: Performed By: #### U MICRO, ERUR #### [facility] [address] [address] [address] Philip De Leon Chloride [Moles/Vol] 108 mmol/L Critically high 98-107 [facility] Comment on above: Performed By: #### U MICRO, ERUR #### [facility] [address] [place] [address] Dr. Philip De Leon CO2 [Moles/Vol] 30.2 mmol/L Normal 21.0-32.0 [facility] Comment on above: Performed By: #### U MICRO, ERUR #### [facility] [address] [address] [address] Philip De Leon Creatinine [Mass/Vol] 1.13 mg/dL Critically high 0.55-1.02 [facility] Comment on above: Performed By: #### U MICRO, ERUR #### [facility] [address] [place] [address] [address] Philip De Leon EGFR-AF BOLIVIAN 56 mL/min/1.73m2 Critically low >=60 [facility] Comment on above: Performed By: #### U MICRO, ERUR #### [facility] [address] [place] [address] [address] Philip De Leon EGFR-NON AF BOLIVIAN 46 mL/min/1.73m2 Critically low >=60 [facility] Comment on above: Performed By: #### U MICRO, ERUR #### [facility] [address] [place] [address] [address] Philip De Leon Glucose [Mass/Vol] 87 mg/dL Normal 74-106 [facility] Comment on above: Performed By: #### U MICRO, ERUR #### [facility] [address] [address] [address] Philip De Leon Potassium [Moles/Vol] 5.0 mmol/L Normal 3.5-5.1 [facility] Comment on above: Performed By: #### U MICRO, ERUR #### [facility] [address] [place] [address] [address] Philip De Leon Sodium [Moles/Vol] 141 mmol/L Normal 136-145 [facility] Comment on above: Performed By: #### U MICRO, ERUR #### [facility] [address] [place] [address] [address] Philip De Leon Urea nitrogen [Mass/Vol] 16.0 mg/dL Normal 7.0-18.0 [facility] Comment on above: Performed By: #### U MICRO, ERUR #### [facility] [address] [place] [address] Dr. Philip De Leon Urea nitrogen/Creatinine [Mass ratio] 14.2 mg/mg Normal [facility] Comment on above: Performed By: #### U MICRO, ERUR #### [facility] [address] [place] [address] Dr. Philip De Leon XR CHEST 1 [...] by: MOISES BASILIO Date: 2022-10-17 13:32 Normal [facility] XR CHEST 2 Von 10-17-2022 [...] by: KARLA CLEMENTS Date: 2022-10-17 06:58 Normal [facility] BNPon 10-16-2022 Natriuretic peptide B (Bld) [Mass/Vol] 1965.0 pg/mL Critically high <=1,800.0 [facility] Comment on above: Performed By: #### U MICRO, ERUR #### [facility] [address] [place] [address] Dr. Philip De Leon CARDIAC IRON ADMITon 023 CK [Catalytic activity/Vol] 47 U/L Normal 26-192 [facility] Comment on above: Performed By: #### U MICRO, ERUR #### [facility] [address] [place] [address] [address] Philip De Leon CK.MB [Mass/Vol] 0.82 ng/mL Normal <=3.60 [facility] Comment on above: Performed By: #### U MICRO, ERUR #### [facility] [address] [address] [address] Philip De Leon HSTROP 9.4 pg/mL Normal 4.0-51.3 [facility] Comment on above: Result Comment: CUT- OFF POINTS HAVE BEEN ESTABLISHED BASED ON THE FOURTH UNIVERSAL DEFINITIONS OF MYOCARDIAL INFARCTION. THE UPPER REFERENCE LIMIT (URL) OF TROPONIN, DEFINED THE 99TH PERCENTILE OF cTnI DISTRIBUTION IN A REFERENCE POPULATION, HAS BEEN CONFIRMED THE DECISION THRESHOLD FOR KS DIAGNOSIS. Performed By: #### U MICRO, ERUR #### [facility] [address] [address] [address] Philip De Leon BELKIS 55 ng/mL Normal 9-82 [facility] Comment on above: Performed By: #### U MICRO, ERUR #### [facility] [address] [place] [address] [address] Philip De Leon CBC AUTO DIFFon 10-16-2022 BASO # 0.2 103/ul Critically high 0.0-0.1 [facility] Comment on above: Performed By: #### C BC #### [facility] [address] [address] [address] Philip De Leon Basophils/100 WBC (Bld) 2.0 % Normal 0.2-2.0 [facility] Comment on above: Performed By: #### C BC #### [facility] [address] [place] [address] [address] Philip De Leon EO # 0.4 103/ul Normal 0.0-0.7 [facility] Comment on above: Performed By: #### C BC #### [facility] [address] [place] [address] Dr. Philip De Leon Eosinophils/100 WBC (Bld) 3.9 % Normal 0.9-7.0 [facility] Comment on above: Performed By: #### C BC #### [facility] [address] [place] [address] Dr. Philip De Leon Erythrocyte distribution width (RBC) [Ratio] 21.9 % Critically high 11.0-15.0 [facility] Comment on above: Performed By: #### C BC #### [facility] [address] [place] [address] Dr. Philip De Leon Hematocrit (Bld) [Volume fraction] 30.7 % Critically low 36.0-48.0 [facility] Comment on above: Performed By: #### C BC #### [facility] [address] [place] [address] [address] Philip De Leon Hemoglobin (Bld) [Mass/Vol] 9.6 g/dL Critically low 12.0-16.0 [facility] Comment on above: Performed By: #### C BC #### [facility] [address] [place] [address] [address] Philip De Leon IG # 0.14 10e3/ul Critically high 0.00-0.03 [facility] Comment on above: Performed By: #### C BC #### [facility] [address] [place] [address] Dr. Philip De Leon IG % 1.4 % Critically high 0.0-0.5 [facility] Comment on above: Performed By: #### C BC #### [facility] [address] [place] [address] Dr. Philip De Leon LYMPH # 1.2 103/ul Normal 1.2-3.8 [facility] Comment on above: Performed By: #### C BC #### [facility] [address] [place] [address] Dr. Philip De Leon Lymphocytes/100 WBC (Bld) 11.9 % Critically low 20.5-60.0 [facility] Comment on above: Performed By: #### C BC #### [facility] [address] [place] [address] Dr. Philip De Leon MANUAL DIFF REQ NO Normal [facility] Comment on above: Performed By: #### C BC #### [facility] [address] [place] [address] Dr. Philip De Leon MCH (RBC) [Entitic mass] 30.3 pg Normal 26.7-34.0 [facility] Comment on above: Performed By: #### C BC #### [facility] [address] [place] [address] Dr. Philip De Leon MCHC (RBC) [Mass/Vol] 31.3 g/dL Normal 29.9-35.2 [facility] Comment on above: Performed By: #### C BC #### [facility] [address] [place] [address] Dr. Philip De Leon MCV (RBC) [Entitic vol] 96.8 fL Normal 81.0-99.0 [facility] Comment on above: Performed By: #### C BC #### [facility] [address] [place] [address] Dr. Philip De Leon MONO # 0.6 103/ul Normal 0.3-0.8 [facility] Comment on above: Performed By: #### C BC #### [facility] [address] [place] [address] [address] Philip De Leon Monocytes/100 WBC (Bld) 6.2 % Normal 1.7-12.0 [facility] Comment on above: Performed By: #### C BC #### [facility] [address] [place] [address] [address] Philip De Leon NEUT # 7.3 103/ul Critically high 1.4-6.5 [facility] Comment on above: Performed By: #### C BC #### [facility] [address] [place] [address] Dr. Philip De Leon Neutrophils/100 WBC (Bld) 74.6 % Normal 43.0-75.0 [facility] Comment on above: Performed By: #### C BC #### [facility] [address] [place] [address] Dr. Philip De Leon PLT 247 103/ul Normal 150-450 [facility] Comment on above: Performed By: #### C BC #### [facility] [address] [place] [address] Dr. Philip De Leon RBC 3.17 106/ul Critically low 4.20-5.40 [facility] Comment on above: Performed By: #### C BC #### [facility] [address] [place] [address] Dr. Philip De Leon WBC 9.7 103/ul Normal 4.0-11.0 [facility] Comment on above: Performed By: #### C BC #### [facility] [address] [place] [address] Dr. Philip De Leon CTA CHEST WO [...] atelectatic collapse of the right middle lobe. [id number] left pleural effusion with left basilar atelectasis/consolidat [...] AYAZ KRUGER Date: 2022-10-16 10:58 Normal [facility] CULTURE BLOODon 10-16-2022 Microscopic examination of blood, culture Culture Observations: NO GROWTH AT 5 DAYS. Normal [facility] Comment on above: Performed By: #### U MICRO, ERUR #### [facility] [address] [address] [address] Philip De Leon Microscopic examination of blood, culture Culture Observations: NO GROWTH AT 5 DAYS. Normal [facility] Comment on above: Performed By: #### U MICRO, ERUR #### [facility] [address] [place], [place] [address] Dr. Philip De Leon Covid-19 PCR ([facility])on 10-05 SARS-CoV-2 (COVID-19) RNA MARILU+probe Ql (Unsp spec) Not detected Normal NOT DETECTED [facility] Comment on above: Result Comment: When diagnostic [...] for this test is supported by the [place] of Health and Human Service's declaration that [...] Performed By: #### U MICRO, ERUR #### [facility] [address] [place] [address] Dr. Philip De Leon ER URINE PROFILEon 3 Bilirubin Ql (U) Negative Normal NEGATIVE [facility] Comment on above: Performed By: #### U MICRO, ERUR #### [facility] [address] [place] [address] Dr. Philip De Leon Clarity (U) CLEAR Normal CLEAR [facility] Comment on above: Performed By: #### U MICRO, ERUR #### [facility] [address] [place] [address] Dr. Philip De Leon Color (U) LT. YELLOW Normal YELLOW [facility] Comment on above: Performed By: #### U MICRO, ERUR #### [facility] [address] [place] [address] Dr. Philip De Leon ERUAHD A micrscopic examination will be performed if indicated. Normal [facility] Comment on above: Performed By: #### U MICRO, ERUR #### [facility] [address] [place] [address] Dr. Philip De Leon Glucose Ql (U) Negative Normal NEGATIVE [facility] Comment on above: Performed By: #### U MICRO, ERUR #### [facility] [address] [place] [address] Dr. Philip De Leon Hemoglobin Ql (U) SMALL Abnormal NEGATIVE [facility] Comment on above: Performed By: #### U MICRO, ERUR #### [facility] [address] [address] [address] Philip De Leon Ketones Ql (U) Negative Normal NEGATIVE [facility] Comment on above: Performed By: #### U MICRO, ERUR #### [facility] [address] [place] [address] Dr. Philip De Leon LEUKOCYTES Negative Normal NEGATIVE [facility] Comment on above: Performed By: #### U MICRO, ERUR #### [facility] [address] [address] [address] Philip De Leon Nitrite Ql (U) Negative Normal NEGATIVE [facility] Comment on above: Performed By: #### U MICRO, ERUR #### [facility] [address] [place] [address] Dr. Philip De Leon pH (U) 6.0 [pH] Normal 5-9 [facility] Comment on above: Performed By: #### U MICRO, ERUR #### [facility] [address] [place] [address] Dr. Philip De Leon Protein (U) [Mass/Vol] 30 mg/dL Abnormal NEGATIVE/ TRACE [facility] Comment on above: Performed By: #### U MICRO, ERUR #### [facility] [address] [place] [address] Dr. Philip De Leon SPEC GRAVITY 1.010 Normal 1.005-<=1.025 [facility] Comment on above: Performed By: #### U MICRO, ERUR #### [facility] [address] [address] [address] Philip De Leon UR MICRO IND INDICATED Normal [facility] Comment on above: Performed By: #### U MICRO, ERUR #### [facility] [address] [place] [address] Dr. Philip De Leon Urobilinogen Qn (U) 0.2 {Graham'U}/dL Normal 0.2 - 1. 0 [facility] Comment on above: Performed By: #### U MICRO, ERUR #### [facility] [address] [address] [address] Philip De Leon LACTATE/LACTIC ACIDon 2022 Lactate [Moles/Vol] 1.0 mmol/L Normal 0.4-2.[address] [facility] Comment on above: Performed By: #### L ACT #### [facility] [address] [address] [address] Philip De Leon PROF 14(COMP METB)on 023 Albumin [Mass/Vol] 3.6 g/dL Normal 3.4-5.0 [facility] Comment on above: Performed By: #### U MICRO, ERUR #### [facility] [address] [address] [address] Philip De Leon Albumin/Globulin [Mass ratio] 0.9 {ratio} Normal [facility] Comment on above: Performed By: #### U MICRO, ERUR #### [facility] [address] [place] [address] Dr. Philip De Leon ALP [Catalytic activity/Vol] 69 U/L Normal 46-116 [facility] Comment on above: Performed By: #### U MICRO, ERUR #### [facility] [address] [address] [address] Philip De Leon ALT [Catalytic activity/Vol] 15 U/L Normal 14-59 [facility] Comment on above: Performed By: #### U MICRO, ERUR #### [facility] [address] [address] [address] Philip De Leon Anion gap [Moles/Vol] 11.4 mmol/L Normal [facility] Comment on above: Performed By: #### U MICRO, ERUR #### [facility] [address] [address] [address] Philip De Leon AST [Catalytic activity/Vol] 17 U/L Normal 15-37 [facility] Comment on above: Performed By: #### U MICRO, ERUR #### [facility] [address] [place] [address] Dr. Philip De Leon Bilirubin [Mass/Vol] 0.5 mg/dL Normal 0.2-1.0 [facility] Comment on above: Performed By: #### U MICRO, ERUR #### [facility] [address] [address] [address] Philip De Leon Calcium [Mass/Vol] 9.1 mg/dL Normal 8.5-10.1 [facility] Comment on above: Performed By: #### U MICRO, ERUR #### [facility] [address] [address] [address] Philip De Leon Chloride [Moles/Vol] 107 mmol/L Normal 98-107 [facility] Comment on above: Performed By: #### U MICRO, ERUR #### [facility] [address] [address] [address] Philip De Leon CO2 [Moles/Vol] 28.6 mmol/L Normal 21.0-32.0 [facility] Comment on above: Performed By: #### U MICRO, ERUR #### [facility] [address] [address] [address] Philip De Leon Creatinine [Mass/Vol] 1.05 mg/dL Critically high 0.55-1.02 [facility] Comment on above: Performed By: #### U MICRO, ERUR #### [facility] [address] [address] [address] Philip De Leon EGFR-AF BOLIVIAN >60 Normal >=60 [facility] Comment on above: Performed By: #### U MICRO, ERUR #### [facility] [address] [address] [address] Philip De Leon EGFR-NON AF BOLIVIAN 50 mL/min/1.73m2 Critically low >=60 [facility] Comment on above: Performed By: #### U MICRO, ERUR #### [facility] [address] [address] [address] Philip De Leon Globulin (S) [Mass/Vol] 3.8 g/dL Normal [facility] Comment on above: Performed By: #### U MICRO, ERUR #### [facility] [address] [address] [address] Philip De Leon Glucose [Mass/Vol] 120 mg/dL Critically high 74-106 [facility] Comment on above: Performed By: #### U MICRO, ERUR #### [facility] [address] [address] [address] Philip De Leon Potassium [Moles/Vol] 5.0 mmol/L Normal 3.5-5.1 [facility] Comment on above: Performed By: #### U MICRO, ERUR #### [facility] [address] [address] [address] Philip De Leon Protein [Mass/Vol] 7.4 g/dL Normal 6.4-8.2 [facility] Comment on above: Performed By: #### U MICRO, ERUR #### [facility] [address] [place] [address] Dr. Philip De Leon Sodium [Moles/Vol] 142 mmol/L Normal 136-145 [facility] Comment on above: Performed By: #### U MICRO, ERUR #### [facility] [address] [place] [address] Dr. Philip De Leon Urea nitrogen [Mass/Vol] 18.0 mg/dL Normal 7.0-18.0 [facility] Comment on above: Performed By: #### U MICRO, ERUR #### [facility] [address] [place] [address] Dr. Philip De Leon Urea nitrogen/Creatinine [Mass ratio] 17.1 mg/mg Normal [facility] Comment on above: Performed By: #### U MICRO, ERUR #### [facility] [address] [place] [address] Dr. Philip De Leon PROTIMEon 10-16-2022 INR Coag (PPP) [Relative time] 1.00 {INR} Normal [facility] Comment on above: Performed By: #### P T, PTT #### [facility] [address] [place] [address] Dr. Philip De Leon INR GUIDELINES SEE BELOW Normal [facility] Comment on above: Result Comment: KADEN RED INR: 2.0 - 3.0 CONDITIONS NOT LISTED BELOW 2.5 - 3.5 FOR PROSTHETIC HEART VALVE REPLACEMENT 2.5 - 3.5 RECURRENT THROMBOSIS Performed By: #### P T, PTT #### [facility] [address] [place] [address] Dr. Philip De Leon PT Coag (PPP) [Time] 10.6 s Normal 9.0-11.6 [facility] Comment on above: Performed By: #### P T, PTT #### [facility] [address] [place] [address] Dr. Philip De Leon PTTon 10-16-2022 aPTT Coag (Bld) [Time] 27.9 s Normal 22.3-36.2 [facility] Comment on above: Performed By: #### P T, PTT #### [facility] [address] [place] [address] Dr. Philip De Leon URINE MICROSCOPIC ONLYon BACTERIA NONE SEEN Normal NONE SEEN [facility] Comment on above: Performed By: #### U MICRO, ERUR #### [facility] [address] [place] [address] Dr. Philip De Leon Bacteria identified Cx Nom (U) NOT INDICATED Normal [facility] Comment on above: Performed By: #### U MICRO, ERUR #### [facility] [address] [place] [address] Dr. Philip De Leon CAST NONE SEEN Normal NONE SEEN [facility] Comment on above: Performed By: #### U MICRO, ERUR #### [facility] [address] [place] [address] Dr. Phliip De Leon Crystals LM Nom (Urine sed) NONE SEEN Normal NONE SEEN [facility] Comment on above: Performed By: #### U MICRO, ERUR #### [facility] [address] [place] [address] Dr. Philip De Leon Epithelial cells LM Ql (Urine sed) FEW Abnormal NONE SEEN /RARE [facility] Comment on above: Performed By: #### U MICRO, ERUR #### [facility] [address] [place] [address] Dr. Philip De Leon MUCOUS NONE SEEN Normal NONE SEEN [facility] Comment on above: Performed By: #### U MICRO, ERUR #### [facility] [address] [place] [address] Dr. Philip De Leon RBC 0-2 Normal 0-2 [facility] Comment on above: Performed By: #### U MICRO, ERUR #### [facility] [address] [address] [address] Philip De Leon WBC NONE SEEN Normal NONE SEEN [facility] Comment on above: Performed By: #### U MICRO, ERUR #### [facility] [address] [address] [address] Philip De Leon XR CHEST 1 [...] by: MOISES BASILIO Date: 2022-10-16 09:35 Normal [facility] Vital Signs Date Time Vital Sign Value Performing Clinician Facility 09-19-2023 11:08-0500 Diastolic blood pressure 49 mm[Hg] DO Bryant Ball Work Phone: [facility] 09-19-2023 11:08-0500 Heart rate 51 /min DO Bryant Ball Work Phone: [facility] 09-19-2023 11:08-0500 Respiratory rate 16 /min DO Bryant Ball Work Phone: [facility] 09-19-2023 11:08-0500 SaO2% (BldA) [Mass fraction] 97 % DO Bryant Ball Work Phone: [facility] 09-19-2023 11:08-0500 Systolic blood pressure 116 mm[Hg] DO Bryant Ball Work Phone: [facility] 09-19-2023 08:27-0500 Body height 165.1 cm DO Bryant Ball Work Phone: [facility] 09-19-2023 08:27-0500 Body weight 74.84 kg DO Bryant Ball Work Phone: [facility] 08-03-2023 11:30-0500 Body height Bryant Ball Other [facility] [employer] Other 08-03-2023 11:30-0500 Body height 165.1 cm DO Bryant Ball Work Phone: [facility] 08-03-2023 11:30-0500 Body mass index (BMI) [Ratio] 27.39 kg/m2 Bryant Ball Other [facility] [employer] Other 08-03-2023 11:30-0500 Body weight 74.66 kg Bryant Ball Other [facility] 08-03-2023 11:30-0500 Diastolic blood pressure 60 mm[Hg] Bryant Ball Other [facility] 08-03-2023 11:30-0500 Respiratory rate 12 /min Bryant Ball Other [facility] [employer] Other 08-03-2023 11:30-0500 Systolic blood pressure 143 mm[Hg] Bryant Ball Other [facility] 06-16-2023 14:00-0500 Body height Bryant Ball Other [facility] [employer] Other 06-16-2023 14:00-0500 Body mass index (BMI) [Ratio] 28.75 kg/m2 Bryant Ball Other [facility] Other 06-16-2023 14:00-0500 Body weight 78.38 kg Bryant Ball Other [facility] Other 06-16-2023 14:00-0500 Diastolic blood pressure 71 mm[Hg] Bryant Ball Other [facility] Other 06-16-2023 14:00-0500 Respiratory rate 12 /min Bryatn Ball Other [facility] Other 06-16-2023 14:00-0500 Systolic blood pressure 163 mm[Hg] Bryant Ball Other [facility] [employer] Other 12-30-2022 13:45-0400 Body height Bryant Ball Other [facility] Other 12-30-2022 13:45-0400 Body mass index (BMI) [Ratio] 28.55 kg/m2 Bryant Ball Other [facility] Other 12-30-2022 13:45-0400 Body weight 77.84 kg Bryant Ball Other [facility] [employer] Other 12-30-2022 13:45-0400 Diastolic blood pressure 60 mm[Hg] Bryant Ball Other [facility] Other 12-30-2022 13:45-0400 Respiratory rate 12 /min Bryant Ball Other [facility] Other 12-30-2022 13:45-0400 Systolic blood pressure 190 mm[Hg] Bryant Ball Other [facility] Other 05-04-2021 14:45-0400 Body height Robb Olexa Other [facility] Other 05-04-2021 14:45-0400 Body mass index (BMI) [Ratio] 33.28 kg/m2 Robb Olexa Other [facility] Other 05-04-2021 14:45-0400 Body weight 90.72 kg Robb Hernandezxa Other [facility] Other Encounters Encounter Date Encounter Type Care Provider Facility Start: 10-30-2023 End: 10-30-2023 ambulatory Bryant Ball Facility:[facility] Start: 10-30-2023 End: 10-30-2023 ambulatory DO Bryant Ball Work Phone: [facility] Work Phone: Start: 10-30-2023 End: 10-30-2023 Patient encounter procedure DO Bryant Ball Work Phone: [facility] Work Phone: Start: 10-06-2023 End: 10-06-2023 Patient encounter procedure DO Bryant Ball Work Phone: [facility] Work Phone: Start: 10-02-2023 Non-patient / Non-visit DO Marck mary Ball Work Phone: [facility] [employer] Work Phone: Start: 09-19-2023 End: 09-19-2023 ambulatory Bryant Ball Facility:[facility] Start: 09-19-2023 Non-patient / Non-visit DO Marck mary Ball Work Phone: [facility] Gastroenterology Work Phone: Start: 09-19-2023 End: 09-19-2023 Admission to same day surgery center DO Bryant Ball Work Phone: [facility] Work Phone: Start: 09-19-2023 End: 09-19-2023 ambulatory DO Bryant Ball Work Phone: [facility] Work Phone: Start: 09-15-2023 End: 09-15-2023 ambulatory Bryant Ball Other [facility] Other Start: 09-15-2023 Telephone encounter Bryant Dallas FP [facility] Start: 08-11-2023 End: 08-11-2023 ambulatory Imad Asaad Other [facility] Other Start: 08-11-2023 Telephone encounter Imad Asaad [employer] [employer] Start: 08-09-2023 End: 08-09-2023 ambulatory Bryant Dallas Other [facility] Other Start: 08-09-2023 Telephone encounter Bryant Dallas FP [facility] Start: 08-08-2023 Patient encounter procedure DO Bryant Dallas Work Phone: [facility]- Start: 08-03-2023 End: 08-03-2023 ambulatory Bryant Dallas Other [facility] Other Start: 08-03-2023 Transitional care manage srvc 14 day discharge Bryant Dallas [facility] Start: 08-03-2023 End: 08-03-2023 Patient encounter procedure DO Bryant Burt Work Phone: [facility] Work Phone: Start: 07-27-2023 End: 07-27-2023 ambulatory Bryant Dallas Other [facility] Other Start: 07-27-2023 Telephone encounter Bryant Dallas FP [facility] Start: 06-23-2023 End: 06-23-2023 ambulatory Bryant Dallas Other [facility] Other Start: 06-23-2023 Telephone encounter Bryant aDllas FP [facility] Start: 06-16-2023 End: 06-16-2023 ambulatory Bryant Dallas Other [facility] Other Start: 06-16-2023 Patient encounter procedure Bryant Dallas [facility] Start: 05-17-2023 End: 05-17-2023 ambulatory Bryant Dallas Other [facility] Other Start: 05-17-2023 Nursing evaluation o f patient and report Bryant Dallas [facility] Start: 04-11-2023 End: 04-11-2023 ambulatory Bryant Dallas Other [facility] Other Start: 04-11-2023 Nursing evaluation o f patient and report Bryant Dallas [facility] Start: 03-06-2023 End: 03-06-2023 ambulatory Bryant Dallas Other [facility] [employer] Other Start: 03-06-2023 Nursing evaluation o f patient and report Bryant Dallas [facility] Start: 02-20-2023 End: 02-20-2023 ambulatory Bryant Dallas Other [facility] Other Start: 02-20-2023 Nursing evaluation o f patient and report Bryant Dallas [facility] Start: 02-13-2023 End: 02-13-2023 ambulatory Bryant Dallas Other [facility] Other Start: 02-13-2023 Nursing evaluation o f patient and report Bryant Dallas [facility] Start: 02-10-2023 End: 02-10-2023 ambulatory Bryant Dallas Other [facility] Other Start: 02-10-2023 Telephone encounter Bryant ALBA [facility] Start: 02-03-2023 End: 02-03-2023 ambulatory Bryant Dallas Other [employer] Other Start: 02-03-2023 Telephone encounter Bryant ALBA [facility] Start: 12-30-2022 End: 12-30-2022 ambulatory Bryant Dallas Other [employer] Other Start: 12-30-2022 Transitional care manage srvc 7 day discharge Bryant Dallas [facility] Start: 11-24-2022 End: 11-24-2022 ambulatory Bryant Dallas Other [employer] Other Start: 11-24-2022 Telephone encounter [facility] Start: 11-08-2022 End: 11-08-2022 ambulatory BRYANT DALLAS [facility] [employer] Other Start: 11-08-2022 Telephone encounter [facility] Start: 11-07-2022 End: 11-07-2022 ambulatory Robb Flower Other [employer] Other Start: 11-07-2022 Telephone encounter Robb Flower [facility] Start: 10-25-2022 End: 10-25-2022 ambulatory Robb Olexa Other [employer] Other Start: 10-25-2022 Telephone encounter Robb Flower [facility] Start: 10-21-2022 End: 10-21-2022 ambulatory Robb Olexa Other [employer] Other Start: 10-21-2022 Telephone encounter Robb Flower [facility] Start: 10-16-2022 End: 10-19-2022 Evaluation and management of inpatient BLAINE BRAVO . Facility: Start: 05-23-2022 Adult health examination Bryant Dallas Other [employer] Other Start: 05-04-2021 Office outpatient ne w 30 minutes Robb Olexa [facility] Procedures Date Procedure Procedure Detail Performing Clinician Start: 10-30-2023 Capsule endoscopy DO Bryant Dallas Work Phone: Start: 09-19-2023 Esophagogastroduodenoscopy DO Bryant Pruitt all Work Phone: Start: 10-17-2022 Drainage of Right Pleural Cavity, Percutaneous Approach, Diagnostic BLAINETEJAL BRAVO . Start: 05-04-2016 Screening for malignant neoplasm of colon Bryant Dallas Other Start: 12-24-2013 General examination of patient Bryant Dallas Other Depression screening Víctor Dallas Other Plan of Treatment Date Care Activity Detail Author Start: 10-30-2023 [facility] Start: 09-19-2023 [facility] Patient Education Hemorrhoids (D C) Diverticulosis (DC) Hiatal Hernia (DC) Colon Polypectomy (DC) Saavedra's Esophagus (DC) [facility] Work Phone: Immunizations Immunization Date Immunization Notes Care Provider [place] 05-17-2023 influenza, high dose seasonal, preservative-free Bryant Dallas Other [facility] [employer] Other 05-17-2023 influenza virus vaccine, unspecified formulation DO Bryant Dallas Work Phone: [facility] 05-02-2022 influenza virus vaccine, split virus (incl. purified surface antigen) Bryant Dallas Other [facility] [employer] Other 05-02-2022 influenza virus vaccine, unspecified formulation DO Bryant Dallas Work Phone: [facility] 05-20-2021 influenza virus vaccine, split virus (incl. purified surface antigen) Bryant Dallas Other [facility] [employer] Other 05-20-2021 influenza virus vaccine, unspecified formulation DO Bryant Dallas Work Phone: [facility] 05-18-2020 influenza virus vaccine, split virus (incl. purified surface antigen) Bryant Dallas Other [facility] [employer] Other 05-18-2020 influenza virus vaccine, unspecified formulation DO Bryant Dallas Work Phone: [facility] 05-16-2019 influenza virus vaccine, split virus (incl. purified surface antigen) Bryant Dallas Other [facility] [employer] Other 05-16-2019 influenza virus vaccine, unspecified formulation DO Bryant Dallas Work Phone: [facility] 05-14-2018 influenza virus vaccine, split virus (incl. purified surface antigen) Bryant Dallas Other [facility] [employer] Other 05-14-2018 influenza virus vaccine, unspecified formulation DO Bryant Dallas Work Phone: [facility] 05-11-2017 influenza virus vaccine, split virus (incl. purified surface antigen) Bryant Dallas Other [employer] Other 05-11-2017 influenza virus vaccine, unspecified formulation DO Bryant Entigo Work Phone: [facility] 06-16-2015 pneumococcal conjuga te vaccine, 13 valent Bryant Dallas Other [facility] 12-24-2013 pneumococcal Conjuga te, unspecified formulation; Translations: [Need for prophylactic vaccination against Streptococcus pneumoniae (pneumococcus)] Bryant Dallas Other [facility] Other 12-24-2013 pneumococcal polysaccharide vaccine, 23 valent Bryant Dallas Other [facility] 06-19-2013 tetanus and diphther ia toxoids, adsorbed, preservative free, for adult use (5 Lf of tetanus toxoid and 2 Lf of diphtheria toxoid) Bryant Dallas Other [facility] Payers Date Payer Category Payer Medicare [id number] 2.1 [id number] 1958 Self-pay 1958 Unknown [id number] 1940 Unknown [id number] 1940 Unknown [id number] Medicare Medicare Outpatient [id number] [id number] Unknown [id number] [id number] Unknown [id number] [id number] Social History Date Type Detail Facility Sex Assigned At [employer] Other Start: 09-19-2023 End: 09-19-2023 Tobacco smoking status NHIS Never smoked tobacco (finding) [facility] Start: 1940 Sex Assigned At Female F [facility] Goals Date Patient Goal Desired Activity /State Clinical Notes 05-04-2021 to 09-19-2023 Note Date & Type Note Facility 09-19-2023 History and physical note Note Date/Time September 19, 2023 9:54am [facility] [address] [place] [address] Gastroenterology H&P Signed Patient: Christa Pitts MR#: [id number] : 1940 Acct:[id number] Age/Sex: 83 / F Adm Date: 4 Loc: Room: Type: [facility] Attending Dr: Bernice Gutierres MD Copies [...] <Electronically signed by Bernice Gutierres MD> 09/19/23953 [facility] Work Phone: [phone] [facility]* Encounter Date Diagnosis Assessment Notes Treatment Notes Treatment Clinical Notes Sep, Anemia (ICD-10 - D64.9) [facility] Other 12-28-2023 Evaluation note* Encounter Date Diagnosis [...] (ICD-10 - E53.8) Continue supplement, check level [facility] Other 11-10-2023 Evaluation note* Encounter Date Diagnosis [...] or drinking prior to bedtime. Weight loss. [facility] [employer] Other 10-11-2023 Evaluation note* Encounter Date Diagnosis Assessment Notes Treatment Notes Treatment Clinical Notes May, Pernicious anemia (ICD-10 - D51.0) [facility] Other 09-05-2023 Evaluation note* Encounter Date Diagnosis Assessment Notes Treatment Notes Treatment Clinical Notes Apr, Pernicious anemia (ICD-10 - D51.0) [facility] Other 07-31-2023 Evaluation note* Encounter Date Diagnosis Assessment Notes Treatment Notes Treatment Clinical Notes Feb, Pernicious anemia (ICD-10 - D51.0) [facility] Other 07-17-2023 Evaluation note* Encounter Date Diagnosis Assessment Notes Treatment Notes Treatment Clinical Notes Feb, Pernicious anemia (ICD-10 - D51.0) [facility] Other 07-10-2023 Evaluation note* Encounter Date Diagnosis Assessment Notes Treatment Notes Treatment Clinical Notes Feb, Pernicious anemia (ICD-10 - D51.0) [facility] Other 07-07-2023 Evaluation note* Encounter Date Diagnosis Assessment Notes Treatment Notes Treatment Clinical Notes Feb, 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) [facility] Other 06-30-2023 Evaluation note* Encounter Date Diagnosis Assessment Notes Treatment Notes Treatment Clinical Notes Jan, Paroxysmal atrial fibrillation (ICD-10 - I48.0) [facility] Other 06-30-2023 Evaluation note* Encounter Date Diagnosis Assessment Notes Treatment Notes Treatment Clinical Notes Jan, Chronic heart failure with preserved ejection fraction (ICD-10 - I50.32) Jan, Acute blood loss anemia (ICD-10 - D62) Jan, Paroxysmal atrial fibrillation (ICD-10 - I48.0) [facility] Other 05-26-2023 Evaluation note* Encounter Date Diagnosis [...] scheduled. No hypoxemia, chest pain or dyspnea [facility] Other 04-20-2023 Evaluation note* Encounter Date Diagnosis Assessment Notes Treatment Notes Treatment Clinical Notes Nov, Acute on chronic diastolic heart failure (ICD-10 - I50.33) [facility] Other 04-04-2023 Evaluation note* Encounter Date Diagnosis Assessment Notes Treatment Notes Treatment Clinical Notes Nov, Ground glass opacity present on imaging of lung (ICD-10 - R91.8) CT chest 10/2022 [facility] Other 04-03-2023 Evaluation note* Encounter Date Diagnosis Assessment Notes Treatment Notes Treatment Clinical Notes Nov, Ground glass opacity present on imaging of lung (ICD-10 - R91.8) Nov, Pleural effusion (ICD-10 - J90) [facility] Other 09-28-2021 Evaluation note* Encounter Date Diagnosis Assessment Notes Treatment Notes Treatment Clinical Notes Apr, Mass of right wrist (ICD-10 - R22.31) Dicussed treatments options of the ganglion cyst, Patient is going to leave as is and will call when she is ready to have removed. Apr, Ganglion cyst of volar aspect of right wrist (ICD-10 - M67.431) [facility] Other Evaluation noteNo Information[facility]ort [facility] Other Evaluation noteNo assessment information available [facility] Work Phone: History general Narrative - Reported* Type Description Date Medical History high blood pressure Medical History acid reflux Surgical History hysterectomy 1973 Surgical History tonsillectomy Hospitalization History see above Hospitalization History high blood pressure [facility] Other History general Narrative - Reported* Type [...] see above Hospitalization History high blood pressure [facility] Other History general Narrative - Reported* Type [...] see above Hospitalization History high blood pressure [facility] Other History general Narrative - Reported* Type [...] see above Hospitalization History high blood pressure [facility] Other Summary Purpose Family History No Family [...] Loss of weight (R63. 4) Referral Organization [facility] dannielle Referring Provider First Name Bryant Referring Provider Last Name Burt Referring Provider Specialty Internal Me dicine Referred Organization [facility] Referred Address [address] [place], [place],[address] Referred Provider Specialty Gastroentero logy Referral Priority [...] InformationREFILLTBH - DIZZINESS, VERTIGONo InformationEKG resultsTestingLab/Testing ResultsB-12 [id number] ShotB-12 ShotB-12 ShotB-12 ShotWellnessLab resultsTCMTBHCT resultsMAIL PPWrepeat labs INFORMATION SOURCE (unrecogn ized section and content) DATE CREATED AUTHOR 11/11/2022 [facility] DATE CREATED AUTHOR 'S ORGANIZ ATION 12/24/2023 [facility] Care Teams (unrecognized sec tion and content) [...] [place] , Primary Care Provider Active Start: September 19, [...] , DO Primary Care Provider Active Start: October 30, [...] BE BASED ON THE PRIMARY CLINICAL RECORDS. [facility] [employer] provides no warranty or guarantee of the accuracy or completeness of information in this document.
--- NOTE | 2024-06-28 13:12 | MR_ITS ---
[address] [address] Patient Name: CHRISTA PITTS MRN: [id number] date: 1940 Sex: F Assigned Patient Location: LAB Current Patient Location: Accession/Order Number: [id number] Exam Date: 06/28/2024 13:15 Report Date: 06/29/2024 07:45 At the request of: ALMA ROSA REYNOSO Procedure: MR abdomen wo con EXAMINATION: MR abdomen wo con HISTORY: cyst of pancreas ; follow-up COMPARISON: MR abdomen 11/24/2023, CT abdomen and pelvis 08/08/2023 TECHNIQUE: A comprehensive MRI examination of the abdomen was performed to optimize visualization of suspected pathology. Images were obtained with and/or without intravenous Dotarem contrast as indicated by exam type. FINDINGS: LIVER: No enlargement, atrophy, abnormal signal, or significant focal lesion. BILIARY: Small amount of sludge versus collection of tiny granular stones within gallbladder. No wall thickening or inflammatory changes. PANCREAS: Stable appearance of 2 adjacent fluid signal lesions within distal body of pancreas favoring cysts, 2.0 cm and 1.6 cm in maximum diameter. Stable atrophy of the pancreas. No abnormal duct dilation. SPLEEN: No enlargement or focal lesion. KIDNEYS: No mass or obstruction. ADRENALS: No mass or enlargement. AORTA/VASCULAR: No aneurysm or dissection. RETROPERITONEUM: No mass or adenopathy. BOWEL/MESENTERY: Stomach is above the diaphragm. No visible mass, obstruction, or bowel wall thickening. ABDOMINAL WALL: No mass or hernia. BONES: Multilevel degenerative disc disease of lumbar spine. LUNG BASES: Large right pleural effusion. OTHER: Negative. MR/MR abdomen wo con IMPRESSION: 1. Stable appearance of both lesions within body of pancreas favoring cysts. 2. Small amount of sludge versus fine granular stones within gallbladder. No evidence of cholecystitis. 3. Large hiatal hernia versus prior surgery with entire stomach above the diaphragm. 4. Degenerative disc disease of lumbar spine. 5. Large right pleural effusion, also seen on prior study. Electronically authenticated by: PASTOR ARIZMENDI Date: 06/29/2024 07:45
[2024-06-28 13:15] LABS: Hematocrit 26.5 % (36.0-48.0); Hemoglobin 8.1 g/dL (12.0-16.0); Mean Corpuscular HGB Conc 30.6 g/dL (29.9-35.2); Mean Corpuscular Hemoglobin 27.9 pg (26.7-34.0); Mean Corpuscular Volume 91.4 fL (81.0-99.0); Platelet Count 275 10^3/uL (150-450); White Blood Count 7.9 10^3/uL (4.0-11.0)
[2024-06-28 13:26] LABS: Alanine Aminotransferase 11 U/L (14-59); Albumin Globulin Ratio 0.8; Albumin Level 2.9 g/dL (3.4-5.0); Alkaline Phosphatase 81 U/L (46-116); Anion Gap 12.6; Aspartate Amino Transferase 8 U/L (15-37); BUN Creatinine Ratio 15.6; Bilirubin Total 0.3 mg/dL (0.2-1.0); Calcium 8.6 mg/dL (8.5-10.1); Carbon Dioxide 26.7 mmol/L (21.0-32.0); Chloride 108 mmol/L (98-107); Estimated GFR (African America 41 (>=60 mL/min/1.73m^2); Estimated GFR (Non-African Ame 34 (>=60 mL/min/1.73m^2); Globulin 3.6 g/dL; Glucose 104 mg/dL (74-106); Potassium 4.3 mmol/L (3.5-5.1); Sodium 143 mmol/L (136-145); Total Protein 6.5 g/dL (6.4-8.2)
[2024-06-28 14:16] LABS: Eosinophils Absolute Manual 0.31 10^3/uL (0.00-0.70); Lymphocytes Absolute Manual 1.89 10^3/uL (1.20-3.80); Monocytes Absolute Manual 0.15 10^3/uL (0.30-0.80); Segmented Neut Absolute Manual 5.53 10^3/uL (1.4-6.5)
[2024-06-29 04:07] LABS: Vitamin B12 794 pg/mL (232-1245)
== END 2024-06-28 12:44 | disposition home or self-care (01) ==
PROVIDERS: PCP Internal Medicine; Visit Provider Internal Medicine
DX: K86.2 Cyst of pancreas (principal); N18.32 Chronic kidney disease, stage 3b; I48.0 Paroxysmal atrial fibrillation; D64.9 Anemia, unspecified; I12.9 Hypertensive chronic kidney disease with stage 1 through stage 4 chronic kidney disease, or unspecified chronic kidney disease
CPT/HCPCS: 36415; 74181; 80053; 82607; 82746; 84443; 85007; 85027

== ENCOUNTER 2024-06-28 12:50 | Outpatient (OUT) | payer MEDICARE, OTHER, SELFPAY ==
--- OUTSIDE RECORDS SUMMARY | 2024-06-28 13:04 | XMS_ITS | CCD ---
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 Name Role Phone Mundo Robb Unavailable Bryant [...] Provider DO [facility] Provider MD Bernice Gutierres Attending Provider [facility] Unavailable Asaad, Imad Admitting Unavailable Asaad Imad Attending Unavailable [facility] Unavailable Asaad Imad Attending Unavailable Asaad, Imad Admitting Unavailable Allergies Allergy Classification Reported Allergen(s) Allergy Type Date of Onset Reaction(s) Facility (20 sources) clopidogrel Drug Allergy Unknown [facility] Other (4 sources) patient allergy list reviewed by nurse or physicia Propensity to adverse reactions 8 Comment:Done [facility] Other Medications Current Medications Medication Drug Class(es) [...] BREAKFAST for 90 Active polyethylene glycol 3350 845248 mg / potassium chloride 2970 mg / sodium bicarbonate 6740 mg / sodium chloride 5860 mg / sodium sulfate 08548 mg powder for oral solution (2 sources) [...] sources) H/O: high risk medication; 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] Episodic Other aftercare (4 sources) Long-term current use of drug therapy; 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] Episodic Other circulatory disease [...] Basophils (Bld) [#/Vol] 0.2 10 3/uL 0.0-0.1 [facility] Basophils/100 WBC Auto (Bld) on 10-02-2023 Basophils/100 WBC (Bld) 3.1 % 0.2-2.0 [facility] Eosinophils/100 WBC Auto (Bl d)on 10-02-2023 Eosinophils/100 WBC (Bld) 5.2 % 0.9-7.0 [facility] Erythrocyte distribution wid th Auto (RBC) [Ratio]on 10-02-2023 Erythrocyte distribution width (RBC) [Ratio] 23.9 % 11.0-15.0 [facility] Hematocrit Auto (Bld) [Volum e fraction]on 10-02-2023 Hematocrit (Bld) [Volume fraction] 28.3 % 36.0-48.0 [facility] Hemoglobin [Mass/volume] in Bloodon 10-02-2023 Hemoglobin (Bld) [Mass/Vol] 8.5 g/dL 12.0-16.0 [facility] Iron binding capacity [Mass/ volume] in Serum or Plasmaon 10-02-2023 Iron binding capacity [Mass/Vol] 193.0 ug/dL 250.0-450.0 [facility] Iron saturation [Mass Fracti on] in Serum or Plasmaon 10-02-2023 Iron saturation [Mass fraction] 40.4 % [facility] Laboratory - Chemistry and C hemistry - challengeon 10-02-2023 Cobalamin (Vitamin B12) [Mass/Vol] 586.0 pg/mL 193.0-986.0 [facility] Ferritin [Mass/Vol] 278.0 ng/mL 8.0-252.0 [facility] Iron [Mass/Vol] 78.0 ug/dL 50.0-170.0 [facility] Laboratory - Hematology and Cell countson 10-02-2023 Immature granulocytes/100 WBC (Bld) 1.0 % 0.0-0.5 [facility] Leukocytes [#/volume] correc delilah for nucleated erythrocytes in Blood by Automated counon 10-02-2023 WBC corrected for nucl RBC Auto (Bld) [#/Vol] 7.3 10 3/uL 4.0-11.0 [facility] Lymphocytes Auto (Bld) [#/Vo l]on 10-02-2023 Lymphocytes (Bld) [#/Vol] 1.6 10 3/uL 1.2-3.8 [facility] Lymphocytes/100 WBC Auto (Bl d)on 10-02-2023 Lymphocytes/100 WBC (Bld) 22.2 % 20.5-60.0 [facility] MCH Auto (RBC) [Entitic mass ]on 10-02-2023 MCH (RBC) [Entitic mass] 28.6 pg 26.7-34.0 [facility] MCHC Auto (RBC) [Mass/Vol]on 10-02-2023 MCHC (RBC) [Mass/Vol] 30.0 g/dL 29.9-35.2 [facility] MCV Auto (RBC) [Entitic vol] on 10-02-2023 MCV (RBC) [Entitic vol] 95.3 fL 81.0-99.0 [facility] Monocytes Auto (Bld) [#/Vol] on 10-02-2023 Monocytes (Bld) [#/Vol] 0.6 10 3/uL 0.3-0.8 [facility] Monocytes/100 WBC Auto (Bld) on 10-02-2023 Monocytes/100 WBC (Bld) 8.8 % 1.7-12.0 [facility] Neutrophils Auto (Bld) [#/Vo l]on 10-02-2023 Neutrophils (Bld) [#/Vol] 4.4 10 3/uL 1.4-6.5 [facility] Neutrophils/100 WBC Auto (Bl d)on 10-02-2023 Neutrophils/100 WBC (Bld) 59.7 % 43.0-75.0 [facility] No Panel Informationon 10-02 Eosinophils # (Auto) 0.4 10 3/uL 0.0-0.7 [facility] Folate 27.10 ng/mL 8.60-58.90 [facility] Immature Granulocyte # (Auto) 0.07 10 3/uL 0.00-0.03 [facility] Platelets Auto (Bld) [#/Vol] on 10-02-2023 Platelets (Bld) [#/Vol] 230 10 3/uL 150-450 [facility] RBC Auto (Bld) [#/Vol]on RBC (Bld) [#/Vol] 2.97 10 6/uL 4.20-5.40 [facility] Comment on above: ANISOCYTOSIS 2+POIKI LOCYTOSIS 1+HYPOCHROMASIA 1+OVALOCYTES 1+RED CELL FRAGMENTS 1+ Reticulocytes/100 RBC Auto ( Bld)on 10-02-2023 Reticulocytes/100 RBC (Bld) 1.10 % 0.60-3.10 [facility] Colin 09-19-2023 L Specimen: [id number] Received: 09/19/23 Status: JENNIFER Eliana Num: [id number] Spec Type: Surgical Subm Dr: Bernice Gutierres MD Tissues: A Duodenum - Biopsy (DUOD BX) B Esophagus Biopsy (ESO BX) C Esophagus Biopsy (ESO BX) D Esophagus Biopsy (ESO BX) E Colon Biopsy (SIGMOID COL BX) Procedures: HE/10, Gross/Micro L4/5 Age/ Patient Sex Location Account Attending Physician Christa Pitts 83/F [id number] Bernice Gutierres MD SPEC NUM: [id number] RECD: 09/19/23 STATUS: SAMEERSarah MONROY NUM: [id number] MAXIM: 09/19/[address]: Bernice Gutierres MD ENTERED: 09/19/23 [facility] DR: SPEC TYPE: Surgical DEPT: S ENTERED BY: [id number] RECV BY: [id number] ORDERED: HE/10, Gross/Micro L4/5 ORDERED: HE/10, Gross/Micro [...] [id number] Received: 09/19/23 Status: JENNIFER Monroy Num: [id number] Spec Type: Surgical Subm Dr: Bernice Gutierres MD Tissues: A Duodenum - Biopsy (DUOD BX) B Esophagus Biopsy (ESO BX) C Esophagus Biopsy (ESO BX) D Esophagus Biopsy (ESO BX) E Colon Biopsy (SIGMOID COL BX) Procedures: Annika, Gross/Micro L4/5 ---- Patient: Christa Pitts [id number] (Continued) ---- Specimen: [id number] Received: 09/19/23 (Continued) Pathological Diagnosis (Continued) Signed (signature on file) Esther Saucedo MD 09/20/23 1015 ---- Specimen: [id number] Received: 09/19/23 Status: JENNIFER Monroy Num: [id number] Spec Type: Surgical Subm Dr: Bernice Gutierres MD Tissues: A Duodenum - Biopsy (DUOD BX) B Esophagus Biopsy (ESO BX) C Esophagus Biopsy (ESO BX) D Esophagus Biopsy (ESO BX) E Colon Biopsy (SIGMOID COL BX) Procedures: , Gross/Micro /5 ---- Patient: Christa Pitts [id number] (Continued) ---- Specimen: [id number] Received: 09/19/23 (Continued) [...] in one cassette labeled E1. CPT Codes 16435h8 ---- ---- Specimen: [id number] Received: 09/19/23 Status: JENNIFER Monroy Num: [id number] Spec Type: Surgical Subm Dr: Bernice Gutierres (more content not included)... Normal [facility] CBC AUTO DIFFon 10-19-2022 BASO # 0.1 103/ul Normal 0.0-0.1 [facility] Comment on above: Performed By: #### U MICRO, ERUR #### [facility] [address] [address] [address] Philip De Leon Basophils/100 WBC (Bld) 1.5 % Normal 0.2-2.0 [facility] Comment on above: Performed By: #### U MICRO, ERUR #### [facility] [address] [address] [address] Philip De Leon EO # 0.4 103/ul Normal 0.0-0.7 [facility] Comment on above: Performed By: #### U MICRO, ERUR #### [facility] [address] [address] [address] Philip De Leon Eosinophils/100 WBC (Bld) 5.4 % Normal 0.9-7.0 [facility] Comment on above: Performed By: #### U MICRO, ERUR #### [facility] [address] [place] [address] Dr. Philip De Leon Erythrocyte distribution width (RBC) [Ratio] 22.5 % Critically high 11.0-15.0 [facility] Comment on above: Performed By: #### U MICRO, ERUR #### [facility] [address] [address] [address] Philip De Leon Hematocrit (Bld) [Volume fraction] 26.3 % Critically low 36.0-48.0 [facility] Comment on above: Performed By: #### U MICRO, ERUR #### [facility] [address] [place] [address] Dr. Philip De Leon Hemoglobin (Bld) [Mass/Vol] 8.3 g/dL Critically low 12.0-16.0 [facility] Comment on above: Performed By: #### U MICRO, ERUR #### [facility] [address] [address] [address] Philip De Leon IG # 0.03 10e3/ul Normal 0.00-0.03 [facility] Comment on above: Performed By: #### U MICRO, ERUR #### [facility] [address] [address] [address] Philip De Leon IG % 0.4 % Normal 0.0-0.5 [facility] Comment on above: Performed By: #### U MICRO, ERUR #### [facility] [address] [address] [address] Philip De Leon LYMPH # 1.3 103/ul Normal 1.2-3.8 [facility] Comment on above: Performed By: #### U MICRO, ERUR #### [facility] [address] [address] [address] Philip De Leon Lymphocytes/100 WBC (Bld) 17.9 % Critically low 20.5-60.0 [facility] Comment on above: Performed By: #### U MICRO, ERUR #### [facility] [address] [place] [address] Dr. Philip De Leon MANUAL DIFF REQ NO Normal [facility] Comment on above: Performed By: #### U MICRO, ERUR #### [facility] [address] [place] [address] Dr. Philip De Leon MCH (RBC) [Entitic mass] 30.1 pg Normal 26.7-34.0 [facility] Comment on above: Performed By: #### U MICRO, ERUR #### [facility] [address] [place] [address] Dr. Philip De Leon MCHC (RBC) [Mass/Vol] 31.6 g/dL Normal 29.9-35.2 [facility] Comment on above: Performed By: #### U MICRO, ERUR #### [facility] [address] [place] [address] Dr. Philip De Leon MCV (RBC) [Entitic vol] 95.3 fL Normal 81.0-99.0 [facility] Comment on above: Performed By: #### U MICRO, ERUR #### [facility] [address] [place] [address] Dr. Philip De Leon MONO # 0.6 103/ul Normal 0.3-0.8 [facility] Comment on above: Performed By: #### U MICRO, ERUR #### [facility] [address] [place] [address] Dr. Philip De Leon Monocytes/100 WBC (Bld) 8.2 % Normal 1.7-12.0 [facility] Comment on above: Performed By: #### U MICRO, ERUR #### [facility] [address] [address] [address] Philip De Leon NEUT # 4.7 103/ul Normal 1.4-6.5 [facility] Comment on above: Performed By: #### U MICRO, ERUR #### [facility] [address] [address] [address] Philip De Leon Neutrophils/100 WBC (Bld) 66.6 % Normal 43.0-75.0 [facility] Comment on above: Performed By: #### U MICRO, ERUR #### [facility] [address] [place] [address] Dr. Philip De Leon PLT 184 103/ul Normal 150-450 [facility] Comment on above: Performed By: #### U MICRO, ERUR #### [facility] [address] [place] [address] Dr. Philip De Leon RBC 2.76 106/ul Critically low 4.20-5.40 [facility] Comment on above: Performed By: #### U MICRO, ERUR #### [facility] [address] [place] [address] Dr. Philip De Leon WBC 7.1 103/ul Normal 4.0-11.0 [facility] Comment on above: Performed By: #### U MICRO, ERUR #### [facility] [address] [place] [address] Dr. Philip De Leon PROF CHEM 8 (BAS METB)on Anion gap [Moles/Vol] 7.4 mmol/L Normal [facility] Comment on above: Performed By: #### B MP #### [facility] [address] [place] [address] Dr. Philip De Leon Calcium [Mass/Vol] 8.3 mg/dL Critically low 8.5-10.[address] [facility] Comment on above: Performed By: #### B MP #### [facility] [address] [place] [address] Dr. Philip De Leon Chloride [Moles/Vol] 102 mmol/L Normal 98-107 [facility] Comment on above: Performed By: #### B MP #### [facility] [address] [address] [address] Philip De Leon CO2 [Moles/Vol] 32.8 mmol/L Critically high 21.0-32.0 [facility] Comment on above: Performed By: #### B MP #### [facility] [address] [address] [address] Philip De Leon Creatinine [Mass/Vol] 1.22 mg/dL Critically high 0.55-1.02 [facility] Comment on above: Performed By: #### B MP #### [facility] [address] [place] [address] Dr. Philip De Leon EGFR-AF IRANIAN 51 mL/min/1.73m2 Critically low >=60 [facility] Comment on above: Performed By: #### B MP #### [facility] [address] [address] [address] Philip De Leon EGFR-NON AF IRANIAN 42 mL/min/1.73m2 Critically low >=60 [facility] Comment on above: Performed By: #### B MP #### [facility] [address] [place] [address] Dr. Philip De Leon Glucose [Mass/Vol] 98 mg/dL Normal 74-106 [facility] Comment on above: Performed By: #### B MP #### [facility] [address] [address] [address] Philip De Leon Potassium [Moles/Vol] 4.2 mmol/L Normal 3.5-5.1 [facility] Comment on above: Performed By: #### B MP #### [facility] [address] [place] [address] Dr. Philip De Leon Sodium [Moles/Vol] 138 mmol/L Normal 136-145 [facility] Comment on above: Performed By: #### B MP #### [facility] [address] [place] [address] Dr. Philip De Leon Urea nitrogen [Mass/Vol] 22.0 mg/dL Critically high 7.0-18.0 [facility] Comment on above: Performed By: #### B MP #### [facility] [address] [address] [address] Philip De Leon Urea nitrogen/Creatinine [Mass ratio] 18.0 mg/mg Normal [facility] Comment on above: Performed By: #### B MP #### [facility] [address] [address] [address] Philip De Leon XR CHEST 1 [...] PASTOR ARIZMENDI Date: 2022-10-19 06:47 Normal [facility] CBC W MANUAL DIFFon 10-19-19 23 ATYPICAL LYMPH # 0.28 103/ul Normal [facility] Comment on above: Performed By: #### C ANA MARIA #### [facility] [address] [address] [address] Philip De Leon ATYPICAL LYMPH % 3 % Normal [facility] Comment on above: Performed By: #### C ANA MARIA #### [facility] [address] [address] [address] Philip De Leon BAND # 0.0 103/ul Normal 0.0-0.3 [facility] Comment on above: Performed By: #### C ANA MARIA #### [facility] [address] [address] [address] Philip De Leon BAND % 0 % Normal 0-5 [facility] Comment on above: Performed By: #### C BCMAN #### [facility] [address] [address] [address] Philip De Leon BASOM # 0.09 103/ul Normal 0.00-0.10 [facility] Comment on above: Performed By: #### C BCBRADLEY #### [facility] [address] [address] [address] Philip De Leon BASOM % 1.0 % Normal 0.2-2.0 [facility] Comment on above: Performed By: #### C BCMAN #### [facility] [address] [address] [address] Philip De Leon BLAST # Normal [facility] Comment on above: Performed By: #### C BCBRADLEY #### [facility] [address] [place] [address] Dr. Philip De Leon BLAST % Normal [facility] Comment on above: Performed By: #### C BCBRADLEY #### [facility] [address] [place] [address] Dr. Philip De Leon CORRECTED WBC Normal 4.0-11.0 [facility] Comment on above: Performed By: #### C BCBRADLEY #### [facility] [address] [address] [address] Philip De Leon EOS # 0.18 103/ul Normal 0.00-0.70 [facility] Comment on above: Performed By: #### C BCBRADLEY #### [facility] [address] [place] [address] Dr. Philip De Leon EOS% 2.0 % Normal 0.9-7.0 [facility] Comment on above: Performed By: #### C BCBRADLEY #### [facility] [address] [place] [address] Dr. Philip De Leon HCT 25.5 % Critically low 36.0-48.0 [facility] Comment on above: Performed By: #### C ANA MARIA #### [facility] [address] [place] [address] Dr. Philip De Leon HGB 8.0 g/dl Critically low 12.0-16.0 [facility] Comment on above: Performed By: #### C ANA MARIA #### [facility] [address] [place] [address] Dr. Philip De Leon LYMPHM # 2.85 103/ul Normal 1.20-3.80 [facility] Comment on above: Performed By: #### C ANA MARIA #### [facility] [address] [address] [address] Philip De Leon LYMPHM% 31.0 % Normal 20.5-60.0 [facility] Comment on above: Performed By: #### C ANA MARIA #### [facility] [address] [place] [address] Dr. Philip De Leon MCH 30.0 pg Normal 26.7-34.0 [facility] Comment on above: Performed By: #### C ANA MARIA #### [facility] [address] [place] [address] Dr. Philip De Leon MCHC 31.4 g/dl Normal 29.9-35.2 [facility] Comment on above: Performed By: #### C ANA MARIA #### [facility] [address] [place] [address] Dr. Philip De Leon MCV 95.5 fL Normal 81.0-99.0 [facility] Comment on above: Performed By: #### C ANA MARIA #### [facility] [address] [place] [address] Dr. Philip De Leon METAMYELOCYTE # Normal [facility] Comment on above: Performed By: #### C ANA MARIA #### [facility] [address] [place] [address] Dr. Philip De Leon METAMYELOCYTE % Normal [facility] Comment on above: Performed By: #### C ANA MARIA #### [facility] [address] [place] [address] Dr. Philip De Leon MONOM# 0.46 103/ul Normal 0.30-0.80 [facility] Comment on above: Performed By: #### C ANA MARIA #### [facility] [address] [place] [address] Dr. Philip De Leon MONOM% 5.0 % Normal 1.7-12.0 [facility] Comment on above: Performed By: #### C ANA MARIA #### [facility] [address] [place] [address] Dr. Philip De Leon MPV 0.0 fL Critically low 9.5-13.5 [facility] Comment on above: Performed By: #### C ANA MARIA #### [facility] [address] [place] [address] Dr. Philip De Leon MYELOCYTE # 0.3 103/ul Normal [facility] Comment on above: Performed By: #### C ANA MARIA #### [facility] [address] [place] [address] Dr. Philip De Leon MYELOCYTE % 3 % Normal [facility] Comment on above: Performed By: #### C ANA MARIA #### [facility] [address] [place] [address] Dr. Philip De Leon NRBC Normal [facility] Comment on above: Performed By: #### C ANA MARIA #### [facility] [address] [place] [address] Dr. Philip De Leon PLT 196 103/ul Normal 150-450 [facility] Comment on above: Performed By: #### C ANA MARIA #### [facility] [address] [place] [address] Dr. Philip De Leon RBC 2.67 106/ul Critically low 4.20-5.40 [facility] Comment on above: Performed By: #### C ANA MARIA #### [facility] [address] [place] [address] Dr. Philip De Leon RDW 21.7 % Critically high 11.0-15.0 [facility] Comment on above: Performed By: #### C ANA MARIA #### [facility] [address] [place] [address] Dr. Philip De Leon SEG # 5.06 103/ul Normal 1.40-6.50 [facility] Comment on above: Performed By: #### C ANA MARIA #### [facility] [address] [place] [address] Dr. Philip De Leon SEG % 55.0 % Normal 43.0-75.0 [facility] Comment on above: Performed By: #### C DHARMESHBRADLEY #### [facility] [address] [place], [place] [address] Dr. Philip De Leon WBC 9.2 103/ul Normal 4.0-11.0 [facility] Comment on above: Performed By: #### C ANA MARIA #### [facility] [address] [place], [place] [address] CHEST WO [...] PASTOR ARIZMENDI Date: 2022-10-18 10:10 Normal [facility] PROF CHEM 8 (BAS METB)on Anion gap [Moles/Vol] 6.4 mmol/L Normal [facility] Comment on above: Performed By: #### B MP #### [facility] [address] [address] [address] Philip De Leon Calcium [Mass/Vol] 8.2 mg/dL Critically low 8.5-10.1 [facility] Comment on above: Performed By: #### B MP #### [facility] [address] [address] [address] Philip De Leon Chloride [Moles/Vol] 105 mmol/L Normal 98-107 [facility] Comment on above: Performed By: #### B MP #### [facility] [address] [address] [address] Philip De Leon CO2 [Moles/Vol] 33.0 mmol/L Critically high 21.0-32.0 [facility] Comment on above: Performed By: #### B MP #### [facility] [address] [address] [address] Philip De Leon Creatinine [Mass/Vol] 1.24 mg/dL Critically high 0.55-1.02 [facility] Comment on above: Performed By: #### B MP #### [facility] [address] [address] [address] Philip De Leon EGFR-AF IRANIAN 50 mL/min/1.73m2 Critically low >=60 [facility] Comment on above: Performed By: #### B MP #### [facility] [address] [address] [address] Philip De Leon EGFR-NON AF IRANIAN 42 mL/min/1.73m2 Critically low >=60 [facility] Comment on above: Performed By: #### B MP #### [facility] [address] [address] [address] Philip De Leon Glucose [Mass/Vol] 94 mg/dL Normal 74-106 [facility] Comment on above: Performed By: #### B MP #### [facility] [address] [address] [address] Philip De Leon Potassium [Moles/Vol] 4.4 mmol/L Normal 3.5-5.1 [facility] Comment on above: Performed By: #### B MP #### [facility] [address] [place], [place] [address] Dr. Philip De Leon Sodium [Moles/Vol] 140 mmol/L Normal 136-145 [facility] Comment on above: Performed By: #### B MP #### [facility] [address] [place], [place] [address] Dr. Philip De Leon Urea nitrogen [Mass/Vol] 20.0 mg/dL Critically high 7.0-18.0 [facility] Comment on above: Performed By: #### B MP #### [facility] [address] [place], [place] [address] Dr. Philip De Leon Urea nitrogen/Creatinine [Mass ratio] 16.1 mg/mg Normal [facility] Comment on above: Performed By: #### B MP #### [facility] [address] [place], [place] [address] Dr. Philip De Leon XR CHEST 1 [...] KARLA CLEMENTS Date: 2022-10-18 07:19 Normal [facility] XR CHEST 1 V EXAM: XR CHEST [...] MAGDIEL DELEON Date: 2022-10-17 23:51 Normal [facility] CBC W MANUAL DIFFon 10-18-19 23 ATYPICAL LYMPH # Normal [facility] Comment on above: Performed By: #### U MICRO, ERUR #### [facility] [address] [place] [address] Dr. Philip De Leon ATYPICAL LYMPH % Normal [facility] Comment on above: Performed By: #### U MICRO, ERUR #### [facility] [address] [place] [address] Dr. Philip De Leon BAND # 0.0 103/ul Normal 0.0-0.3 [facility] Comment on above: Performed By: #### U MICRO, ERUR #### [facility] [address] [place] [address] Dr. Philip De Leon BAND % 0 % Normal 0-5 [facility] Comment on above: Performed By: #### U MICRO, ERUR #### [facility] [address] [place] [address] Dr. Philip De Leon BASOM # 0.06 103/ul Normal 0.00-0.10 [facility] Comment on above: Performed By: #### U MICRO, ERUR #### [facility] [address] [place] [address] Dr. Philip De Leon BASOM % 1.0 % Normal 0.2-2.0 [facility] Comment on above: Performed By: #### U MICRO, ERUR #### [facility] [address] [place] [address] Dr. Philip De Leon BLAST # Normal [facility] Comment on above: Performed By: #### U MICRO, ERUR #### [facility] [address] [address] [address] Philip De Leon BLAST % Normal [facility] Comment on above: Performed By: #### U MICRO, ERUR #### [facility] [address] [place] [address] Dr. Philip De Leon CORRECTED WBC Normal 4.0-11.0 [facility] Comment on above: Performed By: #### U MICRO, ERUR #### [facility] [address] [address] [address] Philip De Leon EOS # 0.17 103/ul Normal 0.00-0.70 [facility] Comment on above: Performed By: #### U MICRO, ERUR #### [facility] [address] [place] [address] Dr. Philip De Leon EOS% 3.0 % Normal 0.9-7.0 [facility] Comment on above: Performed By: #### U MICRO, ERUR #### [facility] [address] [place] [address] Dr. Philip De Leon HCT 24.6 % Critically low 36.0-48.0 [facility] Comment on above: Performed By: #### U MICRO, ERUR #### [facility] [address] [place] [address] Dr. Philip De Leon HGB 7.6 g/dl Critically low 12.0-16.0 [facility] Comment on above: Performed By: #### U MICRO, ERUR #### [facility] [address] [address] [address] Philip De Leon LYMPHM # 1.22 103/ul Normal 1.20-3.80 [facility] Comment on above: Performed By: #### U MICRO, ERUR #### [facility] [address] [place] [address] Dr. Philip De Leon LYMPHM% 21.0 % Normal 20.5-60.0 [facility] Comment on above: Performed By: #### U MICRO, ERUR #### [facility] [address] [place] [address] Dr. Philip De Leon MCH 30.0 pg Normal 26.7-34.0 [facility] Comment on above: Performed By: #### U MICRO, ERUR #### [facility] [address] [place] [address] Dr. Philip De Leon MCHC 30.9 g/dl Normal 29.9-35.2 [facility] Comment on above: Performed By: #### U MICRO, ERUR #### [facility] [address] [address] [address] Phiilp De Leon MCV 97.2 fL Normal 81.0-99.0 [facility] Comment on above: Performed By: #### U MICRO, ERUR #### [facility] [address] [place] [address] Dr. Philip De Leon METAMYELOCYTE # Normal [facility] Comment on above: Performed By: #### U MICRO, ERUR #### [facility] [address] [place] [address] Dr. Philip De Leon METAMYELOCYTE % Normal [facility] Comment on above: Performed By: #### U MICRO, ERUR #### [facility] [address] [place] [address] Dr. Philip De Leon MONOM# 0.17 103/ul Critically low 0.30-0.80 [facility] Comment on above: Performed By: #### U MICRO, ERUR #### [facility] [address] [place] [address] Dr. Philip De Leon MONOM% 3.0 % Normal 1.7-12.0 [facility] Comment on above: Performed By: #### U MICRO, ERUR #### [facility] [address] [place] [address] Dr. Philip De Leon MPV 0.0 fL Critically low 9.5-13.5 [facility] Comment on above: Performed By: #### U MICRO, ERUR #### [facility] [address] [place] [address] Dr. Philip De Leon MYELOCYTE # Normal [facility] Comment on above: Performed By: #### U MICRO, ERUR #### [facility] [address] [address] [address] Philip De Leon MYELOCYTE % Normal [facility] Comment on above: Performed By: #### U MICRO, ERUR #### [facility] [address] [place] [address] Dr. Philip De Leon NRBC Normal [facility] Comment on above: Performed By: #### U MICRO, ERUR #### [facility] [address] [address] [address] Philip De Leon PLT 191 103/ul Normal 150-450 [facility] Comment on above: Performed By: #### U MICRO, ERUR #### [facility] [address] [place] [address] Dr. Philip De Leon RBC 2.53 106/ul Critically low 4.20-5.40 [facility] Comment on above: Performed By: #### U MICRO, ERUR #### [facility] [address] [place] [address] Dr. Philip De Leon RDW 21.9 % Critically high 11.0-15.0 [facility] Comment on above: Performed By: #### U MICRO, ERUR #### [facility] [address] [place] [address] Dr. Philip De Leon SEG # 4.18 103/ul Normal 1.40-6.50 [facility] Comment on above: Performed By: #### U MICRO, ERUR #### [facility] [address] [place] [address] Dr. Philip De Leon SEG % 72.0 % Normal 43.0-75.0 [facility] Comment on above: Performed By: #### U MICRO, ERUR #### [facility] [address] [place] [address] Dr. Philip De Leon WBC 5.8 103/ul Normal 4.0-11.0 [facility] Comment on above: Performed By: #### U MICRO, ERUR #### [facility] [address] [place] [address] Dr. Philip De Leon CYTOLOGYon 10-17-2022 SENT TO REF LAB 10/17/2022 Normal [facility] Comment on above: Performed By: #### C YTO #### [facility] [address] [place] [address] Dr. Philip De Leon ECHOCARDIO M/2D COMPLETEon 0 10-17-2022 ECHOCARDIO M/2D COMPLETE Patient: CHRISTA PITTS Exam Date: 10/17/2022 : 1940 Gender:F Ordering : DR SAMAN MARTÍNEZ . Admission #: [id number] Family : Order #: [id number] CLICK HERE TO VIEW EXAM ECHOCARDIOGRAM REPORT [...] Tl Cobb M.D. on 10/18/2022 at 11:37 [place] [facility] PROF CHEM 8 (BAS METB)on Anion gap [Moles/Vol] 7.8 mmol/L Normal [facility] Comment on above: Performed By: #### U MICRO, ERUR #### [facility] [address] [address] [address] Philip De Leon Calcium [Mass/Vol] 8.3 mg/dL Critically low 8.5-10.1 [facility] Comment on above: Performed By: #### U MICRO, ERUR #### [facility] [address] [address] [address] Philip De Leon Chloride [Moles/Vol] 108 mmol/L Critically high 98-107 [facility] Comment on above: Performed By: #### U MICRO, ERUR #### [facility] [address] [place] [address] Dr. Philip De Leon CO2 [Moles/Vol] 30.2 mmol/L Normal 21.0-32.0 [facility] Comment on above: Performed By: #### U MICRO, ERUR #### [facility] [address] [address] [address] Philip De Leon Creatinine [Mass/Vol] 1.13 mg/dL Critically high 0.55-1.02 [facility] Comment on above: Performed By: #### U MICRO, ERUR #### [facility] [address] [address] [address] Philip De Leon EGFR-AF IRANIAN 56 mL/min/1.73m2 Critically low >=60 [facility] Comment on above: Performed By: #### U MICRO, ERUR #### [facility] [address] [address] [address] Philip De Leon EGFR-NON AF IRANIAN 46 mL/min/1.73m2 Critically low >=60 [facility] Comment on above: Performed By: #### U MICRO, ERUR #### [facility] [address] [address] [address] Philip De Leon Glucose [Mass/Vol] 87 mg/dL Normal 74-106 [facility] Comment on above: Performed By: #### U MICRO, ERUR #### [facility] [address] [address] [address] Philip De Leon Potassium [Moles/Vol] 5.0 mmol/L Normal 3.5-5.1 [facility] Comment on above: Performed By: #### U MICRO, ERUR #### [facility] [address] [address] [address] Philip De Leon Sodium [Moles/Vol] 141 mmol/L Normal 136-145 [facility] Comment on above: Performed By: #### U MICRO, ERUR #### [facility] [address] [address] [address] Philip De Leon Urea nitrogen [Mass/Vol] 16.0 mg/dL Normal 7.0-18.0 [facility] Comment on above: Performed By: #### U MICRO, ERUR #### [facility] [address] [place] [address] Dr. Philip De Leon Urea nitrogen/Creatinine [Mass ratio] 14.2 mg/mg Normal [facility] Comment on above: Performed By: #### U MICRO, ERUR #### [facility] [address] [place] [address] Dr. Philip De Leon XR CHEST 1 [...] by: MOISES BASILIO Date: 2022-10-17 13:32 Normal [facility] XR CHEST 2 Von 10-17-2022 XR [...] by: KARLA CLEMENTS Date: 2022-10-17 06:58 Normal [facility] BNPon 10-16-2022 Natriuretic peptide B (Bld) [Mass/Vol] 1965.0 pg/mL Critically high <=1,800.0 [facility] Comment on above: Performed By: #### U MICRO, ERUR #### [facility] [address] [place] [address] Dr. Philip De Leon CARDIAC IRON ADMITon 023 CK [Catalytic activity/Vol] 47 U/L Normal 26-192 [facility] Comment on above: Performed By: #### U MICRO, ERUR #### [facility] [address] [address] [address] Philip De Leon CK.MB [Mass/Vol] 0.82 ng/mL Normal <=3.60 [facility] Comment on above: Performed By: #### U MICRO, ERUR #### [facility] [address] [address] [address] Philip De Leon HSTROP 9.4 pg/mL Normal 4.0-51.3 [facility] Comment on above: Result Comment: CUT- OFF POINTS HAVE BEEN ESTABLISHED BASED ON THE FOURTH UNIVERSAL DEFINITIONS OF MYOCARDIAL INFARCTION. THE UPPER REFERENCE LIMIT (URL) OF TROPONIN, DEFINED THE 99TH PERCENTILE OF cTnI DISTRIBUTION IN A REFERENCE POPULATION, HAS BEEN CONFIRMED THE DECISION THRESHOLD FOR MA DIAGNOSIS. Performed By: #### U MICRO, ERUR #### [facility] [address] [address] [address] Philip De Leon BELKIS 55 ng/mL Normal 9-82 [facility] Comment on above: Performed By: #### U MICRO, ERUR #### [facility] [address] [address] [address] Philip De Leon CBC AUTO DIFFon 10-16-2022 BASO # 0.2 103/ul Critically high 0.0-0.1 [facility] Comment on above: Performed By: #### C BC #### [facility] [address] [address] [address] Philip De Leon Basophils/100 WBC (Bld) 2.0 % Normal 0.2-2.0 [facility] Comment on above: Performed By: #### C BC #### [facility] [address] [address] [address] Philip De Leon EO # 0.4 103/ul Normal 0.0-0.7 [facility] Comment on above: Performed By: #### C BC #### [facility] [address] [place] [address] Dr. Philip De Leon Eosinophils/100 WBC (Bld) 3.9 % Normal 0.9-7.0 [facility] Comment on above: Performed By: #### C BC #### [facility] [address] [place] [address] Dr. Philpi De Leon Erythrocyte distribution width (RBC) [Ratio] 21.9 % Critically high 11.0-15.0 [facility] Comment on above: Performed By: #### C BC #### [facility] [address] [place] [address] Dr. Philip De Leon Hematocrit (Bld) [Volume fraction] 30.7 % Critically low 36.0-48.0 [facility] Comment on above: Performed By: #### C BC #### [facility] [address] [address] [address] Philip De Leon Hemoglobin (Bld) [Mass/Vol] 9.6 g/dL Critically low 12.0-16.0 [facility] Comment on above: Performed By: #### C BC #### [facility] [address] [address] [address] Philip De Leon IG # 0.14 10e3/ul Critically high 0.00-0.03 [facility] Comment on above: Performed By: #### C BC #### [facility] [address] [place] [address] Dr. Philip De Leon IG % 1.4 % Critically high 0.0-0.5 [facility] Comment on above: Performed By: #### C BC #### [facility] [address] [place] [address] Dr. Philip De Leon LYMPH # 1.2 103/ul Normal 1.2-3.8 [facility] Comment on above: Performed By: #### C BC #### [facility] [address] [place] [address] Dr. Philip De Leon Lymphocytes/100 WBC (Bld) 11.9 % Critically low 20.5-60.0 [facility] Comment on above: Performed By: #### C BC #### [facility] [address] [place] [address] Dr. Philip De Leon MANUAL DIFF REQ NO Normal [facility] Comment on above: Performed By: #### C BC #### [facility] [address] [place] [address] Dr. Philip De Leon MCH (RBC) [Entitic mass] 30.3 pg Normal 26.7-34.0 [facility] Comment on above: Performed By: #### C BC #### [facility] [address] [place] [address] Dr. Philip De Leon MCHC (RBC) [Mass/Vol] 31.3 g/dL Normal 29.9-35.2 [facility] Comment on above: Performed By: #### C BC #### [facility] [address] [place] [address] Dr. Philip De Leon MCV (RBC) [Entitic vol] 96.8 fL Normal 81.0-99.0 [facility] Comment on above: Performed By: #### C BC #### [facility] [address] [place] [address] Dr. Philip De Leon MONO # 0.6 103/ul Normal 0.3-0.8 [facility] Comment on above: Performed By: #### C BC #### [facility] [address] [address] [address] Philip De Leon Monocytes/100 WBC (Bld) 6.2 % Normal 1.7-12.0 [facility] Comment on above: Performed By: #### C BC #### [facility] [address] [address] [address] Philip De Leon NEUT # 7.3 103/ul Critically high 1.4-6.5 [facility] Comment on above: Performed By: #### C BC #### [facility] [address] [place] [address] Dr. Philip De Leon Neutrophils/100 WBC (Bld) 74.6 % Normal 43.0-75.0 [facility] Comment on above: Performed By: #### C BC #### [facility] [address] [place] [address] Dr. Philip De Leon PLT 247 103/ul Normal 150-450 [facility] Comment on above: Performed By: #### C BC #### [facility] [address] [place] [address] Dr. Philip De Leon RBC 3.17 106/ul Critically low 4.20-5.40 [facility] Comment on above: Performed By: #### C BC #### [facility] [address] [place] [address] Dr. Philip De Leon WBC 9.7 103/ul Normal 4.0-11.0 [facility] Comment on above: Performed By: #### C BC #### [facility] [address] [place] [address] Dr. Philip De Leon CTA CHEST WO [...] atelectatic collapse of the right middle lobe. [id number] left pleural effusion with left basilar atelectasis/consolidat [...] AYAZ KRUGER Date: 2022-10-16 10:58 Normal [facility] CULTURE BLOODon 10-16-2022 Microscopic examination of blood, culture Culture Observations: NO GROWTH AT 5 DAYS. Normal [facility] Comment on above: Performed By: #### U MICRO, ERUR #### [facility] [address] [address] [address] Philip De Leon Microscopic examination of blood, culture Culture Observations: NO GROWTH AT 5 DAYS. Normal [facility] Comment on above: Performed By: #### U MICRO, ERUR #### [facility] [address] [place], [place] [address] Dr. Philip De Leon Covid-19 PCR ([facility])on 10-05 SARS-CoV-2 (COVID-19) RNA MARILU+probe Ql (Unsp spec) Not detected Normal NOT DETECTED [facility] Comment on above: Result Comment: When diagnostic [...] for this test is supported by the [place] of [employer] and Human Service's declaration that [...] Performed By: #### U MICRO, ERUR #### [facility] [address] [place] [address] Dr. Philip De Leon ER URINE PROFILEon 3 Bilirubin Ql (U) Negative Normal NEGATIVE [facility] Comment on above: Performed By: #### U MICRO, ERUR #### [facility] [address] [place] [address] Dr. Philip De Leon Clarity (U) CLEAR Normal CLEAR [facility] Comment on above: Performed By: #### U MICRO, ERUR #### [facility] [address] [place] [address] Dr. Philip De Leon Color (U) LT. YELLOW Normal YELLOW [facility] Comment on above: Performed By: #### U MICRO, ERUR #### [facility] [address] [place] [address] Dr. Philip De Leon ERUAHD A micrscopic examination will be performed if indicated. Normal [facility] Comment on above: Performed By: #### U MICRO, ERUR #### [facility] [address] [place] [address] Dr. Philip De Leon Glucose Ql (U) Negative Normal NEGATIVE [facility] Comment on above: Performed By: #### U MICRO, ERUR #### [facility] [address] [place] [address] Dr. Philip De Leon Hemoglobin Ql (U) SMALL Abnormal NEGATIVE [facility] Comment on above: Performed By: #### U MICRO, ERUR #### [facility] [address] [address] [address] Philip De Leon Ketones Ql (U) Negative Normal NEGATIVE [facility] Comment on above: Performed By: #### U MICRO, ERUR #### [facility] [address] [place] [address] Dr. Philip De Leon LEUKOCYTES Negative Normal NEGATIVE [facility] Comment on above: Performed By: #### U MICRO, ERUR #### [facility] [address] [address] [address] Philip De Leon Nitrite Ql (U) Negative Normal NEGATIVE [facility] Comment on above: Performed By: #### U MICRO, ERUR #### [facility] [address] [place] [address] Dr. Philip De Leon pH (U) 6.0 [pH] Normal 5-9 [facility] Comment on above: Performed By: #### U MICRO, ERUR #### [facility] [address] [place] [address] Dr. Philip De Leon Protein (U) [Mass/Vol] 30 mg/dL Abnormal NEGATIVE/ TRACE [facility] Comment on above: Performed By: #### U MICRO, ERUR #### [facility] [address] [place] [address] Dr. Philip De Leon SPEC GRAVITY 1.010 Normal 1.005-<=1.025 [facility] Comment on above: Performed By: #### U MICRO, ERUR #### [facility] [address] [address] [address] Philip De Leon UR MICRO IND INDICATED Normal [facility] Comment on above: Performed By: #### U MICRO, ERUR #### [facility] [address] [place] [address] Dr. Philip De Leon Urobilinogen Qn (U) 0.2 {Graham'U}/dL Normal 0.2 - 1. 0 [facility] Comment on above: Performed By: #### U MICRO, ERUR #### [facility] [address] [address] [address] Philip D eLeon LACTATE/LACTIC ACIDon 2022 Lactate [Moles/Vol] 1.0 mmol/L Normal 0.4-2.0 [facility] Comment on above: Performed By: #### L ACT #### [facility] [address] [address] [address] Philip De Leon PROF 14(COMP METB)on 023 Albumin [Mass/Vol] 3.6 g/dL Normal 3.4-5.0 [facility] Comment on above: Performed By: #### U MICRO, ERUR #### [facility] [address] [address] [address] Philip De Leon Albumin/Globulin [Mass ratio] 0.9 {ratio} Normal [facility] Comment on above: Performed By: #### U MICRO, ERUR #### [facility] [address] [place] [address] Dr. Philip De Leon ALP [Catalytic activity/Vol] 69 U/L Normal 46-116 [facility] Comment on above: Performed By: #### U MICRO, ERUR #### [facility] [address] [address] [address] Philip De Leon ALT [Catalytic activity/Vol] 15 U/L Normal 14-59 [facility] Comment on above: Performed By: #### U MICRO, ERUR #### [facility] [address] [address] [address] Philip De Leon Anion gap [Moles/Vol] 11.4 mmol/L Normal [facility] Comment on above: Performed By: #### U MICRO, ERUR #### [facility] [address] [address] [address] Philip De Leon AST [Catalytic activity/Vol] 17 U/L Normal 15-37 [facility] Comment on above: Performed By: #### U MICRO, ERUR #### [facility] [address] [place] [address] Dr. Philip De Leon Bilirubin [Mass/Vol] 0.5 mg/dL Normal 0.2-1.0 [facility] Comment on above: Performed By: #### U MICRO, ERUR #### [facility] [address] [address] [address] Philip eD Leon Calcium [Mass/Vol] 9.1 mg/dL Normal 8.5-10.1 [facility] Comment on above: Performed By: #### U MICRO, ERUR #### [facility] [address] [address] [address] Philip De Leon Chloride [Moles/Vol] 107 mmol/L Normal 98-107 [facility] Comment on above: Performed By: #### U MICRO, ERUR #### [facility] [address] [address] [address] Philip De Leon CO2 [Moles/Vol] 28.6 mmol/L Normal 21.0-32.0 [facility] Comment on above: Performed By: #### U MICRO, ERUR #### [facility] [address] [address] [address] Philip De Leon Creatinine [Mass/Vol] 1.05 mg/dL Critically high 0.55-1.02 [facility] Comment on above: Performed By: #### U MICRO, ERUR #### [facility] [address] [address] [address] Philip De Leon EGFR-AF IRANIAN >60 Normal >=60 [facility] Comment on above: Performed By: #### U MICRO, ERUR #### [facility] [address] [address] [address] Philip De Leon EGFR-NON AF IRANIAN 50 mL/min/1.73m2 Critically low >=60 [facility] Comment on above: Performed By: #### U MICRO, ERUR #### [facility] [address] [address] [address] Philip De Leon Globulin (S) [Mass/Vol] 3.8 g/dL Normal [facility] Comment on above: Performed By: #### U MICRO, ERUR #### [facility] [address] [address] [address] Philip De Leon Glucose [Mass/Vol] 120 mg/dL Critically high 74-106 [facility] Comment on above: Performed By: #### U MICRO, ERUR #### [facility] [address] [address] [address] Philip De Leon Potassium [Moles/Vol] 5.0 mmol/L Normal 3.5-5.1 [facility] Comment on above: Performed By: #### U MICRO, ERUR #### [facility] [address] [address] [address] Philip De Leon Protein [Mass/Vol] 7.4 g/dL Normal 6.4-8.2 [facility] Comment on above: Performed By: #### U MICRO, ERUR #### [facility] [address] [place] [address] Dr. Philip De Leon Sodium [Moles/Vol] 142 mmol/L Normal 136-145 [facility] Comment on above: Performed By: #### U MICRO, ERUR #### [facility] [address] [place] [address] Dr. Philip De Leon Urea nitrogen [Mass/Vol] 18.0 mg/dL Normal 7.0-18.0 [facility] Comment on above: Performed By: #### U MICRO, ERUR #### [facility] [address] [place] [address] Dr. Philip De Leon Urea nitrogen/Creatinine [Mass ratio] 17.1 mg/mg Normal [facility] Comment on above: Performed By: #### U MICRO, ERUR #### [facility] [address] [place] [address] Dr. Philip De Leon PROTIMEon 10-16-2022 INR Coag (PPP) [Relative time] 1.00 {INR} Normal [facility] Comment on above: Performed By: #### P T, PTT #### [facility] [address] [place] [address] Dr. Philip De Leon INR GUIDELINES SEE BELOW Normal [facility] Comment on above: Result Comment: KADEN RED INR: 2.0 - 3.0 CONDITIONS NOT LISTED BELOW 2.5 - 3.5 FOR PROSTHETIC HEART VALVE REPLACEMENT 2.5 - 3.5 RECURRENT THROMBOSIS Performed By: #### P T, PTT #### [facility] [address] [place] [address] Dr. Philip De Leon PT Coag (PPP) [Time] 10.6 s Normal 9.0-11.6 [facility] Comment on above: Performed By: #### P T, PTT #### [facility] [address] [place] [address] Dr. Philip De Leon PTTon 10-16-2022 aPTT Coag (Bld) [Time] 27.9 s Normal 22.3-36.2 [facility] Comment on above: Performed By: #### P T, PTT #### [facility] [address] [place] [address] Dr. Philip De Leon URINE MICROSCOPIC ONLYon BACTERIA NONE SEEN Normal NONE SEEN [facility] Comment on above: Performed By: #### U MICRO, ERUR #### [facility] [address] [place] [address] Dr. Philip De Leon Bacteria identified Cx Nom (U) NOT INDICATED Normal [facility] [facility] Comment on above: Performed By: #### U MICRO, ERUR #### [facility] [address] [place] [address] Dr. Philip De Leon CAST NONE SEEN Normal NONE SEEN [facility] Comment on above: Performed By: #### U MICRO, ERUR #### [facility] [address] [place] [address] Dr. Philip De Leon Crystals LM Nom (Urine sed) NONE SEEN Normal NONE SEEN [facility] Comment on above: Performed By: #### U MICRO, ERUR #### [facility] [address] [place] [address] Dr. Philip De Leon Epithelial cells LM Ql (Urine sed) FEW Abnormal NONE SEEN /RARE [facility] Comment on above: Performed By: #### U MICRO, ERUR #### [facility] [address] [place] [address] Dr. Philip De Leon MUCOUS NONE SEEN Normal NONE SEEN [facility] Comment on above: Performed By: #### U MICRO, ERUR #### [facility] [address] [place] [address] Dr. Philip De Leon RBC 0-2 Normal 0-2 [facility] Comment on above: Performed By: #### U MICRO, ERUR #### [facility] [address] [address] [address] Philip De Leon WBC NONE SEEN Normal NONE SEEN [facility] Comment on above: Performed By: #### U MICRO, ERUR #### [facility] [address] [address] [address] Philip De Leon XR CHEST 1 [...] by: MOISES BASILIO Date: 2022-10-16 09:35 Normal [facility] Vital Signs Date Time Vital Sign Value Performing Clinician Facility 09-19-2023 11:08-0500 Diastolic blood pressure 49 mm[Hg] DO Bryant Ball Work Phone: [facility] 09-19-2023 11:08-0500 Heart rate 51 /min DO Bryant Ball Work Phone: [facility] 09-19-2023 11:08-0500 Respiratory rate 16 /min DO Bryant Ball Work Phone: [facility] 09-19-2023 11:08-0500 SaO2% (BldA) [Mass fraction] 97 % DO Bryant Ball Work Phone: [facility] 09-19-2023 11:08-0500 Systolic blood pressure 116 mm[Hg] DO Bryant Ball Work Phone: [facility] 09-19-2023 08:27-0500 Body height 165.1 cm DO Bryant Ball Work Phone: [facility] 09-19-2023 08:27-0500 Body weight 74.84 kg DO Bryant Ball Work Phone: [facility] 08-03-2023 11:30-0500 Body height Bryant Ball Other [facility] [employer] Other 08-03-2023 11:30-0500 Body height 165.1 cm DO Bryant Ball Work Phone: [facility] 08-03-2023 11:30-0500 Body mass index (BMI) [Ratio] 27.39 kg/m2 Bryant Ball Other [facility] [employer] Other 08-03-2023 11:30-0500 Body weight 74.66 kg Bryant Ball Other [facility] 08-03-2023 11:30-0500 Diastolic blood pressure 60 mm[Hg] Bryant Ball Other [facility] 08-03-2023 11:30-0500 Respiratory rate 12 /min Bryant Ball Other [facility] [employer] Other 08-03-2023 11:30-0500 Systolic blood pressure 143 mm[Hg] Bryant Ball Other [facility] 06-16-2023 14:00-0500 Body height Bryant Ball Other [facility] [employer] Other 06-16-2023 14:00-0500 Body mass index (BMI) [Ratio] 28.75 kg/m2 Bryant Ball Other [employer] Other 06-16-2023 14:00-0500 Body weight 78.38 kg Bryant Ball Other [facility] [employer] Other 06-16-2023 14:00-0500 Diastolic blood pressure 71 mm[Hg] Bryant Ball Other [employer] Other 06-16-2023 14:00-0500 Respiratory rate 12 /min Bryant Ball Other [employer] Other 06-16-2023 14:00-0500 Systolic blood pressure 163 mm[Hg] Bryant Ball Other [employer] Other 12-30-2022 13:45-0400 Body height Bryant Ball Other [employer] Other 12-30-2022 13:45-0400 Body mass index (BMI) [Ratio] 28.55 kg/m2 Bryant Ball Other [employer] Other 12-30-2022 13:45-0400 Body weight 77.84 kg Bryant Ball Other [employer] Other 12-30-2022 13:45-0400 Diastolic blood pressure 60 mm[Hg] Bryant Ball Other [employer] Other 12-30-2022 13:45-0400 Respiratory rate 12 /min Bryant Ball Other [employer] Other 12-30-2022 13:45-0400 Systolic blood pressure 190 mm[Hg] Bryant Ball Other [employer] Other 05-04-2021 14:45-0400 Body height Robb Olexa Other [employer] Other 05-04-2021 14:45-0400 Body mass index (BMI) [Ratio] 33.28 kg/m2 Robb Olexa Other [employer] Other 05-04-2021 14:45-0400 Body weight 90.72 kg Robb Hernandezxa Other [employer] Other Encounters Encounter Date Encounter Type Care Provider Facility Start: 10-30-2023 End: 10-30-2023 ambulatory Bryant Ball Facility:[facility] Start: 10-30-2023 End: 10-30-2023 ambulatory DO Bryant Ball Work Phone: [facility] Work Phone: Start: 10-30-2023 End: 10-30-2023 Patient encounter procedure DO Bryant Ball Work Phone: [facility] Work Phone: Start: 10-06-2023 End: 10-06-2023 Patient encounter procedure DO Bryant Ball Work Phone: [facility] Work Phone: Start: 10-02-2023 Non-patient / Non-visit DO Marck mary Ball Work Phone: [facility] [employer] Work Phone: Start: 09-19-2023 End: 09-19-2023 ambulatory Bryant Ball Facility:[facility] Start: 09-19-2023 Non-patient / Non-visit DO Marck mary Ball Work Phone: [facility] Gastroenterology Work Phone: Start: 09-19-2023 End: 09-19-2023 Admission to same day surgery center DO Bryant Ball Work Phone: [facility] Work Phone: Start: 09-19-2023 End: 09-19-2023 ambulatory DO Bryant Ball Work Phone: [facility] Work Phone: Start: 09-15-2023 End: 09-15-2023 ambulatory Bryant Ball Other [employer] Other Start: 09-15-2023 Telephone encounter Bryant Dallas [facility] Start: 08-11-2023 End: 08-11-2023 ambulatory Imad Asaad Other [employer] Other Start: 08-11-2023 Telephone encounter Imad Asaad [facility] Start: 08-09-2023 End: 08-09-2023 ambulatory Bryant Dallas Other [employer] Other Start: 08-09-2023 Telephone encounter Bryant Dallas [facility] Start: 08-08-2023 Patient encounter procedure DO Bryant Dallas Work Phone: [facility]- Start: 08-03-2023 End: 08-03-2023 ambulatory Bryant Dallas Other [employer] Other Start: 08-03-2023 Transitional care manage srvc 14 day discharge Bryant Dallas [facility] Start: 08-03-2023 End: 08-03-2023 Patient encounter procedure DO Bryant Burt Work Phone: [facility] Work Phone: Start: 07-27-2023 End: 07-27-2023 ambulatory Bryant aDllas Other [employer] Other Start: 07-27-2023 Telephone encounter Bryant Dallas [facility] Start: 06-23-2023 End: 06-23-2023 ambulatory Bryant Dallas Other [employer] Other Start: 06-23-2023 Telephone encounter Bryant Dallas [facility] Start: 06-16-2023 End: 06-16-2023 ambulatory Bryant Dallas Other [employer] Other Start: 06-16-2023 Patient encounter procedure Bryant Dallas [facility] Start: 05-17-2023 End: 05-17-2023 ambulatory Bryant Dallas Other [employer] Other Start: 05-17-2023 Nursing evaluation o f patient and report Bryant Dallas [facility] Start: 04-11-2023 End: 04-11-2023 ambulatory Bryant Dallas Other [employer] Other Start: 04-11-2023 Nursing evaluation o f patient and report Bryant Dallas [facility] Start: 03-06-2023 End: 03-06-2023 ambulatory Bryant Dallas Other [employer] Other Start: 03-06-2023 Nursing evaluation o f patient and report Bryant Dallas [facility] Start: 02-20-2023 End: 02-20-2023 ambulatory Bryant Dallas Other [employer] Other Start: 02-20-2023 Nursing evaluation o f patient and report Bryant Dallas [facility] Start: 02-13-2023 End: 02-13-2023 ambulatory Bryant Dallas Other [employer] Other Start: 02-13-2023 Nursing evaluation o f patient and report Bryant Dallas [facility] Start: 02-10-2023 End: 02-10-2023 ambulatory Bryant Dallas Other [employer] Other Start: 02-10-2023 Telephone encounter Bryant ALBA [facility] Start: 02-03-2023 End: 02-03-2023 ambulatory Bryant Dallas Other [employer] Other Start: 02-03-2023 Telephone encounter Bryant ALBA [facility] Start: 12-30-2022 End: 12-30-2022 ambulatory Bryant Dallas Other [employer] Other Start: 12-30-2022 Transitional care manage srvc 7 day discharge Bryant Dallas [facility] Start: 11-24-2022 End: 11-24-2022 ambulatory Bryant Dallas Other [employer] Other Start: 11-24-2022 Telephone encounter [facility] Start: 11-08-2022 End: 11-08-2022 ambulatory BRYANT DALLAS [facility] [email or web address] Other Start: 11-08-2022 Telephone encounter [facility] Start: 11-07-2022 End: 11-07-2022 ambulatory Robb Flower Other [employer] Other Start: 11-07-2022 Telephone encounter Robb Flower [facility] Start: 10-25-2022 End: 10-25-2022 ambulatory Robb Olexa Other [employer] Other Start: 10-25-2022 Telephone encounter Robb Flower [facility] Start: 10-21-2022 End: 10-21-2022 ambulatory Robb Olexa Other [employer] Other Start: 10-21-2022 Telephone encounter Robb Flower [facility] Start: 10-16-2022 End: 10-19-2022 Evaluation and management of inpatient BLAINE BRAVO . Facility: Start: 05-23-2022 Adult health examination Bryant Dallas Other [employer] Other Start: 05-04-2021 Office outpatient ne w [...] Date Care Activity Detail Author Start: 10-30-2023 [facility] Start: 09-19-2023 [facility] Patient Education Hemorrhoids (D C) Diverticulosis (DC) Hiatal Hernia (DC) Colon Polypectomy (DC) Saavedra's Esophagus (DC) [facility] Work Phone: Immunizations Immunization Date Immunization Notes Care Provider Lima kingston 05-17-2023 influenza, high dose seasonal, preservative-free Bryant Dallas Other [facility] [employer] Other 05-17-2023 influenza virus vaccine, unspecified formulation DO Bryant Dallas Work Phone: [facility] 05-02-2022 influenza virus vaccine, split virus (incl. purified surface antigen) Bryant Dallas Other [facility] [employer] Other 05-02-2022 influenza virus vaccine, unspecified formulation DO Bryant Dallas Work Phone: [facility] 05-20-2021 influenza virus vaccine, split virus (incl. purified surface antigen) Bryant Dallas Other [facility] [employer] Other 05-20-2021 influenza virus vaccine, unspecified formulation DO Bryant Dallas Work Phone: [facility] 05-18-2020 influenza virus vaccine, split virus (incl. purified surface antigen) Bryant Dallas Other [facility] [employer] Other 05-18-2020 influenza virus vaccine, unspecified formulation DO Bryant Dallas Work Phone: [facility] 05-16-2019 influenza virus vaccine, split virus (incl. purified surface antigen) Bryant Dallas Other [facility] [employer] Other 05-16-2019 influenza virus vaccine, unspecified formulation DO Bryant Dallas Work Phone: [facility] 05-14-2018 influenza virus vaccine, split virus (incl. purified surface antigen) Bryant Dallas Other [facility] [employer] Other 05-14-2018 influenza virus vaccine, unspecified formulation DO Bryant Dallas Work Phone: [facility] 05-11-2017 influenza virus vaccine, split virus (incl. purified surface antigen) Bryant Dallas Other [employer] Other 05-11-2017 influenza virus vaccine, unspecified formulation DO Bryant [email or web address] Work Phone: [facility] 06-16-2015 pneumococcal conjuga te vaccine, 13 valent Bryant Dallas Other [facility] 12-24-2013 pneumococcal Conjuga te, unspecified formulation; Translations: [Need for prophylactic vaccination against Streptococcus pneumoniae (pneumococcus)] Bryant Dallas Other [employer] Other 12-24-2013 pneumococcal polysaccharide vaccine, 23 valent Bryant Dallas Other [facility] 06-19-2013 tetanus and diphther ia toxoids, adsorbed, preservative free, for adult use (5 Lf of tetanus toxoid and 2 Lf of diphtheria toxoid) Bryant Dallas Other [facility] Payers Date Payer Category Payer Medicare [id number] 2.1 [id number] 1958 Self-pay 1958 Unknown [id number] 1940 Unknown [id number] 1940 Unknown [id number] Medicare Medicare Outpatient [id number] Unknown [id number] Unknown [id number] [id number] Social History Date Type Detail Facility Sex Assigned At [employer] Other Start: 09-19-2023 End: 09-19-2023 Tobacco smoking status NHIS Never smoked tobacco (finding) [facility] Start: 1940 Sex Assigned At Female F [facility] Goals Date Patient Goal Desired Activity /State Clinical Notes 05-04-2021 to 09-19-2023 Note Date & Type Note Facility 09-19-2023 History and physical note Note Date/Time September 19, 2023 9:54am [facility] [address] [place] [address] Gastroenterology H&P Signed Patient: Christa Pitts MR#: [id number] : 1940 Acct:[id number] Age/Sex: 83 / F Adm Date: 4 Loc: Room: Type: [facility] Attending Dr: Bernice Gutierres MD Copies [...] <Electronically signed by Bernice Gutierres MD> 09/19/23953 [facility] Work Phone: 1(571) 324-284202-13-2024 [facility]* Encounter Date Diagnosis Assessment Notes Treatment Notes Treatment Clinical Notes Sep, Anemia (ICD-10 - D64.9) [employer] Other 12-28-2023 Evaluation note* Encounter Date Diagnosis [...] (ICD-10 - E53.8) Continue supplement, check level [employer] Other 11-10-2023 Evaluation note* Encounter Date Diagnosis [...] or drinking prior to bedtime. Weight loss. [employer] Other 10-11-2023 Evaluation note* Encounter Date Diagnosis Assessment Notes Treatment Notes Treatment Clinical Notes May, Pernicious anemia (ICD-10 - D51.0) [employer] Other 09-05-2023 Evaluation note* Encounter Date Diagnosis Assessment Notes Treatment Notes Treatment Clinical Notes Apr, Pernicious anemia (ICD-10 - D51.0) [employer] Other 07-31-2023 Evaluation note* Encounter Date Diagnosis Assessment Notes Treatment Notes Treatment Clinical Notes Feb, Pernicious anemia (ICD-10 - D51.0) [employer] Other 07-17-2023 Evaluation note* Encounter Date Diagnosis Assessment Notes Treatment Notes Treatment Clinical Notes Feb, Pernicious anemia (ICD-10 - D51.0) [employer] Other 07-10-2023 Evaluation note* Encounter Date Diagnosis Assessment Notes Treatment Notes Treatment Clinical Notes Feb, Pernicious anemia (ICD-10 - D51.0) [employer] Other 07-07-2023 Evaluation note* Encounter Date Diagnosis Assessment Notes Treatment Notes Treatment Clinical Notes Feb, 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 No hypoxemia, chest pain or dyspnea [employer] Other 04-20-2023 Evaluation note* Encounter Date Diagnosis Assessment Notes Treatment Notes Treatment Clinical Notes Nov, Acute on chronic diastolic heart failure (ICD-10 - I50.33) [employer] Other 04-04-2023 Evaluation note* Encounter Date Diagnosis Assessment Notes Treatment Notes Treatment Clinical Notes Nov, Ground glass opacity present on imaging of lung (ICD-10 - R91.8) CT chest 10/2022 [employer] Other 04-03-2023 Evaluation note* Encounter Date Diagnosis Assessment Notes Treatment Notes Treatment Clinical Notes Nov, Ground glass opacity present on imaging of lung (ICD-10 - R91.8) Nov, Pleural effusion (ICD-10 - J90) [employer] Other 09-28-2021 Evaluation note* Encounter Date Diagnosis Assessment Notes Treatment Notes Treatment Clinical Notes Apr, Mass of right wrist (ICD-10 - R22.31) Dicussed treatments options of the ganglion cyst, Patient is going to leave as is and will call when she is ready to have removed. Apr, Ganglion cyst of volar aspect of right wrist (ICD-10 - M67.431) [employer] Other Evaluation noteNo [employer] Other Evaluation noteNo assessment information available [facility] Work Phone: History general Narrative - Reported* Type Description Date Medical History high blood pressure Medical History acid reflux Surgical History hysterectomy 1973 Surgical History tonsillectomy Hospitalization History see above Hospitalization History high blood pressure [employer] Other History general Narrative - Reported* Type [...] see above Hospitalization History high blood pressure [employer] Other History general Narrative - Reported* Type [...] see above Hospitalization History high blood pressure [employer] Other History general Narrative - Reported* Type [...] see above Hospitalization History high blood pressure [employer] Other Summary Purpose Family History No Family [...] Loss of weight (R63. 4) Referral Organization [facility] dann[facility] Referring Provider First Name Bryant Referring Provider Last Name Burt Referring Provider Specialty Internal Me dicine Referred Organization [facility] Referred Address [address] [place], [place],[address] Referred Provider Specialty Gastroentero logy Referral Priority [...] InformationREFILLTBH - DIZZINESS, VERTIGONo InformationEKG resultsTestingLab/Testing ResultsB-12 [id number] ShotB-12 ShotB-12 ShotB-12 ShotWellnessLab resultsTCMTBHCT resultsMAIL PPWrepeat labs INFORMATION SOURCE (unrecogn ized section and content) DATE CREATED AUTHOR 11/11/2022 The Debbie palacios DATE CREATED AUTHOR 'S ORGANIZ ATION 12/24/2023 [facility] Care Teams (unrecognized sec tion [...] BE BASED ON THE PRIMARY CLINICAL RECORDS. [facility] [employer] provides no warranty or guarantee of the accuracy or completeness of information in this document.
--- NOTE | 2024-06-28 13:13 | CT_ITS ---
[address] [address] Patient Name: CHRISTA PITTS MRN: [id number] date: 1940 Sex: F Assigned Patient Location: CT Current Patient Location: LAB Accession/Order Number: [id number] Exam Date: 06/28/2024 13:55 Report Date: 06/29/2024 08:06 At the request of: BLAINE BRAVO Procedure: CT chest w con EXAMINATION: CT chest w con HISTORY: pleural effusion, ground glass opacity R91.6 COMPARISON: CT chest 11/24/2023 TECHNIQUE: Multi-planar CT images were obtained without and/or with IV contrast as indicated by examination type. Axial, Coronal, and Sagittal images. Dose reduction techniques were achieved by using automated exposure control and/or adjustment of mA and/or kV according to patient size and/or use of iterative reconstruction technique. FINDINGS: LUNGS: Surgical changes within right lung base and partial collapse of right lower lobe. Mild bronchial wall thickening and scattered areas of mild diffuse plaquing. Scattered small foci of atelectasis versus infiltrates within right upper lobe. PLEURA: Stable large right pleural effusion, 3.4 cm in thickness. VASCULATURE: No abnormality. YINA: No mass or adenopathy. MEDIASTINUM: Large hiatal hernia with majority of the stomach above the diaphragm CARDIAC: Stable cardiomegaly. No pericardial effusion. AORTA: No aneurysm or dissection. CHEST WALL: No mass or axillary adenopathy. BONES: No bone lesion or fracture. LIMITED ABDOMEN: No suspicious findings Limited images of the upper abdomen. OTHER: Negative. CT/CT chest w con IMPRESSION: 1. Large right pleural effusion; slightly decreased in size. 2. Stable partial collapse of right lower lobe and predominantly stable mild mucous plugging, bronchial wall thickening/bronchiolitis, and scattered right upper lobe atelectasis versus infiltrates.. Electronically authenticated by: PASTOR ARIZMENDI Date: 06/29/2024 08:06
== END 2024-06-28 12:51 | disposition home or self-care (01) ==
LOC: CT 12:52
PROVIDERS: PCP Internal Medicine; Visit Provider Internal Medicine
DX: K86.2 Cyst of pancreas (principal); M51.369 Other intervertebral disc degeneration, lumbar region without mention of lumbar back pain or lower extremity pain; J90 Pleural effusion, not elsewhere classified; R91.8 Other nonspecific abnormal finding of lung field
CPT/HCPCS: 71260; 74181; Q9967

== ENCOUNTER 2024-10-16 11:54 | Outpatient (OUT) | payer MEDICARE, OTHER, SELFPAY ==
--- OUTSIDE RECORDS SUMMARY | 2024-10-16 12:01 | XMS_ITS | CCD ---
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 Role Phone Mundo Robb Unavailable Bryant [...] Facility (20 sources) clopidogrel Drug Allergy Unknown [facility] [employer] Other (4 sources) patient allergy list reviewed by nurse or physicia Propensity to adverse reactions 8 Comment:Done [facility] [employer] Other Medications Current Medications Medication Drug Class(es) [...] BREAKFAST for 90 Active polyethylene glycol [id number] [id number] mg / potassium chloride 2970 mg / sodium bicarbonate 6740 mg / sodium chloride 5860 mg / sodium sulfate 85530 mg powder for oral solution (2 sources) [...] sources) H/O: high risk medication; Translations: [Other residential (current) drug therapy] Episodic Other aftercare (4 sources) Long-term current use of drug therapy; 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] Episodic Other circulatory disease [...] Basophils (Bld) [#/Vol] 0.2 10 3/uL 0.0-0.1 [facility] Basophils/100 WBC Auto (Bld) on 10-02-2023 Basophils/100 WBC (Bld) 3.1 % 0.2-2.0 [facility] Eosinophils/100 WBC Auto (Bl d)on 10-02-2023 Eosinophils/100 WBC (Bld) 5.2 % 0.9-7.0 [facility] Erythrocyte distribution wid th Auto (RBC) [Ratio]on 10-02-2023 Erythrocyte distribution width (RBC) [Ratio] 23.9 % 11.0-15.0 [facility] Hematocrit Auto (Bld) [Volum e fraction]on 10-02-2023 Hematocrit (Bld) [Volume fraction] 28.3 % 36.0-48.0 [facility] Hemoglobin [Mass/volume] in Bloodon 10-02-2023 Hemoglobin (Bld) [Mass/Vol] 8.5 g/dL 12.0-16.0 [facility] Iron binding capacity [Mass/ volume] in Serum or Plasmaon 10-02-2023 Iron binding capacity [Mass/Vol] 193.0 ug/dL 250.0-450.0 [facility] Iron saturation [Mass Fracti on] in Serum or Plasmaon 10-02-2023 Iron saturation [Mass fraction] 40.4 % [facility] Laboratory - Chemistry and C hemistry - challengeon 10-02-2023 Cobalamin (Vitamin B12) [Mass/Vol] 586.0 pg/mL 193.0-986.0 [facility] Ferritin [Mass/Vol] 278.0 ng/mL 8.0-252.0 [facility] Iron [Mass/Vol] 78.0 ug/dL 50.0-170.0 [facility] Laboratory - Hematology and Cell countson 10-02-2023 Immature granulocytes/100 WBC (Bld) 1.0 % 0.0-0.5 [facility] Leukocytes [#/volume] correc delilah for nucleated erythrocytes in Blood by Automated counon 10-02-2023 WBC corrected for nucl RBC Auto (Bld) [#/Vol] 7.3 10 3/uL 4.0-11.0 [facility] Lymphocytes Auto (Bld) [#/Vo l]on 10-02-2023 Lymphocytes (Bld) [#/Vol] 1.6 10 3/uL 1.2-3.8 [facility] Lymphocytes/100 WBC Auto (Bl d)on 10-02-2023 Lymphocytes/100 WBC (Bld) 22.2 % 20.5-60.0 [facility] MCH Auto (RBC) [Entitic mass ]on 10-02-2023 MCH (RBC) [Entitic mass] 28.6 pg 26.7-34.0 [facility] MCHC Auto (RBC) [Mass/Vol]on 10-02-2023 MCHC (RBC) [Mass/Vol] 30.0 g/dL 29.9-35.2 [facility] MCV Auto (RBC) [Entitic vol] on 10-02-2023 MCV (RBC) [Entitic vol] 95.3 fL 81.0-99.0 [facility] Monocytes Auto (Bld) [#/Vol] on 10-02-2023 Monocytes (Bld) [#/Vol] 0.6 10 3/uL 0.3-0.8 [facility] Monocytes/100 WBC Auto (Bld) on 10-02-2023 Monocytes/100 WBC (Bld) 8.8 % 1.7-12.0 [facility] Neutrophils Auto (Bld) [#/Vo l]on 10-02-2023 Neutrophils (Bld) [#/Vol] 4.4 10 3/uL 1.4-6.5 [facility] Neutrophils/100 WBC Auto (Bl d)on 10-02-2023 Neutrophils/100 WBC (Bld) 59.7 % 43.0-75.0 [facility] No Panel Informationon 10-02 Eosinophils # (Auto) 0.4 10 3/uL 0.0-0.7 [facility] Folate 27.10 ng/mL 8.60-58.90 [facility] Immature Granulocyte # (Auto) 0.07 10 3/uL 0.00-0.03 [facility] Platelets Auto (Bld) [#/Vol] on 10-02-2023 Platelets (Bld) [#/Vol] 230 10 3/uL 150-450 [facility] RBC Auto (Bld) [#/Vol]on RBC (Bld) [#/Vol] 2.97 10 6/uL 4.20-5.40 [facility] Comment on above: ANISOCYTOSIS 2+POIKI LOCYTOSIS 1+HYPOCHROMASIA 1+OVALOCYTES 1+RED CELL FRAGMENTS 1+ Reticulocytes/100 RBC Auto ( Bld)on 10-02-2023 Reticulocytes/100 RBC (Bld) 1.10 % 0.60-3.10 [facility] Colin 09-19-2023 L Specimen: [id number] Received: 09/19/23 Status: JENNIFER Eliana Num: [id number] Spec Type: Surgical Subm Dr: Bernice Gutierres MD Tissues: A Duodenum - Biopsy (DUOD BX) B Esophagus Biopsy (ESO BX) C Esophagus Biopsy (ESO BX) D Esophagus Biopsy (ESO BX) E Colon Biopsy (SIGMOID COL BX) Procedures: HE/10, Gross/Micro L4/5 Age/ Patient Sex Location Account Attending Physician Christa Pitts 83/F [id number] Bernice Gutierres MD SPEC NUM: [id number] RECD: 09/19/23 STATUS: SAMEERSarah MONROY NUM: [id number] MAXIM: 09/19/[address]: Bernice Gutierres MD ENTERED: 09/19/[address] [facility] DR: SPEC TYPE: Surgical DEPT: S ENTERED BY: [id number] RECV BY: [id number] ORDERED: HE/10, Gross/Micro L4/5 ORDERED: HE/10, Gross/Micro [...] [id number] Received: 09/19/23 Status: JENNIFER Monroy Num: [id number] Spec Type: Surgical Subm Dr: Bernice Gutierres MD Tissues: A Duodenum - Biopsy (DUOD BX) B Esophagus Biopsy (ESO BX) C Esophagus Biopsy (ESO BX) D Esophagus Biopsy (ESO BX) E Colon Biopsy (SIGMOID COL BX) Procedures: Annika, Gross/Micro L4/5 ---- Patient: Christa Pitts [id number] (Continued) ---- Specimen: [id number] Received: 09/19/23 (Continued) Pathological Diagnosis (Continued) Signed (signature on file) Esther Saucedo MD 09/20/23 1015 ---- Specimen: [id number] Received: 09/19/23 Status: JENNIFER Monroy Num: [id number] Spec Type: Surgical Subm Dr: Bernice Gutierres MD Tissues: A Duodenum - Biopsy (DUOD BX) B Esophagus Biopsy (ESO BX) C Esophagus Biopsy (ESO BX) D Esophagus Biopsy (ESO BX) E Colon Biopsy (SIGMOID COL BX) Procedures: , Gross/Micro /5 ---- Patient: Christa Pitts [id number] (Continued) ---- Specimen: [id number] Received: 09/19/23 (Continued) [...] in one cassette labeled E1. CPT Codes 41890b6 ---- ---- Specimen: [id number] Received: 09/19/23 Status: JENNIFER Monroy Num: [id number] Spec Type: Surgical Subm Dr: Bernice Gutierres (more content not included)... Normal [facility] CBC AUTO DIFFon 10-19-2022 BASO # 0.1 103/ul Normal 0.0-0.1 [facility] Comment on above: Performed By: #### U MICRO, ERUR #### [facility] [address] [address] [address] Philip De Leon Basophils/100 WBC (Bld) 1.5 % Normal 0.2-2.0 [facility] Comment on above: Performed By: #### U MICRO, ERUR #### [facility] [address] [address] [address] Philip De Leon EO # 0.4 103/ul Normal 0.0-0.7 [facility] Comment on above: Performed By: #### U MICRO, ERUR #### [facility] [address] [address] [address] Philip De Leon Eosinophils/100 WBC (Bld) 5.4 % Normal 0.9-7.0 [facility] Comment on above: Performed By: #### U MICRO, ERUR #### [facility] [address] [place] [address] Dr. Philip De Leon Erythrocyte distribution width (RBC) [Ratio] 22.5 % Critically high 11.0-15.0 [facility] Comment on above: Performed By: #### U MICRO, ERUR #### [facility] [address] [address] [address] Philip De Leon Hematocrit (Bld) [Volume fraction] 26.3 % Critically low 36.0-48.0 [facility] Comment on above: Performed By: #### U MICRO, ERUR #### [facility] [address] [place] [address] Dr. Philip De Leon Hemoglobin (Bld) [Mass/Vol] 8.3 g/dL Critically low 12.0-16.0 [facility] Comment on above: Performed By: #### U MICRO, ERUR #### [facility] [address] [address] [address] Philip De Leon IG # 0.03 10e3/ul Normal 0.00-0.03 [facility] Comment on above: Performed By: #### U MICRO, ERUR #### [facility] [address] [address] [address] Philip De Leon IG % 0.4 % Normal 0.0-0.5 [facility] Comment on above: Performed By: #### U MICRO, ERUR #### [facility] [address] [address] [address] Philip De Leon LYMPH # 1.3 103/ul Normal 1.2-3.8 [facility] Comment on above: Performed By: #### U MICRO, ERUR #### [facility] [address] [address] [address] Philip De Leon Lymphocytes/100 WBC (Bld) 17.9 % Critically low 20.5-60.0 [facility] Comment on above: Performed By: #### U MICRO, ERUR #### [facility] [address] [place] [address] Dr. Philip De Leon MANUAL DIFF REQ NO Normal [facility] Comment on above: Performed By: #### U MICRO, ERUR #### [facility] [address] [place] [address] Dr. Philip De Leon MCH (RBC) [Entitic mass] 30.1 pg Normal 26.7-34.0 [facility] Comment on above: Performed By: #### U MICRO, ERUR #### [facility] [address] [place] [address] Dr. Philip De Leon MCHC (RBC) [Mass/Vol] 31.6 g/dL Normal 29.9-35.2 [facility] Comment on above: Performed By: #### U MICRO, ERUR #### [facility] [address] [place] [address] Dr. Philip De Leon MCV (RBC) [Entitic vol] 95.3 fL Normal 81.0-99.0 [facility] Comment on above: Performed By: #### U MICRO, ERUR #### [facility] [address] [place] [address] Dr. Philip De Leon MONO # 0.6 103/ul Normal 0.3-0.8 [facility] Comment on above: Performed By: #### U MICRO, ERUR #### [facility] [address] [place] [address] Dr. Philip De Leon Monocytes/100 WBC (Bld) 8.2 % Normal 1.7-12.0 [facility] Comment on above: Performed By: #### U MICRO, ERUR #### [facility] [address] [address] [address] Philip De Leon NEUT # 4.7 103/ul Normal 1.4-6.5 [facility] Comment on above: Performed By: #### U MICRO, ERUR #### [facility] [address] [address] [address] Philip De Leon Neutrophils/100 WBC (Bld) 66.6 % Normal 43.0-75.0 [facility] Comment on above: Performed By: #### U MICRO, ERUR #### [facility] [address] [place] [address] Dr. Philip De Leon PLT 184 103/ul Normal 150-450 [facility] Comment on above: Performed By: #### U MICRO, ERUR #### [facility] [address] [place] [address] Dr. Philip De Leon RBC 2.76 106/ul Critically low 4.20-5.40 [facility] Comment on above: Performed By: #### U MICRO, ERUR #### [facility] [address] [place] [address] Dr. Philip De Leon WBC 7.1 103/ul Normal 4.0-11.0 [facility] Comment on above: Performed By: #### U MICRO, ERUR #### [facility] [address] [place] [address] Dr. Philip De Leon PROF CHEM 8 (BAS METB)on Anion gap [Moles/Vol] 7.4 mmol/L Normal [facility] Comment on above: Performed By: #### B MP #### [facility] [address] [place] [address] Dr. Philip De Leon Calcium [Mass/Vol] 8.3 mg/dL Critically low 8.5-10.[address] [facility] Comment on above: Performed By: #### B MP #### [facility] [address] [place] [address] Dr. Philip De Leon Chloride [Moles/Vol] 102 mmol/L Normal 98-107 [facility] Comment on above: Performed By: #### B MP #### [facility] [address] [address] [address] Philip De Leon CO2 [Moles/Vol] 32.8 mmol/L Critically high 21.0-32.0 [facility] Comment on above: Performed By: #### B MP #### [facility] [address] [address] [address] Philip De Leon Creatinine [Mass/Vol] 1.22 mg/dL Critically high 0.55-1.02 [facility] Comment on above: Performed By: #### B MP #### [facility] [address] [place] [address] Dr. Philip De Leon EGFR-AF KOSOVAN 51 mL/min/1.73m2 Critically low >=60 [facility] Comment on above: Performed By: #### B MP #### [facility] [address] [address] [address] Philip De Leon EGFR-NON AF KOSOVAN 42 mL/min/1.73m2 Critically low >=60 [facility] Comment on above: Performed By: #### B MP #### [facility] [address] [place] [address] Dr. Philip De Leon Glucose [Mass/Vol] 98 mg/dL Normal 74-106 [facility] Comment on above: Performed By: #### B MP #### [facility] [address] [address] [address] Philip De Leon Potassium [Moles/Vol] 4.2 mmol/L Normal 3.5-5.1 [facility] Comment on above: Performed By: #### B MP #### [facility] [address] [place] [address] Dr. Philip De Leon Sodium [Moles/Vol] 138 mmol/L Normal 136-145 [facility] Comment on above: Performed By: #### B MP #### [facility] [address] [place] [address] Dr. Philip De Leon Urea nitrogen [Mass/Vol] 22.0 mg/dL Critically high 7.0-18.0 [facility] Comment on above: Performed By: #### B MP #### [facility] [address] [address] [address] Philip De Leon Urea nitrogen/Creatinine [Mass ratio] 18.0 mg/mg Normal [facility] Comment on above: Performed By: #### B MP #### [facility] [address] [address] [address] Philip De Leon XR CHEST 1 [...] ARIZMENDI Date: 2022-10-19 06:47 Normal [facility] CBC W MANUAL DIFFon 10-19-19 23 ATYPICAL LYMPH # 0.28 103/ul Normal [facility] Comment on above: Performed By: #### C ANA MARIA #### [facility] [address] [address] [address] Philip De Leon ATYPICAL LYMPH % 3 % Normal [facility] Comment on above: Performed By: #### C ANA MARIA #### [facility] [address] [address] [address] Philip De Leon BAND # 0.0 103/ul Normal 0.0-0.3 [facility] Comment on above: Performed By: #### C ANA MARIA #### [facility] [address] [address] [address] Philip De Leon BAND % 0 % Normal 0-5 [facility] Comment on above: Performed By: #### C BCMAN #### [facility] [address] [address] [address] Philip De Leon BASOM # 0.09 103/ul Normal 0.00-0.10 [facility] Comment on above: Performed By: #### C BCBRADLEY #### [facility] [address] [address] [address] Philip De Leon BASOM % 1.0 % Normal 0.2-2.0 [facility] Comment on above: Performed By: #### C BCMAN #### [facility] [address] [address] [address] Philip De Leon BLAST # Normal [facility] Comment on above: Performed By: #### C BCBRADLEY #### [facility] [address] [place] [address] Dr. Philip De Leon BLAST % Normal [facility] Comment on above: Performed By: #### C BCBRADLEY #### [facility] [address] [place] [address] Dr. Philip De Leon CORRECTED WBC Normal 4.0-11.0 [facility] Comment on above: Performed By: #### C BCBRADLEY #### [facility] [address] [address] [address] Philip De Leon EOS # 0.18 103/ul Normal 0.00-0.70 [facility] Comment on above: Performed By: #### C BCBRADLEY #### [facility] [address] [place] [address] Dr. Philip De Leon EOS% 2.0 % Normal 0.9-7.0 [facility] Comment on above: Performed By: #### C BCBRADLEY #### [facility] [address] [place] [address] Dr. Philip De Leon HCT 25.5 % Critically low 36.0-48.0 [facility] Comment on above: Performed By: #### C ANA MARIA #### [facility] [address] [place] [address] Dr. Philip De Leon HGB 8.0 g/dl Critically low 12.0-16.0 [facility] Comment on above: Performed By: #### C ANA MARIA #### [facility] [address] [place] [address] Dr. Philip De Leon LYMPHM # 2.85 103/ul Normal 1.20-3.80 [facility] Comment on above: Performed By: #### C ANA MARIA #### [facility] [address] [address] [address] Philip De Leon LYMPHM% 31.0 % Normal 20.5-60.0 [facility] Comment on above: Performed By: #### C ANA MARIA #### [facility] [address] [place] [address] Dr. Philip De Leon MCH 30.0 pg Normal 26.7-34.0 [facility] Comment on above: Performed By: #### C ANA MARIA #### [facility] [address] [place] [address] Dr. Philip De Leon MCHC 31.4 g/dl Normal 29.9-35.2 [facility] Comment on above: Performed By: #### C ANA MARIA #### [facility] [address] [place] [address] Dr. Philip De Leon MCV 95.5 fL Normal 81.0-99.0 [facility] Comment on above: Performed By: #### C ANA MARIA #### [facility] [address] [place] [address] Dr. Philip De Leon METAMYELOCYTE # Normal [facility] Comment on above: Performed By: #### C ANA MARIA #### [facility] [address] [place] [address] Dr. Philip De Leon METAMYELOCYTE % Normal [facility] Comment on above: Performed By: #### C ANA MARIA #### [facility] [address] [place] [address] Dr. Philip De Leon MONOM# 0.46 103/ul Normal 0.30-0.80 [facility] Comment on above: Performed By: #### C ANA MARIA #### [facility] [address] [place] [address] Dr. Philip De Leon MONOM% 5.0 % Normal 1.7-12.0 [facility] Comment on above: Performed By: #### C ANA MARIA #### [facility] [address] [place] [address] Dr. Philip De Leon MPV 0.0 fL Critically low 9.5-13.5 [facility] Comment on above: Performed By: #### C ANA MARIA #### [facility] [address] [place] [address] Dr. Philip De Leon MYELOCYTE # 0.3 103/ul Normal [facility] Comment on above: Performed By: #### C ANA MARIA #### [facility] [address] [place] [address] Dr. Philip De Leon MYELOCYTE % 3 % Normal [facility] Comment on above: Performed By: #### C ANA MARIA #### [facility] [address] [place] [address] Dr. Philip De Leon NRBC Normal [facility] Comment on above: Performed By: #### C ANA MARIA #### [facility] [address] [place] [address] Dr. Philip De Leon PLT 196 103/ul Normal 150-450 [facility] Comment on above: Performed By: #### C ANA MARIA #### [facility] [address] [place] [address] Dr. Philip De Leon RBC 2.67 106/ul Critically low 4.20-5.40 [facility] Comment on above: Performed By: #### C ANA MARIA #### [facility] [address] [place] [address] Dr. Philip De Leon RDW 21.7 % Critically high 11.0-15.0 [facility] Comment on above: Performed By: #### C ANA MARIA #### [facility] [address] [place] [address] Dr. Philip De Leon SEG # 5.06 103/ul Normal 1.40-6.50 [facility] Comment on above: Performed By: #### C ANA MARIA #### [facility] [address] [place] [address] Dr. Philip De Leon SEG % 55.0 % Normal 43.0-75.0 [facility] Comment on above: Performed By: #### C DHARMESHBRADLEY #### [facility] [address], [place] [address] Dr. Philip De Leon WBC 9.2 103/ul Normal 4.0-11.0 [facility] Comment on above: Performed By: #### C ANA MARIA #### [facility] [address], [place] [address] [address] CHEST WO [...] PASTOR ARIZMENDI Date: 2022-10-18 10:10 Normal [facility] PROF CHEM 8 (BAS METB)on Anion gap [Moles/Vol] 6.4 mmol/L Normal [facility] Comment on above: Performed By: #### B MP #### [facility] [address] [address] [address] Philip De Leon Calcium [Mass/Vol] 8.2 mg/dL Critically low 8.5-10.1 [facility] Comment on above: Performed By: #### B MP #### [facility] [address] [address] [address] Philip De Leon Chloride [Moles/Vol] 105 mmol/L Normal 98-107 [facility] Comment on above: Performed By: #### B MP #### [facility] [address] [address] [address] Philip De Leon CO2 [Moles/Vol] 33.0 mmol/L Critically high 21.0-32.0 [facility] Comment on above: Performed By: #### B MP #### [facility] [address] [address] [address] Philip De Leon Creatinine [Mass/Vol] 1.24 mg/dL Critically high 0.55-1.02 [facility] Comment on above: Performed By: #### B MP #### [facility] [address] [address] [address] Philip De Leon EGFR-AF KOSOVAN 50 mL/min/1.73m2 Critically low >=60 [facility] Comment on above: Performed By: #### B MP #### [facility] [address] [address] [address] Philip De Leon EGFR-NON AF KOSOVAN 42 mL/min/1.73m2 Critically low >=60 [facility] Comment on above: Performed By: #### B MP #### [facility] [address] [address] [address] Philip De Leon Glucose [Mass/Vol] 94 mg/dL Normal 74-106 [facility] Comment on above: Performed By: #### B MP #### [facility] [address] [address] [address] Philip De Leon Potassium [Moles/Vol] 4.4 mmol/L Normal 3.5-5.1 [facility] Comment on above: Performed By: #### B MP #### [facility] [address], [place] [address] Dr. Philip De Leon Sodium [Moles/Vol] 140 mmol/L Normal 136-145 [facility] Comment on above: Performed By: #### B MP #### [facility] [address], [place] [address] Dr. Philip De Leon Urea nitrogen [Mass/Vol] 20.0 mg/dL Critically high 7.0-18.0 [facility] Comment on above: Performed By: #### B MP #### [facility] [address], [place] [address] Dr. Philip De Leon Urea nitrogen/Creatinine [Mass ratio] 16.1 mg/mg Normal [facility] Comment on above: Performed By: #### B MP #### [facility] [address], [place] [address] Dr. Philip De Leon XR CHEST 1 [...] CLEMENTS Date: 2022-10-18 07:19 Normal [facility] XR CHEST 1 V EXAM: [...] DELEON Date: 2022-10-17 23:51 Normal [facility] CBC W MANUAL DIFFon 10-18-19 23 ATYPICAL LYMPH # Normal [facility] Comment on above: Performed By: #### U MICRO, ERUR #### [facility] [address] [place] [address] Dr. Philip De Leon ATYPICAL LYMPH % Normal [facility] Comment on above: Performed By: #### U MICRO, ERUR #### [facility] [address] [place] [address] Dr. Philip De Leon BAND # 0.0 103/ul Normal 0.0-0.3 [facility] Comment on above: Performed By: #### U MICRO, ERUR #### [facility] [address] [place] [address] Dr. Philip De Leon BAND % 0 % Normal 0-5 [facility] Comment on above: Performed By: #### U MICRO, ERUR #### [facility] [address] [place] [address] Dr. Philip De Leon BASOM # 0.06 103/ul Normal 0.00-0.10 [facility] Comment on above: Performed By: #### U MICRO, ERUR #### [facility] [address] [place] [address] Dr. Philip De Leon BASOM % 1.0 % Normal 0.2-2.0 [facility] Comment on above: Performed By: #### U MICRO, ERUR #### [facility] [address] [place] [address] Dr. Philip De Leon BLAST # Normal [facility] Comment on above: Performed By: #### U MICRO, ERUR #### [facility] [address] [address] [address] Philip De Leon BLAST % Normal [facility] Comment on above: Performed By: #### U MICRO, ERUR #### [facility] [address] [place] [address] Dr. Philip De Leon CORRECTED WBC Normal 4.0-11.0 [facility] Comment on above: Performed By: #### U MICRO, ERUR #### [facility] [address] [address] [address] Philip De Leon EOS # 0.17 103/ul Normal 0.00-0.70 [facility] Comment on above: Performed By: #### U MICRO, ERUR #### [facility] [address] [place] [address] Dr. Philip De Leon EOS% 3.0 % Normal 0.9-7.0 [facility] Comment on above: Performed By: #### U MICRO, ERUR #### [facility] [address] [place] [address] Dr. Philip De Leon HCT 24.6 % Critically low 36.0-48.0 [facility] Comment on above: Performed By: #### U MICRO, ERUR #### [facility] [address] [place] [address] Dr. Philip De Leon HGB 7.6 g/dl Critically low 12.0-16.0 [facility] Comment on above: Performed By: #### U MICRO, ERUR #### [facility] [address] [address] [address] Philip De Leon LYMPHM # 1.22 103/ul Normal 1.20-3.80 [facility] Comment on above: Performed By: #### U MICRO, ERUR #### [facility] [address] [place] [address] Dr. Philip De Leon LYMPHM% 21.0 % Normal 20.5-60.0 [facility] Comment on above: Performed By: #### U MICRO, ERUR #### [facility] [address] [place] [address] Dr. Philip De Leon MCH 30.0 pg Normal 26.7-34.0 [facility] Comment on above: Performed By: #### U MICRO, ERUR #### [facility] [address] [place] [address] Dr. Philip De Leon MCHC 30.9 g/dl Normal 29.9-35.2 [facility] Comment on above: Performed By: #### U MICRO, ERUR #### [facility] [address] [address] [address] Philip De Leon MCV 97.2 fL Normal 81.0-99.0 [facility] Comment on above: Performed By: #### U MICRO, ERUR #### [facility] [address] [place] [address] Dr. Philip De Leon METAMYELOCYTE # Normal [facility] Comment on above: Performed By: #### U MICRO, ERUR #### [facility] [address] [place] [address] Dr. Philip De Leon METAMYELOCYTE % Normal [facility] Comment on above: Performed By: #### U MICRO, ERUR #### [facility] [address] [place] [address] Dr. Philip De Leon MONOM# 0.17 103/ul Critically low 0.30-0.80 [facility] Comment on above: Performed By: #### U MICRO, ERUR #### [facility] [address] [place] [address] Dr. Philip De Leon MONOM% 3.0 % Normal 1.7-12.0 [facility] Comment on above: Performed By: #### U MICRO, ERUR #### [facility] [address] [place] [address] Dr. Philip De Leon MPV 0.0 fL Critically low 9.5-13.5 [facility] Comment on above: Performed By: #### U MICRO, ERUR #### [facility] [address] [place] [address] Dr. Philip De Leon MYELOCYTE # Normal [facility] Comment on above: Performed By: #### U MICRO, ERUR #### [facility] [address] [address] [address] Philip De Leon MYELOCYTE % Normal [facility] Comment on above: Performed By: #### U MICRO, ERUR #### [facility] [address] [place] [address] Dr. Philip De Leon NRBC Normal [facility] Comment on above: Performed By: #### U MICRO, ERUR #### [facility] [address] [address] [address] Philip De Leon PLT 191 103/ul Normal 150-450 [facility] Comment on above: Performed By: #### U MICRO, ERUR #### [facility] [address] [place] [address] Dr. Philip De Leon RBC 2.53 106/ul Critically low 4.20-5.40 [facility] Comment on above: Performed By: #### U MICRO, ERUR #### [facility] [address] [place] [address] Dr. Philip De Leon RDW 21.9 % Critically high 11.0-15.0 [facility] Comment on above: Performed By: #### U MICRO, ERUR #### [facility] [address] [place] [address] Dr. Philip De Leon SEG # 4.18 103/ul Normal 1.40-6.50 [facility] Comment on above: Performed By: #### U MICRO, ERUR #### [facility] [address] [place] [address] Dr. Philip De Leon SEG % 72.0 % Normal 43.0-75.0 [facility] Comment on above: Performed By: #### U MICRO, ERUR #### [facility] [address] [place] [address] Dr. Philip De Leon WBC 5.8 103/ul Normal 4.0-11.0 [facility] Comment on above: Performed By: #### U MICRO, ERUR #### [facility] [address] [place] [address] Dr. Philip De Leon CYTOLOGYon 10-17-2022 SENT TO REF LAB 10/17/2022 Normal [facility] Comment on above: Performed By: #### C YTO #### [facility] [address] [place] [address] Dr. Philip De Leon ECHOCARDIO M/2D COMPLETEon 0 10-17-2022 ECHOCARDIO M/2D COMPLETE Patient: CHRISTA PITTS Exam Date: 10/17/2022 : 1940 Gender:F Ordering : DR SAMAN MARTÍNEZ . Admission #: [id number] Family : Order #: [id number] CLICK HERE TO VIEW EXAM ECHOCARDIOGRAM REPORT [...] on 10/18/2022 at 11:34 Approved by: Tl oCbb M.D. on 10/18/2022 at 11:37 [place] [facility] PROF CHEM 8 (BAS METB)on Anion gap [Moles/Vol] 7.8 mmol/L Normal [facility] Comment on above: Performed By: #### U MICRO, ERUR #### [facility] [address] [address] [address] Phliip De Leon Calcium [Mass/Vol] 8.3 mg/dL Critically low 8.5-10.1 [facility] Comment on above: Performed By: #### U MICRO, ERUR #### [facility] [address] [address] [address] Philip De Leon Chloride [Moles/Vol] 108 mmol/L Critically high 98-107 [facility] Comment on above: Performed By: #### U MICRO, ERUR #### [facility] [address] [place] [address] Dr. Philip De Leon CO2 [Moles/Vol] 30.2 mmol/L Normal 21.0-32.0 [facility] Comment on above: Performed By: #### U MICRO, ERUR #### [facility] [address] [address] [address] Philip De Leon Creatinine [Mass/Vol] 1.13 mg/dL Critically high 0.55-1.02 [facility] Comment on above: Performed By: #### U MICRO, ERUR #### [facility] [address] [address] [address] Philip De Leon EGFR-AF KOSOVAN 56 mL/min/1.73m2 Critically low >=60 [facility] Comment on above: Performed By: #### U MICRO, ERUR #### [facility] [address] [address] [address] Philip De Leon EGFR-NON AF KOSOVAN 46 mL/min/1.73m2 Critically low >=60 [facility] Comment on above: Performed By: #### U MICRO, ERUR #### [facility] [address] [address] [address] Philip De Leon Glucose [Mass/Vol] 87 mg/dL Normal 74-106 [facility] Comment on above: Performed By: #### U MICRO, ERUR #### [facility] [address] [address] [address] Philip De Leon Potassium [Moles/Vol] 5.0 mmol/L Normal 3.5-5.1 [facility] Comment on above: Performed By: #### U MICRO, ERUR #### [facility] [address] [address] [address] Philip De Leon Sodium [Moles/Vol] 141 mmol/L Normal 136-145 [facility] Comment on above: Performed By: #### U MICRO, ERUR #### [facility] [address] [address] [address] Philip De Leon Urea nitrogen [Mass/Vol] 16.0 mg/dL Normal 7.0-18.0 [facility] Comment on above: Performed By: #### U MICRO, ERUR #### [facility] [address] [place] [address] Dr. Philip De Leon Urea nitrogen/Creatinine [Mass ratio] 14.2 mg/mg Normal [facility] Comment on above: Performed By: #### U MICRO, ERUR #### [facility] [address] [place] [address] Dr. Philip De Leon XR CHEST 1 [...] by: MOISES BASILIO Date: 2022-10-17 13:32 Normal [facility] XR CHEST 2 Von 10-17-2022 XR [...] by: KARLA CLEMENTS Date: 2022-10-17 06:58 Normal [facility] BNPon 10-16-2022 Natriuretic peptide B (Bld) [Mass/Vol] 1965.0 pg/mL Critically high <=1,800.0 [facility] Comment on above: Performed By: #### U MICRO, ERUR #### [facility] [address] [place] [address] Dr. Philip De Leon CARDIAC IRON ADMITon 023 CK [Catalytic activity/Vol] 47 U/L Normal 26-192 [facility] Comment on above: Performed By: #### U MICRO, ERUR #### [facility] [address] [address] [address] Philip De Leon CK.MB [Mass/Vol] 0.82 ng/mL Normal <=3.60 [facility] Comment on above: Performed By: #### U MICRO, ERUR #### [facility] [address] [address] [address] Philip De Leon HSTROP 9.4 pg/mL Normal 4.0-51.3 [facility] Comment on above: Result Comment: CUT- OFF POINTS HAVE BEEN ESTABLISHED BASED ON THE FOURTH UNIVERSAL DEFINITIONS OF MYOCARDIAL INFARCTION. THE UPPER REFERENCE LIMIT (URL) OF TROPONIN, DEFINED THE 99TH PERCENTILE OF cTnI DISTRIBUTION IN A REFERENCE POPULATION, HAS BEEN CONFIRMED THE DECISION THRESHOLD FOR OK DIAGNOSIS. Performed By: #### U MICRO, ERUR #### [facility] [address] [address] [address] Philip De Leon BELKIS 55 ng/mL Normal 9-82 [facility] Comment on above: Performed By: #### U MICRO, ERUR #### [facility] [address] [address] [address] Philip De Leon CBC AUTO DIFFon 10-16-2022 BASO # 0.2 103/ul Critically high 0.0-0.1 [facility] Comment on above: Performed By: #### C BC #### [facility] [address] [address] [address] Philip De Leon Basophils/100 WBC (Bld) 2.0 % Normal 0.2-2.0 [facility] Comment on above: Performed By: #### C BC #### [facility] [address] [address] [address] Philip De Leon EO # 0.4 103/ul Normal 0.0-0.7 [facility] Comment on above: Performed By: #### C BC #### [facility] [address] [place] [address] Dr. Philip De Leon Eosinophils/100 WBC (Bld) 3.9 % Normal 0.9-7.0 [facility] Comment on above: Performed By: #### C BC #### [facility] [address] [place] [address] Dr. Philip De Leon Erythrocyte distribution width (RBC) [Ratio] 21.9 % Critically high 11.0-15.0 [facility] Comment on above: Performed By: #### C BC #### [facility] [address] [place] [address] Dr. Philip De Leon Hematocrit (Bld) [Volume fraction] 30.7 % Critically low 36.0-48.0 [facility] Comment on above: Performed By: #### C BC #### [facility] [address] [address] [address] Philip De Leon Hemoglobin (Bld) [Mass/Vol] 9.6 g/dL Critically low 12.0-16.0 [facility] Comment on above: Performed By: #### C BC #### [facility] [address] [address] [address] Philip De Leon IG # 0.14 10e3/ul Critically high 0.00-0.03 [facility] Comment on above: Performed By: #### C BC #### [facility] [address] [place] [address] Dr. Philip De Leon IG % 1.4 % Critically high 0.0-0.5 [facility] Comment on above: Performed By: #### C BC #### [facility] [address] [place] [address] Dr. Philip De Leon LYMPH # 1.2 103/ul Normal 1.2-3.8 [facility] Comment on above: Performed By: #### C BC #### [facility] [address] [place] [address] Dr. Philip De Leon Lymphocytes/100 WBC (Bld) 11.9 % Critically low 20.5-60.0 [facility] Comment on above: Performed By: #### C BC #### [facility] [address] [place] [address] Dr. Philip De Leon MANUAL DIFF REQ NO Normal [facility] Comment on above: Performed By: #### C BC #### [facility] [address] [place] [address] Dr. Philip De Leon MCH (RBC) [Entitic mass] 30.3 pg Normal 26.7-34.0 [facility] Comment on above: Performed By: #### C BC #### [facility] [address] [place] [address] Dr. Philip De Leon MCHC (RBC) [Mass/Vol] 31.3 g/dL Normal 29.9-35.2 [facility] Comment on above: Performed By: #### C BC #### [facility] [address] [place] [address] Dr. Philip De Leon MCV (RBC) [Entitic vol] 96.8 fL Normal 81.0-99.0 [facility] Comment on above: Performed By: #### C BC #### [facility] [address] [place] [address] Dr. Philip De Leon MONO # 0.6 103/ul Normal 0.3-0.8 [facility] Comment on above: Performed By: #### C BC #### [facility] [address] [address] [address] Philip De Leon Monocytes/100 WBC (Bld) 6.2 % Normal 1.7-12.0 [facility] Comment on above: Performed By: #### C BC #### [facility] [address] [address] [address] Philip De Leon NEUT # 7.3 103/ul Critically high 1.4-6.5 [facility] Comment on above: Performed By: #### C BC #### [facility] [address] [place] [address] Dr. Philip De Leon Neutrophils/100 WBC (Bld) 74.6 % Normal 43.0-75.0 [facility] Comment on above: Performed By: #### C BC #### [facility] [address] [place] [address] Dr. Philip De Leon PLT 247 103/ul Normal 150-450 [facility] Comment on above: Performed By: #### C BC #### [facility] [address] [place] [address] Dr. Philip De Leon RBC 3.17 106/ul Critically low 4.20-5.40 [facility] Comment on above: Performed By: #### C BC #### [facility] [address] [place] [address] Dr. Philip De Leon WBC 9.7 103/ul Normal 4.0-11.0 [facility] Comment on above: Performed By: #### C BC #### [facility] [address] [place] [address] Dr. Philip De Leon CTA CHEST WO [...] atelectatic collapse of the right middle lobe. [id number] left pleural effusion with left basilar atelectasis/consolidat [...] KRUGER Date: 2022-10-16 10:58 Normal [facility] CULTURE BLOODon 10-16-2022 Microscopic examination of blood, culture Culture Observations: NO GROWTH AT 5 DAYS. Normal [facility] Comment on above: Performed By: #### U MICRO, ERUR #### [facility] [address] [address] [address] Philip De Leon Microscopic examination of blood, culture Culture Observations: NO GROWTH AT 5 DAYS. Normal [facility] Comment on above: Performed By: #### U MICRO, ERUR #### [facility] [address] [place], [place] [address] Dr. Philip De Leon Covid-19 PCR ([facility])on 10-05 SARS-CoV-2 (COVID-19) RNA MARILU+probe Ql (Unsp spec) Not detected Normal NOT DETECTED [facility] Comment on above: Result Comment: [...] for this test is supported by the [place] of Health and Human Service's declaration that [...] By: #### U MICRO, ERUR #### [facility] [address] [place] [address] Dr. Philip De Leon ER URINE PROFILEon 3 Bilirubin Ql (U) Negative Normal NEGATIVE [facility] Comment on above: Performed By: #### U MICRO, ERUR #### [facility] [address] [place] [address] Dr. Philip De Leon Clarity (U) CLEAR Normal CLEAR [facility] Comment on above: Performed By: #### U MICRO, ERUR #### [facility] [address] [place] [address] Dr. Philip De Loen Color (U) LT. YELLOW Normal YELLOW [facility] Comment on above: Performed By: #### U MICRO, ERUR #### [facility] [address] [place] [address] Dr. Philip De Leon ERUAHD A micrscopic examination will be performed if indicated. Normal [facility] Comment on above: Performed By: #### U MICRO, ERUR #### [facility] [address] [place] [address] Dr. Philip De Leon Glucose Ql (U) Negative Normal NEGATIVE [facility] Comment on above: Performed By: #### U MICRO, ERUR #### [facility] [address] [place] [address] Dr. Philip De Leon Hemoglobin Ql (U) SMALL Abnormal NEGATIVE [facility] Comment on above: Performed By: #### U MICRO, ERUR #### [facility] [address] [address] [address] Philip De Leon Ketones Ql (U) Negative Normal NEGATIVE [facility] Comment on above: Performed By: #### U MICRO, ERUR #### [facility] [address] [place] [address] Dr. Philip De Leon LEUKOCYTES Negative Normal NEGATIVE [facility] Comment on above: Performed By: #### U MICRO, ERUR #### [facility] [address] [address] [address] Philip De Leon Nitrite Ql (U) Negative Normal NEGATIVE [facility] Comment on above: Performed By: #### U MICRO, ERUR #### [facility] [address] [place] [address] Dr. Philip De Leon pH (U) 6.0 [pH] Normal 5-9 [facility] Comment on above: Performed By: #### U MICRO, ERUR #### [facility] [address] [place] [address] Dr. Philip De Leno Protein (U) [Mass/Vol] 30 mg/dL Abnormal NEGATIVE/ TRACE [facility] Comment on above: Performed By: #### U MICRO, ERUR #### [facility] [address] [place] [address] Dr. Philip De Leon SPEC GRAVITY 1.010 Normal 1.005-<=1.025 [facility] Comment on above: Performed By: #### U MICRO, ERUR #### [facility] [address] [address] [address] Philip De Leon UR MICRO IND INDICATED Normal [facility] Comment on above: Performed By: #### U MICRO, ERUR #### [facility] [address] [place] [address] Dr. Philip De Leon Urobilinogen Qn (U) 0.2 {Graham'U}/dL Normal 0.2 - 1. 0 [facility] Comment on above: Performed By: #### U MICRO, ERUR #### [facility] [address] [address] [address] Philip De Leon LACTATE/LACTIC ACIDon 2022 Lactate [Moles/Vol] 1.0 mmol/L Normal 0.4-2.0 [facility] Comment on above: Performed By: #### L ACT #### [facility] [address] [address] [address] Philip De Leon PROF 14(COMP METB)on 023 Albumin [Mass/Vol] 3.6 g/dL Normal 3.4-5.0 [facility] Comment on above: Performed By: #### U MICRO, ERUR #### [facility] [address] [address] [address] Philip De Leon Albumin/Globulin [Mass ratio] 0.9 {ratio} Normal [facility] Comment on above: Performed By: #### U MICRO, ERUR #### [facility] [address] [place] [address] Dr. Philip De Leon ALP [Catalytic activity/Vol] 69 U/L Normal 46-116 [facility] Comment on above: Performed By: #### U MICRO, ERUR #### [facility] [address] [address] [address] Philip De Leon ALT [Catalytic activity/Vol] 15 U/L Normal 14-59 [facility] Comment on above: Performed By: #### U MICRO, ERUR #### [facility] [address] [address] [address] Philip De Leon Anion gap [Moles/Vol] 11.4 mmol/L Normal [facility] Comment on above: Performed By: #### U MICRO, ERUR #### [facility] [address] [address] [address] Philip De Leon AST [Catalytic activity/Vol] 17 U/L Normal 15-37 [facility] Comment on above: Performed By: #### U MICRO, ERUR #### [facility] [address] [place] [address] Dr. Philip De Leon Bilirubin [Mass/Vol] 0.5 mg/dL Normal 0.2-1.0 [facility] Comment on above: Performed By: #### U MICRO, ERUR #### [facility] [address] [address] [address] Philip De Leon Calcium [Mass/Vol] 9.1 mg/dL Normal 8.5-10.1 [facility] Comment on above: Performed By: #### U MICRO, ERUR #### [facility] [address] [address] [address] Philip De Leon Chloride [Moles/Vol] 107 mmol/L Normal 98-107 [facility] Comment on above: Performed By: #### U MICRO, ERUR #### [facility] [address] [address] [address] Philip De Leon CO2 [Moles/Vol] 28.6 mmol/L Normal 21.0-32.0 [facility] Comment on above: Performed By: #### U MICRO, ERUR #### [facility] [address] [address] [address] Philip De Leon Creatinine [Mass/Vol] 1.05 mg/dL Critically high 0.55-1.02 [facility] Comment on above: Performed By: #### U MICRO, ERUR #### [facility] [address] [address] [address] Philip De Leon EGFR-AF KOSOVAN >60 Normal >=60 [facility] Comment on above: Performed By: #### U MICRO, ERUR #### [facility] [address] [address] [address] Philip De Leon EGFR-NON AF KOSOVAN 50 mL/min/1.73m2 Critically low >=60 [facility] Comment on above: Performed By: #### U MICRO, ERUR #### [facility] [address] [address] [address] Philip De Leon Globulin (S) [Mass/Vol] 3.8 g/dL Normal [facility] Comment on above: Performed By: #### U MICRO, ERUR #### [facility] [address] [address] [address] Philip De Leon Glucose [Mass/Vol] 120 mg/dL Critically high 74-106 [facility] Comment on above: Performed By: #### U MICRO, ERUR #### [facility] [address] [address] [address] Philip De Leon Potassium [Moles/Vol] 5.0 mmol/L Normal 3.5-5.1 [facility] Comment on above: Performed By: #### U MICRO, ERUR #### [facility] [address] [address] [address] Philip De Leon Protein [Mass/Vol] 7.4 g/dL Normal 6.4-8.2 [facility] Comment on above: Performed By: #### U MICRO, ERUR #### [facility] [address] [place] [address] Dr. Philip De Leon Sodium [Moles/Vol] 142 mmol/L Normal 136-145 [facility] Comment on above: Performed By: #### U MICRO, ERUR #### [facility] [address] [place] [address] Dr. Philip De Leon Urea nitrogen [Mass/Vol] 18.0 mg/dL Normal 7.0-18.0 [facility] Comment on above: Performed By: #### U MICRO, ERUR #### [facility] [address] [place] [address] Dr. Philip De Leon Urea nitrogen/Creatinine [Mass ratio] 17.1 mg/mg Normal [facility] Comment on above: Performed By: #### U MICRO, ERUR #### [facility] [address] [place] [address] Dr. Philip De Leon PROTIMEon 10-16-2022 INR Coag (PPP) [Relative time] 1.00 {INR} Normal [facility] Comment on above: Performed By: #### P T, PTT #### [facility] [address] [place] [address] Dr. Philip De Leon INR GUIDELINES SEE BELOW Normal [facility] Comment on above: Result Comment: KADEN RED INR: 2.0 - 3.0 CONDITIONS NOT LISTED BELOW 2.5 - 3.5 FOR PROSTHETIC HEART VALVE REPLACEMENT 2.5 - 3.5 RECURRENT THROMBOSIS Performed By: #### P T, PTT #### [facility] [address] [place] [address] Dr. Philip De Leon PT Coag (PPP) [Time] 10.6 s Normal 9.0-11.6 [facility] Comment on above: Performed By: #### P T, PTT #### [facility] [address] [place] [address] Dr. Philip De Leon PTTon 10-16-2022 aPTT Coag (Bld) [Time] 27.9 s Normal 22.3-36.2 [facility] Comment on above: Performed By: #### P T, PTT #### [facility] [address] [place] [address] Dr. Philip De Leon URINE MICROSCOPIC ONLYon BACTERIA NONE SEEN Normal NONE SEEN [facility] Comment on above: Performed By: #### U MICRO, ERUR #### [facility] [address] [place] [address] Dr. Philip De Leon Bacteria identified Cx Nom (U) NOT INDICATED Normal [facility] Comment on above: Performed By: #### U MICRO, ERUR #### [facility] [address] [place] [address] Dr. Philip De Leon CAST NONE SEEN Normal NONE SEEN [facility] Comment on above: Performed By: #### U MICRO, ERUR #### [facility] [address] [place] [address] Dr. Philip De Leon Crystals LM Nom (Urine sed) NONE SEEN Normal NONE SEEN [facility] Comment on above: Performed By: #### U MICRO, ERUR #### [facility] [address] [place] [address] Dr. Philip De Leon Epithelial cells LM Ql (Urine sed) FEW Abnormal NONE SEEN /RARE [facility] Comment on above: Performed By: #### U MICRO, ERUR #### [facility] [address] [place] [address] Dr. Philip De Leon MUCOUS NONE SEEN Normal NONE SEEN [facility] Comment on above: Performed By: #### U MICRO, ERUR #### [facility] [address] [place] [address] Dr. Philip De Leon RBC 0-2 Normal 0-2 [facility] Comment on above: Performed By: #### U MICRO, ERUR #### [facility] [address] [address] [address] Philip De Leon WBC NONE SEEN Normal NONE SEEN [facility] Comment on above: Performed By: #### U MICRO, ERUR #### [facility] [address] [address] [address] Philip De Leon XR CHEST 1 [...] by: MOISES BASILIO Date: 2022-10-16 09:35 Normal [facility] Vital Signs Date Time Vital Sign Value Performing Clinician Facility 09-19-2023 11:08-0500 Diastolic blood pressure 49 mm[Hg] DO Bryant Ball Work Phone: [facility] 09-19-2023 11:08-0500 Heart rate 51 /min DO Bryant Ball Work Phone: [facility] 09-19-2023 11:08-0500 Respiratory rate 16 /min DO Bryant Ball Work Phone: [facility] 09-19-2023 11:08-0500 SaO2% (BldA) [Mass fraction] 97 % DO Bryant Ball Work Phone: [facility] 09-19-2023 11:08-0500 Systolic blood pressure 116 mm[Hg] DO Bryant Ball Work Phone: [facility] 09-19-2023 08:27-0500 Body height 165.1 cm DO Bryant Ball Work Phone: [facility] 09-19-2023 08:27-0500 Body weight 74.84 kg DO Bryant Ball Work Phone: [facility] 08-03-2023 11:30-0500 Body height Bryant Ball Other [facility] [employer] Other 08-03-2023 11:30-0500 Body height 165.1 cm DO Bryant Ball Work Phone: [facility] 08-03-2023 11:30-0500 Body mass index (BMI) [Ratio] 27.39 kg/m2 Bryant Ball Other [facility] [employer] Other 08-03-2023 11:30-0500 Body weight 74.66 kg Bryant Ball Other [facility] 08-03-2023 11:30-0500 Diastolic blood pressure 60 mm[Hg] Bryant Ball Other [facility] 08-03-2023 11:30-0500 Respiratory rate 12 /min Bryant Ball Other [facility] [employer] Other 08-03-2023 11:30-0500 Systolic blood pressure 143 mm[Hg] Bryant Ball Other [facility] 06-16-2023 14:00-0500 Body height Bryant Ball Other [facility] [employer] Other 06-16-2023 14:00-0500 Body mass index (BMI) [Ratio] 28.75 kg/m2 Bryant Ball Other [place] [employer] Other 06-16-2023 14:00-0500 Body weight 78.38 kg Bryant Ball Other [place] [employer] Other 06-16-2023 14:00-0500 Diastolic blood pressure 71 mm[Hg] Bryant Ball Other [employer] Other 06-16-2023 14:00-0500 Respiratory rate 12 /min Bryant Ball Other [employer] Other 06-16-2023 14:00-0500 Systolic blood pressure 163 mm[Hg] Bryant Ball Other [employer] Other 12-30-2022 13:45-0400 Body height Bryant Ball Other [employer] Other 12-30-2022 13:45-0400 Body mass index (BMI) [Ratio] 28.55 kg/m2 Bryant Ball Other [employer] Other 12-30-2022 13:45-0400 Body weight 77.84 kg Bryant Ball Other [employer] Other 12-30-2022 13:45-0400 Diastolic blood pressure 60 mm[Hg] Bryant Ball Other [facility] [employer] Other 12-30-2022 13:45-0400 Respiratory rate 12 /min Bryant Ball Other [facility] [employer] Other 12-30-2022 13:45-0400 Systolic blood pressure 190 mm[Hg] Bryant Ball Other [employer] Other 05-04-2021 14:45-0400 Body height Robb Olexa Other [employer] Other 05-04-2021 14:45-0400 Body mass index (BMI) [Ratio] 33.28 kg/m2 Robb Olexa Other [facility] [employer] Other 05-04-2021 14:45-0400 Body weight 90.72 kg Robb Hernandezxa Other [place] [employer] Other Encounters Encounter Date Encounter Type Care Provider Facility Start: 10-30-2023 End: 10-30-2023 ambulatory Bryant Ball Facility:[facility] Start: 10-30-2023 End: 10-30-2023 ambulatory DO Bryant Ball Work Phone: [facility] Work Phone: Start: 10-30-2023 End: 10-30-2023 Patient encounter procedure DO Bryant Ball Work Phone: [facility] Work Phone: Start: 10-06-2023 End: 10-06-2023 Patient encounter procedure DO Bryant Ball Work Phone: [facility] Work Phone: Start: 10-02-2023 Non-patient / Non-visit DO Marck mary Ball Work Phone: [facility] [employer] Work Phone: Start: 09-19-2023 End: 09-19-2023 ambulatory Bryant Ball Facility:[facility] Start: 09-19-2023 Non-patient / Non-visit DO Marck mary Ball Work Phone: [facility] Gastroenterology Work Phone: Start: 09-19-2023 End: 09-19-2023 Admission to same day surgery center DO Bryant Ball Work Phone: [facility] Work Phone: Start: 09-19-2023 End: 09-19-2023 ambulatory DO Bryant Ball Work Phone: [facility] Work Phone: Start: 09-15-2023 End: 09-15-2023 ambulatory Bryant Ball Other [employer] Other Start: 09-15-2023 Telephone encounter Bryant Dallas [facility] Start: 08-11-2023 End: 08-11-2023 ambulatory Imad Asaad Other [employer] Other Start: 08-11-2023 Telephone encounter Imad Asaad [facility] Start: 08-09-2023 End: 08-09-2023 ambulatory Bryant Dallas Other [employer] Other Start: 08-09-2023 Telephone encounter Bryant Dallas FP [facility] Start: 08-08-2023 Patient encounter procedure DO Bryant Dallas Work Phone: [facility]- Start: 08-03-2023 End: 08-03-2023 ambulatory Bryant Dallas Other [employer] Other Start: 08-03-2023 Transitional care manage srvc 14 day discharge Bryant Dallas [facility] Start: 08-03-2023 End: 08-03-2023 Patient encounter procedure DO Bryant Burt Work Phone: [facility] Work Phone: Start: 07-27-2023 End: 07-27-2023 ambulatory Brynat Dallas Other [employer] Other Start: 07-27-2023 Telephone encounter Bryant Dallas FP [facility] Start: 06-23-2023 End: 06-23-2023 ambulatory Bryant Dallas Other [employer] Other Start: 06-23-2023 Telephone encounter Bryant Dallas FP [facility] Start: 06-16-2023 End: 06-16-2023 ambulatory Bryant Dallas Other [employer] Other Start: 06-16-2023 Patient encounter procedure Bryant Dallas [facility] Start: 05-17-2023 End: 05-17-2023 ambulatory Bryant Dallas Other [employer] Other Start: 05-17-2023 Nursing evaluation o f patient and report Bryant Dallas [facility] Start: 04-11-2023 End: 04-11-2023 ambulatory Bryant Dallas Other [employer] Other Start: 04-11-2023 Nursing evaluation o f patient and report Bryant Dallas [facility] Start: 03-06-2023 End: 03-06-2023 ambulatory Bryant Dallas Other [employer] Other Start: 03-06-2023 Nursing evaluation o f patient and report Bryant Dallas [facility] Start: 02-20-2023 End: 02-20-2023 ambulatory Bryant Dallas Other [employer] Other Start: 02-20-2023 Nursing evaluation o f patient and report Bryant Dallas [facility] Start: 02-13-2023 End: 02-13-2023 ambulatory Bryant Dallas Other [employer] Other Start: 02-13-2023 Nursing evaluation o f patient and report Bryant Dallas [facility] Start: 02-10-2023 End: 02-10-2023 ambulatory Bryant Dallas Other [employer] Other Start: 02-10-2023 Telephone encounter Bryant ALBA [facility] Start: 02-03-2023 End: 02-03-2023 ambulatory Bryant Dallas Other [employer] Other Start: 02-03-2023 Telephone encounter Bryant ALBA [facility] Start: 12-30-2022 End: 12-30-2022 ambulatory Bryant Dallas Other [employer] Other Start: 12-30-2022 Transitional care manage srvc 7 day discharge Bryant Dallas [facility] Start: 11-24-2022 End: 11-24-2022 ambulatory Bryant Dallas Other [employer] Other Start: 11-24-2022 Telephone encounter Bryant ALBA [facility] Start: 11-08-2022 End: 11-08-2022 ambulatory BRYANT DALLAS [facility] [employer] Other Start: 11-08-2022 Telephone encounter Bryant ALBA [facility] Start: 11-07-2022 End: 11-07-2022 ambulatory Robb Flower Other [employer] Other Start: 11-07-2022 Telephone encounter Robb Flower [facility] Start: 10-25-2022 End: 10-25-2022 ambulatory Robb Olexa Other [employer] Other Start: 10-25-2022 Telephone encounter Robb Flower [facility] Start: 10-21-2022 End: 10-21-2022 ambulatory Robb Olexa Other [employer] Other Start: 10-21-2022 Telephone encounter Robb Flower [facility] Start: 10-16-2022 End: 10-19-2022 Evaluation and management of inpatient BLAINE BRAVO . Facility: Start: 05-23-2022 Adult health examination Bryant Dallas Other [employer] Other Start: 05-04-2021 Office outpatient ne w [...] Date Care Activity Detail Author Start: 10-30-2023 [facility] Start: 09-19-2023 [facility] Patient Education Hemorrhoids (D C) Diverticulosis (DC) Hiatal Hernia (DC) Colon Polypectomy (DC) Saavedra's Esophagus (DC) [facility] Work Phone: Immunizations Immunization Date Immunization Notes Care Provider Lima kingston 05-17-2023 influenza, high dose seasonal, preservative-free Bryant Dallas Other [facility] [employer] Other 05-17-2023 influenza virus vaccine, unspecified formulation DO Bryant Dallas Work Phone: [facility] 05-02-2022 influenza virus vaccine, split virus (incl. purified surface antigen) Bryant Dallas Other [facility] [employer] Other 05-02-2022 influenza virus vaccine, unspecified formulation DO Bryant Dallas Work Phone: [facility] 05-20-2021 influenza virus vaccine, split virus (incl. purified surface antigen) Bryant Dallas Other [facility] [employer] Other 05-20-2021 influenza virus vaccine, unspecified formulation DO Bryant Dallas Work Phone: [facility] 05-18-2020 influenza virus vaccine, split virus (incl. purified surface antigen) Bryant Dallas Other [facility] [employer] Other 05-18-2020 influenza virus vaccine, unspecified formulation DO Bryant Dallas Work Phone: [facility] 05-16-2019 influenza virus vaccine, split virus (incl. purified surface antigen) Bryant Dallas Other [facility] [employer] Other 05-16-2019 influenza virus vaccine, unspecified formulation DO Bryant Dallas Work Phone: [facility] 05-14-2018 influenza virus vaccine, split virus (incl. purified surface antigen) Bryant Dallas Other [facility] [employer] Other 05-14-2018 influenza virus vaccine, unspecified formulation DO Bryant Dallas Work Phone: [facility] 05-11-2017 influenza virus vaccine, split virus (incl. purified surface antigen) Bryant Dallas Other [employer] Other 05-11-2017 influenza virus vaccine, unspecified formulation DO Bryant [email or web address] Work Phone: [facility] 06-16-2015 pneumococcal conjuga te vaccine, 13 valent Bryant Dallas Other [facility] 12-24-2013 pneumococcal Conjuga te, unspecified formulation; Translations: [Need for prophylactic vaccination against Streptococcus pneumoniae (pneumococcus)] Bryant Dallas Other [employer] Other 12-24-2013 pneumococcal polysaccharide vaccine, 23 valent Bryant Dallas Other [facility] 06-19-2013 tetanus and diphther ia toxoids, adsorbed, preservative free, for adult use (5 Lf of tetanus toxoid and 2 Lf of diphtheria toxoid) Bryant Dallas Other [facility] Payers Date Payer Category Payer Medicare [id number] 2.1 [id number] 1958 Self-pay 1958 Unknown [id number] 1940 Unknown [id number] 1940 Unknown [id number] [id number] [id number] Medicare Medicare Outpatient [id number] 7A [id number] Unknown [id number] [id number] Unknown [id number] [id number] Social History Date Type Detail Facility Sex Assigned At [employer] Other Start: 09-19-2023 End: 09-19-2023 Tobacco smoking status NHIS Never smoked tobacco (finding) [facility] Start: 1940 Sex Assigned At Female F [facility] Goals Date Patient Goal Desired Activity /State Clinical Notes 05-04-2021 to 09-19-2023 Note Date & Type Note Facility 09-19-2023 History and physical note Note Date/Time September 19, 2023 9:54am [facility] [address] [place] [address] Gastroenterology H&P Signed Patient: Christa Pitts MR#: [id number] : 1940 Acct:[id number] Age/Sex: 83 / F Adm Date: 4 Loc: Room: Type: [facility] Attending Dr: Bernice Gutierres MD Copies [...] <Electronically signed by Bernice Gutierres MD> 09/19/23953 [facility] Work Phone: [phone]) 985-138702-13-2024 [facility]* Encounter Date Diagnosis Assessment Notes Treatment Notes Treatment Clinical Notes Sep, Anemia (ICD-10 - D64.9) [facility] [employer] Other 12-28-2023 Evaluation note* Encounter Date Diagnosis [...] (ICD-10 - E53.8) Continue supplement, check level [employer] Other 11-10-2023 Evaluation note* Encounter Date Diagnosis [...] or drinking prior to bedtime. Weight loss. [facility] [employer] Other 10-11-2023 Evaluation note* Encounter Date Diagnosis Assessment Notes Treatment Notes Treatment Clinical Notes May, Pernicious anemia (ICD-10 - D51.0) [facility] [employer] Other 09-05-2023 Evaluation note* Encounter Date Diagnosis Assessment Notes Treatment Notes Treatment Clinical Notes Apr, Pernicious anemia (ICD-10 - D51.0) [facility] [employer] Other 07-31-2023 Evaluation note* Encounter Date Diagnosis Assessment Notes Treatment Notes Treatment Clinical Notes Feb, Pernicious anemia (ICD-10 - D51.0) [facility] [employer] Other 07-17-2023 Evaluation note* Encounter Date Diagnosis Assessment Notes Treatment Notes Treatment Clinical Notes Feb, Pernicious anemia (ICD-10 - D51.0) [facility] [employer] Other 07-10-2023 Evaluation note* Encounter Date Diagnosis Assessment Notes Treatment Notes Treatment Clinical Notes Feb, Pernicious anemia (ICD-10 - D51.0) [facility] [employer] Other 07-07-2023 Evaluation note* Encounter Date Diagnosis Assessment Notes Treatment Notes Treatment Clinical Notes Feb, 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) [facility] [employer] Other 06-30-2023 Evaluation note* Encounter Date Diagnosis Assessment Notes Treatment Notes Treatment Clinical Notes Jan, Paroxysmal atrial fibrillation (ICD-10 - I48.0) [facility] [employer] [facility] [employer] Other 06-30-2023 Evaluation note* Encounter Date Diagnosis Assessment Notes Treatment Notes Treatment Clinical Notes Jan, Chronic heart failure with preserved ejection fraction (ICD-10 - I50.32) Jan, Acute blood loss anemia (ICD-10 - D62) Jan, Paroxysmal atrial fibrillation (ICD-10 - I48.0) [facility] [employer] [facility] [employer] Other 05-26-2023 Evaluation note* Encounter Date Diagnosis [...] scheduled. No hypoxemia, chest pain or dyspnea [facility] [employer] Other 04-20-2023 Evaluation note* Encounter Date Diagnosis Assessment Notes Treatment Notes Treatment Clinical Notes Nov, Acute on chronic diastolic heart failure (ICD-10 - I50.33) [facility] [employer] Other 04-04-2023 Evaluation note* Encounter Date Diagnosis Assessment Notes Treatment Notes Treatment Clinical Notes Nov, Ground glass opacity present on imaging of lung (ICD-10 - R91.8) CT chest 10/2022 [facility] [employer] Other 04-03-2023 Evaluation note* Encounter Date Diagnosis Assessment Notes Treatment Notes Treatment Clinical Notes Nov, Ground glass opacity present on imaging of lung (ICD-10 - R91.8) Nov, Pleural effusion (ICD-10 - J90) [facility] [employer] [facility] [employer] Other 09-28-2021 Evaluation note* Encounter Date Diagnosis Assessment Notes Treatment Notes Treatment Clinical Notes Apr, Mass of right wrist (ICD-10 - R22.31) Dicussed treatments options of the ganglion cyst, Patient is going to leave as is and will call when she is ready to have removed. Apr, Ganglion cyst of volar aspect of right wrist (ICD-10 - M67.431) [facility] [employer] Other Evaluation noteNo [employer] [employer] Other Evaluation noteNo assessment information available [facility] Work Phone: History general Narrative - Reported* Type Description Date Medical History high blood pressure Medical History acid reflux Surgical History hysterectomy 1973 Surgical History tonsillectomy Hospitalization History see above Hospitalization History high blood pressure [facility] [employer] Other History general Narrative - Reported* Type [...] see above Hospitalization History high blood pressure [facility] [employer] [facility] [employer] Other History general Narrative - Reported* Type [...] see above Hospitalization History high blood pressure [facility] [employer] Other History general Narrative - Reported* Type [...] see above Hospitalization History high blood pressure [facility] [employer] Other Summary Purpose Family History No Family [...] Loss of weight (R63. 4) Referral Organization [facility] dannielle Referring Provider First Name Bryant Referring Provider Last Name Burt Referring Provider Specialty Internal Me dicine Referred Organization [facility] Referred Address [address] [place], [place],[address] Referred Provider Specialty Gastroentero logy Referral Priority [...] InformationREFILLTBH - DIZZINESS, VERTIGONo InformationEKG resultsTestingLab/Testing ResultsB-12 [id number] ShotB-12 ShotB-12 ShotB-12 ShotWellnessLab resultsTCMTBHCT resultsMAIL PPWrepeat labs INFORMATION SOURCE (unrecogn ized section and content) DATE CREATED AUTHOR 11/11/2022 [facility] Debbie palacios DATE CREATED AUTHOR 'S ORGANIZ ATION 12/24/2023 [facility] Care Teams (unrecognized sec tion [...] BE BASED ON THE PRIMARY CLINICAL RECORDS. [facility] [email or web address] provides no warranty or guarantee of the accuracy or completeness of information in this document.
[2024-10-16 12:17] LABS: Hematocrit 24.8 % (36.0-48.0); Hemoglobin 7.6 g/dL (12.0-16.0); Mean Corpuscular HGB Conc 30.6 g/dL (29.9-35.2); Mean Corpuscular Hemoglobin 27.8 pg (26.7-34.0); Mean Corpuscular Volume 90.8 fL (81.0-99.0); Platelet Count 215 10^3/uL (150-450); Red Blood Count 2.73 10^6/uL (4.20-5.40); Red Cell Distribution Width 26.9 % (11.0-15.0); Reticulocyte Pct Auto 1.15 % (0.60-3.10); White Blood Count 7.9 10^3/uL (4.0-11.0)
[2024-10-16 12:52] LABS: Eosinophils Absolute Manual 0.47 10^3/uL (0.00-0.70); Monocytes Absolute Manual 0.55 10^3/uL (0.30-0.80); Segmented Neut Absolute Manual 5.37 10^3/uL (1.4-6.5)
[2024-10-16 12:53] LABS: Schistocytes 1+
[2024-10-16 12:54] LABS: Anisocytosis 3+
== END 2024-10-16 11:55 | disposition home or self-care (01) ==
LOC: LAB 11:56
PROVIDERS: PCP Internal Medicine; Visit Provider Internal Medicine
DX: D64.9 Anemia, unspecified (principal)
CPT/HCPCS: 36415; 85007; 85027; 85045

== ENCOUNTER 2025-05-29 13:49 | Outpatient (OUT) | payer MEDICARE, OTHER, SELFPAY ==
--- NOTE | 2025-05-29 14:15 | CT_ITS ---
The [address] [address] Patient Name: CHRISTA PITTS MRN: [id number] date: 1940 Sex: F Assigned Patient Location: CT Current Patient Location: CT Accession/Order Number: [id number] Exam Date: 05/29/2025 14:32 Report Date: 05/29/2025 22:30 At the request of: ALMA ROSA REYNOSO DO Procedure: CT chest wo con CT CHEST WITHOUT IV CONTRAST: CLINICAL HISTORY: pleural effusion on right COMPARISON: 06/26/2024 TECHNIQUE: Spiral images were obtained through the chest without IV contrast. This CT exam was performed using one or more following dose reduction techniques: Automated exposure control, adjustment of the mA and/or kV according to patient size, or use of iterative reconstruction technique. FINDINGS: Mediastinum:Cardiac megaly. Coronary artery disease. No pericardial effusion. Hiatal hernia, moderate. Right hilar calcified lymph nodes. Lungs:Moderate right basilar effusion. Right basilar atelectasis and volume loss. Right basilar consolidation likely due to the volume loss atelectasis related to the effusion rather than airspace disease or pneumonia. Minimal interlobular thickening involving the remainder of the right lung with slight tree in bud nodularity. Left lung is without airspace disease effusion or pneumothorax. Abd:[Splenic and liver calcified granulomas noted] Soft tissues/Bones: [Multilevel degenerative changes] CT/CT chest wo con IMPRESSION: Similar appearance of the moderate right-sided effusion and associated right lung volume loss and atelectasis. Impression dictated by: Ray Coleman M.D. 05/29/2025 10:30 PM Dictation Location: [place] [address] Electronically authenticated by: [id number] Y Date: 05/29/2025 22:30
[2025-05-29 14:16] LABS: Microalbum Creatinine Ratio Ur 113.9 mg/g (0.0-29.9)
--- NOTE | 2025-05-29 14:21 | MR_ITS ---
The [address] [address] Patient Name: CHRISTA PITTS MRN: [id number] date: 1940 Sex: F Assigned Patient Location: CT Current Patient Location: CT Accession/Order Number: [id number] Exam Date: 05/29/2025 14:50 Report Date: 05/29/2025 23:06 At the request of: ALMA ROSA REYNOSO DO Procedure: MR abdomen wo con MRI OF THE ABDOMEN WITHOUT CONTRAST: CLINICAL HISTORY: cyst of pancreas COMPARISON: None MRI 06/28/2024 TECHNIQUE: Multisequence, multiplanar imaging of the abdomen was obtained without the use of IV contrast. FINDINGS: Evaluation is degraded due to respiratory motion artifact Right effusion. Trace perisplenic fluid. Cardiomegaly. Moderate size hiatal hernia. Liver, gallbladder, spleen unremarkable. Gallbladder mildly distended with layering sludge. No gallbladder wall thickening. No intrahepatic ductal dilatation. Common bile duct measures 5 mm. No choledocholithiasis. Pancreatic head cystic lesion noted 11 x 9 x 6 mm in size. There is additional pancreatic cyst lesion 1.3 x 0.8 cm in size. Cystic lesion posterior body of pancreas measures 1.4 cm in greatest dimension. No definite pancreatic ductal dilatation on this examination. Parapelvic cysts left kidney. No definite hydronephrosis. Unremarkable. Adrenal glands. MR/MR abdomen wo con IMPRESSION: STABLE APPEARANCE OF PANCREATIC CYSTIC LESIONS POSSIBLE IPMNs VERSUS SEQUELA OF PRIOR PANCREATITIS. CONTINUED SURVEILLANCE RECOMMENDED. RECOMMEND. Impression dictated by: Ray Coleman M.D. 05/29/2025 11:06 PM Dictation Location: [place] [address] Electronically authenticated by: [id number] Y Date: 05/29/2025 23:06
[2025-05-29 14:25] LABS: Alanine Aminotransferase 13 U/L (14-59); Albumin Globulin Ratio 0.8; Albumin Level 3.1 g/dL (3.4-5.0); Alkaline Phosphatase 88 U/L (46-116); Anion Gap 11.5; Aspartate Amino Transferase 9 U/L (15-37); Blood Urea Nitrogen 26.0 mg/dL (7.0-18.0); Calcium 8.1 mg/dL (8.5-10.1); Carbon Dioxide 28.5 mmol/L (21.0-32.0); Chloride 103 mmol/L (98-107); Estimated GFR (African America 40 (>=60 mL/min/1.73m^2); Estimated GFR (Non-African Ame 33 (>=60 mL/min/1.73m^2); Globulin 3.7 g/dL; Glucose 101 mg/dL (74-106); Potassium 5.0 mmol/L (3.5-5.1); Sodium 138 mmol/L (136-145); Total Protein 6.8 g/dL (6.4-8.2)
[2025-05-29 14:32] LABS: Hematocrit 25.1 % (36.0-48.0); Hemoglobin 7.8 g/dL (12.0-16.0); Mean Corpuscular HGB Conc 31.1 g/dL (29.9-35.2); Mean Corpuscular Hemoglobin 26.9 pg (26.7-34.0); Mean Corpuscular Volume 86.6 fL (81.0-99.0); Platelet Count 296 10^3/uL (150-450); Red Blood Count 2.90 10^6/uL (4.20-5.40); White Blood Count 8.3 10^3/uL (4.0-11.0)
[2025-05-29 14:36] LABS: Thyroid Stimulating Hormone 2.158 uIU/mL (0.358-3.740)
[2025-05-29 15:03] LABS: Iron 61.0 ug/dL (50.0-170.0); Percent Iron Saturation 25.5 %; Total Iron Binding Capacity 239.0 ug/dL (250.0-450.0)
[2025-05-29 15:25] LABS: Anisocytosis 1+; Band Neutrophils Absolute 0.3 10^3/uL (0.0-0.3); Basophils Abs Manual 0.16 10^3/uL (0.00-0.10); Basophils Percent Manual 2.0 % (0.2-2.0); Eosinophils Absolute Manual 0.58 10^3/uL (0.00-0.70); Eosinophils Percent Manual 7.0 % (0.9-7.0); Lymphocytes Absolute Manual 1.57 10^3/uL (1.20-3.80); Lymphocytes Percent Manual 19.0 % (20.5-60.0); Monocytes Absolute Manual 0.49 10^3/uL (0.30-0.80); Monocytes Percent Manual 6.0 % (1.7-12.0); Poikilocytosis 2+; Segmented Neut Absolute Manual 5.14 10^3/uL (1.4-6.5); Segmented Neutrophils % Manual 62.0 (43.0-75.0)
[2025-05-29 15:26] LABS: Acanthocytes 1+; Ovalocytes 1+
[2025-05-29 15:51] LABS: Ferritin 201.0 ng/mL (8.0-252.0); Folate 34.60 ng/mL (8.60-58.90)
[2025-05-30 04:07] LABS: Vitamin B12 1078 pg/mL (232-1245)
== END 2025-05-29 13:50 | disposition home or self-care (01) ==
LOC: CT 13:49
PROVIDERS: PCP Internal Medicine; Visit Provider Internal Medicine
DX: I12.9 Hypertensive chronic kidney disease with stage 1 through stage 4 chronic kidney disease, or unspecified chronic kidney disease (principal); N18.32 Chronic kidney disease, stage 3b; D64.9 Anemia, unspecified; R53.83 Other fatigue; J90 Pleural effusion, not elsewhere classified; K86.2 Cyst of pancreas
CPT/HCPCS: 36415; 71250; 74181; 80053; 82043; 82570; 82607; 82728; 82746; 83540; 83550; 84443; 85007; 85027

== ENCOUNTER 2025-07-30 16:41 | Inpatient (IN) | payer MEDICARE, OTHER, SELFPAY ==
--- OUTSIDE RECORDS SUMMARY | 2024-06-18 06:00 | XMS_ITS ---
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 Name Role Phone Bryant Dallas DO Primary Care Provider Rip Benedict Unavailable [phone] REASON FOR VISIT 6MO-PLEURAL EFFUSION, GGO Encounters Encounter Location Date Provider Diagnosis [facility] [place] [address] [place] [address] 06/18/2024 Rip Simpson Plan Of Treatment No Information Progress Notes * Guillermina DAS EDOB: [birth year] (85 yo F)Acc No.[id number]:06/18/2024 UNLOCKED PROGRESS NOTE Follow Up Patient: Hugo SORTOEdmond Guillermina Pérez :?Rip Simpson DODOB:1940???Age:84 Y ???Sex:FemaleDate:4Phone:[phone]:[address] [place], [place] [id number]:Bryant Dallas DO Subjective: * Chief Complaints: * 1 . 6MO-PLEURAL EFFUSION, GGO. * Medical History: Objective: * Vitals: Assessment: Plan: * Treatment: * * Electronic signature of Rip Simpson DO on 07/30/2025 at 05:26 PM ESTSign off status: PendingVisit Status:?R/S By O/P (Rescheduled by Office/Provider) * Provider: Denton Simpson DO Date: 1 08/18/2023 Generated for Printing/Faxing/eTransmitting on:?07/30/2025 05:26 PM EST
[2025-07-30] VITALS (25 sets, daily range): BP systolic 121–177; BP diastolic 43–78; PULSE 57–108; RESP 16; TEMP 36.4–36.7; O2SAT 78–100; BMI 26.8
--- NOTE | 2025-07-30 16:43 | XR_ITS ---
The [address] [address] Patient Name: CHRISTA PITTS MRN: [id number] date: 1940 Sex: F Assigned Patient Location: ED.MAIN Current Patient Location: ED.MAIN Accession/Order Number: [id number] Exam Date: 07/30/2025 16:53 Report Date: 07/30/2025 17:26 At the request of: DAVID TOBIN DO Procedure: XR chest 1V Single view chest compared to prior CT examination 05/29/2023 HISTORY: Shortness of breath There is redemonstration of moderate right pleural-parenchymal changes likely representing chronic finding. There is a development of patchy lower lung groundglass parenchymal densities. Developing small left pleural effusion. No pneumothorax. Cardiac and mediastinal silhouettes stable. Hilar prominence. Degenerative change. XR/XR chest 1V IMPRESSION: Developing left lower lung groundglass patchy consolidation. Consideration for failure. Component of pneumonitis may be present. Chronic extensive right pleural-parenchymal changes. Impression dictated by: Mauro Mendes M.D. 07/30/2025 5:26 PM Dictation Location: [place] [address] Electronically authenticated by: [id number] Y Date: 07/30/2025 17:26
--- NOTE | 2025-07-30 16:44 | ECG_ITS ---
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 Measurements Intervals [place] Rate: 73 P: 215 WV: 180 QRS: -9 QRSD: 86 T: 56 QT: 396 QTc: 422 Interpretive Statements NORMAL SINUS RHYTHM [address] depression 9140 abnormal rhythm ECG Compared to ECG 07/24/2023 04:44:09 Sinus rhythm no longer present ST (T wave) deviation still present Electronically Signed On 07-31-2025 7:49:53 EST by BRI MAYES M.D.
[2025-07-30 17:03] LABS: Hematocrit 25.6 % (36.0-48.0); Hemoglobin 7.9 g/dL (12.0-16.0); Mean Corpuscular HGB Conc 30.9 g/dL (29.9-35.2); Mean Corpuscular Hemoglobin 26.2 pg (26.7-34.0); Mean Corpuscular Volume 84.8 fL (81.0-99.0); Red Blood Count 3.02 10^6/uL (4.20-5.40); White Blood Count 17.7 10^3/uL (4.0-11.0)
[2025-07-30] MEDS: FUROSEMIDE 40 MG/4 ML VIAL IVP (17:11)
--- NOTE | 2025-07-30 17:11 | ED_ITS ---
HPI HPI - General Adult General Chief complaint: Shortness of Breath/Dyspnea Stated complaint: Upper Respiratory Infection Time Seen by Provider: 07/30/25 16:43 Source: patient Mode of arrival: ambulance History of Present Illness HPI narrative: Patient is an 85-year-old female presenting to the emergency department via EMS for concerns of shortness of breath. The patient has a history of dementia, is a poor historian and unable to provide much medical history. Other than being short of breath, the patient denies having any other symptoms. She has no chest pain, abdominal pain, nausea, vomiting, fevers, chills, and denies pain anywhere throughout the body. According to EMS, the patient was hypoxic to 70% on room air, which improved on 10 L nasal cannula. EMS gave her DuoNebs and IV Solu- Medrol. Related Data Home Medications ?Medication ?Instructions ?Recorded ?Confirmed amlodipine 10 mg tablet 10 mg PO DAILY 01/26/2307/08 carvedilol 12.5 mg tablet 12.5 mg PO BID 01/26/2307/08 omeprazole 40 mg capsule,delayed 40 mg PO DAILY 07/30/25 release folic acid 1 mg tablet 1 mg PO DAILY 07/24/2307/30 furosemide 20 mg tablet (Lasix) 20 mg PO .every 48 hrs 07/30/25 07/30/25 Allergies Allergy/AdvReac Type Severity Reaction Status Date / Time No Known Drug Allergies Allergy Verified 07/24/23 04:39 Opioid HPI Opioid Management Most Recent Opioid Data: Last Pain Scale 0 07/24/23, 10:55 Last Pain Intensity 0 07/24/23, 10:55 Review of Systems ROS Status of ROS 10 or more systems reviewed and unremark able except as noted in history and below [facility] Medical History (Updated 07/30/25 @ 18:22 by Jm Mai DO) IRLANDA (acute kidney injury) ?N17.9 - Acute kidney failure, unspecified (ICD-10) Anemia ?D64.9 - Anemia, unspecified (ICD-10) (HFpEF) heart failure with preserved ejection fraction ?I50.30 - Unspecified diastolic (congestive) heart failure (ICD-10) Hiatal hernia ?K44.9 - Diaphragmatic hernia without obstruction or gangrene (ICD-10) HTN (hypertension) ?I10 - Essential (primary) hypertension (ICD-10) Stenosis of left subclavian artery ?I77.1 - Stricture of artery (ICD-10) Acute hypoxic respiratory failure ?J96.01 - Acute respiratory failure with hypoxia (ICD-10) Pleural effusion, bilateral ?J90 - Pleural effusion, not elsewhere classified (ICD-10) CHF (congestive heart failure) ?I50.9 - Heart failure, unspecified (ICD-10) Acute hypoxemic respiratory failure ?J96.01 - Acute respiratory failure with hypoxia (ICD-10) Pleural effusion ?J90 - Pleural effusion, not elsewhere classified (ICD-10) Surgical History (Updated 07/24/23 @ 13:39 by Leslie Mon) H/O: hysterectomy ?Z90.710 - Acquired absence of both cervix and uterus (ICD-10) Hx of tonsillectomy ?Z90.89 - Acquired absence of other organs (ICD-10) Family History (Updated 07/25/23 @ 09:45 by Leslie Mon) Sister Family history of diabetes mellitus Father Family history of cancer Mother Anemia Exam Narrative Exam Narrative: CONSTITUTIONAL: Patient is sitting upright in the stretcher in the tripod position, tachypneic and speaking in truncated sentences, mentating appropriately, oriented x 3 SKIN: Was warm and dry. EYES: No conjunctival pallor. EARS, NOSE, THROAT: Moist oral mucosa. Tracheal tugging. RESPIRATORY: Bilateral basilar crackles, worse on the right. She is tachypneic, in respiratory distress using accessory muscles, and saturating 83% on 5 L nasal cannula. CARDIOVASCULAR: Normal rate and regular rhythm. There is no S3, S4, murmur, rub. GASTROINTESTINAL: Abdomen was soft, non-tender, and non-distended. There is no guarding or rebound tenderness MUSCULOSKELETAL: 1+ pitting edema in the bilateral lower extremities symmetrically. NEUROLOGIC: Patient is awake and alert. Facies were symmetrical. Constitutional Vital Signs, click to edit/add: Last Vital Signs Temp 98.1 F 07/30/25 16:42 Pulse 70 07/30/25 17:40 Resp 18 07/30/25 17:40 BP 177/78 H 07/30/25 16:42 Pulse Ox 99 07/30/25 17:40 O2 Del Method BIPAP 07/30/25 16:52 O2 Flow Rate 4 07/30/25 16:42 FiO2 50 07/30/25 17:08 Course Vital Signs Vital signs: Vital Signs Temperature 98.1 F 07/30/25 16:42 Pulse Rate 108 H 07/30/25 16:42 Respiratory Rate 28 H 07/30/25 16:42 Blood Pressure 177/78 H 07/30/25 16:42 Pulse Oximetry 78 L 07/30/25 16:42 Oxygen Delivery Method Nasal Cannula 07/30/25 16:42 Oxygen Delivery Flow Rate 4 07/30/25 16:42 Temperature 98.1 F 07/30/25 16:42 Pulse Rate 70 07/30/25 17:40 Respiratory Rate 18 07/30/25 17:40 Blood Pressure 177/78 H 07/30/25 16:42 Pulse Oximetry 99 07/30/25 17:40 Oxygen Delivery Method BIPAP 07/30/25 16:52 Oxygen Delivery Flow Rate 4 07/30/25 16:42 Fraction of Inspired Oxygen 50 07/30/25 17:08 Medical Decision Making MDM Narrative Medical decision making narrative: Patient is an 85-year-old female presenting to the emergency department via EMS for hypoxia. On arrival to the ED, patient was placed on the monitor car operator that demonstrated normal sinus rhythm by my interpretation. She was tachypneic with a respiratory rate of 28 breaths/min and was hypoxic to 83% on 5 L nasal cannula. She is in respiratory distress, sitting in the tripod position with significant use of accessory muscles. Patient is afebrile and hypertensive. On review of external documentation, patient was admitted to the hospital in July 2023 for a similar presentation. At that time, she was treated for hypoxemic respiratory failure secondary to decompensated diastolic heart failure and bilateral pleural effusions. Differential diagnosis includes recurrent bilateral pleural effusions, CHF exacerbation, pneumonia, pneumothorax, or other electrolyte/metabolic derangement. IV was established and laboratory studies were obtained. She was placed on BiPAP for respiratory support and had significant improvement of her saturations to 95%. Chest x-ray independently reviewed and interpreted by myself and radiology demonstrated developing left lower lung ground glass patchy consolidation. Chronic extensive right pleural/parenchymal changes. Laboratory studies were significant for leukocytosis. Chronic anemia. Troponin nonelevated. BNP elevated to 6900. COVID/flu swabs negative. No evidence of acute renal injury. No transaminitis. No significant electrolyte or metabolic derangement. ABG was within normal limits without acidosis, CO2 retention, or significant hypoxemia. 12 Lead EKG: Normal sinus rhythm at a rate of 73. Normal axis. No ST segment elevations. Subtle global ST segment depressions. QRS, FL, and QTc interval within normal limits. Final impression: normal sinus rhythm without evidence of STEMI. I do believe the patient requires admission to the hospital for hypoxic respiratory failure, likely secondary to decompensated heart failure and/or community-acquired pneumonia. She was given a dose of 40 mg IV Lasix and empirically treated with IV ceftriaxone/IV doxycycline. I did discuss the patient with Dr. Mac who accepted the patient to his service. At the time of admission, the patient saturate 95% on BiPAP 14/7/50%. She is awake, alert, and breathing comfortably with a respiratory rate of 18. FINAL IMPRESSION: #Acute hypoxic respiratory failure #Acute decompensated heart failure #Possible acute community-acquired pneumonia DISPOSITION: Admitted to the medicine stepdown unit CONDITION: Fair Medical Records Medical records reviewed: Yes I reviewed the patient's medical records Lab Data Lab results reviewed: Yes I reviewed the patient's lab results Labs: Lab Results 07/30/25 07/30/25 07/30/25 Range/Units 16:50 17:08 17:45 WBC 17.7 H (4.0-11.0) 10^3/uL RBC 3.02 L (4.20-5.40) 10^6/uL Hgb 7.9 L (12.0-16.0) g/dL Hct 25.6 L (36.0-48.0) % MCV 84.8 (81.0-99.0) fL MCH 26.2 L (26.7-34.0) pg MCHC 30.9 (29.9-35.2) g/dL RDW 25.0 H (11.0-15.0) % Plt Count 381 (150-450) 10^3/uL Seg Neuts % (Manual) 83.0 H (43.0-75.0) Lymphocytes % (Manual) 11.0 L (20.5-60.0) % Monocytes % (Manual) 3.0 (1.7-12.0) % Eosinophils % (Manual) 2.0 (0.9-7.0) % Basophils % (Manual) 1.0 (0.2-2.0) % Neutrophils # (Manual) 14.69 H (1.4-6.5) 10^3/uL Lymphocytes # (Manual) 1.94 (1.20-3.80) 10^3/uL Monocytes # (Manual) 0.53 (0.30-0.80) 10^3/uL Eosinophils # (Manual) 0.35 (0.00-0.70) 10^3/uL Basophils # (Manual) 0.17 H (0.00-0.10) 10^3/uL Puncture Site Rr ABG pH 7.350 (7.350-7.450) ABG pCO2 43.3 (35.0-45.0) mmHg ABG pO2 81.5 (80.0-100.0) mmHg ABG HCO3 23.9 (22.0-26.0) mmol/L ABG O2 Saturation 96.3 % ABG Base Excess -1.7 (-2.0-2.0) mmol/L Thomas Test Positive (POSITIVE) Minute Volume 14.9 FiO2 50 % Tidal Volume 457 Pressure Support 7 BiPAP 14/7 Sodium 140 (136-145) mmol/L Potassium 5.0 (3.5-5.1) mmol/L Chloride 107 (98-107) mmol/L Carbon Dioxide 26.3 (21.0-32.0) mmol/L Anion Gap 11.7 BUN 18.0 (7.0-18.0) mg/dL Creatinine 1.53 H (0.55-1.02) mg/dL Est GFR ( Amer) 39 L (>=60 mL/min/1.73m^2) Est GFR (Non-Af Amer) 32 L (>=60 mL/min/1.73m^2) BUN/Creatinine Ratio 11.8 Glucose 186 H (74-106) mg/dL Lactate 1.6 (0.4-2.0) mmol/L Calcium 8.5 (8.5-10.1) mg/dL Total Bilirubin 0.8 (0.2-1.0) mg/dL AST 11 L (15-37) U/L ALT 8 L (14-59) U/L Alkaline Phosphatase 88 (46-116) U/L Troponin I High Sens 18.5 (4.0-51.3) pg/mL NT-Pro-B Natriuret Pep 6928.0 H* (<=1800.0) pg/mL Total Protein 7.4 (6.4-8.2) g/dL Albumin 3.3 L (3.4-5.0) g/dL Globulin 4.1 g/dL Albumin/Globulin Ratio 0.8 Influenza Type A Ag Negative Influenza Type B Ag Negative RSV Antigen Not detected (NOT DETECTE) SARS-CoV-2 Ag (CV2AG) Negative (NEGATIVE) Imaging Data Chest x-ray: Attestation: I personally reviewed and interpreted this imaging study as follows: Radiologist's impression: ITS Impressions Chest X-Ray 07/30/25 16:43 IMPRESSION: Developing left lower lung groundglass patchy consolidation. Consideration for failure. Component of pneumonitis may be present. Chronic extensive right pleural-parenchymal changes. Impression dictated by: Mauro Mendes M.D. 07/30/2025 5:26 PM Dictation Location: [employer] Electronically authenticated by: [id number] Y Date: 07/30/2025 17:26 ECG Data Attestation: I personally reviewed and interpreted this ECG as follows: Critical Care Time Critical Care Time Total Critical Care Time: 33 Attestation: Due to a high probability of clinically significant, life threatening deterioration, the patient required my highest level of preparedness to intervene emergently and I personally spent this critical care time directly and personally managing the patient. This critical care time included obtaining a history; examining the patient; pulse oximetry; ordering and review of studies; arranging urgent treatment with development of a management plan; evaluation of patient's response to treatment; frequent reassessment; and, discussions with other providers. This critical care time was performed to assess and manage the high probability of imminent, life-threatening deterioration that could result in multi-organ failure. It was exclusive of separately billable procedures and treating other patients and teaching time. Discharge Plan Discharge Chief Complaint: Shortness of Breath/Dyspnea Clinical Impression: Pulmonary edema with congestive heart failure, Acute hypoxic respiratory failure Patient Disposition: Admitted As Inpatient Time of Disposition Decision: 18:22 Condition: Fair
[2025-07-30 17:16] LABS: Lactate/Lactic Acid 1.6 mmol/L (0.4-2.0)
[2025-07-30 17:16] LABS: ABG PCO2 43.3 mmHg (35.0-45.0); HCO3 ABG 23.9 mmol/L (22.0-26.0); PO2 ABG 81.5 mmHg (80.0-100.0)
[2025-07-30 17:17] LABS: Allen Test POSITIVE (POSITIVE); BIPAP Pressure 14/7; O2 Mode BIPAP; Oxygen Saturation ABG 96.3 %; Puncture Site RR; Rate 16
[2025-07-30 17:23] LABS: Alanine Aminotransferase 8 U/L (14-59); Albumin Globulin Ratio 0.8; Albumin Level 3.3 g/dL (3.4-5.0); Alkaline Phosphatase 88 U/L (46-116); Anion Gap 11.7; Aspartate Amino Transferase 11 U/L (15-37); Blood Urea Nitrogen 18.0 mg/dL (7.0-18.0); Calcium 8.5 mg/dL (8.5-10.1); Carbon Dioxide 26.3 mmol/L (21.0-32.0); Chloride 107 mmol/L (98-107); Estimated GFR (African America 39 (>=60 mL/min/1.73m^2); Estimated GFR (Non-African Ame 32 (>=60 mL/min/1.73m^2); Globulin 4.1 g/dL; Glucose 186 mg/dL (74-106); Potassium 5.0 mmol/L (3.5-5.1); Sodium 140 mmol/L (136-145); Total Protein 7.4 g/dL (6.4-8.2)
--- OUTSIDE RECORDS SUMMARY | 2025-07-30 17:25 | XMS_ITS | Clinical Summary ---
Author Organization [facility] Address [address] [place] [address] Care Team Providers Care Cement Block Maker Name Role Phone Bryant Dallas DO Primary Care Provider [phone] Allergies No known active allergies Medications MedicationSigDispense QuantityRefillsLast FilledStart DateEnd DateStatus carvedilol (COREG) 12.5 mg tablet Take 1 tablet by mouth twice daily. 180 tablet ctive amLODIPine-Benazepril 10-40 mg per capsule Indications:Essential hypertensionTake 1 capsule by mouth once daily. 90 capsule ctive Hydrochlorothiazide 12.5 mg capsule Indications:Essential hypertensionTake 1 capsule by mouth once daily. 90 capsule ctive clopidogrel (PLAVIX) 75 mg tablet Indications:Carotid atherosclerosis, bilateralTake 1 tablet by mouth once daily. 90 tablet ctive atorvastatin (LIPITOR) 40 mg tablet Take 40 mg by mouth once daily.Active atorvastatin (LIPITOR) 40 mg tablet Take 1 tablet by mouth once daily. 30 tablet ctive Active Problems ProblemNoted DateDiagnosed DateAspirin rtriqtpuhdx43/13/2015HTN (hypertension) Subclavian artery stenosis, leftObesityOther peripheral vascular disease(443.89) Palpitations Encounters DateTypeDepartmentCare TkycBicclaltzbn51/11/2025H&P External-NonCCF Provider, External, KAREN from Last 3 Months Family History Medical HistoryRelationCommentsCoronary Artery DiseaseFatherRelationStatus CommentsFather Social History Tobacco UseTypesPacks/DayYears UsedDateSmoking Tobacco: NeverAlcohol UseStandard Drinks/WeekCommentsNo0 (1 standard drink = 0.6 oz pure alcohol)Comments UnknownSex and Gender InformationValueDate RecordedSex Assigned at BirthNot on fileLegal CwfDesaoa82/25/2015 12:07 PM EDTGender IdentityNot on fileSexual OrientationNot on fileOccupationIndustryJob Start DateJob End DateRetiredNot on fileNot on fileNot on file Last Filed Vital Signs Vital SignReadingTime TakenCommentsBlood Yqgvqseh979/8010 9:54 AM EDT Ebgrl917005/19/2015 9:54 AM NUPZyffhjldepw51.1 ??C (97 ??F)05/19/2015 9:54 AM EDT Respiratory Beyd2363 9:54 AM EDTOxygen Dguueummms87%05/19/2015 9:54 AM EDTInhaled Oxygen Concentration--Hqjpxm818.5 kg (248 lb)05/19/2015 9:54 AM EDT Pweifw599.1 cm (5' 5 )05/19/2015 9:54 AM EDTBody Mass Index41.271 9:54 AM EDT Plan of Treatment Health MaintenanceDue DateLast DoneCommentsAnxiety Fgicvtdfz98/05/1959Depression Otpllcchv40/05/1959DTaP,Tdap,Td Vaccine (1 - Tdap)1960Diabetes Screening 1986Pneumococcal Vaccine: 50+ (1 of 1 - PCV)1991Shingrix Vaccine (1 of 2)1991Bone Density Kuezwopjo60/05/2006RSV Vaccine (1 - 1-dose 75+ series)2016Advance Directive Ekpntofdes61/01/2025ovid-19 Vaccine ( - 2024- season)2025Influenza Vaccine (#1)2025 Procedures Procedure NamePriorityDate/TimeAssociated DiagnosisCommentsEXTERNAL IMAGING 06/17/2025 10:31 AM EST EXTERNAL OTQFQJU6906/17/2025 10:31 AM EST EXTERNAL LAB06/17/2025 10:31 AM EST from Last 3 Months Results * EXTERNAL IMAGING (06/17/2025 10:31 AM EST)Anatomical RegionLateralityModality Other Narrative Authorizing ProviderResult TypeResult StatusExternal Provider PA-CRADIOLOGYFinal Result * EXTERNAL IMAGING (06/17/2025 10:31 AM EST)Anatomical RegionLateralityModality Other Narrative Authorizing ProviderResult TypeResult StatusExternal Provider PA-CRADIOLOGYFinal Result * EXTERNAL LAB (06/17/2025 10:31 AM EST) Narrative Authorizing ProviderResult TypeResult StatusExternal Provider PA-CLABORATORY Final Result from Last 3 Months Insurance SHADE BALLESTEROS, LAUREN [id number] Care Teams Team MemberRelationshipSpecialtyStart DateEnd Date Bryant Dallas DO [address] [place] [address] PCP - GeneralInternal Katpdaly76/5/25
--- OUTSIDE RECORDS SUMMARY | 2025-07-30 17:26 | XMS_ITS | Patient Health Record ---
Author Organization [facility] in [place] Address [address] [place] [address] Care Team Providers Care Director Industrial Nursing Name Role Phone Bryant Dallas DO Primary Care Provider Unavaila ble Allergies No Known Allergies Reason For Referral No Information Medications Medication SIG (Take, Route, Frequency, Duration) Notes Start Date End Date Status Carvedilol 12.5 MG 1 tablet with food Orally Twi ce a day ActiveOmeprazole 40 MG1 capsule 30 minutes before morning meal Orally Once a day ActiveamLODIPine Besylate 10 MG1 tablet Orally Once a dayActive Immunizations Vaccine Route Administration Date Status Comme nts Flu, Fluad (46314) 65 yrs+, single-dose syringe (2241-8107) Unknown 05/02/2022 Administered Pneumococcal (Prevnar 13)Gghbrpk8806/16/20152014GguqbwogkpdgVDVP-UAU-7 (COVID 19) bivalent 30 mcg/0.3 ml uiqwArenasu05/19/2022dministeredSpikevax Moderna Syringe Pre-Filled 50 mcg/0.5 uOJemtjvt33/30/2023AdministeredZOSTER (SHINGLES) VACCINE (HZV)Zaqupfb4401/09/2023dministeredZOSTER (SHINGLES) VACCINE (HZV)Unknown 09/15/2023dministered Social History Tobacco Use: Social History Observation Description Date Details (start date - stop date) Never Smoker NA - NA Tobacco Use/Smoking Question Answer Notes Patient is a nonsmoker Tobacco Control (Standard) Question Answer Notes Tobacco use: Nonsmoker Problems Problem Type SNOMED Code ICD Code Onset Dates Problem Status W/U Status Risk Notes Problem Acute on chronic bertha stolic heart failure (199050554) Acute on chronic diastolic (congestive) heart failure (I50.33) ActiveconfirmedProblemAcute combined systolic and diastolic heart failure (635167827493839)Acute combined systolic (congestive) and diastolic (congestive) heart failure (I50.41)ActiveconfirmedProblemGastroesophageal reflux disease (717440805)GERD (gastroesophageal reflux disease) (K21.9)ActiveconfirmedProblem Hiatal hernia (27266954)Hiatal hernia (K44.9)ActiveconfirmedProblemChronic kidney disease stage 2 (703938569)Chronic kidney disease (CKD) stage G2/A1, mildly decreased glomerular filtration rate (GFR) bhlukst78-41 mL/min/1.73 square meter and albuminuria creatinine ratio less than 30 mg/g (N18.2)Active confirmedProblemChronic diastolic heart failure (980486669)Chronic diastolic (congestive) heart failure (I50.32)ActiveconfirmedProblemPleural effusion (22367341)Pleural effusion (J90)ActiveconfirmedProblemIron deficiency anemia (87053862)Anemia, iron deficiency (D50.9)ActiveconfirmedProblemChronic diastolic heart failure (041888629)Chronic diastolic congestive heart failure (I50.32) ActiveconfirmedProblemLung field abnormal (585175143)Ground glass opacity present on imaging of lung (R91.8)ActiveconfirmedProblemGastroesophageal reflux disease (501835973)Gastroesophageal reflux disease (K21.9)ActiveconfirmedProblem Iatrogenic pneumothorax (372359990)Iatrogenic pneumothorax (J95.811)Active confirmedProblemEssential hypertension (30234916)BP (high blood pressure) (I10) ActiveconfirmedProblemSecondary pulmonary hypertension (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)ActiveconfirmedProblemPulmonary hypertension (96226431)Pulmonary hypertension (I27.20)Activeconfirmed Plan Of Treatment No Information Insurance Providers Payer Name Payer Address Payer Phone Subscriber Number Group Number Insured Name Patient Relationship to Insured Coverage Start Date Coverage End Date [place] [address] [place] [address] [id number] Thiago, CarrieSelf - patient is the [id number] [employer] OF [address] MEDICARE SUPP CLMS DEPT LAUREN BALLESTEROS [phone] PLAN FGrubb, CarrieSelf - patient is the [id number] 2009 Medical (General) History Medical History History ICD Code Pleural effusion J90 Chronic diastolic congestive heart failu re I50.32 Hiatal hernia K44.9 Other secondary pulmonary hypertension I 27.29 Nonrheumatic mitral valve regurgitation I34.0 Nonrheumatic pulmonary valve insufficien cy I37.1 Nonrheumatic aortic valve stenosis I35.0 Hypercholesteremia E78.00 Subclavian artery stenosis, left I77.1 Ganglion of right wrist M67.431 Iatrogenic pneumothorax J95.811 Gastroesophageal reflux disease K21.9 Surgical History Surgery Date(Month/Year) hysterectomy tonsillectomyThoracentesis - Right10/17/2022EGD/ColonoscopyHospitalization History Reason Date(Month/Year) SOB-[facility] ER 01/26/2023 CHF & Pleural Effusion 10/16/2022
[2025-07-30 17:31] LABS: Eosinophils Absolute Manual 0.35 10^3/uL (0.00-0.70); Eosinophils Percent Manual 2.0 % (0.9-7.0); Lymphocytes Absolute Manual 1.94 10^3/uL (1.20-3.80); Lymphocytes Percent Manual 11.0 % (20.5-60.0); Monocytes Absolute Manual 0.53 10^3/uL (0.30-0.80); Monocytes Percent Manual 3.0 % (1.7-12.0); Segmented Neut Absolute Manual 14.69 10^3/uL (1.4-6.5); Segmented Neutrophils % Manual 83.0 (43.0-75.0)
[2025-07-30 17:32] LABS: Basophils Abs Manual 0.17 10^3/uL (0.00-0.10); Basophils Percent Manual 1.0 % (0.2-2.0); Platelet Count 381 10^3/uL (150-450)
[2025-07-30 18:02] LABS: SARS-CoV-2 Ag NEGATIVE (NEGATIVE)
[2025-07-30] MEDS: DOXYCYCLINE HYCLATE 100 MG in 0.9 % SODIUM CHLORIDE 100 ML IV (19:24)
[2025-07-31] VITALS (45 sets, daily range): BP systolic 90–160; BP diastolic 48–74; PULSE 55–82; RESP 16; TEMP 36.3–36.8; O2SAT 80–99
[2025-07-31] MEDS: FUROSEMIDE 20 MG/2 ML VIAL IVP (00:17)
[2025-07-31 06:00] LABS: Mean Corpuscular HGB Conc 31.5 g/dL (29.9-35.2); Mean Corpuscular Hemoglobin 26.2 pg (26.7-34.0); Mean Corpuscular Volume 83.2 fL (81.0-99.0); Platelet Count 250 10^3/uL (150-450); Red Blood Count 2.56 10^6/uL (4.20-5.40); White Blood Count 15.5 10^3/uL (4.0-11.0)
[2025-07-31 06:25] LABS: Alanine Aminotransferase <6 U/L (14-59); Albumin Globulin Ratio 0.8; Albumin Level 2.8 g/dL (3.4-5.0); Alkaline Phosphatase 77 U/L (46-116); Anion Gap 8.7; Aspartate Amino Transferase 7 U/L (15-37); Blood Urea Nitrogen 21.0 mg/dL (7.0-18.0); Calcium 8.5 mg/dL (8.5-10.1); Carbon Dioxide 27.1 mmol/L (21.0-32.0); Chloride 107 mmol/L (98-107); Estimated GFR (African America 38 (>=60 mL/min/1.73m^2); Estimated GFR (Non-African Ame 31 (>=60 mL/min/1.73m^2); Globulin 3.7 g/dL; Glucose 173 mg/dL (74-106); Potassium 4.8 mmol/L (3.5-5.1); Sodium 138 mmol/L (136-145); Thyroid Stimulating Hormone 0.800 uIU/mL (0.358-3.740); Total Protein 6.5 g/dL (6.4-8.2)
[2025-07-31 06:29] LABS: Hemoglobin 6.7 g/dL (12.0-16.0)
[2025-07-31 06:30] LABS: Hematocrit 21.3 % (36.0-48.0)
[2025-07-31] MEDS: PANTOPRAZOLE SODIUM 40 MG VIAL IV ×2 (08:23→21:16)
[2025-07-31] MEDS: AMLODIPINE BESYLATE 5 MG TABLET 10 MG PO (08:27)
[2025-07-31] MEDS: CARVEDILOL 12.5 MG TABLET PO ×2 (08:28→21:14)
[2025-07-31] MEDS: FUROSEMIDE 40 MG/4 ML VIAL IVP (08:29)
[2025-07-31 08:57] LABS: Iron 30.0 ug/dL (50.0-170.0); Percent Iron Saturation 18.3 %; Total Iron Binding Capacity 164.0 ug/dL (250.0-450.0)
[2025-07-31 09:14] LABS: Ferritin 259.0 ng/mL (8.0-252.0); Folate 25.80 ng/mL (8.60-58.90)
--- NOTE | 2025-07-31 10:07 | PM.HP ---
HPI H&P: HPI History of Present Illness Chief complaint: puemonary edema c chf acute hypoxic respiratory fa Narrative: Mrs. Das is an 85-year-old female who came to the emergency room complaining of progressive shortness of breath and chest tightness. Patient denies actual chest pain. She denies any abdominal pain. She did not feel well and decided to come to the emergency room. No abdominal pain, nausea or vomiting. No hematemesis or melena. Patient has cognitive loss. Unable to provide details on her past medical history. She is not aware that she has had any heart condition before. Opioid HPI Opioid Management Most Recent Pain and Opioid Data: Last Pain Scale 0 07/24/23, 10:55 Last Pain Intensity 0 07/24/23, 10:55 Last Pain Assessment Today, 09:51 Last ORT Total Score 0 07/30/25, 20:04 Last ORT Risk Category Low Risk 07/30/25, 20:04 Review of Systems ROS Status of ROS 10 or more systems reviewed and unremarkable except as noted in history and below PFSH PFS Medical History IRLANDA (acute kidney injury) ?N17.9 - Acute kidney failure, unspecified (ICD-10) Anemia ?D64.9 - Anemia, unspecified (ICD-10) (HFpEF) heart failure with preserved ejection fraction ?I50.30 - Unspecified diastolic (congestive) heart failure (ICD-10) Hiatal hernia ?K44.9 - Diaphragmatic hernia without obstruction or gangrene (ICD-10) HTN (hypertension) ?I10 - Essential (primary) hypertension (ICD-10) Stenosis of left subclavian artery ?I77.1 - Stricture of artery (ICD-10) Acute hypoxic respiratory failure ?J96.01 - Acute respiratory failure with hypoxia (ICD-10) Pleural effusion, bilateral ?J90 - Pleural effusion, not elsewhere classified (ICD-10) CHF (congestive heart failure) ?I50.9 - Heart failure, unspecified (ICD-10) Acute hypoxemic respiratory failure ?J96.01 - Acute respiratory failure with hypoxia (ICD-10) Pleural effusion ?J90 - Pleural effusion, not elsewhere classified (ICD-10) Surgical History H/O: hysterectomy ?Z90.710 - Acquired absence of both cervix and uterus (ICD-10) Hx of tonsillectomy ?Z90.89 - Acquired absence of other organs (ICD-10) Family History (Updated 07/25/23 @ 09:45 by Leslie Mon) Sister Family history of diabetes mellitus Father Family history of cancer Mother Anemia Social History (Updated 07/30/25 @ 23:28 by Marlene Carreon) Within the past year, how often did you have a drink containing alcohol: never Score interpretation: A score less than 3 is consistent with normal alcohol consumption. Smoking status: Never smoker Highest level of school completed/degree received: some college, no degree Are you now , , , , never or living with a partner: Little interest or pleasure in doing things: not at all Feeling down, depressed, or hopeless: not at all Feel stressed/tense/nervous/anxious/difficulty sleeping: not at all Do you think of yourself as: straight/heterosexual Gender Identity: female Meds Home Medications and Allergies Home Medications ?Medication ?Instructions ?Recorded ?Confirmed ?Type amlodipine 10 mg tablet 10 mg PO DAILY 01/26/23 07/30/25 History carvedilol 12.5 mg tablet 12.5 mg PO BID 01/26/23 07/30/25 History omeprazole 40 mg capsule,delayed 40 mg PO DAILY 01/26/23 07/30/25 History release folic acid 1 mg tablet 1 mg PO DAILY 07/24/23 07/30/25 History furosemide 20 mg tablet (Lasix) 20 mg PO .every 48 hrs 07/30/25 07/30/25 History Allergies Allergy/AdvReac Type Severity Reaction Status Date / Time No Known Drug Allergies Allergy Verified 07/24/23 04:39 Exam Narrative Exam Narrative: Patient is sitting in bed. Central obesity otherwise muscle wasting involving her extremities. Mildly tachypneic. She is on oxygen 4 L. Saturation 95%. Patient has slight JVD. Neck is supple. No lymph node. Chest exam revealed the kyphosis of the thoracic spine. Bilateral crackles. Diminished breath sounds on the right side. Heart is regular. Abdomen is soft. Increased girth therefore clinically I could not exclude the possibility of intra-abdominal mass organomegaly. Lower extremities +1 pitting edema Constitutional Vital Signs, click to edit/add: Last Vital Signs Temp 98 F 07/31/25 10:03 Pulse 74 07/31/25 10:03 Resp 22 H 07/31/25 08:44 BP 112/74 07/31/25 10:03 Pulse Ox 95 07/31/25 10:03 O2 Del Method Nasal Cannula 07/31/25 10:03 O2 Flow Rate 4 07/31/25 10:03 FiO2 4 07/31/25 04:32 Results Labs Labs: Short CBC 07/30/25 07/31/25 Range/Units 16:50 05:37 WBC 17.7 H 15.5 H (4.0-11.0) 10^3/uL Hgb 7.9 L 6.7 L* (12.0-16.0) g/dL Hct 25.6 L 21.3 L* (36.0-48.0) % Plt Count 381 250 (150-450) 10^3/uL BMP 07/30/25 07/31/25 16:50 05:37 Sodium 140 138 Potassium 5.0 4.8 Chloride 107 107 Carbon Dioxide 26.3 27.1 BUN 18.0 21.0 H Creatinine 1.53 H 1.57 H Glucose 186 H 173 H Calcium 8.5 8.5 Liver Function 07/30/25 07/31/25 Range/Units 16:50 05:37 Total Bilirubin 0.8 0.4 (0.2-1.0) mg/dL AST 11 L 7 L (15-37) U/L ALT 8 L <6 L (14-59) U/L Alkaline Phosphatase 88 77 (46-116) U/L Albumin 3.3 L 2.8 L (3.4-5.0) g/dL ABG ABG results: 07/30/25 17:08 ABG pH 7.350 ABG pCO2 43.3 ABG pO2 81.5 ABG HCO3 23.9 ABG O2 Saturation 96.3 ABG Base Excess -1.7 Assessment and Plan Assessment and Plan (1) Acute hypoxic respiratory failure: Plan Acute hypoxic respiratory failure, probable chronic but patient does not have oxygen at home Chest x-ray showed bilateral interstitial edema with an elevated BNP and lower extremities edema suggestive of acute decompensation of diastolic heart failure. Rule out the possibility of acute systolic failure. Last echocardiogram was completed in 2022 which showed preserved ejection fraction. Her white count also is elevated which could be reactive leukocytosis but could not exclude the possibility of underlying pulmonary infection. I requested blood culture. My intention to request procalcitonin but not available at [facility]. Requested CRP. Started patient empirically on intravenous antibiotic Influenza, RSV and COVID are negative however I could not exclude other possible viral or bacterial pneumonia/pneumonitis such as adenovirus, parainfluenza, rhino, human [place] pneumo virus, Bordetella, mycoplasma, chlamydia and others Requested echocardiogram. Start the patient on diuretics. Slight elevation of the troponin No significant ST elevation or depression on EKG No active chest pain or angina Previous imaging showed atherosclerosis Patient is not aware that she has had any cardiac issues before. No clinical evidence to suggest ACS however patient may have underlying CAD I started patient on carvedilol and isosorbide. Avoid antiplatelets or anticoagulation due to hemoglobin drop with the possibility of GI bleed. Patient may need to have a stress test or cardiac cath. Anemia. Hemoglobin drop overnight. No hematemesis or melena. I requested iron study which is consistent with anemia of chronic disease but could not exclude acute blood loss. Do not start antiplatelets or anticoagulation Started patient on PPI intravenously. Requested RBC transfusion. Monitor hemoglobin after transfusion. Requested stool Hemoccult. If patient continues to drop her hemoglobin and/or stool Hemoccult is positive she would need endoscopy. Abnormal chest imaging in the past showing chronic pleural effusion and right lung collapse. Patient does not know if this was investigated before. She is not aware that she seen a lung specialist. Loss of lung volume put patient at risk of having rapid decompensation of her respiratory status. Consideration to refer patient to see pulmonology. She may need to have diagnostic thoracentesis Stage III borderline stage IV CKD. Baseline creatinine is 1.5. GFR is low 30s upper 20s. Requested UA to see if there is any RBC or protein I suspect that her CKD is secondary to long standing atherosclerosis with nephrosclerosis. Patient had recently MRI of the abdomen which showed left kidney cyst otherwise no hydronephrosis. No strong indication to reimage the kidneys. Cachexia, frailty, failure to thrive, moderate protein calorie malnutrition, muscle wasting atrophy, sarcopenia Patient may need to have weight loss and cachexia workup rule out underlying malignancy. This could be done electively in the outpatient setting if patient chooses to. Meanwhile I will start patient on oral protein supplementation Cognitive and function impairment Patient has mild to moderate degree of impairment. 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 Patient lives alone after her . Her sister checks up on her. She does not have children. Engage in social work team to evaluate home safety, support and aid in the provide further recommendation and advice related to disposition. DVT prophylaxis SCD. Avoid pharmacological intervention due to hemoglobin drop. Chronic, subacute medical conditions not listed above, abnormal labs and imaging, incidental findings seen on labs and or imaging. These would need to be addressed. Could be addressed later on or in the outpatient setting by PCP collaboration with other needed outpatient providers when time and condition are appropriate. Patient status is dynamic and evolutionary therefore the aforementioned assessment and plan may or may not be complete or conclusive. The patient would likely require to have additional workup, investigation and therapeutic invention but will be determined based on the clinical progression and follow-up test result. I spent about 1 hour in CC evaluation, assessment and treatment of this patient is for
[2025-07-31] MEDS: ISOSORBIDE MONONITRATE 30 MG TAB.ER.24H PO (10:54)
[2025-07-31 13:07] LABS: Glucose Urine UA NEGATIVE (NEGATIVE)
[2025-07-31 13:18] LABS: Cast Seen? NONE SEEN #/LPF (NONE SEEN); Crystals Seen? None Seen #/HPF (None Seen); Urine Culture Indicated YES-FRMC
[2025-07-31 16:02] LABS: Hematocrit 26.3 % (36.0-48.0); Hemoglobin 8.7 g/dL (12.0-16.0)
[2025-07-31] MEDS: DOXYCYCLINE HYCLATE 100 MG in 0.9 % SODIUM CHLORIDE 100 ML IV (16:03)
[2025-08-01] VITALS (65 sets, daily range): BP systolic 113–135; BP diastolic 47–74; PULSE 44–84; TEMP 36.6–36.9; O2SAT 88–98
[2025-08-01] MEDS: DOXYCYCLINE HYCLATE 100 MG in 0.9 % SODIUM CHLORIDE 100 ML IV (05:15)
[2025-08-01 05:55] LABS: Hematocrit 29.5 % (36.0-48.0); Hemoglobin 9.4 g/dL (12.0-16.0); Mean Corpuscular HGB Conc 31.9 g/dL (29.9-35.2); Mean Corpuscular Hemoglobin 26.7 pg (26.7-34.0); Mean Corpuscular Volume 83.8 fL (81.0-99.0); Platelet Count 235 10^3/uL (150-450); Red Blood Count 3.52 10^6/uL (4.20-5.40); White Blood Count 20.4 10^3/uL (4.0-11.0)
[2025-08-01 06:16] LABS: Alanine Aminotransferase <6 U/L (14-59); Albumin Globulin Ratio 0.7; Albumin Level 2.8 g/dL (3.4-5.0); Alkaline Phosphatase 69 U/L (46-116); Anion Gap 11.1; Aspartate Amino Transferase 11 U/L (15-37); Blood Urea Nitrogen 34.0 mg/dL (7.0-18.0); Calcium 8.5 mg/dL (8.5-10.1); Carbon Dioxide 25.9 mmol/L (21.0-32.0); Chloride 106 mmol/L (98-107); Cholesterol 173 mg/dL (<=200); Estimated GFR (African America 33 (>=60 mL/min/1.73m^2); Estimated GFR (Non-African Ame 27 (>=60 mL/min/1.73m^2); Globulin 3.8 g/dL; Glucose 129 mg/dL (74-106); HDL Cholesterol 46 mg/dL (40-60); Potassium 5.0 mmol/L (3.5-5.1); Sodium 138 mmol/L (136-145); Total Protein 6.6 g/dL (6.4-8.2); Triglycerides 81 mg/dL (<=150); VLDL CHOLESTEROL 16.2 mg/dL
--- NOTE | 2025-08-01 08:20 | CM.NOTE ---
Rounds made with Dr. Mac, discussed diagnosis and plan of care with pt. Pt is inpatient status, no discharge today. Pt requiring oxygen at this time. PT and OT will evaluate pt today for discharge planning.
[2025-08-01] MEDS: ISOSORBIDE MONONITRATE 30 MG TAB.ER.24H PO (08:34)
[2025-08-01] MEDS: PANTOPRAZOLE SODIUM 40 MG VIAL IV ×2 (08:34→21:32)
[2025-08-01] MEDS: CARVEDILOL 12.5 MG TABLET PO (08:34)
--- NOTE | 2025-08-01 10:04 | CM.NOTE ---
Important Message From Medicare discussed with pt, pt verbalizes understanding and signs paper. Original given to pt and copy placed on pt's chart.
--- NOTE | 2025-08-01 10:59 | US_ITS ---
The [address] [address] Patient Name: CHRISTA PITTS MRN: [id number] date: 1940 Sex: F Assigned Patient Location: [place] Current Patient Location: [place] Accession/Order Number: [id number] Exam Date: 08/01/2025 13:00 Report Date: 08/01/2025 20:44 At the request of: ANNA COSTELLO MD Procedure: US renal BI Bilateral Renal Ultrasound HISTORY: Acute kidney injury. COMPARISON: None RIGHT kidney measures 9.6 cm. LEFT kidney measures 9.0 cm. Hydronephrosis: None RENAL STONE: No shadowing renal calculus is seen. RENAL LESIONS: No renal lesion identified. URINARY BLADDER: Unremarkable REPRODUCTIVE STRUCTURES Not assessed IMPRESSION : No hydronephrosis. Impression dictated by: Mauro Mendes M.D. 08/01/2025 8:44 PM Dictation Location: [place] [address] Electronically authenticated by: [id number] Y Date: 08/01/2025 20:44
--- NOTE | 2025-08-01 11:08 | PM.PN ---
Progress Note: Subjective Subjective Interval history: Patient is feeling better. She is breathing better. Oxygen supplementation had been reduced from 4 L down to 1 L. Saturation 94%. No chest pain. No abdominal pain. No hematemesis or melena. Patient did not have a bowel movement yet. Exam Narrative Exam Narrative: Patient is sitting in bed. Central obesity otherwise muscle wasting involving her extremities. Mildly tachypneic. She is on oxygen 4 L. Saturation 95%. Patient has slight JVD. Neck is supple. No lymph node. Chest exam revealed the kyphosis of the thoracic spine. Bilateral crackles. Diminished breath sounds on the right side. Heart is regular. Abdomen is soft. Increased girth therefore clinically I could not exclude the possibility of intra-abdominal mass organomegaly. Lower extremities +trace pitting edema Constitutional Vital Signs, click to edit/add: Last Vital Signs Temp 98.1 F 08/01/25 07:45 Pulse 52 L 08/01/25 09:59 Resp 18 08/01/25 08:30 BP 124/55 08/01/25 08:31 Pulse Ox 94 L 08/01/25 09:59 O2 Del Method Nasal Cannula 08/01/25 09:40 O2 Flow Rate 1 08/01/25 09:40 FiO2 4 07/31/25 04:32 Progress Note: Objective Labs Labs: Short CBC 07/31/25 08/01/25 Range/Units 15:33 05:28 WBC 20.4 H (4.0-11.0) 10^3/uL Hgb 8.7 L 9.4 L (12.0-16.0) g/dL Hct 26.3 L 29.5 L (36.0-48.0) % Plt Count 235 (150-450) 10^3/uL BMP 08/01/25 05:28 Sodium 138 Potassium 5.0 Chloride 106 Carbon Dioxide 25.9 BUN 34.0 H Creatinine 1.78 H Glucose 129 H Calcium 8.5 Liver Function 08/01/25 Range/Units 05:28 Total Bilirubin 0.5 (0.2-1.0) mg/dL AST 11 L (15-37) U/L ALT <6 L (14-59) U/L Alkaline Phosphatase 69 (46-116) U/L Albumin 2.8 L (3.4-5.0) g/dL Urine 12/25/25 Range/Units 12:30 Urine Color Lt. yellow (YELLOW) Urine Clarity Clear (CLEAR) Urine pH 5.5 (5.0-9.0) Ur Specific [place] 1.010 (1.005-1.025) Urine Protein Negative (NEG/TRACE) mg/dL Urine Glucose (UA) Negative (NEGATIVE) mg/dL Progress Note: A&P Assessment and Plan (1) Acute hypoxic respiratory failure: Plan Acute hypoxic respiratory failure, probable chronic but patient does not have oxygen at home Chest x-ray showed bilateral interstitial edema with an elevated BNP and lower extremities edema suggestive of acute decompensation of diastolic heart failure. Rule out the possibility of acute systolic failure. Last echocardiogram was completed in 2022 which showed preserved ejection fraction. Her white count also is elevated which could be reactive leukocytosis but could not exclude the possibility of underlying pulmonary infection. I requested blood culture. My intention to request procalcitonin but not available at [facility]. Requested CRP. Started patient empirically on intravenous antibiotic Influenza, RSV and COVID are negative however I could not exclude other possible viral or bacterial pneumonia/pneumonitis such as adenovirus, parainfluenza, rhino, human [place] pneumo virus, Bordetella, mycoplasma, chlamydia and others Requested echocardiogram. Still pending. Continue gentle diuresis. Slight elevation of the troponin, bradycardia, hypertension management No significant ST elevation or depression on EKG No active chest pain or angina Previous imaging showed atherosclerosis Patient is not aware that she has had any cardiac issues before. No clinical evidence to suggest ACS however patient may have underlying CAD I started patient on carvedilol and isosorbide. Coreg is home dose 12.5 twice a day. Amlodipine is still on hold. Patient became bradycardic with Coreg 12.5 twice a day therefore I will reduce it down to 3.125 twice a day with holding parameters Avoid antiplatelets or anticoagulation due to hemoglobin drop with the possibility of GI bleed. Patient may need to have a stress test or cardiac cath. Patient is not eager or interested in having any procedure at this time or be transferred out. Anemia. Hemoglobin drop overnight. No hematemesis or melena. I requested iron study which is consistent with anemia of chronic disease but could not exclude acute or subacute slow blood loss. Do not start antiplatelets or anticoagulation Started patient on PPI intravenously. Requested RBC transfusion. Patient had received units of RBC transfusion. Monitor hemoglobin after transfusion. Requested stool Hemoccult. That is still pending. If patient continues to drop her hemoglobin and/or stool Hemoccult is positive she would need endoscopy. Patient is not eager to be transferred out or have any procedure at this time. Abnormal chest imaging in the past showing chronic pleural effusion and right lung collapse. Patient does not know if this was investigated before. She is not aware that she seen a lung specialist. Loss of lung volume put patient at risk of having rapid decompensation of her respiratory status. Consideration to refer patient to see pulmonology. She may need to have diagnostic thoracentesis Stage III borderline stage IV CKD. Baseline creatinine is 1.5. GFR is low 30s upper 20s. Requested UA to see if there is any RBC or protein I suspect that her CKD is secondary to long standing atherosclerosis with nephrosclerosis. Patient had recently MRI of the abdomen which showed left kidney cyst otherwise no hydronephrosis. Requested renal ultrasound to rule out the development of obstructive uropathy since last MRI imaging. Cachexia, frailty, failure to thrive, moderate protein calorie malnutrition, muscle wasting atrophy, sarcopenia Patient may need to have weight loss and cachexia workup rule out underlying malignancy. This could be done electively in the outpatient setting if patient chooses to. Meanwhile I will start patient on oral protein supplementation Cognitive and function impairment Patient has mild to moderate degree of impairment. 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 Patient lives alone after her . Her sister checks up on her. She does not have children. Engage in social work team to evaluate home safety, support and aid in the provide further recommendation and advice related to disposition. DVT prophylaxis SCD. Avoid pharmacological intervention due to hemoglobin drop. Chronic, subacute medical conditions not listed above, abnormal labs and imaging, incidental findings seen on labs and or imaging. These would need to be addressed. Could be addressed later on or in the outpatient setting by PCP collaboration with other needed outpatient providers when time and condition are appropriate. Patient status is dynamic and evolutionary therefore the aforementioned assessment and plan may or may not be complete or conclusive. The patient would likely require to have additional workup, investigation and therapeutic invention but will be determined based on the clinical progression and follow-up test result. Goals of care discussion and advance care planning I started this conversation yesterday but patient was unable to make decision. I restarted the conversation today in the presence of Ramila Estes RN Conversation went [id number] lasted for about 16 minutes. Patient has mild cognitive loss but able to understand conversation related to her health including but not limited to options, alternatives, risk, benefit, life and situation. Patient was able to answer questions. Patient was able to recite I explained to patient again in layman's terms of the process of CPR including chest compressions, shocks, intubation life support. I explained in simple terms to patient again the difference between aggressive versus comfort care approach. Patient repeatedly stated that she is not interested in having any aggressive testing, investigation, procedure, surgery. Patient is not interested and being transferred to another institution. Patient stated in simple terms but she wants basic comfort care approach. Her wishes are aligned with the [facility] status. Change CODE STATUS accordingly. Urinary Catheter Management Urinary Catheter Management Pure Wick: Cath placed during this visit: yes Urethral indwelling: No Insertion date: 07/31/25 Insertion time: 13:49
--- NOTE | 2025-08-01 11:53 | CM.NOTE ---
CM spoke with Dr. Huang from [facility] Cardiology, echo will be read today.
--- NOTE | 2025-08-01 12:28 | SWNOTE1 ---
PT did recommend SNF. SW or CM to speak with pt about this recommendation.
[2025-08-01] MEDS: FUROSEMIDE 20 MG/2 ML VIAL IVP (12:45)
--- NOTE | 2025-08-01 13:14 | SWNOTE1 ---
Pt is getting another ultrasound done, SW or CM to speak with her about therapy recommendations after US completed.
--- NOTE | 2025-08-01 13:41 | CM.NOTE ---
CM in to discuss discharge planning. The patient is refusing both home health and custodial at discharge. The pt voiced some issues with previous home health agencies stating that they thought they called the shots and then stated no one is coming into my house . Dr Mac notified via tiger text of the patient's refusal of both home health and custodial at discharge.
--- NOTE | 2025-08-01 14:27 | CM.NOTE ---
CM in to discuss home health/alf again and pt continues to refuse both. Pt states she lives alone but her sister lives near by and will come and check on her. notified via tiger text.
--- NOTE | 2025-08-01 14:36 | SWNOTE1 ---
See CM note. Pt refsuing SNF and Home Health. Lives alone, but has siblings close by that check on her.
--- NOTE | 2025-08-01 15:21 | CM.NOTE ---
The patient's sister Kayla called with some concerns about the patient being discharged home. Kayla stated that the sister is very forgetful and recently forgot to pay her water bill which lead to her water being shut off. Kayla is also concerned about her sister driving. I did share with Kayla that home health/skilled was recommended at discharge but her sister refused. Kayla said that she will not allow her sister to return home alone and that she would probably stay with either her or her other sister on discharge. I told Kayla that I would speak with the SW to see what else we can do. After speaking with the SW we went in and spoke with the patient and shared her sisters concerns. The pt stated that her sister needs to mind her own business and that she did not want anyone coming into her home or to go to a [facility] facility. SW to call the patients sister back to update her on our conversation with the pt.
--- NOTE | 2025-08-01 15:28 | SWNOTE1 ---
ERWIN spoke to CM and pt's sister Kayla called in and had concerns about pt going home. She advised CM that pt can be forgetful in paying bills, has forgot to pay her water bill and had water turned off in past. She has concerns about her driving as well. Sister also told CM that her sisters were take care of her at home or they will have pt live with them if she refuses to go to SNF or have HH services come in. ARMANDO and ERWIN spoke to pt in room. Pt is alert and oriented at this time. SW advised that it is recommended that pt goes to rehab for a short time to get stronger prior to going home. Pt voiced absolutely not. She stated she is going home and she is not changing her mind. She stated she does not want anyone coming in to her home either. She spoke about services coming in to her home for her . Likely hospice services and they controlled everything. She stated they made her feel like an idiot. She did ask the reason for her to go to SNF? SW advised it would help her get stronger prior to her going home. SW advised it would only be a week or 2 then she can go home. Pt stated she will call someone if she needs anything. SW let her know if she does not agree to go anywhere or have someone come in, her sisters are going to have her move in with one of them. She stated that is fine and she lived with Barby for awhile once he passed. SW asked if she gets around to the bathroom and her bedroom at home. She stated yes she has a bedside commode and a recliner on the first floor that she sleeps in. ERWIN again tried to advise pt that for her safety she should try rehab. Pt again stated she is not going to rehab. SW advised that the physician may speak with her about this tomorrow as well. She stated she will close her ears. At this time pt is alert and oriented and refusing SNF and HH. ERWIN updated the nurse. ARMANDO updated Dr. Mac.
--- NOTE | 2025-08-01 23:12 | CA_ITS ---
Patient Name: CHRISTA PITTS MR#: [id number] : 1940 Exam Date: 08/01/2025 Ordering Doctor: ANNA COSTELLO ECHOCARDIOGRAM REPORT PROCEDURE: CA ECHO DOPPLER COMPLETE INDICATIONS: CHF COMPARISON: None. DESCRIPTION: COMPLETE ECHOCARDIOGRAM Real-time transthoracic echocardiography with 2D, M-mode, spectral and color flow Doppler performed. QUALITY: Technical quality was good. LEFT VENTRICLE: Normal chamber size. Mild concentric left ventricular hypertrophy. Normal systolic function. Estimated LVEF is 55 to 60%. LV EF: Normal left ventricular ejection fraction, (>55%). DIASTOLIC: ATRIAL SEPTUM: LEFT ATRIUM: Severe dilatation. RIGHT ATRIUM: Mild dilatation. RIGHT VENTRICLE: Normal chamber size. Normal right ventricular systolic function. TRICUSPID VALVE: Normal mobility and thickness. No stenosis with trivial regurgitation. No evidence of pulmonary hypertension. RVSP 31 mmHg MITRAL VALVE: Normal mobility and thickness. No evidence of mitral valve stenosis. Mitral annular calcification. Mild to moderate mitral regurgitation. AORTIC VALVE: Normal trileaflet appearance. Moderately calcified aortic valve. Significantly diminished mobility. Doppler velocity suggest at least moderate aortic valve stenosis. DVI 0.34, DESMOND 1.0 cm2, Vmax 2.06, max/mean PG 17/10 mmHg. No aortic regurgitation. AORTIC ROOT: Normal diameter and appearance, measuring 3.2 cm. PULMONIC VALVE: Normal thickness and mobility. No stenosis. Mild regurgitation. PERICARDIUM: No evidence of pericardial effusion. IVC: IVC does not collapse. PLEURA: CONCLUSION: 1. Mild concentric left ventricular hypertrophy with normal systolic function. Estimated LVEF is 55 to 60%. 2. Normal right ventricular size and systolic function. 3. Severe left atrial dilatation. 4. Mild to moderate mitral regurgitation. 5. At least moderate aortic valve stenosis, low-flow low gradient. 6. Normal right-sided pressures. 7. Technically difficult study with poor sound transmission. A transesophageal echocardiogram can provide better assessment of the aortic valve function. Adult Echocardiography Procedure Report Left Ventricle LVEDD (3.7 - 5.6 cm): 4.60 cm LVESD (2.2 - 4.0 cm): 3.30 cm LVIVS thickness (0.6 - 1.2 cm): 1.10 cm LVPW thickness (0.5 - 1.0 cm): 1.22 cm e': 0.11 m/s E - e': 7.16 LVOT Max Gradient: 2.36 mm[Hg] LVOT Area (cm2): 0.77 m/s Peak Velocity (LVOT): 0.77 m/s Mean Velocity (LVOT): 0.54 m/s LVOT Diameter 1.80 cm Left Ventricular Ejection Fraction: 55-60 % Left Atrium LA Volume Index (2D A2C): 101.34 ml/m2 Left Atrium Systolic Dimension: 4.10 cm Mitral Valve MV E to A Ratio: 1.54 Mitral Valve A-Wave Peak Velocity: 0.51 m/s Mitral Valve E-Wave Peak Velocity: 0.78 m/s Right Ventricle Aorta AO Root Diam: 3.22 cm Aortic Valve AoV Area (Peak Karan): 0.95 cm2, 0.95 cm2 AoV Area (VTI): 0.97 cm2, 0.97 cm2 Peak Velocity(Antegrade Flow): 2.06 m/s, 1.31 m/s Peak Gradient(Antegrade Flow): 16.96 mm[Hg], 6.86 mm[Hg] Mean Velocity(Antegrade Flow): 1.56 m/s, 0.83 m/s Mean Gradient(Antegrade Flow): 10.45 mm[Hg], 3.31 mm[Hg] Velocity Time Integral: 59.48 cm, 24.72 cm Tricuspid Valve Peak Velocity (Regurgitant Flow): 1.97 m/s Pulmonic Valve Mean Gradient: 1.72 mm[Hg] Mean Velocity: 0.61 m/s Peak Velocity: 0.98 m/s Peak Gradient: 3.86 mm[Hg] Right Atrium Right Atrium Systolic Pressure: 48.77 ml, 48.77 ml Dictated by: Amado Regan M.D. on 08/01/2025 at 14:04 Approved by: Amado Regan M.D. on 08/01/2025 at 14:09
[2025-08-02] VITALS (66 sets, daily range): BP systolic 99–119; BP diastolic 46–58; PULSE 44–71; TEMP 36.2–36.8; O2SAT 75–99
[2025-08-02] MEDS: FUROSEMIDE 20 MG/2 ML VIAL IVP ×4 (00:53→21:32)
[2025-08-02] MEDS: DOXYCYCLINE HYCLATE 100 MG in 0.9 % SODIUM CHLORIDE 100 ML IV ×2 (04:04→16:22)
[2025-08-02 04:07] LABS: Vitamin B12 706 pg/mL (232-1245)
[2025-08-02 06:50] LABS: Hematocrit 29.4 % (36.0-48.0); Hemoglobin 9.6 g/dL (12.0-16.0); Mean Corpuscular HGB Conc 32.7 g/dL (29.9-35.2); Mean Corpuscular Hemoglobin 27.6 pg (26.7-34.0); Mean Corpuscular Volume 84.5 fL (81.0-99.0); Platelet Count 223 10^3/uL (150-450); Red Blood Count 3.48 10^6/uL (4.20-5.40); White Blood Count 12.1 10^3/uL (4.0-11.0)
[2025-08-02 07:01] LABS: Alanine Aminotransferase 8 U/L (14-59); Albumin Globulin Ratio 0.8; Albumin Level 2.7 g/dL (3.4-5.0); Alkaline Phosphatase 66 U/L (46-116); Anion Gap 9.8; Aspartate Amino Transferase 14 U/L (15-37); Blood Urea Nitrogen 40.0 mg/dL (7.0-18.0); Calcium 8.2 mg/dL (8.5-10.1); Carbon Dioxide 30.8 mmol/L (21.0-32.0); Chloride 102 mmol/L (98-107); Estimated GFR (African America 35 (>=60 mL/min/1.73m^2); Estimated GFR (Non-African Ame 29 (>=60 mL/min/1.73m^2); Globulin 3.6 g/dL; Glucose 99 mg/dL (74-106); Potassium 4.6 mmol/L (3.5-5.1); Sodium 138 mmol/L (136-145); Total Protein 6.3 g/dL (6.4-8.2)
--- NOTE | 2025-08-02 08:13 | ECG_ITS ---
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 Measurements Intervals [place] Rate: 67 P: 64 MN: 182 QRS: -2 QRSD: 92 T: -59 QT: 398 QTc: 414 Interpretive Statements 1100 Sinus rhythm 1108 Marked sinus arrhythmia [address] depression 4664 Twave abnormality, possible inferior ischemia 9150 abnormal ECG Compared to ECG 07/30/2025 17:18:54 ST (T wave) deviation still present Electronically Signed On 08-03-2025 12:59:09 EST by BRI MAYES M.D.
--- NOTE | 2025-08-02 08:13 | XR_ITS ---
[facility] [place] [id number] Patient Name: CHRISTA PITTS MRN: [id number] date: 1940 Sex: F Assigned Patient Location: [place] Current Patient Location: [place] Accession/Order Number: [id number] Exam Date: 08/02/2025 09:40 Report Date: 08/02/2025 10:08 At the request of: ANNA COSTELLO MD Procedure: XR chest 1V Single view chest compared to prior examination 07/30/2025 HISTORY: Shortness of breath A similar moderate right pleural-parenchymal changes. Similar left consolidation. No pneumothorax. Cardiac and mediastinal silhouettes stable. Hilar unchanged. XR/XR chest 1V IMPRESSION: Stable chest findings. Impression dictated by: Mauro Mendes M.D. 08/02/2025 10:08 AM Dictation Location: [place] [id number] Electronically authenticated by: [id number] Y Date: 08/02/2025 10:08
[2025-08-02] MEDS: PANTOPRAZOLE SODIUM 40 MG VIAL IV (08:33)
[2025-08-02] MEDS: MIDODRINE HCL 5 MG TABLET PO ×3 (08:33→16:14)
[2025-08-02] MEDS: ISOSORBIDE MONONITRATE 30 MG TAB.ER.24H PO (08:33)
[2025-08-02] MEDS: ALBUMIN HUMAN 25 GM/100 ML PREMIX IV (08:33)
--- NOTE | 2025-08-02 10:24 | REH.PTDLY ---
Physical Therapy Daily Note PT Daily Note/Assess Start: 08/02/25 10:14 Freq: Status: Active Protocol: Document 08/02/25 09:23 ISRAELROSSANA (Rec: 08/02/25 10:24 [id number] Physical Therapy Daily Note/Assessment Time In 09:09 Time Out 09:23 Pain Level 0 Pain Level 0 Subjective Pt initially does not want to participate in therapy. Dr and nurse enter room for rounds. Nursing reports she needs to get up as she has been declining to do so. Encouraged pt to sit up and eat breakfast in chair opposed to the bed. Therapeutic Exercise 5 Minutes (minutes) Therapeutic Exercise 0 Units Therapeutic Exercise Instructed in B LE seated exs 10x ea for improved Treatment strength in Wade LEs for ease of transfers and gait. Therapeutic Activity 8 Minutes (minutes) Therapeutic Activity 1 Units Therapeutic Activity O2 sats ar 97% on 2 L of O2. Pt does not normally wear Comments O2 at home per nursing. Pt requires Min A to sit bedside from supine position. Pt reports she does not use anything to ambulate with at home, declines pushing IV pole. CGA with sit to stand transfers. Pt ambulates 15 feet around bed to chair using 1 UE support on bed with forward flexed posture. Cues for pt to stand upright, but pt continues to ambulate in her own fashion. CGA with cues for pt to reach back and slowly sit in back in chair. Pt declines ambulating further as she states she is too cold. Total Therapy 13 Minutes Total Physical 1 Therapy Units Daily Note Summary Pt would benefit from ambulating with AD opposed to ' furniture walking'. Pt participates in therapy today, but pt prefers to do things her way opposed to taking corrections. Pt is focused on how cold it is during rx and wanting to get covered back up. Pt would benefit from SNF to improve gait distance/mobility and improve independence with transfers.
--- NOTE | 2025-08-02 11:10 | P.PN_ITS ---
Progress Note: Subjective Subjective Interval history: Patient is feeling better. No new symptoms. No chest or abdominal pain. No nausea or vomiting. Exam Narrative Exam Narrative: Patient is sitting in bed. Central obesity otherwise muscle wasting involving her extremities. No tachypnea at rest, mildly tachypneic with minimal exertion such as changing position in bed.. She is on oxygen 2 L. Saturation 97%. Patient has slight JVD. Neck is supple. No lymph node. Chest exam revealed the kyphosis of the thoracic spine. Bilateral crackles. Diminished breath sounds on the right side. Heart is regular. Abdomen is soft. Increased girth therefore clinically I could not exclude the possibility of intra-abdominal mass organomegaly. Lower extremities +trace pitting edema Constitutional Vital Signs, click to edit/add: Last Vital Signs Temp 98.3 F 08/02/25 07:21 Pulse 54 L 08/02/25 11:00 Resp 18 08/02/25 03:27 BP 117/50 08/02/25 11:05 Pulse Ox 75 L 08/02/25 11:05 O2 Del Method Nasal Cannula 08/02/25 11:07 O2 Flow Rate 2 08/02/25 11:07 FiO2 4 07/31/25 04:32 Progress Note: Objective Labs Labs: Short CBC 08/02/25 Range/Units 06:25 WBC 12.1 H (4.0-11.0) 10^3/uL Hgb 9.6 L (12.0-16.0) g/dL Hct 29.4 L (36.0-48.0) % Plt Count 223 (150-450) 10^3/uL BMP 08/02/25 06:25 Sodium 138 Potassium 4.6 Chloride 102 Carbon Dioxide 30.8 BUN 40.0 H Creatinine 1.70 H Glucose 99 Calcium 8.2 L Liver Function 08/02/25 Range/Units 06:25 Total Bilirubin 0.4 (0.2-1.0) mg/dL AST 14 L (15-37) U/L ALT 8 L (14-59) U/L Alkaline Phosphatase 66 (46-116) U/L Albumin 2.7 L (3.4-5.0) g/dL Progress Note: A&P Assessment and Plan (1) Acute hypoxic respiratory failure: Plan Acute hypoxic respiratory failure, probable chronic but patient does not have oxygen at home Acute diastolic heart failure in the setting of moderate aortic stenosis and mild to moderate mitral regurgitation. Preserved ejection fraction Suspect acute pulmonary infection, pneumonia/pneumonitis. Elevated white count, elevated CRP. Chest x-ray showed bilateral interstitial edema with an elevated BNP and lower extremities edema suggestive of acute decompensation of diastolic heart failure. . Her white count also is elevated which could be reactive leukocytosis but could not exclude the possibility of underlying pulmonary infection. I requested blood culture. My intention to request procalcitonin but not available at [place]. Requested CRP. CRP slightly elevated. Continue antibiotic for suspected pulmonary infection. Continue diuresis Influenza, RSV and COVID are negative however I could not exclude other possible viral or bacterial pneumonia/pneumonitis such as adenovirus, parainfluenza, rhino, human [place] pneumo virus, Bordetella, mycoplasma, chlamydia and others Repeat BNP Slight elevation of the troponin, bradycardia, hypertension management No significant ST elevation or depression on EKG No active chest pain or angina Previous imaging showed extensive atherosclerosis Patient is not aware that she has had any cardiac issues before. No clinical evidence to suggest ACS however patient may have underlying CAD I started patient on carvedilol and isosorbide. Coreg is home dose 12.5 twice a day. Amlodipine is still on hold. Patient became bradycardic with Coreg 12.5 twice a day therefore I will reduce it down to 3.125 twice a day with holding parameters Avoid antiplatelets or anticoagulation due to hemoglobin drop with the possibility of GI bleed. Patient may need to have a stress test or cardiac cath. Patient is not eager or interested in having any procedure at this time or be transferred out. Anemia. Hemoglobin drop overnight on day 1.. No hematemesis or melena. I requested iron study which is consistent with anemia of chronic disease but could not exclude previous, recent or chronic GI blood loss. Her stool Hemoccult now is negative. Do not start antiplatelets or anticoagulation Started patient on PPI intravenously. Converting to oral PPI. Requested RBC transfusion. Patient had received units of RBC transfusion. Monitor hemoglobin after transfusion. Requested stool Hemoccult. I reviewed her [facility] record. Patient had EGD and colonoscopy in September [address] Gutierres. EGD showed a large hiatal hernia and evidence of Saavedra's esophagus. Colonoscopy came back positive for polyp, diverticulosis and hemorrhoids. Subsequently patient had capsule endoscopy which came back negative. Patient told me on 08/01 that she is not interested in having another scope done. I recommend patient to have elective EGD to follow-up on the Saavedra's esophagus rule out progression into adenocarcinoma. We will arrange for patient to follow-up with GI in the outpatient setting. Continue PPI for now. Portion of her anemia could be related to CKD. I started patient on iron s upplementation as well as erythropoietin injection. Abnormal recent chest imaging in the past showing chronic pleural effusion and right lung collapse. Patient does not know if this was investigated before. She is not aware that she seen a lung specialist. Loss of lung volume put patient at risk of having rapid decompensation of her respiratory status. Consideration to refer patient to see pulmonology. She may need to have diagnostic thoracentesis. Patient is not interested in transferring to another institution or have anything urgently. Stage III borderline stage IV CKD. Baseline creatinine is 1.5. GFR is low 30s upper 20s. Requested UA to see if there is any RBC or protein. UA does not show any protein or RBC to suggest active sediment, active nephritis or nephrotic syndrome. I suspect that her CKD is secondary to long standing atherosclerosis with nephrosclerosis. Patient had recently MRI of the abdomen which showed left kidney cyst otherwise no hydronephrosis. Requested renal ultrasound which does not show any hydronephrosis or obstructive uropathy. Continue diuresis to keep patient in a euvolemic state. Cachexia, frailty, failure to thrive, moderate protein calorie malnutrition, muscle wasting atrophy, sarcopenia Patient may need to have weight loss and cachexia workup rule out underlying malignancy. This could be done electively in the outpatient setting if patient chooses to. Meanwhile I will start patient on oral protein supplementation Cognitive and function impairment Patient has mild to moderate degree of impairment. 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 Patient lives alone after her . Her sister checks up on her. She does not have children. Engage in social work team to evaluate home safety, support and aid in the provide further recommendation and advice related to disposition. Patient requested not to call her sister at this time. Patient is recommended to go to skilled care for short period of time. Thus far she declined. DVT prophylaxis SCD. Avoid pharmacological intervention due to hemoglobin drop. Chronic, subacute medical conditions not listed above, abnormal labs and rashi ging, incidental findings seen on labs and or imaging. These would need to be addressed. Could be addressed later on or in the outpatient setting by PCP collaboration with other needed outpatient providers when time and condition are appropriate. Patient status is dynamic and evolutionary therefore the aforementioned assessment and plan may or may not be complete or conclusive. The patient would likely require to have additional workup, investigation and therapeutic invention but will be determined based on the clinical progression and follow-up test result. Goals of care discussion and advance care planning completed on 08/01 I started this conversation yesterday but patient was unable to make decision. I restarted the conversation today in the presence of Ramila Estes RN Conversation went [id number] lasted for about 16 minutes. Patient has mild cognitive loss but able to understand conversation related to her health including but not limited to options, alternatives, risk, benefit, life and situation. Patient was able to answer questions. Patient was able to recite I explained to patient again in layman's terms of the process of CPR including chest compressions, shocks, intubation life support. I explained in simple terms to patient again the difference between aggressive versus comfort care approach. Patient repeatedly stated that she is not interested in having any aggressive testing, investigation, procedure, surgery. Patient is not interested and being transferred to another institution. Patient stated in simple terms but she wants basic comfort care approach. Her wishes are aligned with the [facility] status. Change CODE STATUS accordingly. Urinary Catheter Management Urinary Catheter Management Pure Wick: Cath placed during this visit: yes Urethral indwelling: No Insertion date: 07/31/25 Insertion time: 13:49
[2025-08-02] MEDS: IRON SUCROSE COMPLEX 200 MG in 0.9 % SODIUM CHLORIDE 100 ML 220 MG IV (15:52)
[2025-08-03] VITALS (45 sets, daily range): BP systolic 91–166; BP diastolic 49–83; PULSE 44–81; TEMP 36.1–36.6; O2SAT 90–99
[2025-08-03] MEDS: DOXYCYCLINE HYCLATE 100 MG in 0.9 % SODIUM CHLORIDE 100 ML IV ×2 (04:27→16:00)
[2025-08-03 07:33] LABS: Hematocrit 32.5 % (36.0-48.0); Hemoglobin 10.5 g/dL (12.0-16.0); Mean Corpuscular HGB Conc 32.3 g/dL (29.9-35.2); Mean Corpuscular Hemoglobin 27.3 pg (26.7-34.0); Mean Corpuscular Volume 84.4 fL (81.0-99.0); Platelet Count 263 10^3/uL (150-450); Red Blood Count 3.85 10^6/uL (4.20-5.40); White Blood Count 9.9 10^3/uL (4.0-11.0)
[2025-08-03 07:54] LABS: Alanine Aminotransferase 10 U/L (14-59); Albumin Globulin Ratio 0.8; Albumin Level 3.2 g/dL (3.4-5.0); Alkaline Phosphatase 70 U/L (46-116); Anion Gap 12.1; Aspartate Amino Transferase 14 U/L (15-37); Blood Urea Nitrogen 42.0 mg/dL (7.0-18.0); Calcium 8.7 mg/dL (8.5-10.1); Carbon Dioxide 30.4 mmol/L (21.0-32.0); Chloride 105 mmol/L (98-107); Estimated GFR (African America 35 (>=60 mL/min/1.73m^2); Estimated GFR (Non-African Ame 29 (>=60 mL/min/1.73m^2); Globulin 3.8 g/dL; Glucose 99 mg/dL (74-106); Potassium 4.5 mmol/L (3.5-5.1); Sodium 143 mmol/L (136-145); Total Protein 7.0 g/dL (6.4-8.2)
[2025-08-03] MEDS: EPOETIN ALFA 4,000 UNIT/ML VIAL 4000 UNIT SUBQ (08:34)
[2025-08-03] MEDS: PANTOPRAZOLE SODIUM 40 MG TABLET.DR PO (08:34)
--- NOTE | 2025-08-03 09:38 | P.PN_ITS ---
Progress Note: Subjective Subjective Interval history: Patient is feeling better. No new symptoms. No chest or abdominal pain. No nausea or vomiting. Oxygen requirement has been diminished down to 1 L. Patient is feeling better. No chest pain. No abdominal pain. Exam Narrative Exam Narrative: Patient is sitting in bed. Central obesity otherwise muscle wasting involving her extremities. No tachypnea at rest, mildly tachypneic with minimal exertion such as changing position in bed.. She is on oxygen 2 L. Saturation 97%. Patient has slight JVD. Neck is supple. No lymph node. Chest exam revealed the kyphosis of the thoracic spine. Resolution of the bilateral lower crackles noted on chest exa. Diminished breath sounds on the right side. Heart is regular. Abdomen is soft. Increased girth therefore clinically I could not exclude the possibility of intra-abdominal mass organomegaly. Lower extremities resolution of the trace pitting edema. Constitutional Vital Signs, click to edit/add: Last Vital Signs Temp 97.0 F L 08/03/25 03:56 Pulse 56 L 08/03/25 07:58 Resp 16 08/03/25 06:29 BP 120/83 08/03/25 07:12 Pulse Ox 90 L 08/03/25 07:58 O2 Del Method Nasal Cannula 08/03/25 07:16 O2 Flow Rate 1 08/03/25 07:16 FiO2 4 07/31/25 04:32 Progress Note: Objective Labs Labs: Short CBC 08/03/25 Range/Units 06:45 WBC 9.9 (4.0-11.0) 10^3/uL Hgb 10.5 L (12.0-16.0) g/dL Hct 32.5 L (36.0-48.0) % Plt Count 263 (150-450) 10^3/uL BMP 08/03/25 06:45 Sodium 143 Potassium 4.5 Chloride 105 Carbon Dioxide 30.4 BUN 42.0 H Creatinine 1.67 H Glucose 99 Calcium 8.7 Liver Function 08/03/25 Range/Units 06:45 Total Bilirubin 0.4 (0.2-1.0) mg/dL AST 14 L (15-37) U/L ALT 10 L (14-59) U/L Alkaline Phosphatase 70 (46-116) U/L Albumin 3.2 L (3.4-5.0) g/dL Progress Note: A&P Assessment and Plan (1) Acute hypoxic respiratory failure: Plan Acute hypoxic respiratory failure, probable chronic but patient does not have oxygen at home Acute diastolic heart failure in the setting of moderate aortic stenosis and mild to moderate mitral regurgitation. Preserved ejection fraction Suspect acute pulmonary infection, pneumonia/pneumonitis. Elevated white count, elevated CRP. Chest x-ray showed bilateral interstitial edema with an elevated BNP and lower extremities edema suggestive of acute decompensation of diastolic heart failure. . Her white count also is elevated which could be reactive leukocytosis but could not exclude the possibility of underlying pulmonary infection. I requested blood culture. My intention to request procalcitonin but not available at [place]. Requested CRP. CRP slightly elevated. Inflammatory markers are improving. White count is down from 20,000 to 9000 CRP is down from 6.4 to 2.2 Influenza, RSV and COVID are negative however I could not exclude other possible viral or bacterial pneumonia/pneumonitis such as adenovirus, parainfluenza, rhino, human Parks pneumo virus, Bordetella, mycoplasma, chlamydia and others BNP is trending down. Patient is 2 L negative balance Continue current treatment with diuresis and antibiotic Slight elevation of the troponin, bradycardia, hypertension management No significant ST elevation or depression on EKG No active chest pain or angina Previous imaging showed extensive atherosclerosis Patient is not aware that she has had any cardiac issues before. No clinical evidence to suggest ACS however patient may have underlying CAD I started patient on carvedilol and isosorbide. Coreg had been discontinued due to borderline bradycardia. Amlodipine is been discontinued due to borderline hypotension Avoid antiplatelets or anticoagulation due to hemoglobin drop with the possibility of GI bleed. Patient may need to have a stress test or cardiac cath. Patient is not eager or interested in having any procedure at this time or be transferred out. Anemia. Hemoglobin drop overnight on day 1.. No hematemesis or melena. I requested iron study which is consistent with anemia of chronic disease but could not exclude previous, recent or chronic GI blood loss. Her stool Hemoccult now is negative. Do not start antiplatelets or anticoagulation Started patient on PPI intravenously. Converting to oral PPI. Requested RBC transfusion. Patient had received units of RBC transfusion. Monitor hemoglobin after transfusion. Requested stool Hemoccult. Hemoglobin has been stable and rising. After RBC transfusion her hemoglobin was 8.7 and now it is up to 10.5 I suspect that her anemia is at least partially related to CKD. I started the patient on iron supplementation and erythropoietin I reviewed her [facility] record. Patient had EGD and colonoscopy in September [address] Gutierres. EGD showed a large hiatal hernia and evidence of Saavedra's esophagus. Colonoscopy came back positive for polyp, diverticulosis and hemorrhoids. Subsequently patient had capsule endoscopy which came back negative. Patient told me on 08/01 that she is not interested in having another scope done. I recommend patient to have elective repeat EGD to follow-up on the Saavedra's esophagus rule out progression into adenocarcinoma. We will arrange for patient to follow-up with GI in the outpatient setting. Continue PPI for now. Portion of her anemia could be related to CKD. I started patient on iron supplementation as well as erythropoietin injection. Abnormal recent chest imaging in the past showing chronic pleural effusion and right lung collapse. Patient does not know if this was investigated before. She is not aware that she seen a lung specialist. Loss of lung volume put patient at risk of having rapid decompensation of her respiratory status. Consideration to refer patient to see pulmonology. She may need to have diagnostic thoracentesis. Patient is not interested in transferring to another institution or have anything urgently. IRLANDA, stage III borderline stage IV CKD. Baseline creatinine is 1.5. GFR is low 30s upper 20s. Requested UA to see if there is any RBC or protein. UA does not show any protein or RBC to suggest active sediment, active nephritis or nephrotic syndrome. I suspect that her CKD is secondary to long standing atherosclerosis with nephrosclerosis. Patient had recently MRI of the abdomen which showed left kidney cyst otherwise no hydronephrosis. Requested renal ultrasound which does not show any hydronephrosis or obstructive uropathy. Kidney function is improving with diuresing. Despite 2 L negative fluid balance her creatinine is trending down. I started patient on erythropoietin given her anemia that is partially related to her CKD. Cachexia, frailty, failure to thrive, moderate protein calorie malnutrition, muscle wasting atrophy, sarcopenia Patient may need to have weight loss and cachexia workup rule out underlying malignancy. This could be done electively in the outpatient setting if patient chooses to. Meanwhile I will start patient on oral protein supplementation Cognitive and function impairment Patient has mild to moderate degree of impairment. 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 Patient lives alone after her . Her sister checks up on her. She does not have children. Engage in social work team to evaluate home safety, support and aid in the provide further recommendation and advice related to disposition. Patient requested not to call her sister at this time. Patient is recommended to go to skilled care for short period of time. Thus far she declined. DVT prophylaxis SCD. Avoid pharmacological intervention due to hemoglobin drop. Chronic, subacute medical conditions not listed above, abnormal labs and imaging, incidental findings seen on labs and or imaging. These would need to be addressed. Could be addressed later on or in the outpatient setting by PCP collaboration with other needed outpatient providers when time and condition are appropriate. Goals of care discussion and advance care planning completed on 08/01 I started this conversation yesterday but patient was unable to make decision. I restarted the conversation today in the presence of Ramila Estes RN Conversation went [id number] lasted for about 16 minutes. Patient has mild cognitive loss but able to understand conversation related to her health including but not limited to options, alternatives, risk, benefit, life and situation. Patient was able to answer questions. Patient was able to recite I explained to patient again in layman's terms of the process of CPR including chest compressions, shocks, intubation life support. I explained in simple terms to patient again the difference between aggressive versus comfort care approach. Patient repeatedly stated that she is not interested in having any aggressive testing, investigation, procedure, surgery. Patient is not interested and being transferred to another institution. Patient stated in simple terms but she wants basic comfort care approach. Her wishes are aligned with the DNRCC status. Change CODE STATUS accordingly. Urinary Catheter Management Urinary Catheter Management Pure Wick: Cath placed during this visit: yes Urethral indwelling: No Insertion date: 07/31/25 Insertion time: 13:49
[2025-08-03] MEDS: ALBUMIN HUMAN 25 GM/100 ML PREMIX IV (09:48)
[2025-08-03] MEDS: FUROSEMIDE 40 MG/4 ML VIAL IVP ×2 (09:48→21:20)
[2025-08-03] MEDS: ENOXAPARIN SODIUM 30 MG/0.3 ML SYRINGE SUBQ (11:36)
[2025-08-03] MEDS: ASPIRIN 81 MG TABLET.DR PO (11:36)
[2025-08-03] MEDS: IRON SUCROSE COMPLEX 200 MG in 0.9 % SODIUM CHLORIDE 100 ML 220 MG IV (15:33)
[2025-08-04] VITALS (20 sets, daily range): BP systolic 114–153; BP diastolic 62–73; PULSE 58–94; TEMP 36.4; O2SAT 93–98
[2025-08-04] MEDS: DOXYCYCLINE HYCLATE 100 MG in 0.9 % SODIUM CHLORIDE 100 ML IV (05:58)
[2025-08-04 06:40] LABS: Anion Gap 7.0; Blood Urea Nitrogen 38.0 mg/dL (7.0-18.0); Calcium 8.8 mg/dL (8.5-10.1); Carbon Dioxide 32.8 mmol/L (21.0-32.0); Chloride 104 mmol/L (98-107); Estimated GFR (African America 40 (>=60 mL/min/1.73m^2); Estimated GFR (Non-African Ame 33 (>=60 mL/min/1.73m^2); Glucose 98 mg/dL (74-106); NT Pro B Type Natriuretic Pept 3642.0 pg/mL (<=1800.0); Potassium 3.8 mmol/L (3.5-5.1); Sodium 140 mmol/L (136-145)
--- NOTE | 2025-08-04 08:00 | XR_ITS ---
The [address] [address] Patient Name: CHRISTA PITTS MRN: [id number] date: 1940 Sex: F Assigned Patient Location: [place] Current Patient Location: Accession/Order Number: [id number] Exam Date: 08/04/2025 06:00 Report Date: 08/04/2025 09:56 At the request of: ANNA COSTELLO MD Procedure: XR chest 1V PORTABLE AP ERECT CHEST 0540 hours CLINICAL HISTORY: F/u on CHF, comparison to last COMPARISON: 08/02/2025 There is continued volume loss on the right where pleural-parenchymal change is again seen. The bilateral interstitial changes and left perihilar opacities on the comparison have essentially resolved. There is no developing pneumothorax. Cardiac and mediastinal contours are similar. The bony structures are osteopenic. XR/XR chest 1V IMPRESSION: CARDIOMEGALY. RESOLUTION OF INTERSTITIAL CHANGES AND LEFT PERIHILAR OPACITIES RESIDUAL RIGHT-SIDED VOLUME LOSS WITH PLEURAL PARENCHYMAL CHANGE Impression dictated by: Yoselin Denny M.D. 08/04/2025 9:56 AM Dictation Location: [place] [address] Electronically authenticated by: [id number] Y Date: 08/04/2025 09:56
[2025-08-04] MEDS: SENNOSIDES/DOCUSATE SODIUM 1 TAB TABLET PO (08:56)
[2025-08-04] MEDS: IRON POLYSACCHARIDE COMPLEX 150 MG CAPSULE PO (08:56)
[2025-08-04] MEDS: ASPIRIN 81 MG TABLET.DR PO (08:56)
[2025-08-04] MEDS: PANTOPRAZOLE SODIUM 40 MG TABLET.DR PO (08:56)
--- NOTE | 2025-08-04 09:10 | PM.IMPN1 ---
Progress Note: A&P Assessment and Plan (1) Acute hypoxic respiratory failure: Internal Medicine - PN: Subj Subjective Interval history: Patient is feeling better. No new symptoms. No chest or abdominal pain. No nausea or vomiting. Oxygen requirement has been diminished down to 1 L. Patient is feeling better. No chest pain. No abdominal pain. Exam Constitutional Vital Signs, click to edit/add: Last Vital Signs Temp 97.6 F 08/04/25 07:23 Pulse 66 08/04/25 08:00 Resp 18 08/04/25 07:23 BP 114/64 08/04/25 07:23 Pulse Ox 95 08/04/25 07:23 O2 Del Method Room Air 08/04/25 07:23 O2 Flow Rate 1 08/03/25 07:16 FiO2 4 07/31/25 04:32 Internal Medicine - PN: Obj Da Labs Labs: Laboratory Results - last 24 hr 08/04/25 05:21 Sodium 140 Potassium 3.8 Chloride 104 Carbon Dioxide 32.8 H Anion Gap 7.0 BUN 38.0 H Creatinine 1.50 H Est GFR ( Amer) 40 L Est GFR (Non-Af Amer) 33 L BUN/Creatinine Ratio 25.3 Glucose 98 Calcium 8.8 NT-Pro-B Natriuret Pep 3642.0 H* Urinary Catheter Management Urinary Catheter Management Pure Wick: Cath placed during this visit: yes, but has since been removed by the nurse Urethral indwelling: No Insertion date: 07/31/25 Insertion time: 13:49 Removal date: 08/02/25 Removal time: 08:00
--- NOTE | 2025-08-04 10:10 | CM.NOTE ---
Rounds made with Dr. Thomas, discussed discharge today. Dr. Thomas discussed skilled therapy at discharge for safety, pt continues to refuse skilled therapy or services. Pt's plan is to discharge and stay with her sister.
--- NOTE | 2025-08-04 11:00 | CM.NOTE ---
2nd Important Message From Medicare discussed with pt, pt denies questions or concerns.
--- NOTE | 2025-08-04 11:42 | PM.DS1 ---
DS: Providers Provider Date of admission: 07/30/25 19:28 Primary care physician: Bryant Dallas DO Admitting clinician: Jonathan Mac Attending physician on admission: Jonathan Mac Consults: 08/01/25 Occupational Therapy Eval and Treat Routine Reason for consultation: weakness Physical Therapy Eval and Treat Routine Reason for consultation: weakness Attending physician on discharge: LANA BETH Discharging clinician: LANA BETH DS: Diagnosis Discharge Diagnosis (1) Acute hypoxic respiratory failure: DS: Summary Hospital Course Hospital Course: Guillermina Das is an 85-year-old female who came to the emergency room complaining of progressive shortness of breath and chest tightness, admitted for acute hypoxic respiratory failure and started on antibiotic therapy as well as diuresis for acute diastolic heart failure exacerbation. She had a slight troponin elevation but was suspected 2/2 demand ischemia, no concern for ACS. She was started on coreg and isosorbide, coreg and amlodipine were discontinued due to hypotension. PT/OT initially recommended placement to group home but the patient refused and was discharged home with family on 08/04/25, no need for supplemental O2. Time Spent with Patient Time attestation: Total time spent providing and/or coordinating discharge services: Exam Narrative Exam Narrative: General: cooperative and tired appearing, frail Orientation: alert, awake and oriented x3 Head: normal to inspection Neck: normal visual inspection Cardio: no JVD, regular rate, regular rhythm Chest palpation & inspection: normal inspection of the chest Resp Effort & Inspection: normal respiratory effort Abd: soft, non-tender, non-distended Extremities: Warm well perfused, no edema Constitutional Vital Signs, click to edit/add: Last Vital Signs Temp 97.6 F 08/04/25 07:23 Pulse 63 08/04/25 10:00 Resp 18 08/04/25 07:23 BP 114/64 08/04/25 07:23 Pulse Ox 95 08/04/25 09:26 O2 Del Method Room Air 08/04/25 09:26 O2 Flow Rate 1 08/03/25 07:16 FiO2 4 07/31/25 04:32 DS: Data Data Completed and Pending Labs on day of discharge: Labs from last 24 hours 08/04/25 05:21 Sodium 140 Potassium 3.8 Chloride 104 Carbon Dioxide 32.8 H Anion Gap 7.0 BUN 38.0 H Creatinine 1.50 H Est GFR ( Amer) 40 L Est GFR (Non-Af Amer) 33 L BUN/Creatinine Ratio 25.3 Glucose 98 Calcium 8.8 NT-Pro-B Natriuret Pep 3642.0 H* Preliminary micro results at discharge 07/31/25 15:24 Blood Culture Result 1 - Preliminary Blood - Left Antecubital NO GROWTH AT 3 DAYS. 07/31/25 15:38 Blood Culture Result 2 - Preliminary Blood - Right Hand NO GROWTH AT 3 DAYS. Discharge Plan Discharge Disposition: Home, Self-Care Condition: Fair Discharge Medications: New aspirin 81 mg Tablet,Delayed Release (Dr/Ec) 81 mg PO QD 90 Days Qty: 90 0RF Ferrex 150 Forte 150-25-1 mg-mcg-mg Capsule 1 cap PO QD 90 Days Qty: 90 0RF sennosides-docusate sodium 8.6-50 mg Tablet 1 tab PO BID PRN (Reason: Constipation) 30 Days Qty: 60 0RF Continued folic acid 1 mg tablet 1 mg PO DAILY omeprazole 40 mg capsule,delayed release(DR/EC) 40 mg PO DAILY Rx Instructions: before breakfast furosemide [Lasix] 20 mg tablet 20 mg PO .every 48 hrs Discontinued carvedilol 12.5 mg tablet 12.5 mg PO BID amlodipine 10 mg tablet 10 mg PO DAILY Activity: resume usual activities as tolerated Diet: advance to your usual diet Print Language: Yakut Patient Instructions: Pulmonary Edema (DC) Forms: Portal Instructions Referrals: Bernice Gutierres MD [Physician] Referral Note: You will need to have a repeat EGD (stomach scope ) due to previous Saavedra's to make sure that this does not go into esophageal cancer Follow Up Appointments: Follow up appt. with Dr. Dallas on Mon. 08/08 @ 11am [phone] Someone from [facility] will call the patient and the patient's sister to schedule an appt. (regarding confusion and short term memory loss) [phone] Discharge Date/Time: 08/04/25 13:12
--- NOTE | 2025-08-04 11:43 | SWNOTE1 ---
Nurse in room at this time. SW to check back with pt to see if she is open to home health services as she did well with OT today and walked up and down the hallway.
--- NOTE | 2025-08-04 11:58 | SWNOTE1 ---
SW stopped back in to see pt, pt's brother was in room as well. ERWIN did offer pt home health services again. Pt voiced again that she had those services for her and she does not want anyone coming in to the home. SW did let her know that SW does think that was hospice services. ERWIN explained that it would likely only be a visit of 2 from therapy and a nurse to make sure the transition home is alright. She voiced she does not need any of those services. ERWIN did advise pt that if she gets home and decides she wants it, her PCP can set it up from the office. She voiced understanding. ERWIN asked if pt would be going to her own home or to her sisters? Pt voiced she is going to her sisters Annalise's house. She stated her sister has a ramp, can cook, and her bathroom is on the first floor. At this time, pt has no other concerns.
--- NOTE | 2025-08-05 13:58 | CM.DCFOLLOWU ---
1st attempt, no answer, 08/05
--- NOTE | 2025-08-06 11:30 | CM.DCFOLLOWU ---
2nd attempt, no answer, 08/06
--- NOTE | 2025-08-08 12:04 | CM.NOTE ---
I placed a call to Dr. Gutierres's office [phone] to see if we could schedule an appt. had recommended a repeat EGD due to Saavedra's.
--- NOTE | 2025-08-08 13:39 | CM.NOTE ---
Dr. Gutierres's office called back and said they will call and schedule an appt with the patient.
--- NOTE | 2025-08-08 14:12 | CM.DCFOLLOWU ---
3rd attempt, no answer, 08/08
== END 2025-08-04 13:12 | disposition home or self-care (01) | DRG 291 ==
LOC: ER 18:22 → MS 19:33
PROVIDERS: Admitting Provider Internal Medicine; Emergency Provider Student in an Organized Health Care Education/Training Program; PCP Internal Medicine; Visit Provider Internal Medicine
DX: I13.0 Hypertensive heart and chronic kidney disease with heart failure and stage 1 through stage 4 chronic kidney disease, or unspecified chronic kidney disease (principal); I50.31 Acute diastolic (congestive) heart failure; J96.01 Acute respiratory failure with hypoxia; J18.9 Pneumonia, unspecified organism; N17.9 Acute kidney failure, unspecified; E44.0 Moderate protein-calorie malnutrition; R64 Cachexia; I24.89 Other forms of acute ischemic heart disease; R62.7 Adult failure to thrive; R00.1 Bradycardia, unspecified; R79.89 Other specified abnormal findings of blood chemistry; N18.30 Chronic kidney disease, stage 3 unspecified; I08.0 Rheumatic disorders of both mitral and aortic valves; D64.9 Anemia, unspecified; I95.9 Hypotension, unspecified; G31.1 Senile degeneration of brain, not elsewhere classified; F01.50 Vascular dementia, unspecified severity, without behavioral disturbance, psychotic disturbance, mood disturbance, and anxiety; Z68.26 Body mass index [BMI] 26.0-26.9, adult; Z79.899 Other long term (current) drug therapy
CPT/HCPCS: 36415; 36430; 36600; 71045; 76775; 80048; 80053; 80061; 81001; 82607; 82728; 82746; 82800; 82805; 83540; 83550; 83605; 83880; 84300; 84443; 84484; 85007; 85014; 85018; 85027; 86140; 86850; 86900; 86901; 86923; 87040; 87086; 87420; 87804; 87811; 93005; 93306; 94660; 94761; 96365; 96375; 97161; 97165; 97530; 97535; 99285; G0328; J0696; J0885; J1650; J1756; J1938; P9016; P9046